=== PATIENT | female | born 1950 | race Caucasian/White ===

== ENCOUNTER 2020-03-06 13:48 | Outpatient (REF) | payer MEDICARE, SELFPAY ==
--- NOTE | 2020-03-06 13:55 | MM_ITS ---
EXAMINATION: MM SCREENING DIGITAL BREAST TOMOSYNTHESIS, BILATERAL CLINICAL INFORMATION: Screening. Asymptomatic. The lifetime risk of breast cancer based on the Tyrer-Cuzick Model is 5%. COMPARISON: Mammography: 03/01/2019, 01/23/2018, 12/27/2016 TECHNIQUE: Digital breast tomosynthesis is performed in both the craniocaudal and mediolateral oblique views along with computer-aided detection (CAD). Synthesized 2D images are generated from the tomosynthesis. FINDINGS: There are scattered areas of fibroglandular density (ACR BI-RADS breast composition Category b). There are no significant masses, abnormal calcifications, or other abnormalities. Parenchymal pattern is similar to prior studies. There is no developing density or interval mass or architectural abnormality. There are dermal lesions again seen overlying the posterior medial right breast and posterior medial left breast. IMPRESSION: No significant changes from prior studies. ASSESSMENT: BI-RADS 2: Benign RECOMMENDATION: Routine annual mammography screening. This patient's information was entered into a reminder system with a target due date for their next mammogram.
--- NOTE | 2020-03-06 13:57 | MM_ITS ---
EXAMINATION: BONE DENSITOMETRY CLINICAL INDICATION: Disorder of bone. COMPARISON: Previous BD dated 09/23/2016 and baseline BD dated 06/22/2011. TECHNIQUE: Using a Mobibeam DXA System (software version: 13.1) manufactured by [employer], dual-energy x-ray absorptiometry was performed of the lumbar spine and left hip. The images are of good technical quality. Summary results are attached. FINDINGS: AP SPINE L1-L4: Current: BMD 1.038 g/cm2, Z-score 0.4, T-score -1.2, osteopenia, 0.8% decrease from previous, 4.1% decrease from baseline (<5% change is not significant). Prior: BMD 1.046 g/cm2. Baseline: BMD 1.082 g/cm2. LEFT FEMUR, NECK: Current: BMD 0.857 g/cm2, Z-score 0.3, T-score -1.3, osteopenia. Prior: BMD 0.846 g/cm2. Baseline: BMD 0.841 g/cm2. LEFT FEMUR, TOTAL: Current: BMD 0.953 g/cm2, Z-score 0.9, T-score -0.4, normal, 3.0% increase from previous, 3.0% increase from baseline (<5% change is not significant). Prior: BMD 0.925 g/cm2. Baseline: BMD 0.925 g/cm2. IDENTIFIED RISK FACTORS: Menopause. HISTORY OF FRACTURE: None listed. MEDICATIONS: Calcium supplements or multivitamin, vitamin D. IMPRESSION: 1. DIAGNOSIS: Osteopenia based the lowest T-score value of -1.3 in the femoral neck applying World Health Organization criteria. 2. 10-YEAR FRACTURE RISK PREDICTION, FRAX: Major osteoporotic fracture (clinical spine, forearm, hip or shoulder) 9.3%. Hip fracture 1.2%. 3. Treatment Recommendations: NOF guidelines recommend consideration for treatment in postmenopausal women and men age 50 and older presenting with the following: -A hip or vertebral (clinical or morphometric) fracture. -T-score less than or equal to -2.5 at the femoral neck or spine after appropriate evaluation to exclude secondary causes. -Low bone mass at the hip or spine and a 10-year fracture probability by FRAX of greater than or equal to 3% for hip fracture or greater than or equal to 20% for major osteoporotic fracture based on the [place] adapted WHO algorithm. 4. Other Recommendations: All treatment decisions require clinical judgment and consideration of individual patient factors, including patient preferences, comorbidities, previous drug use, risk factors not captured in the FRAX model (e.g. frailty, falls, vitamin D deficiency, increased bone turnover, interval significant decline in bone density) and possible under or overestimation of fracture risk by FRAX. Additional medical evaluation for secondary cause of low bone mineral density may be appropriate. FUTURE SCAN RECOMMENDATION: People with diagnosed cases of osteoporosis or at high risk for fracture should have regular bone mineral density tests. For patients eligible for Medicare, routine testing is allowed once every 2 years. The testing frequency can be increased to one year for patients who have rapidly progressing disease, those who are receiving or discontinuing medical therapy to restore bone mass, or have additional risk factors.
== END 2020-03-06 13:49 | disposition home or self-care (01) ==
LOC: HO.MAMMO 13:48
PROVIDERS: Visit Provider Internal Medicine
DX: Z12.31 Encounter for screening mammogram for malignant neoplasm of breast (principal); Z13.820 Encounter for screening for osteoporosis; M89.9 Disorder of bone, unspecified; Z78.0 Asymptomatic menopausal state
CPT/HCPCS: 77063; 77067; 77080; 78014

== ENCOUNTER 2021-01-15 07:23 | Outpatient (REF) | payer MEDICARE, SELFPAY ==
--- NOTE | ~2021-01-15 | XR_ITS ---
EXAMINATION: XR CERVICAL SPINE CLINICAL INFORMATION: Cervicalgia COMPARISON: None TECHNIQUE: 3 views of the cervical spine were obtained. FINDINGS: There are no prevertebral soft tissue or bony abnormalities demonstrated. No compression fractures or subluxations are identified. Alignment is maintained at the atlanto-axial articulation. Mild loss of intervertebral disc space with endplate degenerative changes, particularly at C5-C6 and C7-T1. The prevertebral soft tissues are normal. The foramina are patent. 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
[2021-01-15 11:18] LABS: MANUAL DIFF FLAG NO
[2021-01-15 11:27] LABS: Basophils Absolute Auto 0.1 X10*3/uL (0.0-0.2); Basophils Percent Auto 0.7 % (0-2); Eosinophils Absolute Auto 0.5 X10*3/uL (0.0-0.4); Eosinophils Percent Auto 6.6 % (0-4); Hematocrit 44.2 % (37-47); Hemoglobin 14.6 g/dl (12.0-16.0); Imm Gran Abs Auto 0.01 X10*3/uL (0.00-0.03); Imm Gran Pct Auto 0.1 % (0.0-0.4); Lymphocytes Absolute Auto 3.4 X10*3/uL (1.2-4.9); Lymphocytes Percent Auto 47.1 % (20-40); Mean Corpuscular Hemoglobin 30.5 pg (27.0-33.0); Mean Corpuscular Volume 92.5 fL (80-98); Mean Platelet Volume 9.9 fL (9.4-12.3); Monocytes Absolute Auto 0.7 X10*3/uL (0.1-1.2); Monocytes Percent Auto 9.7 % (2-11); Neutrophils Absolute Auto 2.6 X10*3/uL (2.0-8.3); Neutrophils Percent Auto 35.8 % (45-73); Platelet Count 307 X10*3/uL (160-400); Red Blood Count 4.78 X10*6/uL (4.20-5.50); Red Cell Distribution Width 12.7 % (11.0-16.0); White Blood Count 7.1 X10*3/uL (4.8-10.8)
[2021-01-15 11:54] LABS: Alanine Aminotransferase 24 U/L (0-31); Albumin Level 4.4 g/dL (3.5-5.0); Alkaline Phosphatase 52 U/L (39-117); Anion Gap 16 (12-20); Aspartate Amino Transferase 20 U/L (5-31); Bilirubin Total 0.7 mg/dL (0.0-1.0); Blood Urea Nitrogen 12 mg/dL (9-16); Calcium 9.6 mg/dL (8.4-10.2); Carbon Dioxide 25 mmol/L (22-29); Chloride 105 mmol/L (96-108); Cholesterol 176 mg/dL; Estimated Glomerular Filt Rate > 60; Glucose Random 94 mg/dL (60-115); HDL Cholesterol 45 mg/dL; LDL Cholesterol Calculated 96 mg/dl; Potassium 4.6 mmol/L (3.3-5.1); Sodium 141 mmol/L (135-145); Total Protein 6.9 g/dL (6.5-8.0); Triglycerides 176 mg/dL; Uric Acid 5.6 mg/dL (2.4-5.7)
[2021-01-15 12:06] LABS: Free T4 (Free Thyroxine) 0.84 ng/dL (0.71-1.85); Vitamin D 25-OH Total 44.2 ng/mL (>30)
[2021-01-15 12:15] LABS: Folate > 20.0 ng/mL (> or = 4.0); Vitamin B12 361 pg/mL (200-900)
== END 2021-01-15 07:24 | disposition home or self-care (01) ==
LOC: HO.HMGCX 07:23
PROVIDERS: PCP Internal Medicine; Visit Provider Internal Medicine
DX: E78.00 Pure hypercholesterolemia, unspecified (principal); K21.9 Gastro-esophageal reflux disease without esophagitis; M54.2 Cervicalgia
CPT/HCPCS: 36415; 72040; 80053; 80061; 82306; 82607; 82746; 84439; 84443; 84550; 85025

== ENCOUNTER 2021-01-19 15:33 | Outpatient (REF) | payer MEDICARE, SELFPAY ==
--- NOTE | ~2021-01-19 | US_ITS ---
EXAMINATION: US THYROID CLINICAL INFORMATION: Nontoxic single thyroid nodule. COMPARISON: Ultrasound soft tissue head/neck thyroid dated 10/10/2017 and 10/05/2016. TECHNIQUE: Linear transducer grayscale and color Doppler examination with attention to the region of the thyroid. FINDINGS: SIZE: Measurements of the thyroid lobes and nodules are given in sagittal, anteroposterior and transverse dimensions respectively. Right Thyroid Lobe: 3.9 x 1.2 x 1.3 cm, volume 3.2 mL. Previously 3.9 x 0.9 x 1.2 cm, volume 2.0 mL. Parenchyma: The gland echotexture is homogeneous. Thyroid vascularity is normal. Left Thyroid Lobe: 4.2 x 1.0 x 1.4 cm, volume 3.1 mL. Previously 3.9 x 1.0 x 1.3 cm, volume 2.7 mL. Parenchyma: The gland echotexture is homogeneous. Thyroid vascularity is normal. Isthmus: 0.2 cm in maximum AP dimension. Previously 0.2 cm. No focal thyroid nodule is seen. NODES: Inferior to the right thyroid lobe, a 5 x 4 x 4 mm hyperechoic, circumscribed mass is seen, possibly a lymph node or parathyroid gland. On the ultrasound examination dated 10/10/2017, this measured 4 x 4 by 4 mm. Inferior to the left thyroid lobe, a 7 x 2 x 5 mm hypoechoic, circumscribed mass is seen, possibly a lymph node or parathyroid gland. On the ultrasound examination dated 10/10/2018, this measured 4 x 3 x 4 mm. US/US thyroid IMPRESSION: 1. No thyroid proper nodule is seen. 2. Hyperechoic, circumscribed nodules are again seen inferior to the bilateral thyroid lobes, relatively stable on the right and slightly increased on the left. Again, the possibility of parathyroid glands is raised. If clinically indicated, consider further evaluation with serum calcium and parathormone levels. 3. No goiter or alteration of thyroid echotexture or vascularity is seen. ACR TI-RADS RECOMMENDATION REFERENCE: Ultrasound-guided fine-needle aspiration, followup ultrasound, no further follow up. * TR1 (0 point) and TR 2 (2 points): No FNA or follow up * TR3 (3 points): FNA if more than or equal to 2.5 cm in maximum dimension, followup ultrasound in 1, 3 and 5 years if 1.5 to 2.4 cm in maximum dimension. * TR4 (4-6 points): FNA if more than or equal to 1.5 cm in maximum dimension, followup ultrasound in 1, 2, 3 and 5 years if 1 to 1.4 cm in maximum dimension. * TR5 (more than or equal to 7 points): FNA if more than or equal to 1 cm in maximum dimension, followup ultrasound every year for 5 years if 0.5 to 0.9 cm in maximum dimension. * TR3, TR4 or TR5 nodules that are below the size threshold for follow up receive no follow up.
== END 2021-01-19 15:34 | disposition home or self-care (01) ==
LOC: HO.HMGCX 15:33
PROVIDERS: PCP Internal Medicine; Visit Provider Internal Medicine
DX: E04.1 Nontoxic single thyroid nodule (principal)
CPT/HCPCS: 76536

== ENCOUNTER 2021-03-19 15:00 | Outpatient (RCR) | payer MEDICARE, SELFPAY ==
--- NOTE | 2021-02-18 17:35 | MHC.PT.EP ---
[facility] [place] Office [place] Office [place] Office [address] Swathi Rankin [address] [phone] F: [phone] F: [phone] F: [phone] F: [phone] Physical Therapy Plan of Care Date of Evaluation: Date of Surgery: n/a Diagnosis: Cervicalgia Assessment: Pt is a 70/yo F referred to PT for eval/treat of cervicalgia. s/s are consistent with neck dysfunction resulting in decreased tolerance to perform activities that require to turn her neck toward L and decreased tolerance to perform her morning activities. Functional limitation mentioned above are secondary to postural impairment (forward head and rounded shoulder), decreased neck muscular strength, pain with ROM at end range (L rotation), and pain. pt is deemed appropriate to receive skilled PT to address her physical impairment and improve her functional limitation Frequency and Duration: The patient will be seen 2x/wk for 5 wk Short Term Goals: initiate HEP I w/ evidence of compliance pt will report pain less than 1/10 at rest; initial 2/10. Fpc Goals: pt will report i have no pain at the moment ; initial the pain is moderate at the moment (NDI) pt will report no longer painful with L cervical rotation to end range. Pt will be I with home program. Improve DNF endurance from 10 seconds to > 24 seconds in order to demonstrate improved cervical stability strengthening. Treatment Plan: Modalities to reduce pain, spasms and effusion. Manual therapy to restore motion and function. Therapeutic exercise to improve strength and flexibility. Neuromuscular re-education for posture and balance. Therapeutic activities to return to functional activities of daily living. Electronically signed by: Pablo Elena PT Please sign and return to therapist. Thank you for your referral.
--- NOTE | 2021-03-19 15:26 | MHC.PT.DC ---
[facility] [place] [facility] [place] [facility] [place] [facility] [address] Swathi Rankin [address] [facility] [phone] F: [phone] F: [phone] F: [phone] F: [phone] Physical Therapy Discharge Report Diagnosis: Cervicalgia Date of Surgery: n/a Date of Evaluation: 02/18/21 Date of Discharge: 03/19/21 Treatments to Date: 6 Cancellations to Date: No Shows to Date: Discharge Status: Achieved Goals Improved Function Independent with HEP Discharge Summary: Sushma has been an active participant in her therapy in and out of the clinic; she has met all of her therapeutic goals, is I with her HEP, and in agreement with DC at this time. Electronically signed by: aPblo Elena PT Please sign and return to therapist. Thank you for your referral.
== END 2021-10-05 11:31 | disposition home or self-care (01) ==
LOC: HO.PTCHIC 15:00
PROVIDERS: PCP Internal Medicine; Visit Provider Internal Medicine
DX: M54.2 Cervicalgia (principal)
CPT/HCPCS: 97110; 97140; 97161

== ENCOUNTER 2021-03-26 14:51 | Outpatient (REF) | payer MEDICARE, SELFPAY ==
--- NOTE | ~2021-03-26 | MM_ITS ---
EXAMINATION: MM SCREENING DIGITAL BREAST TOMOSYNTHESIS, BILATERAL CLINICAL INFORMATION: Screening. Asymptomatic. The lifetime risk of breast cancer based on the Tyrer-Cuzick Model is 4.8%. COMPARISON: Mammography: March 06, 2020 and studies dating back to August 28, 2011 TECHNIQUE: Digital breast tomosynthesis is performed in both the craniocaudal and mediolateral oblique views along with computer-aided detection (CAD). Synthesized 2D images are generated from the tomosynthesis. FINDINGS: There are scattered areas of fibroglandular density (ACR BI-RADS breast composition Category b). There are no significant masses, abnormal calcifications, or other abnormalities. MM/MM tomosynthesis screening BI IMPRESSION: There are no significant changes from prior study. ASSESSMENT: BI-RADS 1: Negative RECOMMENDATION: Routine annual mammography screening. This patient's information was entered into a reminder system with a target due date for their next mammogram.
== END 2021-03-26 14:52 | disposition home or self-care (01) ==
LOC: HO.MAMMO 14:51
PROVIDERS: Visit Provider Internal Medicine
DX: Z12.31 Encounter for screening mammogram for malignant neoplasm of breast (principal)
CPT/HCPCS: 77063; 77067

== ENCOUNTER 2022-01-08 06:30 | Outpatient (REF) | payer MEDICARE, SELFPAY ==
[2022-01-08 11:13] LABS: MANUAL DIFF FLAG NO
[2022-01-08 11:19] LABS: Basophils Percent Auto 0.3 % (0-2); Eosinophils Absolute Auto 0.1 X10*3/uL (0.0-0.4); Eosinophils Percent Auto 0.5 % (0-4); Hematocrit 44.6 % (37.0-47.0); Hemoglobin 14.7 g/dl (12.0-16.0); Imm Gran Abs Auto 0.04 X10*3/uL (0.00-0.03); Imm Gran Pct Auto 0.4 % (0.0-0.4); Lymphocytes Absolute Auto 3.5 X10*3/uL (1.2-4.9); Lymphocytes Percent Auto 32.9 % (20-40); Mean Corpuscular Hemoglobin 30.8 pg (27.0-33.0); Mean Corpuscular Volume 93.3 fL (80.0-98.0); Mean Platelet Volume 9.9 fL (9.4-12.3); Monocytes Absolute Auto 0.7 X10*3/uL (0.1-1.2); Monocytes Percent Auto 6.6 % (2-11); Neutrophils Absolute Auto 6.2 x10*3/uL (2.0-8.3); Neutrophils Percent Auto 59.3 % (45-73); Platelet Count 269 X10*3/uL (160-400); Red Blood Count 4.78 X10*6/uL (4.20-5.50); Red Cell Distribution Width 13.5 % (11.0-16.0); White Blood Count 10.5 X10*3/uL (4.8-10.8)
[2022-01-08 11:47] LABS: Alanine Aminotransferase 43 U/L (0-31); Albumin Level 4.4 g/dL (3.5-5.0); Alkaline Phosphatase 49 U/L (39-117); Anion Gap 16 (12-20); Aspartate Amino Transferase 23 U/L (5-31); Bilirubin Total 0.8 mg/dL (0.0-1.0); Blood Urea Nitrogen 16 mg/dL (9-16); Calcium 9.1 mg/dL (8.4-10.2); Carbon Dioxide 25 mmol/L (22-29); Chloride 106 mmol/L (96-108); Cholesterol 192 mg/dL; Estimated Glomerular Filt Rate > 60; Glucose Random 105 mg/dL (60-115); HDL Cholesterol 64 mg/dL; LDL Cholesterol Calculated 110 mg/dl; Sodium 142 mmol/L (135-145); Total Protein 6.8 g/dL (6.5-8.0); Triglycerides 91 mg/dL
[2022-01-08 11:53] LABS: Free T4 (Free Thyroxine) 0.83 ng/dL (0.71-1.85); Thyroid Stimulating Hormone 2.33 uIU/mL (0.32-4.0)
[2022-01-08 12:10] LABS: Folate 19.9 ng/mL (> or = 4.0); Vitamin B12 359 pg/mL (200-900)
[2022-01-11 17:06] LABS: Calcium (PTHI) 9.4 mg/dL (8.6-10.4); PTHI 65 pg/mL (16-77)
== END 2022-01-08 06:31 | disposition home or self-care (01) ==
LOC: HO.HMGCLDS 06:30
PROVIDERS: PCP Internal Medicine; Visit Provider Internal Medicine
DX: E04.1 Nontoxic single thyroid nodule (principal); E78.00 Pure hypercholesterolemia, unspecified; M81.0 Age-related osteoporosis without current pathological fracture
CPT/HCPCS: 36415; 80053; 80061; 82306; 82330; 82607; 82746; 83970; 84439; 84443; 85025

== ENCOUNTER 2022-01-27 12:59 | Outpatient (REF) | payer MEDICARE, SELFPAY ==
--- NOTE | ~2022-01-27 | CT_ITS ---
EXAMINATION: CT HEAD WITHOUT CONTRAST CLINICAL INFORMATION: Headache. COMPARISON: 01/15/2008 TECHNIQUE: Contiguous axial imaging was performed from the skull base to vertex without intravenous contrast. This CT examination was performed using dose optimization techniques as appropriate, variously including the following: * Automated exposure control * Adjustment of mA and/or kV according to patient size (this includes techniques or standardized protocols for targeted exams where dose is matched to indication/reason for exam; i.e. extremities or head) Use of iterative reconstruction technique DLP: 621 mGy-cm. FINDINGS: There is no evidence of acute intracranial hemorrhage or territorial infarction. No abnormal mass effect or midline shift is seen. Sampson to white matter differentiation is well preserved. No extra-axial fluid collections are identified. No hydrocephalus. Proportional prominence of the ventricles and sulcal spaces is consistent with mild volume loss. Patchy periventricular and deep white matter hypoattenuation is consistent with mild small vessel ischemic changes. The osseous structures and soft tissues are normal. The mastoid air cells and visualized portions of the paranasal sinuses are well aerated. CT/CT head/brain wo IV con IMPRESSION: No acute intracranial pathology.
== END 2022-01-27 13:00 | disposition home or self-care (01) ==
LOC: HO.CT 12:59
PROVIDERS: PCP Internal Medicine; Visit Provider Internal Medicine
DX: R51.9 Headache, unspecified (principal)
CPT/HCPCS: 70450

== ENCOUNTER 2022-02-19 08:55 | Outpatient (REF) | payer MEDICARE, SELFPAY ==
--- NOTE | ~2022-02-19 | US_ITS ---
EXAMINATION: US ABDOMEN COMPLETE CLINICAL INFORMATION: Elevated LFTs. COMPARISON: MRI abdomen 10/10/2014. TECHNIQUE: Real-time imaging of the abdominal viscera. FINDINGS: PANCREAS: Not well visualized due to bowel gas. ABDOMINAL AORTA: Not not well visualized due to bowel gas. INFERIOR VENA CAVA: Visualized portions are normal. LIVER: The liver is normal in size. The liver contour is normal. Liver echotexture is increased. No focal hepatic lesion. There is mild intrahepatic biliary duct dilatation seen. GALLBLADDER: Surgically absent. COMMON BILE DUCT: Slightly dilated measuring measuring 1.3 cm in diameter proximally and tapering more distally near the head of the pancreas.. RIGHT KIDNEY: 6 mm echogenic lesion in the lower pole suggestive of an angiomyolipoma. No hydronephrosis or renal calculi. The kidney measures 10.0 cm in maximum dimension. LEFT KIDNEY: Normal. No hydronephrosis. No renal calculi or focal parenchymal lesions. The kidney measures 10.0 cm in maximum dimension. SPLEEN: Normal. The spleen measures 6.5 cm in maximum dimension. FREE FLUID: None. US/US abdomen complete IMPRESSION: Slightly echogenic liver. Mild intra and extrahepatic biliary duct dilatation. The common bile duct measures up to 1.3 cm. Appearance is similar to September 2014 MRI. 6 mm echogenic lesion in the lower pole of the right kidney. 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 No corresponding abnormality is appreciated on previous MRI 2014. Follow-up kidney imaging recommended, either MR or CT. Limited visualization of the pancreas and aorta.
== END 2022-02-19 08:56 | disposition home or self-care (01) ==
LOC: HO.HMGCX 08:55
PROVIDERS: PCP Internal Medicine; Visit Provider Internal Medicine
DX: R79.89 Other specified abnormal findings of blood chemistry (principal)
CPT/HCPCS: 76700

== ENCOUNTER 2022-04-01 14:51 | Outpatient (REF) | payer MEDICARE, SELFPAY ==
--- NOTE | ~2022-04-01 | MM_ITS ---
EXAMINATION: MM SCREENING DIGITAL BREAST TOMOSYNTHESIS, BILATERAL CLINICAL INFORMATION: Screening. Asymptomatic. COMPARISON: Mammography: 03/26/2021, 03/06/2020, 03/01/2019 TECHNIQUE: Digital breast tomosynthesis is performed in both the craniocaudal and mediolateral oblique views along with computer-aided detection (CAD). Synthesized 2D images are generated from the tomosynthesis. FINDINGS: There are scattered areas of fibroglandular density (ACR BI-RADS breast composition Category b). There are no significant masses, abnormal calcifications, or other abnormalities. Parenchymal pattern is similar to prior studies. There is no developing density or architectural abnormality. The axilla are unremarkable. There is low left axillary tail node on MLO view similar to 2019. Dermal lesion again seen overlying posterior medial right breast. No significant changes. MM/MM tomosynthesis screening BI IMPRESSION: No mammographic evidence of malignancy. ASSESSMENT: BI-RADS 2: Benign RECOMMENDATION: Routine annual mammography screening. This patient's information was entered into a reminder system with a target due date for their next mammogram.
== END 2022-04-01 14:52 | disposition home or self-care (01) ==
LOC: HO.MAMMO 14:51
PROVIDERS: PCP Internal Medicine; Visit Provider Internal Medicine
DX: Z12.31 Encounter for screening mammogram for malignant neoplasm of breast (principal)
CPT/HCPCS: 77063; 77067

== ENCOUNTER 2022-06-03 14:17 | Outpatient (REF) | payer SELFPAY | END 2022-06-03 14:18 | disposition home or self-care (01) | LOC: HO.LNP 14:17 | PROVIDERS: Visit Provider Nurse Practitioner Family | DX: Z13.89 Encounter for screening for other disorder (principal) ==

== ENCOUNTER 2022-06-03 14:28 | Outpatient (REF) | payer MEDICARE, SELFPAY ==
[2022-06-03 15:28] LABS: Influenza A PCR NEGATIVE (Negative); Influenza B PCR NEGATIVE (Negative); Resp Syncy Virus RNA Qual PCR NEGATIVE (Negative); SARS COV2 PCR INHOUSE NEGATIVE (Negative)
== END 2022-06-03 14:29 | disposition home or self-care (01) ==
LOC: HO.LNP 14:28
PROVIDERS: Visit Provider Nurse Practitioner Family
DX: Z20.822 Contact with and (suspected) exposure to COVID-19 (principal); R09.89 Other specified symptoms and signs involving the circulatory and respiratory systems
CPT/HCPCS: 0241U

== ENCOUNTER 2022-06-24 08:48 | Outpatient (REF) | payer MEDICARE, SELFPAY ==
--- NOTE | ~2022-06-24 | MR_ITS ---
EXAMINATION: MR ABDOMEN WITHOUT AND WITH CONTRAST CLINICAL INFORMATION: Disorders of the kidney and ureter COMPARISON: Abdominal ultrasound 02/19/2022, MR abdomen 10/10/2014 TECHNIQUE: MRI of the abdomen before and after the IV administration of 7.5 mL of Gadavist was obtained using routine sequences. FINDINGS: LUNG BASES: Trace bilateral pleural effusions. KIDNEYS AND URETERS: Tiny subcentimeter T2 hyperintense right lower pole renal lesion, too small to definitively characterize however likely tiny Bosniak 1 renal cyst. No suspicious solid or enhancing renal mass or other worrisome correlate to the sonographic finding. GALLBLADDER: Status post cholecystectomy. LIVER AND BILIARY TREE: The liver is normal in signal and morphology. No suspicious liver lesion. Common bile duct is dilated to 1.6 cm with trace central intrahepatic biliary duct dilatation status post cholecystectomy, similar to 2015. No intraluminal filling defect suggest choledocholithiasis, although no MRCP sequences were obtained. PANCREAS: Unremarkable SPLEEN: Unremarkable ADRENAL GLANDS: Unremarkable GASTROINTESTINAL TRACT: Small hiatal hernia. Colonic diverticulosis without evidence of diverticulitis. LYMPH NODES: No lymphadenopathy. VASCULAR: Unremarkable ABDOMINAL WALL: Unremarkable. OSSEOUS STRUCTURES: Incidentally noted sacral Tarlov cyst. MR/MR abdomen wo/w con IMPRESSION: Tiny subcentimeter T2 hyperintense right lower pole renal lesion, too small to definitively characterize however likely tiny Bosniak 1 renal cyst. No suspicious solid or enhancing renal mass or other worrisome correlate to the sonographic finding. Trace bilateral pleural effusions. Mild intra and extrahepatic biliary duct dilatation possibly related to the postcholecystectomy state, similar to 2015.
== END 2022-06-24 08:49 | disposition home or self-care (01) ==
LOC: HO.MRI 08:48
PROVIDERS: PCP Internal Medicine; Visit Provider Internal Medicine
DX: N28.89 Other specified disorders of kidney and ureter (principal)
CPT/HCPCS: 74183; A9585

== ENCOUNTER → 2022-07-09 09:52 | Outpatient (REF) | payer MEDICARE, SELFPAY ==
--- NOTE | 2022-07-09 13:11 | ECG_ITS ---
Test Reason : ARRHYTHMIA Blood Pressure : / mmHG Vent. Rate : 072 BPM Atrial Rate : 072 BPM P-R Int : 174 ms QRS Dur : 086 ms QT Int : 378 ms P-R-T Axes : 013 046 058 degrees QTc Int : 413 ms Normal sinus rhythm Normal ECG When compared with ECG of 15-JAN-2008 11:36, No significant change was found Referred By: Cande Finnegan Electronically Signed By:JONO WESLEY MD
== END ==
LOC: HO.CARD 09:52
PROVIDERS: PCP Internal Medicine; Visit Provider Nurse Practitioner Family
DX: R51.9 Headache, unspecified (principal); I49.9 Cardiac arrhythmia, unspecified; I10 Essential (primary) hypertension; M54.2 Cervicalgia; R03.0 Elevated blood-pressure reading, without diagnosis of hypertension; Z79.899 Other long term (current) drug therapy
CPT/HCPCS: 93005; 99202

== ENCOUNTER 2022-07-15 13:06 | Outpatient (REF) | payer MEDICARE, SELFPAY ==
--- NOTE | ~2022-07-15 | XR_ITS ---
EXAMINATION: XR CERVICAL SPINE CLINICAL INFORMATION: Neck pain. COMPARISON: 01/15/2021. TECHNIQUE: 6 views of the cervical spine, inclusive of flexion and extension views, were obtained. FINDINGS: There is approximately 2 mm posterior subluxation of C5 on C6, stable in flexion, neutral, and extension, not significantly changed compared with 01/15/2021. Mild disc space narrowing is seen at this level. Mild bilateral neuroforaminal narrowing appears present at this level as well. The study is otherwise essentially unremarkable. The vertebral alignment otherwise appears unremarkable. No intrinsic bony abnormality. The disc heights and neural foramina otherwise appear well maintained. The endplates and posterior elements appear unremarkable. No fracture appreciated. The surrounding prevertebral soft tissues appear unremarkable. XR/XR cervical spine w flex/ext IMPRESSION: Degenerative change at C5-C6.
== END 2022-07-15 13:07 | disposition home or self-care (01) ==
LOC: HO.HMGCX 13:06
PROVIDERS: PCP Internal Medicine; Visit Provider Nurse Practitioner Family
DX: M54.2 Cervicalgia (principal); R51.9 Headache, unspecified
CPT/HCPCS: 72052

== ENCOUNTER 2022-07-20 06:24 | Emergency (ER) | payer MEDICARE, SELFPAY ==
[2022-07-20 06:31] VITALS: BP 200/89; PULSE 80; RESP 18; TEMP 37; O2SAT 94; BMI 25.0
--- NOTE | 2022-07-20 06:35 | PC.NURSE ---
elevated bp, left ankle swelling receintly, headache
--- NOTE | 2022-07-20 06:38 | ED.CHESTPAIN ---
HPI - Chest Pain General Chief Complaint: Chest Pain Stated Complaint: Palpitations Time Seen by Provider: 07/20/22 06:38 Source: patient Mode of arrival: ambulatory Limitations: no limitations History of Present Illness HPI narrative: headaches for weeks, now with heart fluttering on and off. The patient is complaining mostly of headaches. Patient states the headaches have been going on for months. Patient denies and visual changes and no fever. Patient had a CT for her headaches. MD complaint: other (Palpitations lasting for minutes.) Onset (ago): month(s) Timing of current episode: episodic Prior episodes: Yes Risk Factors Coronary artery disease risk factors: none Related Data Home Medications Medication Instructions Recorded Confirmed ascorbate calcium (vitamin C) 500 600 mg PO DAILY 05/08/20 07/09/22 mg tablet aspirin 81 mg tablet,delayed 81 mg PO DAILY 05/08/20 07/09/22 release cod liver oil 1 cap PO TID 05/08/20 07/09/22 multivitamin with iron (Daily 1 tab PO DAILY 05/08/20 07/09/22 Vitamin with Iron tablet) cetirizine 10 mg tablet 10 mg PO DAILY PRN 01/15/22 07/09/22 ferrous sulfate 325 mg (65 mg 325 mg PO DAILY 07/09/22 07/09/22 iron) tablet (Melvi-Time) Previous Rx's Medication Instructions Recorded fluticasone propionate 50 1 spray intranasal DAILY #3 ea 11/02/21 mcg/actuation nasal spray,suspension simvastatin 20 mg tablet 20 mg PO BEDTIME 90 days #90 tabs 01/18/22 furosemide 20 mg tablet 20 mg PO Q OTHER DAY #3 tabs 03/20/22 gabapentin 100 mg capsule 100 - 300 mg PO BEDTIME 30 days 07/09/22 #90 caps atenolol 50 mg tablet 50 mg PO DAILY #30 tabs 07/20/22 Allergies Allergy/AdvReac Type Severity Reaction Status Date / Time atorvastatin [Lipitor] Allergy Unknown cramps Verified 07/09/22 10:02 Review of Systems Review of Systems: Yes all other systems are reviewed and are negative Cardiovascular: Cardiovascular: Reports other (palpitations) Neurologic: Denies Sensory deficit (Neuro) Comments: headache PMFSH Past Medical History Medical History Anemia GERD (gastroesophageal reflux disease) Gout Hypercholesterolemia Numbness in feet Osteoporosis Thyroid nodule Surgical History History of cholecystectomy Family History Family History (Updated 07/09/22 @ 10:08 by MADELAINE Medrano) Father Diabetes Heart attack Mother Heart attack Asthma Emphysema lung Non-Hodgkin lymphoma CHF (congestive heart failure) Brother Cancer Sister Diabetes Ulcerative colitis Social History Social History Housing: House Alcohol intake: never Patient Tobacco Use Status: Never used Tobacco Smoked in Last 30 Days: No e-Cigarette/Vaping Use: Never Used Second Hand Smoke Exposure: No Use of substances other than those prescribed or required for medical reasons: No Advance Directives: No Advance Directives Information Provided: Yes service: No Current occupational status: retired Current occupational exposures/hazards: No Cognitive needs: No Hearing needs: No Vision needs: No Physical Exam Vital Signs: Vital Signs: Last Vital Signs Temp 98.6 F 07/20/22 06:31 Pulse 66 07/20/22 09:21 Resp 18 07/20/22 09:21 BP 146/66 H 07/20/22 09:21 Pulse Ox 97 07/20/22 07:21 O2 Del Method 07/20/22 07:21 BMI result Body Mass Index 25.0 Const: General: healthy appearing Nutritional Appearance: average body habitus Orientation/consciousness: oriented to person and patient oriented x3 Limitations: no limitations HEENT: Head: Yes normal to inspection Ears: external ears normal General nose exam: Normal external nose present Mouth: Normal oral and palatal mucosa present and oropharynx normal Throat: Yes posterior oropharynx normal Eyes: General: appearance normal, both eyes and all related structures Neck: Other: supple Neck: Yes normal visual inspection Chest: Chest palpation & inspection: normal inspection of the chest Resp: Auscultation: clear to auscultation bilaterally Cardio: Jugular venous distension: no JVD Rate: regular rate Rhythm: regular rhythm Heart sounds: S1 normal heart sound present and S2 normal heart sound present GI: Inspection: Yes normal to inspection Palpation (GI): Soft to palpation, nontender and No hepatosplenomegaly present Auscultation: normal bowel sounds : General: Yes no CVA tenderness Back/Spine/Pelvis: Back: no CVA tenderness Skin: General skin exam: no rashes or lesions noted Neuro: General: oriented to person and patient oriented x3 Cranial nerves: Yes CN's II-XII intact bilaterally Motor exam (neuro): 5/5 motor strength present throughout Sensory Exam: No Sensory deficit (Neuro) Extrem: Other: 1+ edema bilaterally Psych: Appearance: grossly normal Course Reevaluation(s) Reevaluation #1: Blood pressure improved, headache improved Time: 11:07 Medications Administered Discontinued Medications Generic Name Dose Route Start Last Admin Trade Name Hilaria PRN Reason Stop Dose Admin Metoprolol Tartrate 50 mg 07/20/22 07:53 07/20/22 08:26 Metoprolol Tartrate 50 Mg Tablet PO 07/20/22 07:54 50 mg ONCE ONE Administration Protocol Medical Decision Making Differential Diagnosis Differential Diagnoses: The differential diagnosis associated with the presentation includes (hypertensive urgency, chf, acute coronary ischemia, renal failure were all considered) Admission/Observation Consideration of admission/observation: Escalation of care including admission/observation considered (In a 72 yo female with BP 200/100 admission was considered) Lab Data MDM Lab Attestation statement: I reviewed the patient's lab results. 07/20/22 07:19 07/20/22 07:54 Labs: Lab Results 07/20/22 07/20/22 07/20/22 Range/Units 07:19 07:19 07:54 WBC 7.7 (4.8-10.8) X10*3/uL RBC 4.84 (4.20-5.50) X10*6/uL Hgb 14.7 (12.0-16.0) g/dl Hct 43.2 (37.0-47.0) % MCV 89.3 (80.0-98.0) fL MCH 30.4 (27.0-33.0) pg MCHC 34.0 (31.0-35.0) g/dl RDW 12.8 (11.0-16.0) % Plt Count 281 (160-400) X10*3/uL MPV 9.3 L (9.4-12.3) fL Immature Gran % (Auto) 0.1 (0.0-0.4) % Neut % (Auto) 51.6 (45-73) % Lymph % (Auto) 34.7 (20-40) % Woods % (Auto) 10.2 (2-11) % Eos % (Auto) 2.8 (0-4) % Baso % (Auto) 0.6 (0-2) % Lymph # (Auto) 2.7 (1.2-4.9) X10*3/uL Woods # (Auto) 0.8 (0.1-1.2) X10*3/uL Eos # (Auto) 0.2 (0.0-0.4) X10*3/uL Baso # (Auto) 0.1 (0.0-0.2) X10*3/uL Abs Immat Gran (auto) 0.01 (0.00-0.03) X10*3/uL Absolute Neuts (auto) 4.0 (2.0-8.3) x10*3/uL Absolute Nucleated RBC 0.000 (0.0-0.012) X10*3/uL Nucleated RBC % (auto) 0.0 (0.0-0.2) /100WBC Sodium 144 (135-145) mmol/L Potassium 4.4 (3.3-5.1) mmol/L Chloride 110 H (96-108) mmol/L Carbon Dioxide 23 (22-29) mmol/L Anion Gap 15 (12-20) BUN 15 (9-16) mg/dL Creatinine 0.68 (0.5-1.4) mg/dL Estim Creat Clear Calc 72.7 Estimated GFR > 60 Random Glucose 106 (60-115) mg/dL Calcium 9.6 (8.4-10.2) mg/dL Total Bilirubin 0.7 (0.0-1.0) mg/dL AST 23 (5-31) U/L ALT 32 H (0-31) U/L Alkaline Phosphatase 51 (39-117) U/L Troponin I High Sens < 3.5 (<3.5-17.0) ng/L Total Protein 6.7 (6.5-8.0) g/dL Albumin 4.3 (3.5-5.0) g/dL Urine Color Urine Appearance Urine pH (5.0-9.0) Ur Specific [place] (1.005-1.025) Urine Protein (Neg-Trace) mg/dL Urine Glucose (UA) (Negative) mg/dL Urine Ketones (Negative) mg/dL Urine Blood (Negative) Urine Nitrite (Negative) Ur Leukocyte Esterase (Negative) Urine RBC (0-2) /HPF Urine WBC (0-5) /HPF Ur Squamous Epith Cells (0-2) /HPF Urine Bacteria (None Seen) Hyaline Casts (0-2) /LPF 07/20/22 Range/Units 07:54 WBC (4.8-10.8) X10*3/uL RBC (4.20-5.50) X10*6/uL Hgb (12.0-16.0) g/dl Hct (37.0-47.0) % MCV (80.0-98.0) fL MCH (27.0-33.0) pg MCHC (31.0-35.0) g/dl RDW (11.0-16.0) % Plt Count (160-400) X10*3/uL MPV (9.4-12.3) fL Immature Gran % (Auto) (0.0-0.4) % Neut % (Auto) (45-73) % Lymph % (Auto) (20-40) % Woods % (Auto) (2-11) % Eos % (Auto) (0-4) % Baso % (Auto) (0-2) % Lymph # (Auto) (1.2-4.9) X10*3/uL Woods # (Auto) (0.1-1.2) X10*3/uL Eos # (Auto) (0.0-0.4) X10*3/uL Baso # (Auto) (0.0-0.2) X10*3/uL Abs Immat Gran (auto) (0.00-0.03) X10*3/uL Absolute Neuts (auto) (2.0-8.3) x10*3/uL Absolute Nucleated RBC (0.0-0.012) X10*3/uL Nucleated RBC % (auto) (0.0-0.2) /100WBC Sodium (135-145) mmol/L Potassium (3.3-5.1) mmol/L Chloride (96-108) mmol/L Carbon Dioxide (22-29) mmol/L Anion Gap (12-20) BUN (9-16) mg/dL Creatinine (0.5-1.4) mg/dL Estim Creat Clear Calc Estimated GFR Random Glucose (60-115) mg/dL Calcium (8.4-10.2) mg/dL Total Bilirubin (0.0-1.0) mg/dL AST (5-31) U/L ALT (0-31) U/L Alkaline Phosphatase (39-117) U/L Troponin I High Sens (<3.5-17.0) ng/L Total Protein (6.5-8.0) g/dL Albumin (3.5-5.0) g/dL Urine Color Yellow Urine Appearance Clear Urine pH 7.5 (5.0-9.0) Ur Specific [place] 1.015 (1.005-1.025) Urine Protein Negative (Neg-Trace) mg/dL Urine Glucose (UA) Negative (Negative) mg/dL Urine Ketones Negative (Negative) mg/dL Urine Blood Negative (Negative) Urine Nitrite Negative (Negative) Ur Leukocyte Esterase Trace H (Negative) Urine RBC 0-2 (0-2) /HPF Urine WBC 0-5 (0-5) /HPF Ur Squamous Epith Cells 0-2 (0-2) /HPF Urine Bacteria None Seen (None Seen) Hyaline Casts 0-2 (0-2) /LPF Independent Interpretation I performed an independent interpretation of an: EKG (normal sinus 80, no st or twave changes) Tests considered The following testing was considered but not selected: Ct of head was considered but patient non focal and went away with control of BP Chronic Conditions Patient?s care impacted by: Hypertension Discharge Plan Discharge Clinical Impression: Hypertension Patient Disposition: Home, Self-Care Instructions: Hypertension (ED) Prescriptions: New atenolol 50 mg tablet 50 mg PO DAILY Qty: 30 0RF No Action fluticasone propionate 50 mcg/actuation spray,suspension 1 spray intranasal DAILY Qty: 3 3RF simvastatin 20 mg tablet 20 mg PO BEDTIME 90 Days Qty: 90 3RF aspirin 81 mg tablet,delayed release (DR/EC) 81 mg PO DAILY multivitamin with iron [Daily Vitamin with Iron] Tablet 1 tab PO DAILY ascorbate calcium (vitamin C) 500 mg tablet 600 mg PO DAILY cod liver oil Capsule 1 cap PO TID cetirizine 10 mg tablet 10 mg PO DAILY PRN furosemide 20 mg tablet 20 mg PO Q OTHER DAY Qty: 3 0RF Rx Instructions: 1 tablet every other day prn for lower leg swelling ferrous sulfate [Melvi-Time] 325 mg (65 mg iron) tablet 325 mg PO DAILY gabapentin 100 mg capsule 100 - 300 mg PO BEDTIME 30 Days Qty: 90 3RF Referrals: Barrington,Robby Lane MD [Primary Care Provider] - 5 days
[2022-07-20 07:21] VITALS: BP 154/82; PULSE 71; RESP 18; O2SAT 97
[2022-07-20 07:24] LABS: MANUAL DIFF FLAG NO
--- NOTE | 2022-07-20 07:25 | PC.NURSE ---
Addendum entered by Bridgette Guan 07/20/22 09:17: correction 154/82 Original Note: pt alert and oriented, skin pwd, respirations even and unlabored. pt reports having a headache for a couple of weeks, with nausea and feels like her heart is racing, no noise or light sensitivity no vision disturbances, all neuro intact at this time.. pt also reports that she has bad a few elevated bp in the 170's while at the doctors office but not on any hypertensive medications. ns on the monitor at 60's, bp improved since the arrival at 154/89.
[2022-07-20 07:26] LABS: Basophils Absolute Auto 0.1 X10*3/uL (0.0-0.2); Basophils Percent Auto 0.6 % (0-2); Eosinophils Absolute Auto 0.2 X10*3/uL (0.0-0.4); Eosinophils Percent Auto 2.8 % (0-4); Hematocrit 43.2 % (37.0-47.0); Hemoglobin 14.7 g/dl (12.0-16.0); Imm Gran Abs Auto 0.01 X10*3/uL (0.00-0.03); Imm Gran Pct Auto 0.1 % (0.0-0.4); Lymphocytes Absolute Auto 2.7 X10*3/uL (1.2-4.9); Lymphocytes Percent Auto 34.7 % (20-40); Mean Corpuscular Hemoglobin 30.4 pg (27.0-33.0); Mean Corpuscular Volume 89.3 fL (80.0-98.0); Mean Platelet Volume 9.3 fL (9.4-12.3); Monocytes Absolute Auto 0.8 X10*3/uL (0.1-1.2); Monocytes Percent Auto 10.2 % (2-11); Neutrophils Percent Auto 51.6 % (45-73); Platelet Count 281 X10*3/uL (160-400); Red Blood Count 4.84 X10*6/uL (4.20-5.50); Red Cell Distribution Width 12.8 % (11.0-16.0); White Blood Count 7.7 X10*3/uL (4.8-10.8)
[2022-07-20 07:46] LABS: Troponin-I High Sensitivity < 3.5 ng/L (<3.5-17.0)
[2022-07-20 08:07] LABS: Appearance Urine Clear; Color Urine Yellow; Glucose Urine UA Negative (Negative); Leukocyte Esterase Urine Trace (Negative); Nitrite Urine Negative (Negative); PH 7.5 (5.0-9.0); Specific Gravity - Urine 1.015 (1.005-1.025); UMIC TRIGGER UACC YES; Urine Blood Negative (Negative); Urine Ketones Negative (Negative); Urine Protein Negative (Neg-Trace)
[2022-07-20 08:11] LABS: Bacteria Urine None Seen (None Seen); Hyaline Casts Urine 0-2 /LPF (0-2); RBC Urine 0-2 /HPF (0-2); Squamous Epithelial Cell Urine 0-2 /HPF (0-2); WBC Urine 0-5 /HPF (0-5)
[2022-07-20 08:15] LABS: Alanine Aminotransferase 32 U/L (0-31); Albumin Level 4.3 g/dL (3.5-5.0); Alkaline Phosphatase 51 U/L (39-117); Anion Gap 15 (12-20); Aspartate Amino Transferase 23 U/L (5-31); Bilirubin Total 0.7 mg/dL (0.0-1.0); Blood Urea Nitrogen 15 mg/dL (9-16); Calcium 9.6 mg/dL (8.4-10.2); Carbon Dioxide 23 mmol/L (22-29); Chloride 110 mmol/L (96-108); Creatinine Clr Calc Pharmacy 72.7; Estimated Glomerular Filt Rate > 60; Glucose Random 106 mg/dL (60-115); Potassium 4.4 mmol/L (3.3-5.1); Sodium 144 mmol/L (135-145); Total Protein 6.7 g/dL (6.5-8.0)
[2022-07-20] MEDS: Metoprolol Tartrate 50 MG TABLET PO (08:26)
[2022-07-20 08:27] VITALS: BP 139/78; PULSE 67
[2022-07-20 09:21] VITALS: BP 146/66; PULSE 66; RESP 18
[2022-07-20 11:22] VITALS: BP 138/76; PULSE 57; RESP 18
--- NOTE | 2022-07-20 15:27 | ECG_ITS ---
Test Reason : CHEST PAIN Blood Pressure : / mmHG Vent. Rate : 082 BPM Atrial Rate : 082 BPM P-R Int : 184 ms QRS Dur : 086 ms QT Int : 378 ms P-R-T Axes : 053 040 055 degrees QTc Int : 441 ms Sinus rhythm with Premature atrial complexes Nonspecific ST abnormality Abnormal ECG When compared with ECG of 09-JUL-2022 13:23, Premature atrial complexes are now Present Referred By: Gian Salazar Electronically Signed By:KIEL MCDUFFIE
== END 2022-07-20 11:23 | disposition home or self-care (01) ==
PROVIDERS: Emergency Provider Emergency Medicine; PCP Internal Medicine
DX: I10 Essential (primary) hypertension (principal); R51.9 Headache, unspecified; E78.00 Pure hypercholesterolemia, unspecified; Z79.899 Other long term (current) drug therapy; Z79.02 Long term (current) use of antithrombotics/antiplatelets
CPT/HCPCS: 36415; 80053; 81001; 81003; 84484; 85025; 93005; 99283; 99285

== ENCOUNTER 2022-07-26 19:52 | Emergency (ER) | payer MEDICARE, SELFPAY ==
--- NOTE | ~2022-07-26 | CT_ITS ---
EXAMINATION: CT head/brain wo IV con CLINICAL INFORMATION: Reason for Exam headache COMPARISON: CT head without contrast 01/27/2022 TECHNIQUE: Contiguous axial imaging was performed from the skull base to vertex without intravenous contrast. Sagittal and coronal reformatted images were obtained. This CT examination was performed using dose optimization techniques as appropriate, variously including the following: * Automated exposure control * Adjustment of mA and/or kV according to patient size (this includes techniques or standardized protocols for targeted exams where dose is matched to indication/reason for exam; i.e. extremities or head) Use of iterative reconstruction technique DLP: 542 mGy-cm FINDINGS: No acute osseous or soft tissue abnormality. Small osteoma along the outer table of the right parietal calvarium. The mastoid air cells and visualized portions of the paranasal sinuses are well aerated. There is no evidence of acute intracranial hemorrhage or territorial infarction. No abnormal mass effect or midline shift is seen. Sampson to white matter differentiation is well preserved. No extra-axial fluid collections are identified. No hydrocephalus. No significant volume loss. Patchy periventricular and deep white matter hypoattenuation is consistent with mild small vessel ischemic changes. CT/CT head/brain wo IV con IMPRESSION: No acute intracranial abnormality including hemorrhage, mass effect, hydrocephalus, or acute territorial edematous infarction.
[2022-07-26 20:00] VITALS: BP 184/87; PULSE 70; O2SAT 97
[2022-07-26 21:11] VITALS: BP 174/72; PULSE 77; RESP 16; TEMP 36.8; O2SAT 95; BMI 25.8
--- NOTE | 2022-07-26 23:00 | ED.GENADULT ---
HPI - General Adult General Chief complaint: General Medical Stated complaint: headache Time Seen by Provider: 07/26/22 22:59 Source: patient Mode of arrival: ambulatory Limitations: no limitations History of Present Illness HPI narrative: Patient history of complex migraine been having occipital headache for last few weeks followed by neurologist who started her on rimegepant and plan to see her in next few days comes here as she noticed her blood pressure slightly elevated and still have the headache on arrival blood pressure was 160/[address] scan of the head done prior to my evaluation which was negative headache is mostly localized in occipital area 10/06 no fever no chills Related Data Home Medications Medication Instructions Recorded Confirmed ascorbate calcium (vitamin C) 500 600 mg PO DAILY 05/08/20 07/09/22 mg tablet aspirin 81 mg tablet,delayed 81 mg PO DAILY 05/08/20 07/09/22 release cod liver oil 1 cap PO TID 05/08/20 07/09/22 multivitamin with iron (Daily 1 tab PO DAILY 05/08/20 07/09/22 Vitamin with Iron tablet) cetirizine 10 mg tablet 10 mg PO DAILY PRN 01/15/22 07/09/22 ferrous sulfate 325 mg (65 mg 325 mg PO DAILY 07/09/22 07/09/22 iron) tablet (Melvi-Time) Previous Rx's Medication Instructions Recorded fluticasone propionate 50 1 spray intranasal DAILY #3 ea 11/02/21 mcg/actuation nasal spray,suspension simvastatin 20 mg tablet 20 mg PO BEDTIME 90 days #90 tabs 01/18/22 blood pressure monitor (Blood #1 ea 07/23/22 Pressure Kit) metoprolol succinate 25 mg 25 mg PO DAILY #30 tabs 07/23/22 tablet,extended release 24 hr rimegepant 75 mg disintegrating 75 mg PO .COMPLEX PRN migraine 07/26/22 tablet (Nurtec ODT) headache 32 days #16 tabs Allergies Allergy/AdvReac Type Severity Reaction Status Date / Time atorvastatin [Lipitor] Allergy Unknown cramps Verified 07/23/22 10:53 Review of Systems Review of Systems: Yes all other systems are reviewed and are negative PMFSH Past Medical History Medical History Anemia GERD (gastroesophageal reflux disease) Gout Hypercholesterolemia Numbness in feet Osteoporosis Thyroid nodule Surgical History History of cholecystectomy Family History Family History Father Diabetes Heart attack Mother Heart attack Asthma Emphysema lung Non-Hodgkin lymphoma CHF (congestive heart failure) Brother Cancer Sister Diabetes Ulcerative colitis Social History Social History Housing: House Alcohol intake: never Patient Tobacco Use Status: Never used Tobacco e-Cigarette/Vaping Use: Never Used Second Hand Smoke Exposure: No Advance Directives: No service: No Current occupational status: retired Current occupational exposures/hazards: No Cognitive needs: No Hearing needs: No Vision needs: No Physical Exam ED Vital Signs: Vital Signs - 24 hr 07/26/22 21:11 07/27/22 00:15 Temperature 98.2 F Pulse Rate 77 79 Respiratory Rate 16 16 Blood Pressure 174/72 H 158/75 H Pulse Oximetry 95 96 Oxygen Delivery Method Room Air Room Air BMI result Body Mass Index 25.8 Appearance: Alert. Oriented X3. No acute distress. Eyes: PERRLA, No Nystagmus ENT: Pharynx normal. Oral Mucosa moist Neck: Normal inspection. Neck supple. CVS: Normal heart rate and rhythm. Pulses normal. Respiratory: No respiratory distress. Equal air entry bilateral, no wheezing/rales/rhonchi Abdomen: Soft and nontender. Bowel sounds are present, no mass palpable, no CVA tenderness Skin: Skin warm and dry. Normal skin color. Normal skin turgor. Extremities: No lower extremity edema. No calf tenderness Neuro: Oriented X 3. No motor deficit. No sensory deficit.No cerebellar signs , cranial nerves II-XII intact Medications Administered Discontinued Medications Generic Name Dose Route Start Last Admin Trade Name Freq PRN Reason Stop Dose Admin Acetaminophen/Butalbital/Caffeine 1 tab 07/26/22 23:11 07/27/22 00:28 Butalb/Acetamin/Caff 50/325/40 Tablet PO 07/26/22 23:12 1 tab ONCE ONE Administration Sumatriptan Succinate 6 mg 07/26/22 23:13 07/27/22 00:10 Sumatriptan Succinate 6 Mg/0.5 Ml Vial SUBCUT 07/26/22 23:14 6 mg ONCE ONE Administration Medical Decision Making Medical Decision Making [facility] Narrative: Patient's CT is negative clinically has complex migraine give her Imitrex and Fioricet, patient responded to Imitrex felt much better discharge patient home Discharge Plan Discharge Clinical Impression: Migraine without aura Patient Disposition: Home, Self-Care Instructions: Migraine Headache (ED) Additional Instructions: Take medication as prescribed by your neurologist Prescriptions: No Action fluticasone propionate 50 mcg/actuation spray,suspension 1 spray intranasal DAILY Qty: 3 3RF simvastatin 20 mg tablet 20 mg PO BEDTIME 90 Days Qty: 90 3RF Nurtec ODT 75 mg tablet,disintegrating 75 mg PO .COMPLEX PRN (Reason: migraine headache) 32 Days Qty: 16 3RF Rx Instructions: 75 mg orally daily PRN; aspirin 81 mg tablet,delayed release (DR/EC) 81 mg PO DAILY multivitamin with iron [Daily Vitamin with Iron] Tablet 1 tab PO DAILY ascorbate calcium (vitamin C) 500 mg tablet 600 mg PO DAILY cod liver oil Capsule 1 cap PO TID cetirizine 10 mg tablet 10 mg PO DAILY PRN (DME) blood pressure monitor [Blood Pressure Kit] Kit See Rx Instructions .ROUTE .MEDSUPPLY Qty: 1 0RF Rx Instructions: As directed metoprolol succinate 25 mg tablet extended release 24 hr 25 mg PO DAILY Qty: 30 0RF ferrous sulfate [Melvi-Time] 325 mg (65 mg iron) tablet 325 mg PO DAILY Interventions: ED Discharge Assessment Last Done: 07/27/22 01:10 Discharge Date/Time: 07/27/22 00:10
[2022-07-27] MEDS: SUMAtriptan succinate 6 MG/0.5 ML VIAL SUBCUT (00:10)
[2022-07-27 00:15] VITALS: BP 158/75; PULSE 79; RESP 16; O2SAT 96
[2022-07-27] MEDS: Butalb/Acetamin/Caff 50/325/40 TABLET 1 TAB PO (00:28)
== END 2022-07-27 00:10 | disposition home or self-care (01) ==
PROVIDERS: Emergency Provider Internal Medicine; PCP Internal Medicine
DX: G43.909 Migraine, unspecified, not intractable, without status migrainosus (principal); I10 Essential (primary) hypertension; E78.00 Pure hypercholesterolemia, unspecified; Z79.02 Long term (current) use of antithrombotics/antiplatelets; Z79.899 Other long term (current) drug therapy
CPT/HCPCS: 70450; 96372; 99283; 99284; J3030

== ENCOUNTER → 2022-08-20 11:24 | Outpatient (REF) | payer MEDICARE, SELFPAY ==
--- NOTE | 2022-08-20 11:27 | HM_ITS ---
Conclusion: 1. Patient was monitored for total period of 1 day 2. Baseline was normal sinus rhythm with average heart of 60 beats per minute 3. No significant pauses noted 4. Frequent sinus bradycardia with 47% of time heart rate below 60 beats per minute 5. Total of 14,007 5 PACs accounting for 17.5% total beats account for frequent PACs with 1 5 beat run of SVT at 115 beats per minute 6. Patient reported 4 events that correlated with PACs MTDD
== END ==
LOC: HO.CARD 11:24
PROVIDERS: PCP Internal Medicine; Visit Provider Nurse Practitioner Family
DX: I10 Essential (primary) hypertension (principal); I49.8 Other specified cardiac arrhythmias
CPT/HCPCS: 93225

== ENCOUNTER → 2022-08-24 14:37 | Outpatient (BNVA) | payer MEDICARE, SELFPAY | PROVIDERS: PCP Internal Medicine; Visit Provider Nurse Practitioner Family | DX: G43.009 Migraine without aura, not intractable, without status migrainosus (principal); R00.2 Palpitations | CPT/HCPCS: 99212 ==

== ENCOUNTER 2022-08-28 05:32 | Emergency (ER) | payer MEDICARE, SELFPAY ==
--- NOTE | ~2022-08-28 | CT_ITS ---
EXAMINATION: CT HEAD WITHOUT CONTRAST CLINICAL INFORMATION: Headaches. Dizziness. Palpitations. COMPARISON: Head CT 08/23 2022 TECHNIQUE: Contiguous axial imaging was performed from the skull base to vertex without intravenous administration of contrast. This CT examination was performed using dose optimization techniques as appropriate, variously including the following: *Automated exposure control *Adjustment of mA and/or kV according to patient size (this includes techniques or standardized protocols for targeted exams where dose is matched to indication/reason for exam; i.e. extremities or head) *Use of iterative reconstruction technique DLP: 544 mGy-cm FINDINGS: There is no evidence of acute intracranial hemorrhage or territorial infarction. No abnormal mass effect or midline shift is appreciated. Sampson-white differentiation is well preserved. No extra-axial fluid collections. The ventricular system and cortical sulci are normal in size. There are subtle areas of low density in the periventricular and subcortical white matter, most consistent with sequelae of microvascular ischemic change. The osseous structures and soft tissues are normal. The visualized paranasal sinuses and mastoid air cells are well aerated. CT/CT head/brain wo IV con IMPRESSION: Mild chronic microvascular ischemic changes with no CT evidence of acute intracranial abnormality.
[2022-08-28 05:45] VITALS: BP 167/69; PULSE 61; RESP 13; TEMP 36.9; O2SAT 99; BMI 24.2
--- NOTE | 2022-08-28 05:48 | PC.NURSE ---
c/o palpitations, nausea and dizziness h/o of high bp and high cholesterol per provider stopped metoprolol due to causing HR to run too low
[2022-08-28 06:04] LABS: Basophils Absolute Auto 0.1 X10*3/uL (0.0-0.2); Basophils Percent Auto 0.6 % (0-2); Eosinophils Absolute Auto 0.2 X10*3/uL (0.0-0.4); Eosinophils Percent Auto 1.9 % (0-4); Hematocrit 43.9 % (37.0-47.0); Imm Gran Abs Auto 0.03 X10*3/uL (0.00-0.03); Imm Gran Pct Auto 0.4 % (0.0-0.4); Lymphocytes Absolute Auto 3.3 X10*3/uL (1.2-4.9); Lymphocytes Percent Auto 39.1 % (20-40); MANUAL DIFF FLAG NO; Mean Corpuscular HGB Conc 34.2 g/dl (31.0-35.0); Mean Corpuscular Hemoglobin 30.4 pg (27.0-33.0); Mean Platelet Volume 9.5 fL (9.4-12.3); Monocytes Absolute Auto 0.8 X10*3/uL (0.1-1.2); Monocytes Percent Auto 9.6 % (2-11); Neutrophils Absolute Auto 4.1 x10*3/uL (2.0-8.3); Neutrophils Percent Auto 48.4 % (45-73); Platelet Count 257 X10*3/uL (160-400); Red Blood Count 4.93 X10*6/uL (4.20-5.50); Red Cell Distribution Width 12.7 % (11.0-16.0); White Blood Count 8.4 X10*3/uL (4.8-10.8)
[2022-08-28 06:18] LABS: Anion Gap 16 (12-20); Blood Urea Nitrogen 9 mg/dL (9-16); Calcium 9.5 mg/dL (8.4-10.2); Carbon Dioxide 24 mmol/L (22-29); Chloride 107 mmol/L (96-108); Estimated Glomerular Filt Rate > 60; Glucose Random 119 mg/dL (60-115); Potassium 4.7 mmol/L (3.3-5.1); Sodium 142 mmol/L (135-145)
[2022-08-28 06:23] LABS: Troponin-I High Sensitivity < 3.5 ng/L (<3.5-17.0)
--- NOTE | 2022-08-28 07:05 | ED.ARRPALP ---
HPI - Arrhythmia/Palpitations General Chief Complaint: Arrhythmia/Palpitations Stated Complaint: Palpitations/Nausea Time Seen by Provider: 08/28/22 06:59 Source: patient Mode of arrival: ambulatory Limitations: no limitations History of Present Illness HPI narrative: c/o palpitations states that she was taken off metoprolol by PCP on and started on lisinopril,she is also c/o PETTIT and nausea. MD complaint: heart racing Onset (ago): day(s) (2) Duration: constant Severity: moderate Context: occurred during rest Associated symptoms: denies other symptoms Related Data Home Medications Medication Instructions Recorded Confirmed ascorbate calcium (vitamin C) 500 600 mg PO DAILY 05/08/20 08/26/22 mg tablet aspirin 81 mg tablet,delayed 81 mg PO DAILY 05/08/20 08/26/22 release cod liver oil 1 cap PO TID 05/08/20 08/26/22 multivitamin with iron (Daily 1 tab PO DAILY 05/08/20 08/26/22 Vitamin with Iron tablet) cetirizine 10 mg tablet 10 mg PO DAILY PRN 01/15/22 08/26/22 ferrous sulfate 325 mg (65 mg 325 mg PO DAILY 07/09/22 08/26/22 iron) tablet (Melvi-Time) lisinopril 5 mg tablet 10 mg PO DAILY 08/26/22 08/26/22 Previous Rx's Medication Instructions Recorded fluticasone propionate 50 1 spray intranasal DAILY #3 ea 11/02/21 mcg/actuation nasal spray,suspension simvastatin 20 mg tablet 20 mg PO BEDTIME 90 days #90 tabs 01/18/22 blood pressure monitor (Blood #1 ea 07/23/22 Pressure Kit) citalopram 10 mg tablet (Celexa) 10 mg PO DAILY #30 tabs 08/05/22 rimegepant 75 mg disintegrating 75 mg PO .COMPLEX PRN migraine 08/24/22 tablet (Nurtec ODT) headache 32 days #16 tabs ondansetron 4 mg disintegrating 4 mg PO Q8H 4 days #12 tabs 08/28/22 tablet Allergies Allergy/AdvReac Type Severity Reaction Status Date / Time atorvastatin [Lipitor] Allergy Unknown cramps Verified 08/26/22 15:30 Review of Systems ENT: Reports system reviewed and no additional complaints, except as documented Cardiovascular: Cardiovascular: Reports no additional cardiovascular complaints Respiratory: Respiratory: Reports no additional respiratory complaints Musculoskeletal: Musculoskeletal: Reports no additional musculoskeletal complaints Endocrine: Endocrine: Reports no additional endocrine complaints [facility] Past Medical History [facility] Narrative: HTN,Migraine headache Medical History Anemia Elevated blood pressure reading GERD (gastroesophageal reflux disease) Gout Hypercholesterolemia Numbness in feet Osteoporosis Thyroid nodule Surgical History History of cholecystectomy Family History Family History Father Diabetes Heart attack Mother Heart attack Asthma Emphysema lung Non-Hodgkin lymphoma CHF (congestive heart failure) Brother Cancer Sister Diabetes Ulcerative colitis Social History Social History Housing: House Alcohol intake: never Patient Tobacco Use Status: Never used Tobacco Smoked in Last 30 Days: No e-Cigarette/Vaping Use: Never Used Second Hand Smoke Exposure: No Use of substances other than those prescribed or required for medical reasons: No Advance Directives: Yes Advance Directives Information Provided: Yes Advance Directives on File: No service: No Current occupational status: retired Current occupational exposures/hazards: No Cognitive needs: No Hearing needs: No Vision needs: No Physical Exam Vital Signs: Vital Signs: Last Vital Signs Temp 98.4 F 08/28/22 05:45 Pulse 61 08/28/22 05:45 Resp 13 08/28/22 05:45 BP 167/69 H 08/28/22 05:45 Pulse Ox 99 08/28/22 05:45 O2 Del Method Room Air 08/28/22 05:45 BMI result Body Mass Index 24.2 Const: General: cooperative Nutritional Appearance: well nourished Orientation/consciousness: patient oriented x3 HEENT: Head: Yes normal to inspection General nose exam: Normal external nose present Face and sinus: Yes normal facial exam Mouth: Normal oral and palatal mucosa present Throat: Yes posterior oropharynx normal Neck: Neck: Yes full ROM Chest: Chest palpation & inspection: normal inspection of the chest Resp: Effort & Inspection: normal respiratory effort Auscultation: clear to auscultation bilaterally Cardio: Jugular venous distension: no JVD Rate: regular rate Rhythm: regular rhythm GI: Inspection: Yes normal to inspection Palpation (GI): Soft to palpation, not firm, nontender and no guarding Percussion: Yes normal to percussion Auscultation: abnormal bowel sounds Skin: General skin exam: no rashes or lesions noted and elasticity normal Lesions: no lesions Rashes: no rashes Neuro: General: patient oriented x3 Course Reevaluation(s) Reevaluation #1: I re-examined the patient a 09:10 she is feeling much better headache is gone nausea is gone, she was monitored for about 4 hours no arrhythmia seen in the monitor, she can follow-up with primary care physician. Time: 09:15 Medications Administered Discontinued Medications Generic Name Dose Route Start Last Admin Trade Name Freq PRN Reason Stop Dose Admin Metoclopramide HCl 10 mg 08/28/22 07:04 08/28/22 07:16 Metoclopramide Hcl 10 Mg/2 Ml Vial IVPUSH 08/28/22 07:05 10 mg ONCE ONE Administration Medical Decision Making Medical Decision Making [facility] Narrative: Patient presented with nausea headache and palpitation get EKG labs imaging and reassess Differential Diagnosis Differential Diagnoses: The differential diagnosis associated with the presentation includes Atrial fibrillation/flutter/SVT/Alexandrea Lab Data 08/28/22 05:59 08/28/22 05:59 Labs: Lab Results 08/28/22 08/28/22 08/28/22 Range/Units 05:59 05:59 05:59 WBC 8.4 (4.8-10.8) X10*3/uL RBC 4.93 (4.20-5.50) X10*6/uL Hgb 15.0 (12.0-16.0) g/dl Hct 43.9 (37.0-47.0) % MCV 89.0 (80.0-98.0) fL MCH 30.4 (27.0-33.0) pg MCHC 34.2 (31.0-35.0) g/dl RDW 12.7 (11.0-16.0) % Plt Count 257 (160-400) X10*3/uL MPV 9.5 (9.4-12.3) fL Immature Gran % (Auto) 0.4 (0.0-0.4) % Neut % (Auto) 48.4 (45-73) % Lymph % (Auto) 39.1 (20-40) % [place] % (Auto) 9.6 (2-11) % Eos % (Auto) 1.9 (0-4) % Baso % (Auto) 0.6 (0-2) % Lymph # (Auto) 3.3 (1.2-4.9) X10*3/uL [place] # (Auto) 0.8 (0.1-1.2) X10*3/uL Eos # (Auto) 0.2 (0.0-0.4) X10*3/uL Baso # (Auto) 0.1 (0.0-0.2) X10*3/uL Abs Immat Gran (auto) 0.03 (0.00-0.03) X10*3/uL Absolute Neuts (auto) 4.1 (2.0-8.3) x10*3/uL Absolute Nucleated RBC 0.000 (0.0-0.012) X10*3/uL Nucleated RBC % (auto) 0.0 (0.0-0.2) /100WBC Sodium 142 (135-145) mmol/L Potassium 4.7 (3.3-5.1) mmol/L Chloride 107 (96-108) mmol/L Carbon Dioxide 24 (22-29) mmol/L Anion Gap 16 (12-20) BUN 9 (9-16) mg/dL Creatinine 0.71 (0.5-1.4) mg/dL Estim Creat Clear Calc 67.0 Estimated GFR > 60 Random Glucose 119 H (60-115) mg/dL Calcium 9.5 (8.4-10.2) mg/dL Troponin I High Sens < 3.5 (<3.5-17.0) ng/L Independent Interpretation I performed an independent interpretation of an: EKG Interpretation: Normal sinus rhythm rate 67 she has PACs in the monitor no ischemia normal intervals Discharge Plan Discharge Clinical Impression: Heart palpitations, Headache, Hypertension Patient Disposition: Home, Self-Care Instructions: Heart Palpitations (ED), Acute Headache (ED), Chronic Hypertension (ED) Additional Instructions: Follow-up with your primary care physician on Tuesday, return to the emergency room if you worse any concern. Prescriptions: New ondansetron 4 mg tablet,disintegrating 4 mg PO Q8H 4 Days Qty: 12 0RF No Action fluticasone propionate 50 mcg/actuation spray,suspension 1 spray intranasal DAILY Qty: 3 3RF simvastatin 20 mg tablet 20 mg PO BEDTIME 90 Days Qty: 90 3RF aspirin 81 mg tablet,delayed release (DR/EC) 81 mg PO DAILY multivitamin with iron [Daily Vitamin with Iron] Tablet 1 tab PO DAILY ascorbate calcium (vitamin C) 500 mg tablet 600 mg PO DAILY cod liver oil Capsule 1 cap PO TID cetirizine 10 mg tablet 10 mg PO DAILY PRN (DME) blood pressure monitor [Blood Pressure Kit] Kit See Rx Instructions .ROUTE .MEDSUPPLY Qty: 1 0RF Rx Instructions: As directed lisinopril 5 mg tablet 10 mg PO DAILY citalopram [Celexa] 10 mg tablet 10 mg PO DAILY Qty: 30 2RF ferrous sulfate [Melvi-Time] 325 mg (65 mg iron) tablet 325 mg PO DAILY Nurtec ODT 75 mg tablet,disintegrating 75 mg PO .COMPLEX PRN (Reason: migraine headache) 32 Days Qty: 16 3RF Rx Instructions: 75 mg orally daily PRN; Referrals: Po,Robby Lane MD [Primary Care Provider] - 2 days
[2022-08-28] MEDS: Metoclopramide HCl 10 MG/2 ML VIAL IVPUSH (07:16)
--- NOTE | 2022-08-28 08:52 | ECG_ITS ---
Test Reason : PALPATATIONS Blood Pressure : / mmHG Vent. Rate : 067 BPM Atrial Rate : 067 BPM P-R Int : 160 ms QRS Dur : 084 ms QT Int : 386 ms P-R-T Axes : 000 033 060 degrees QTc Int : 407 ms Sinus rhythm with Premature atrial complexes in a pattern of bigeminy Otherwise normal ECG When compared with ECG of 20-JUL-2022 06:31, No significant change was found Referred By: Sridhar Mcdonnell Electronically Signed By:Chris Thayer
[2022-08-28] MEDS: ondansetron HCL 4 MG/2 ML VIAL IVPUSH (09:40)
== END 2022-08-28 10:00 | disposition home or self-care (01) ==
PROVIDERS: Emergency Provider Emergency Medicine; PCP Internal Medicine
DX: R00.2 Palpitations (principal); R51.9 Headache, unspecified; I10 Essential (primary) hypertension; R11.0 Nausea; E78.00 Pure hypercholesterolemia, unspecified; Z79.82 Long term (current) use of aspirin; Z79.899 Other long term (current) drug therapy; Z79.02 Long term (current) use of antithrombotics/antiplatelets
CPT/HCPCS: 36415; 70450; 80048; 84484; 85025; 93005; 96374; 96375; 99284; J2405; J2765

== ENCOUNTER → 2022-09-30 13:49 | Outpatient (REF) | payer MEDICARE, SELFPAY | LOC: HO.SL 13:49 | PROVIDERS: PCP Internal Medicine; Visit Provider Internal Medicine | DX: G47.10 Hypersomnia, unspecified (principal); R06.83 Snoring | CPT/HCPCS: 95806 ==

== ENCOUNTER 2022-10-14 14:00 | Outpatient (RCR) | payer MEDICARE, SELFPAY ==
--- NOTE | 2022-07-23 14:52 | MHC.PT.EP ---
[facility] [place] [facility] [place] [facility] [place] Office [address] Swathi Rankin [address] [phone] F: [phone] F: [phone] F: [phone] F: [phone] Physical Therapy Plan of Care Date of Evaluation: Date of Surgery: n/a Diagnosis: cervicalgia, headache Assessment: Patient is a 72 year old female presenting to PT with complaints of pain in her neck with headaches. Pt reports onset of pain began August 2021 due to insidious onset. She presents today with impairments in pain, posture, DNF strength. Pt's current occupation is retired, with baseline physical activities including ADLs, line dancing, exercising at the gym. 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 Clinical presentation today is most consistent with signs and sx associated with headaches and neck pain with possible myofascial component and pt will benefit from skilled PT 2 week x 4 weeks to address the following problems and impairments noted upon evaluation: pain, posture, DNF strength. These problems limit the patient with the following functional activities: ADLs, line dancing, exercising at the gym. The prescribed treatment plan of care is medically necessary. Co-morbidities of osteoporosis, HTN were identified and taken into considerations of plan of care. Pt was educated on HEP, role of PT, prognosis, POC. Frequency and Duration: The patient will be seen 2 x week x 4 weeks Short Term Goals: Pt will demonstrate headaches improving to become intermittent rather than constant in 2 weeks. Pt will demonstrate ability to perform chin tuck with good DNF recruitment in 2 weeks. Pt will demonstrate improved postural awareness by sitting with biomechanically correct posture without cues throughout session to improve overall postural function in 2 weeks. Shelter Goals: Pt will demonstrate improved NDI score by 10% in 4 weeks for improved functional mobility. Pt will demonstrate ability to complete ADLs with min to no pain or headaches in 4 weeks for return to PLOF. Pt will demonstrate ability to return to line dancing with minimal headaches/pain in 4 weeks for return to PLOF. Treatment Plan: Modalities to reduce pain, spasms and effusion. Manual therapy to restore motion and function. Therapeutic exercise to improve strength and flexibility. Neuromuscular re-education for posture and balance. Therapeutic activities to return to functional activities of daily living. Electronically signed by: Dora Riley, PT, DPT, ATC Please sign and return to therapist. Thank you for your referral.
--- NOTE | 2022-11-02 13:11 | MHC.PT.DC ---
[facility] [place] Office [place] Office [place] [facility] [address] [phone] F: [phone] F: [phone] F: [phone] F: [phone] Physical Therapy Discharge Report Diagnosis: cervicalgia, headache Date of Surgery: n/a Date of Evaluation: 07/23/22 Date of Discharge: 11/02/22 Treatments to Date: 9 Cancellations to Date: 10 No Shows to Date: 0 Discharge Status: Patient Elected to Stop Discharge Summary: Pt called and self d/c. States she is going to chiropractor. Electronically signed by: Dora Riley, PT, DPT, ATC Please sign and return to therapist. Thank you for your referral.
== END 2022-11-02 13:11 | disposition home or self-care (01) ==
LOC: HO.PTCHIC 14:00
PROVIDERS: PCP Internal Medicine; Visit Provider Nurse Practitioner Family
DX: M54.2 Cervicalgia (principal); R51.9 Headache, unspecified
CPT/HCPCS: 97110; 97140; 97161

== ENCOUNTER 2023-01-07 06:38 | Outpatient (REF) | payer MEDICARE, SELFPAY ==
[2023-01-07 11:32] LABS: MANUAL DIFF FLAG NO
[2023-01-07 11:47] LABS: Basophils Absolute Auto 0.1 X10*3/uL (0.0-0.2); Basophils Percent Auto 0.6 % (0-2); Eosinophils Absolute Auto 0.4 X10*3/uL (0.0-0.4); Eosinophils Percent Auto 4.7 % (0-4); Hematocrit 43.7 % (37.0-47.0); Hemoglobin 14.5 g/dl (12.0-16.0); Imm Gran Abs Auto 0.01 X10*3/uL (0.00-0.03); Imm Gran Pct Auto 0.1 % (0.0-0.4); Lymphocytes Absolute Auto 2.9 X10*3/uL (1.2-4.9); Lymphocytes Percent Auto 36.2 % (20-40); Mean Corpuscular HGB Conc 33.2 g/dl (31.0-35.0); Mean Corpuscular Hemoglobin 30.5 pg (27.0-33.0); Mean Corpuscular Volume 91.8 fL (80.0-98.0); Mean Platelet Volume 10.1 fL (9.4-12.3); Monocytes Absolute Auto 0.7 X10*3/uL (0.1-1.2); Monocytes Percent Auto 9.2 % (2-11); Neutrophils Absolute Auto 3.9 x10*3/uL (2.0-8.3); Neutrophils Percent Auto 49.2 % (45-73); Platelet Count 291 X10*3/uL (160-400); Red Blood Count 4.76 X10*6/uL (4.20-5.50); Red Cell Distribution Width 12.5 % (11.0-16.0); White Blood Count 7.9 X10*3/uL (4.8-10.8)
[2023-01-07 12:10] LABS: Estimated Average Glucose 111 mg/dL; Hemoglobin A1c % 5.5 %
[2023-01-07 12:22] LABS: Erythrocyte Sedimentation Rate 6 MM/HR (0-20)
[2023-01-07 12:53] LABS: Folate 15.1 ng/mL (> or = 4.0); Vitamin B12 479 pg/mL (200-900)
[2023-01-07 13:08] LABS: Alanine Aminotransferase 20 U/L (0-31); Albumin Level 4.1 g/dL (3.5-5.0); Alkaline Phosphatase 55 U/L (39-117); Anion Gap 14 (12-20); Aspartate Amino Transferase 17 U/L (5-31); Blood Urea Nitrogen 13 mg/dL (9-16); C Reactive Protein 0.17 mg/dL (< or = 0.50); Calcium 9.8 mg/dL (8.4-10.2); Carbon Dioxide 25 mmol/L (22-29); Chloride 107 mmol/L (96-108); Cholesterol 155 mg/dL; Estimated Glomerular Filt Rate > 60; Glucose Random 96 mg/dL (60-115); HDL Cholesterol 46 mg/dL; LDL Cholesterol Calculated 75 mg/dl; Magnesium 2.3 mg/dL (1.6-2.6); Potassium 4.5 mmol/L (3.3-5.1); Sodium 141 mmol/L (135-145); Total Protein 6.8 g/dL (6.5-8.0); Triglycerides 171 mg/dL
[2023-01-07 13:20] LABS: Free T4 (Free Thyroxine) 0.75 ng/dL (0.71-1.85); Thyroid Stimulating Hormone 1.93 uIU/mL (0.32-4.0)
[2023-01-07 13:32] LABS: Bilirubin Total 0.5 mg/dL (0.0-1.0)
[2023-01-11 03:43] LABS: Lyme Abs Screen <0.90 index
== END 2023-01-07 06:39 | disposition home or self-care (01) ==
LOC: HO.HMGCLDS 06:38
PROVIDERS: PCP Internal Medicine; Visit Provider Internal Medicine
DX: I10 Essential (primary) hypertension (principal); E78.00 Pure hypercholesterolemia, unspecified; R73.01 Impaired fasting glucose; M85.80 Other specified disorders of bone density and structure, unspecified site
CPT/HCPCS: 36415; 80053; 80061; 82306; 82607; 82746; 83036; 83735; 84439; 84443; 85025; 85652; 86140; 86617; 86618

== ENCOUNTER 2023-01-28 13:11 | Outpatient (AMB) | payer MEDICARE, SELFPAY ==
[2023-01-28 13:30] VITALS: BP 148/82; PULSE 75; O2SAT 98; BMI 23.4
--- NOTE | 2023-01-28 13:30 | A.OFFPC_ITS ---
Vital Signs 01/28/23 13:30 Height 5 ft 6 in Weight 145 lb BMI 23.4 BP 148/82 H Blood Pressure Location Lt brachial Position Sitting Pulse 75 Pulse Source Pulse Oximeter Pulse Oximetry (%) 98 Oxygen Delivery Method Room Air Intake Visit Reasons: PE Allergies atorvastatin [Lipitor] Allergy (Unknown, Verified 01/28/23 13:30) cramps lisinopril Adverse Reaction (Intermediate, Verified 01/28/23 13:30) Dizziness Medication List - Last Reconciled 01/28/23 by Robby Ferris MD ascorbate calcium (vitamin C) 600 mg PO DAILY aspirin 81 mg PO DAILY blood pressure monitor (Blood Pressure Kit) As directed cetirizine 10 mg PO DAILY PRN citalopram (Celexa) 10 mg PO DAILY cod liver oil 1 cap PO DAILY ferrous sulfate (Melvi-Time) 325 mg PO DAILY fluticasone propionate 50 mcg/actuation 1 spray intranasal DAILY multivitamin with iron (Daily Vitamin with Iron tablet) 1 tab PO DAILY rosuvastatin 5 mg PO DAILY verapamil ER 240 mg PO DAILY Tobacco use date assessed: 10/11/22 Fall risk assessment: No Falls in past year Last assessed Fall Risk: 01/28/23 Dental Screening Dental Screen Date: 01/28/23 Did you have a dental visit in the last 12 months?: Yes Did you have a dental problem in the last 6 months where you did not have access to dental care?: No Was dental information given to patient?: Patient has dentist HPI PE HPI Details 72-year-old female with hypertension GERD and generalized anxiety disorder last seen in October 2022 having right trapezius muscle strain and sent for physical therapy. Patient is here for physical exam. Colonoscopy due mammogram up-to-date bone density due. Patient is here for physical exam. nausea epigastric pain. BP good at home [facility] Medical History (Updated 01/28/23 @ 14:04 by Robby Ferris MD) Anemia Arrhythmia Cervicalgia Elevated blood pressure reading GERD (gastroesophageal reflux disease) Gout Headache Hypercholesterolemia Hypersomnia LFT elevation Numbness in feet Osteoporosis Other specified cardiac arrhythmias Palpitations Pleural effusion Thyroid nodule Surgical History History of cholecystectomy Family History Father Diabetes Heart attack Mother Heart attack Asthma Emphysema lung Non-Hodgkin lymphoma CHF (congestive heart failure) Brother Cancer Sister Diabetes Ulcerative colitis Social History Housing: House Alcohol intake: never Patient Tobacco Use Status: Never used Tobacco e-Cigarette/Vaping Use: Never Used Second Hand Smoke Exposure: No service: No Current occupational status: retired Current occupational exposures/hazards: No Cognitive needs: No Hearing needs: No Vision needs: No Questionnaire PHQ-9 Over the last 2 weeks, how often have you been bothered by any of the following problems? 1. Little interest or pleasure in doing things: not at all 2. Feeling down, depressed, or hopeless: not at all 3. Trouble falling or staying asleep, or sleeping too much: not at all 4. Feeling tired or having little energy: several days 5. Poor appetite or overeating: more than half the days 6. Feeling bad about yourself - or that you are a failure or have let yourself or your family down: several days 7. Trouble concentrating on things, such as reading the newspaper or watching television: not at all 8. Moving or speaking so slowly that other people could have noticed. Or the opposite - being so fidgety or restless that you have been moving around a lot more than usual: not at all 9. Thoughts that you would be better off or of hurting yourself in some way: not at all Total score: 4 Depression Screening Interpretation: Positive Source: Developed by Drs. Caleb Fan, Marcelino Vazquez and colleagues, with an educational radha from [employer]. Thrive Questionnaire Date Thrive assessed: 08/26/22 AUDIT C Alcohol Use Questionnaire (AUDIT-C) 1. How often do you have a drink containing alcohol?: Never 3. How often do you have six or more drinks on one occasion?: Never Total Score: 0 BENOIT-7 AMB Questionnaire BENOIT-7 Date BENOIT - 7 assessed: 08/26/22 Source: Developed by Drs. Caleb Fan, Marcelino Vazquez and colleagues, with an educational radha from [employer]. Review of Systems Const Denies poor appetite and Denies weakness Eyes Denies no additional complaints ENT Reports Normal hearing present, Denies dizziness, Denies nasal congestion, Denies tinnitus and Denies sore throat Card Denies chest pain, Denies syncope, Denies rapid heart rate and Denies dyspnea Resp Denies cough and Denies dyspnea GI Denies change in stool character, Reports constipation, Denies diarrhea, Denies nausea and Denies vomiting Denies urinary frequency, Denies difficulty voiding and Denies dysuria Neuro Reports Normal hearing present, Denies confusion, Denies dizziness, Denies syncope and Denies weakness Psych Denies confusion Physical exam (Primary Care) Vital Signs: Oxygen Delivery Method Room Air 01/28/23 13:30 Care Plan Goal for BP management: Tender on the occipital area going to the trapezius area. Tobacco/Smoking Status: Tobacco use Status Tobacco use date assessed 10/11/22 11/09/22 16:52 Patient Tobacco Use Status Never used Tobacco 11/09/22 16:52 e-Cigarette/Vaping Use Never Used 11/09/22 16:52 Depression Screening Interpretation: Positive Thrive Assessment: Date of Thrive Assessment Date Thrive assessed 08/26/22 11/09/22 16:52 Const General: No confusion Orientation/consciousness: No confusion HENMT Head: Yes normocephalic Ears: external ears normal and TM's normal bilaterally Face and sinus: Yes normal facial exam Mouth: moist mucous membranes Throat: Yes tonsils normal Eyes Conjunctivae: conjunctivae normal Pupils: Equal, round and reactive pupils present and Pupil accommodation reflex normal Direct Ophthalmoscopy: normal light reflex Neck Neck: No lymphadenopathy Thyroid: Thyroid normal Chest Chest palpation & inspection: normal inspection of the chest Resp Effort & Inspection: normal respiratory effort and no audible wheezes Auscultation: clear to auscultation bilaterally, no crackles, no wheezes and lung sounds not diminished Cardio Rate: regular rate Rhythm: regular rhythm Peripheral pulses: radial pulses present and dorsalis pedis present GI Palpation (GI): no masses Auscultation: normal bowel sounds and normoactive bowel sounds Rectal Exam - Female: deferred Skin General skin exam: no rashes or lesions noted Rashes: no rashes Neuro General: No confusion Cranial nerves: Yes Equal, round and reactive pupils present and Yes Normal hearing present Cognition (Neuro): normal cognition Gait exam (Neuro): Normal gait present Motor exam (neuro): 5/5 motor strength present throughout Deep tendon reflexes (DTR's): Right brachioradialis reflex intensity grade: 2+, Left brachioradialis reflex intensity grade: 2+, Right patellar reflex intensity grade: 2+ and Left patellar reflex intensity grade: 2+ Extrem General: No edema Assessment and Plan Assessment & Plan (1) Annual physical exam: Code(s): Z00.00 - Encounter for general adult medical examination without abnormal findings (2) Hypercholesterolemia: Code(s): E78.00 - Pure hypercholesterolemia, unspecified Plan: Avoid fried foods, chicken skin, eggs, butter margarine, pastries and meat. Be it pork or beef they have a lot of cholesterol LDL goal of less than 130 and triglyceride of less than 150. Patient is on rosuvastatin 5 mg once a day (3) GERD (gastroesophageal reflux disease): Code(s): K21.9 - Gastro-esophageal reflux disease without esophagitis Plan: Avoid the foods that causes that usually spicy foods, tomato products, juices, coffee, soda and foods that your sensitive to. After eating do not lie down, allow 3-4 hours before in lie down. And keep the head of bed above 30 degrees to avoid the acid from going up. (4) Impaired fasting blood sugar: Code(s): R73.01 - Impaired fasting glucose Plan: Decrease the amount of carbohydrate intake, pasta, bread, rice and potatoes are all sugar and that is aside from all the sweet stuff, remember that fruits are good but they are Sweet also. (5) Hypertension: Code(s): I10 - Essential (primary) hypertension Plan: Continue with blood pressure medication. Decrease salt intake and exercise patient is on verapamil 240 mg once a day (6) Generalized anxiety disorder: Code(s): F41.1 - Generalized anxiety disorder Plan: Continue with citalopram 10 mg once a day (7) Osteopenia: Code(s): M85.80 - Other specified disorders of bone density and structure, unspecified site (8) Colon cancer screening: Code(s): Z12.11 - Encounter for screening for malignant neoplasm of colon (9) Headache: Comment: ? cervicogenic, ? migraine Code(s): R51.9 - Headache, unspecified Plan: Patient is given anti-inflammatory just to help with pain and for her to try it with food. Orders: Orders XR DEXA axial skeleton Today M81.0 - Age-related osteoporosis without current pathological fracture, M85.80 - Other specified disorders of bone density and structure, unspecified site Referrals Gastroenterology Referral Z12.11 - Encounter for screening for malignant neoplasm of colon Medications: New omeprazole 20 mg PO DAILY 30 caps 0RF K21.9 - Gastro-esophageal reflux disease without esophagitis meloxicam 7.5 mg PO DAILY 14 tabs 0RF R51.9 - Headache, unspecified Coding Level of Care Code Est Pt Prev Care >65y(74960) Diagnoses Annual physical exam Z00.00 Hypercholesterolemia E78.00 GERD (gastroesophageal reflux disease) K21.9 Impaired fasting blood sugar R73.01 Hypertension I10 Generalized anxiety disorder F41.1 Osteopenia M85.80 Colon cancer screening Z12.11 Headache R51.9
== END 2023-01-28 14:09 | disposition home or self-care (01) ==
PROVIDERS: PCP Internal Medicine; Visit Provider Internal Medicine
DX: Z00.00 Encounter for general adult medical examination without abnormal findings (principal); K21.9 Gastro-esophageal reflux disease without esophagitis; I10 Essential (primary) hypertension; E78.00 Pure hypercholesterolemia, unspecified; R73.01 Impaired fasting glucose; F41.1 Generalized anxiety disorder; M85.80 Other specified disorders of bone density and structure, unspecified site; R51.9 Headache, unspecified
CPT/HCPCS: 99397

== ENCOUNTER 2023-02-25 14:14 | Outpatient (AMB) | payer MEDICARE, SELFPAY ==
--- NOTE | 2023-02-25 14:18 | A.OFFVIS_ITS ---
Intake Vital Signs 02/25/23 14:19 Height 5 ft 6 in Weight 147 lb 4 oz BMI 23.8 BP 148/90 H Blood Pressure Location Rt brachial Position Sitting Pulse 72 Intake Visit Reasons: follow up Confirmed Intake Note: Patient presents for follow up. patient states it's been hell since June with my headaches part of it i know what it is. Allergies atorvastatin [Lipitor] Allergy (Unknown, Verified 02/25/23 14:21) cramps lisinopril Adverse Reaction (Intermediate, Verified 02/25/23 14:21) Dizziness Medication List - Last Reconciled 02/25/23 by VIPUL Alcantara ascorbate calcium (vitamin C) 600 mg PO DAILY aspirin 81 mg PO DAILY blood pressure monitor (Blood Pressure Kit) As directed cetirizine 10 mg PO DAILY PRN citalopram (Celexa) 10 mg PO DAILY cod liver oil 1 cap PO DAILY ferrous sulfate (Melvi-Time) 325 mg PO DAILY fluticasone propionate 50 mcg/actuation 1 spray intranasal DAILY meloxicam 7.5 mg PO DAILY multivitamin with iron (Daily Vitamin with Iron tablet) 1 tab PO DAILY omeprazole 20 mg PO DAILY rosuvastatin 5 mg PO DAILY verapamil ER 240 mg PO DAILY HPI HPI Comments History of Present Illness Details 72-yr-old female presents for f/u visit. She had been having GERD s/s. Dr Ferris had given her omeprazole, but she did not tolerate this. Her chiropractor suggested she take digestive enzymes which seem to be helping. In regards to her headaches and neck pain, pt reports she is slowly doing better. She now belives the neck pain is triggering headaches and elevated BP at x's. She is still having daily pressure/tightness headache but they are less intense. Usually does not wake up with headache but comes on shortly afterwards. Neck tension still tends to trigger headaches. She has been noticing feeling a bit off-balance when she is standing with her eyes closed. She has some mild LE paresthesias and swelling. Her chiropractic and massage tx is helping. She continues on Verapamil, her BP is better controlled recently. SBP now usually 125-135 w/ DBP 60-70s, but SBP can be higher at times. With the increased dose of Verapamil she is having some ankle swelling- so she is elevating her legs at night. She did try Meloxicam x's 2 weeks, but this did not help. Now taking a CBD lotion to her shoulders and a natural muscle relaxer (valerian root, passiflora, mag carbonate). Nurtec and Ubrelvy were not helpful. REPLACED BY [facility] Medical History (Updated 02/27/23 @ 17:44 by VIPUL Alcantara) Cervicalgia Hypersomnia Palpitations Other specified cardiac arrhythmias Pleural effusion Arrhythmia Elevated blood pressure reading Headache LFT elevation Numbness in feet Gout Anemia Osteoporosis Thyroid nodule GERD (gastroesophageal reflux disease) Hypercholesterolemia Surgical History History of cholecystectomy Family History Father Diabetes Heart attack Mother Heart attack Asthma Emphysema lung Non-Hodgkin lymphoma CHF (congestive heart failure) Brother Cancer Sister Diabetes Ulcerative colitis Social History Housing: House Alcohol intake: never Patient Tobacco Use Status: Never used Tobacco e-Cigarette/Vaping Use: Never Used Second Hand Smoke Exposure: No service: No Current occupational status: retired Current occupational exposures/hazards: No Cognitive needs: No Hearing needs: No Vision needs: No Review of Systems Const All systems reviewed & are unremarkable except as noted in HPI and below Physical Exam Vital Signs: Last Vital Signs Pulse 72 02/25/23 14:19 BP 148/90 H 02/25/23 14:19 BMI result Body Mass Index 23.8 Const General: cooperative and no acute distress Orientation/consciousness: patient oriented x3 HEENT Head: Yes normocephalic Resp Effort & Inspection: normal respiratory effort and able to speak in complete sentences Neuro General: patient oriented x3, gait normal and CN's II-XI intact bilaterally Cognition (Neuro): normal cognition Motor exam (neuro): 5/5 motor strength present throughout Psych Appearance: grossly normal Mental Status: mental status grossly normal Speech and movement: Normal speech and movement present Affect: normal affect Attitude: cooperative Thought process: Normal thought process present Thought content: Normal thought content present Insight: Good insight present (Psych) Judgement: Good judgement present (Psych) Assessment & Plan Assessment & Plan (1) Migraine without aura: Code(s): G43.009 - Migraine without aura, not intractable, without status migrainosus (2) Headache: Comment: ? cervicogenic, ? migraine Code(s): R51.9 - Headache, unspecified Plan Monitor sense of off-balance w/ eyes closed- ? if worsened d/t LE swelling. For acute headache treatment: Trial Nerivio neuromodulation 45 min tx qd prn. Previous acute migraine medication trials: Sumatriptan 25mg- ineffective. Nurtec- ineffective. Acute migraine medication contraindications: Triptans at this time d/t elevated BP. Future considerations: triptans once BP is at goal. ? For headache prevention medication: Trial Nerivio neuromodulation 45 min tx qod Continue Verapamil Er 240mg qd- may decrease if BP becomes more consistently normotensive. Continue chiropractic and massge tx. Previous migraine prevention medication trials: None Migraine prevention medication contraindications: TCAs d/t pt currently having s ymptomatic frequent PACs. Future considerations: Gabapentin 100-300mg qhs- stopped, not tolerated. Nerivio- form signed. ? f/u in 4 months or sooner prn. Coding Level of Care Code Est Pt Level 4 (60887) Diagnoses Migraine without aura G43.009 Headache R51.9
[2023-02-25 14:19] VITALS: BP 148/90; PULSE 72; BMI 23.8
== END 2023-02-25 15:05 | disposition home or self-care (01) ==
PROVIDERS: Visit Provider Nurse Practitioner Family
DX: G43.009 Migraine without aura, not intractable, without status migrainosus (principal); R51.9 Headache, unspecified
CPT/HCPCS: 99214

== ENCOUNTER → 2023-02-25 14:14 | Outpatient (BNVA) | payer MEDICARE, SELFPAY | PROVIDERS: Visit Provider Nurse Practitioner Family | DX: G43.009 Migraine without aura, not intractable, without status migrainosus (principal); R51.9 Headache, unspecified | CPT/HCPCS: 99212 ==

== ENCOUNTER 2023-04-08 12:46 | Outpatient (REF) | payer MEDICARE, SELFPAY ==
--- NOTE | ~2023-04-08 | MM_ITS ---
EXAMINATION: BONE DENSITOMETRY CLINICAL INDICATION: Osteoporosis. COMPARISON: Previous BD dated 03/06/2020 and baseline BD dated 06/22/2011. TECHNIQUE: Using a [employer] DXA System (software version: 13.1) manufactured by [employer], dual-energy x-ray absorptiometry was performed of the lumbar spine and left hip. The images are of good technical quality. Summary results are attached. FINDINGS: LEFT FEMUR, NECK: Current: BMD 0.817 g/cm2, Z-score 0.3, T-score -1.6, osteopenia. Prior: BMD 0.857 g/cm2. Baseline: BMD 0.841 g/cm2. LEFT FEMUR, TOTAL: Current: BMD 0.927 g/cm2, Z-score 1.1, T-score -0.6, normal, 2.7% decrease from previous, 0.2% increase from baseline (<5% change is not significant). Prior: BMD 0.953 g/cm2. Baseline: BMD 0.925 g/cm2. AP SPINE L1-L3 (excluding L4): The data of L1-L4 has been changed to exclude the L4 vertebral body, because degenerative sclerosis at this level may cause overestimation of lumbar spine density. Current: BMD 0.941 g/cm2, Z-score -0.1, T-score -1.9, osteopenia, 7.9% decrease from previous, 10.3% decrease from baseline (<5% change is not significant). Prior: BMD 1.022 g/cm2. Baseline: BMD 1.049 g/cm2. IDENTIFIED RISK FACTORS: Menopause. HISTORY OF FRACTURE: None listed. MEDICATIONS: Calcium or multivitamin. Vitamin D. MM/XR DEXA axial skeleton IMPRESSION: 1. DIAGNOSIS: Osteopenia based on the lowest T-score value of -1.9 in the lumbar spine applying World Health Organization criteria. 2. 10-YEAR FRACTURE RISK PREDICTION, FRAX: Major osteoporotic fracture (clinical spine, forearm, hip or shoulder) 10.2%. Hip fracture 1.9%. 3. Treatment Recommendations: NOF guidelines recommend consideration for treatment in postmenopausal women and men age 50 and older presenting with the following: -A hip or vertebral (clinical or morphometric) fracture. -T-score less than or equal to -2.5 at the femoral neck or spine after appropriate evaluation to exclude secondary causes. -Low bone mass at the hip or spine and a 10-year fracture probability by FRAX of greater than or equal to 3% for hip fracture or greater than or equal to 20% for major osteoporotic fracture based on the [place] adapted WHO algorithm. 4. Other Recommendations: All treatment decisions require clinical judgment and consideration of individual patient factors, including patient preferences, comorbidities, previous drug use, risk factors not captured in the FRAX model (e.g. frailty, falls, vitamin D deficiency, increased bone turnover, interval significant decline in bone density) and possible under or overestimation of fracture risk by FRAX. Additional medical evaluation for secondary cause of low bone mineral density may be appropriate. FUTURE SCAN RECOMMENDATION: People with diagnosed cases of osteoporosis or at high risk for fracture should have regular bone mineral density tests. For patients eligible for Medicare, routine testing is allowed once every 2 years. The testing frequency can be increased to one year for patients who have rapidly progressing disease, those who are receiving or discontinuing medical therapy to restore bone mass, or have additional risk factors.
== END 2023-04-08 12:47 | disposition home or self-care (01) ==
LOC: HO.MAMMO 12:46
PROVIDERS: PCP Internal Medicine; Visit Provider Internal Medicine
DX: Z12.31 Encounter for screening mammogram for malignant neoplasm of breast (principal); Z13.820 Encounter for screening for osteoporosis; Z78.0 Asymptomatic menopausal state; M85.80 Other specified disorders of bone density and structure, unspecified site; M81.0 Age-related osteoporosis without current pathological fracture
CPT/HCPCS: 77063; 77067; 77080

== ENCOUNTER → 2023-04-08 13:15 | Outpatient (BNV) | payer MEDICARE, SELFPAY | PROVIDERS: PCP Internal Medicine; Visit Provider Radiology Diagnostic Radiology | DX: Z12.31 Encounter for screening mammogram for malignant neoplasm of breast (principal) | CPT/HCPCS: 77063; 77067 ==

== ENCOUNTER 2023-04-25 15:43 | Outpatient (AMB) | payer MEDICARE, SELFPAY ==
[2023-04-25 15:43] VITALS: BP 136/72; PULSE 73; O2SAT 98; BMI 21.8
--- NOTE | 2023-04-25 15:43 | MHC.PC.OV ---
Vital Signs 04/25/23 15:43 Height 5 ft 6 in Weight 135 lb 0.6 oz BMI 21.8 BP 136/72 Blood Pressure Location Rt brachial Position Sitting Pulse 73 Pulse Source Pulse Oximeter Pulse Oximetry (%) 98 Oxygen Delivery Method Room Air Intake Visit Reasons: follow up on blood pressure Cad Administrator Required: No Allergies atorvastatin [Lipitor] Allergy (Unknown, Verified 04/25/23 15:44) cramps lisinopril Adverse Reaction (Intermediate, Verified 04/25/23 15:44) Dizziness Tobacco use date assessed: 04/25/23 Fall risk assessment: No Falls in past year Last assessed Fall Risk: 04/25/23 Dental Screening Dental Screen Date: 04/25/23 Did you have a dental visit in the last 12 months?: Yes Did you have a dental problem in the last 6 months where you did not have access to dental care?: No Was dental information given to patient?: Patient has dentist HPI follow up on blood pressure HPI Details 73-year-old female with a history of hypercholesterolemia GERD impaired glucose tolerance hypertension generalized anxiety disorder and osteopenia last seen for physical in January 2023. Noted 12 lb weight loss. Patient's colonoscopy is due mammogram March 2023 Bone density is up-to-date has osteopenia with spine decrease in 7%. Patient follows up with Neurology for the headache patient believes neck pain is causing the headaches. alternative treatment-states krys diet- changed diet. Patient states feels better. PAtient has enrolled oz a detox progeram and witht he loss of weight - will need decrease in the BP med [facility] Medical History (Updated 04/25/23 @ 16:09 by Robby Ferris MD) Cervicalgia Hypersomnia Palpitations Other specified cardiac arrhythmias Pleural effusion Arrhythmia Elevated blood pressure reading Headache LFT elevation Numbness in feet Gout Anemia Osteoporosis Thyroid nodule GERD (gastroesophageal reflux disease) Hypercholesterolemia Surgical History History of cholecystectomy Family History Father Diabetes Heart attack Mother Heart attack Asthma Emphysema lung Non-Hodgkin lymphoma CHF (congestive heart failure) Brother Cancer Sister Diabetes Ulcerative colitis Housing: House Alcohol intake: never Patient Tobacco Use Status: Never used Tobacco e-Cigarette/Vaping Use: Never Used Second Hand Smoke Exposure: No service: No Current occupational status: retired Current occupational exposures/hazards: No Cognitive needs: No Hearing needs: No Vision needs: No Questionnaire Thrive Questionnaire Date Thrive assessed: 08/26/22 AUDIT C Alcohol Use Questionnaire (AUDIT-C) 1. How often do you have a drink containing alcohol?: Never 3. How often do you have six or more drinks on one occasion?: Never Total Score: 0 BENOIT-7 AMB Questionnaire BENOIT-7 Date BENOIT - 7 assessed: 08/26/22 Source: Developed by Drs. Caleb Fan, Felipa Au, Marcelino Harris and colleagues, with an educational radha from [employer]. Physical exam (Primary Care) Vital Signs: Last Vital Signs Pulse 73 04/25/23 15:43 BP 136/72 04/25/23 15:43 Pulse Ox 98 04/25/23 15:43 Oxygen Delivery Method Room Air 04/25/23 15:43 BMI result Body Mass Index 21.8 Tobacco/Smoking Status: Tobacco use Status Tobacco use date assessed 04/25/23 04/25/23 15:44 Patient Tobacco Use Status Never used Tobacco 04/25/23 15:44 e-Cigarette/Vaping Use Never Used 04/25/23 15:44 Thrive Assessment: Date of Thrive Assessment Date Thrive assessed 08/26/22 04/25/23 15:44 Const General: alert; No acute distress Eyes Conjunctivae: conjunctivae normal Resp Auscultation: clear to auscultation bilaterally Cardio Rate: regular rate Rhythm: regular rhythm GI Inspection: Yes normal to inspection Extrem General: Yes normal to inspection and No edema Assessment and Plan Assessment & Plan (1) Cervicalgia: Code(s): M54.2 - Cervicalgia Plan: This seems to be triggering the headache . patient follows up with Neurology (2) Osteopenia: Comment: March 2023 Code(s): M85.80 - Other specified disorders of bone density and structure, unspecified site Plan: March 2023 bone density (3) Hypertension: Code(s): I10 - Essential (primary) hypertension Plan: Continue with blood pressure medication. Decrease salt intake and exercise presently on verapamil 240 mg once a (4) GERD (gastroesophageal reflux disease): Code(s): K21.9 - Gastro-esophageal reflux disease without esophagitis Plan: Avoid the foods that causes that usually spicy foods, tomato products, juices, coffee, soda and foods that your sensitive to. After eating do not lie down, allow 3-4 hours before in lie down. And keep the head of bed above 30 degrees to avoid the acid from going up. (5) Hypercholesterolemia: Code(s): E78.00 - Pure hypercholesterolemia, unspecified Plan: Avoid fried foods, chicken skin, eggs, butter margarine, pastries and meat. Be it pork or beef they have a lot of cholesterol LDL goal of less than 130 and triglyceride of less than 150 December 2022 last blood work on rosuvastatin 5 mg once a day (6) Generalized anxiety disorder: Code(s): F41.1 - Generalized anxiety disorder Plan: Continue with present medication Medications: Changed From verapamil ER 240 mg PO DAILY 90 caps 3RF K21.9 - Gastro-esophageal reflux disease without esophagitis To verapamil ER 180 mg PO DAILY 90 days 90 caps 1RF K21.9 - Gastro-esophageal reflux disease without esophagitis Coding Level of Care Code Est Pt Level 4 (52211) Diagnoses Cervicalgia M54.2 Osteopenia M85.80 Hypertension I10 GERD (gastroesophageal reflux disease) K21.9 Hypercholesterolemia E78.00 Generalized anxiety disorder F41.1
== END 2023-04-25 16:30 | disposition home or self-care (01) ==
PROVIDERS: PCP Internal Medicine; Visit Provider Internal Medicine
DX: M54.2 Cervicalgia (principal); M85.80 Other specified disorders of bone density and structure, unspecified site; I10 Essential (primary) hypertension; K21.9 Gastro-esophageal reflux disease without esophagitis; E78.00 Pure hypercholesterolemia, unspecified; F41.1 Generalized anxiety disorder
CPT/HCPCS: 99214

== ENCOUNTER 2023-06-17 11:19 | Outpatient (AMB) | payer MEDICARE, SELFPAY ==
--- NOTE | 2023-06-17 11:31 | A.OFFPC_ITS ---
Vital Signs 06/17/23 11:38 Height 5 ft 6 in Weight 129 lb 6 oz BMI 20.9 BP 152/84 H Blood Pressure Location Lt brachial Position Sitting Pulse 80 Pulse Source Pulse Oximeter Pulse Oximetry (%) 96 Oxygen Delivery Method Room Air Intake Visit Reasons: blood pressure Intake Note: Patient is here to follow up on BP. [employer] Client Solutions Analyst Required: No Accompanied by: Self / Same As Patient Allergies atorvastatin [Lipitor] Allergy (Unknown, Verified 06/17/23 11:43) cramps lisinopril Adverse Reaction (Intermediate, Verified 06/17/23 11:43) Dizziness Medication List - Last Reconciled 06/17/23 by Robby Ferris MD ascorbate calcium (vitamin C) 600 mg PO DAILY aspirin 81 mg PO DAILY blood pressure monitor (Blood Pressure Kit) As directed cetirizine 10 mg PO DAILY PRN citalopram (Celexa) 10 mg PO DAILY cod liver oil 1 cap PO DAILY ferrous sulfate (Melvi-Time) 325 mg PO DAILY fluticasone propionate 50 mcg/actuation 1 spray intranasal DAILY multivitamin with iron (Daily Vitamin with Iron tablet) 1 tab PO DAILY rosuvastatin 5 mg PO DAILY verapamil ER 120 mg PO DAILY 90 days Tobacco use date assessed: 06/17/23 Fall risk assessment: No Falls in past year Last assessed Fall Risk: 06/17/23 Dental Screening Dental Screen Date: 06/17/23 Did you have a dental visit in the last 12 months?: Yes Did you have a dental problem in the last 6 months where you did not have access to dental care?: No Was dental information given to patient?: Patient has dentist HPI blood pressure HPI Details 73-year-old female with a history of hyp ertension GERD hypercholesterolemia and generalized anxiety disorder last seen in March 2023. Patient complained of neck pain also. Patient's colonoscopy is due, mammogram is up-to-date and the bone density done. December last blood work. Patient asks for testing for fungal infection. GI schedule jul 07, 2023. paient has BP checks at home 114/66. [facility] Medical History (Updated 04/25/23 @ 16:09 by Robby Ferris MD) Cervicalgia Hypersomnia Palpitations Other specified cardiac arrhythmias Pleural effusion Arrhythmia Elevated blood pressure reading Headache LFT elevation Numbness in feet Gout Anemia Osteoporosis Thyroid nodule GERD (gastroesophageal reflux disease) Hypercholesterolemia Surgical History History of cholecystectomy Family History Father Diabetes Heart attack Mother Heart attack Asthma Emphysema lung Non-Hodgkin lymphoma CHF (congestive heart failure) Brother Cancer Sister Diabetes Ulcerative colitis Social History Housing: House Alcohol intake: never Patient Tobacco Use Status: Never used Tobacco e-Cigarette/Vaping Use: Never Used Second Hand Smoke Exposure: No service: No Current occupational status: retired Current occupational exposures/hazards: No Cognitive needs: No Hearing needs: No Vision needs: No Questionnaire PHQ-9 Over the last 2 weeks, how often have you been bothered by any of the following problems? 1. Little interest or pleasure in doing things: not at all 2. Feeling down, depressed, or hopeless: not at all 3. Trouble falling or staying asleep, or sleeping too much: not at all 4. Feeling tired or having little energy: not at all 5. Poor appetite or overeating: not at all 6. Feeling bad about yourself - or that you are a failure or have let yourself or your family down: not at all 7. Trouble concentrating on things, such as reading the newspaper or watching television: not at all 8. Moving or speaking so slowly that other people could have noticed. Or the opposite - being so fidgety or restless that you have been moving around a lot more than usual: not at all 9. Thoughts that you would be better off or of hurting yourself in some way: not at all Total score: 0 Depression Screening Interpretation: Negative Depression Screening Done: Yes 72276 - PHQ-9 Billing: Yes Source: Developed by Drs. Caleb Fan, Felipa Au, Marcelino Harris and colleagues, with an educational radha from [facility]. Thrive Questionnaire Date Thrive assessed: 06/17/23 I am a: Patient What is your living situation today?: I have a steady place to live Within the past 12 months, did the food you bought not last and you didn't have the money to get more?: Never true Within the past 12 months, did you worry whether your food would run out before you got money to buy more?: Never true Do you have trouble paying for medicines?: No Do you have trouble getting transportation to medical appointments?: No Do you have trouble paying your heating and electricity bill?: No Do you have trouble taking care of your child, family member or friend?: No Do you have trouble with day-to-day activities such as bathing, preparing meals, shopping, managing finances, etc.?: No Are you currently unemployed and looking for a job?: No Are you interested in more education?: No Please select the resources that you would like help with: None Currently or been in a relationship where the following occur: no concerns reported THRIVE Score: 0 AUDIT C Alcohol Use Questionnaire (AUDIT-C) 1. How often do you have a drink containing alcohol?: Never 3. How often do you have six or more drinks on one occasion?: Never Total Score: 0 BENOIT-7 AMB Questionnaire BENOIT-7 Date BENOIT - 7 assessed: 06/17/23 Feeling nervous, anxious, or on edge: 0 = Not at all Not being able to stop or control worryin = Not at all Worrying too much about different things: 0 = Not at all Trouble relaxin = Not at all Being so restless that it is hard to sit still: 0 = Not at all Becoming easily annoyed or irritable: 0 = Not at all Feeling afraid as if something awful might happen: 0 = Not at all Total BENOIT-7 score (0-4 normal; 5-9 mild; 10-14 moderate; 15-21 severe): 0 Source: Developed by Drs. Caleb Fan, Felipa Au, Marcelino Harris and colleagues, with an educational radha from [facility]. BENOIT-7 Assessment Billing BENOIT-7 Assessment Tool: BENOIT-7 Assessment 35794 Physical exam (Primary Care) Vital Signs: Last Vital Signs Pulse 80 06/17/23 11:38 BP 152/84 H 06/17/23 11:38 Pulse Ox 96 06/17/23 11:38 Oxygen Delivery Method Room Air 06/17/23 11:38 BMI result Body Mass Index 20.9 Tobacco/Smoking Status: Tobacco use Status Tobacco use date assessed 06/17/23 06/17/23 11:43 Patient Tobacco Use Status Never used Tobacco 06/17/23 11:31 e-Cigarette/Vaping Use Never Used 06/17/23 11:31 PHQ-9: PHQ-9 Score PHQ-9: Total score 0 06/17/23 12:12 Depression Screening Interpretation: Negative Thrive Assessment: Date of Thrive Assessment Date Thrive assessed 06/17/23 06/17/23 11:43 Currently or been in a relationship where the following occur: no concerns reported Const General: alert; No acute distress Eyes Conjunctivae: conjunctivae normal Resp Auscultation: clear to auscultation bilaterally Cardio Rate: regular rate Rhythm: regular rhythm GI Inspection: Yes normal to inspection Extrem General: Yes normal to inspection and No edema Assessment and Plan Assessment & Plan (1) Hypertension: Code(s): I10 - Essential (primary) hypertension Plan: Continue with blood pressure medication. Decrease salt intake and exercise patient is presently taking verapamil 180 mg once a day (2) Hypercholesterolemia: Code(s): E78.00 - Pure hypercholesterolemia, unspecified Plan: Avoid fried foods, chicken skin, eggs, butter margarine, pastries and meat. Be it pork or beef they have a lot of cholesterol LDL goal of less than 130 and triglyceride of less than 150 December 2022 last blood work on rosuvastatin 5 mg once a day (3) GERD (gastroesophageal reflux disease): Code(s): K21.9 - Gastro-esophageal reflux disease without esophagitis Plan: Avoid the foods that causes that usually spicy foods, tomato products, juices, coffee, soda and foods that your sensitive to. After eating do not lie down, allow 3-4 hours before in lie down. And keep the head of bed above 30 degrees to avoid the acid from going up. (4) Impaired fasting blood sugar: Code(s): R73.01 - Impaired fasting glucose Plan: Decrease the amount of carbohydrate intake, pasta, bread, rice and potatoes are all sugar and that is aside from all the sweet stuff, remember that fruits are good but they are Sweet also. (5) Generalized anxiety disorder: Code(s): F41.1 - Generalized anxiety disorder Plan: Continue with therapy (6) Cervicalgia: Code(s): M54.2 - Cervicalgia Orders: Orders Complete Blood Count Auto Diff 6 Months R73.01 - Impaired fasting glucose Lipid Panel 6 Months E78.00 - Pure hypercholesterolemia, unspecified, R73.01 - Impaired fasting glucose Vitamin B12 and Folate 6 Months R73.01 - Impaired fasting glucose Vitamin D 25-OH Total 6 Months R73.01 - Impaired fasting glucose Hemoglobin A1c 6 Months R73.01 - Impaired fasting glucose Comprehensive Met. Panel 6 Months R73.01 - Impaired fasting glucose Thyroid Stimulating Hormone 6 Months R73.01 - Impaired fasting glucose Magnesium 6 Months R73.01 - Impaired fasting glucose Medications: Changed From verapamil ER 180 mg PO DAILY 90 days 90 caps 1RF I10 - Essential (primary) hypertension To verapamil ER 120 mg PO DAILY 90 days 90 caps 2RF I10 - Essential (primary) hypertension Coding Level of Care Code Est Pt Level 4 (32881) Diagnoses Hypertension I10 Hypercholesterolemia E78.00 GERD (gastroesophageal reflux disease) K21.9 Impaired fasting blood sugar R73.01 Generalized anxiety disorder F41.1 Cervicalgia M54.2 Additional Codes BENOIT-7 Assessment Billing - BENOIT-7 Assessment Tool: BENOIT-7 Assessment [id number] ([id number])
[2023-06-17 11:38] VITALS: BP 152/84; PULSE 80; O2SAT 96; BMI 20.9
== END 2023-06-17 12:31 | disposition home or self-care (01) ==
PROVIDERS: PCP Internal Medicine; Visit Provider Internal Medicine
DX: I10 Essential (primary) hypertension (principal); E78.00 Pure hypercholesterolemia, unspecified; K21.9 Gastro-esophageal reflux disease without esophagitis; R73.01 Impaired fasting glucose; F41.1 Generalized anxiety disorder; M54.2 Cervicalgia
CPT/HCPCS: 99214

== ENCOUNTER 2023-07-21 07:30 | Outpatient (REF) | payer MEDICARE, SELFPAY ==
[2023-07-21 09:01] LABS: Cortisol Random 9.9 ug/dL
[2023-07-21 18:23] LABS: Cortisol Random 6.3 ug/dL
[2023-07-24 18:53] LABS: Vitamin A 54 mcg/dL (38-98)
[2023-07-27 03:53] LABS: Adrenocorticotropic Hormone 23 pg/mL (6-50)
== END 2023-07-21 07:31 | disposition home or self-care (01) ==
LOC: HO.LAB 07:30
PROVIDERS: PCP Internal Medicine
DX: R53.83 Other fatigue (principal); K90.89 Other intestinal malabsorption
CPT/HCPCS: 36415; 82024; 82533; 84590

== ENCOUNTER 2023-08-19 08:39 | Outpatient (REF) | payer MEDICARE, SELFPAY | END 2023-08-19 08:40 | disposition home or self-care (01) | LOC: HO.HMGCLDS 08:39 | PROVIDERS: PCP Internal Medicine | DX: K90.89 Other intestinal malabsorption (principal) | CPT/HCPCS: 86628 ==

== ENCOUNTER 2023-08-22 14:16 | Outpatient (AMB) | payer MEDICARE, SELFPAY ==
[2023-08-22 14:19] VITALS: BP 142/80; PULSE 80; O2SAT 98; BMI 21.0
--- NOTE | 2023-08-22 14:19 | A.OFFPC_ITS ---
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 Patient's colonoscopy is due, mammograms up-to-date bone density is up-to-date. Patient has sought the help of [facility] and had food allergy testing results came up with elevated numbers for milk, shrimp, spinach, crab and grape. 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 treatment was told for 90 days. [facility] Medical History (Updated 07/08/23 @ 17:28 by Robby Ferris MD) Cervicalgia Hypersomnia Palpitations Other specified cardiac arrhythmias Pleural effusion Arrhythmia Elevated blood pressure reading Headache LFT elevation Numbness in feet Gout Anemia Osteoporosis Thyroid nodule GERD (gastroesophageal reflux disease) Hypercholesterolemia Surgical History History of cholecystectomy Family History Father Diabetes Heart attack Mother Heart attack Asthma Emphysema lung Non-Hodgkin lymphoma CHF (congestive heart failure) Brother Cancer Sister Diabetes Ulcerative colitis Social History Housing: House Alcohol intake: never Patient Tobacco Use Status: Never used Tobacco e-Cigarette/Vaping Use: Never Used Second Hand Smoke Exposure: No service: No Current occupational status: retired Current occupational exposures/hazards: No Cognitive needs: No Hearing needs: No Vision needs: No Questionnaire Thrive Questionnaire Date Thrive assessed: 06/17/23 AUDIT C Alcohol Use Questionnaire (AUDIT-C) 1. How often do you have a drink containing alcohol?: Never 3. How often do you have six or more drinks on one occasion?: Never Total Score: 0 BENOIT-7 AMB Questionnaire BENOIT-7 Date BENOIT - 7 assessed: 06/17/23 Source: Developed by Drs. Caleb Fan, Felipa Au, Marcelino Harris and colleagues, with an educational radha from [employer]. Physical exam (Primary Care) Vital Signs: Last Vital Signs Pulse 80 08/22/23 14:19 BP 142/80 H 08/22/23 14:19 Pulse Ox 98 08/22/23 14:19 Oxygen Delivery Method Room Air 08/22/23 14:19 BMI result Body Mass Index 21.0 Tobacco/Smoking Status: Tobacco use Status Tobacco use date assessed 08/22/23 08/22/23 14:20 Patient Tobacco Use Status Never used Tobacco 08/22/23 14:20 e-Cigarette/Vaping Use Never Used 08/22/23 14:20 Thrive Assessment: Date of Thrive Assessment Date Thrive assessed 06/17/23 08/22/23 14:20 Const General: alert; No acute distress Eyes Conjunctivae: conjunctivae normal Resp Auscultation: clear to auscultation bilaterally Cardio Rate: regular rate Rhythm: regular rhythm GI Inspection: Yes normal to inspection Extrem General: Yes normal to inspection and No edema Assessment and Plan Assessment & Plan (1) Hypercholesterolemia: Code(s): E78.00 - Pure hypercholesterolemia, unspecified Plan: Avoid fried foods, chicken skin, eggs, butter margarine, pastries and meat. Be it pork or beef they have a lot of cholesterol LDL goal of less than 130 and triglyceride of less than 150. Patient on rosuvastatin 5 mg once a day December 2022 last blood (2) GERD (gastroesophageal reflux disease): Code(s): K21.9 - Gastro-esophageal reflux disease without esophagitis Plan: Avoid the foods that causes that usually spicy foods, tomato products, juices, coffee, soda and foods that your sensitive to. After eating do not lie down, allow 3-4 hours before in lie down. And keep the head of bed above 30 degrees to avoid the acid from going up. (3) Impaired fasting blood sugar: Code(s): R73.01 - Impaired fasting glucose Plan: Decrease the amount of carbohydrate intake, pasta, bread, rice and potatoes are all sugar and that is aside from all the sweet stuff, remember that fruits are good but they are Sweet also. (4) Hypertension: Code(s): I10 - Essential (primary) hypertension Plan: Continue with blood pressure medication. Decrease salt intake and exercise presently on verapamil 120 mg once a day BP at home is good (5) Generalized anxiety disorder: Code(s): F41.1 - Generalized anxiety disorder Plan: Continue with Celexa (6) Colon cancer screening: Code(s): Z12.11 - Encounter for screening for malignant neoplasm of colon Plan: Reminded about colonoscopy. 08/2023 to be done Coding Level of Care Code Est Pt Level 4 (23204) Diagnoses Hypercholesterolemia E78.00 GERD (gastroesophageal reflux disease) K21.9 Impaired fasting blood sugar R73.01 Hypertension I10 Generalized anxiety disorder F41.1 Colon cancer screening Z12.11
== END 2023-08-22 15:05 | disposition home or self-care (01) ==
PROVIDERS: PCP Internal Medicine; Visit Provider Internal Medicine
DX: E78.00 Pure hypercholesterolemia, unspecified (principal); K21.9 Gastro-esophageal reflux disease without esophagitis; R73.01 Impaired fasting glucose; I10 Essential (primary) hypertension; F41.1 Generalized anxiety disorder; Z12.11 Encounter for screening for malignant neoplasm of colon
CPT/HCPCS: 99214

== ENCOUNTER 2023-09-22 12:30 | Day surgery (SDC) | payer MEDICARE, SELFPAY ==
[2023-09-19 16:55] VITALS: BMI 21.1
--- NOTE | 2023-09-21 12:23 | HO.ANESPROP2 ---
HPI - Anesthesia Eval Consult details Narrative: 73yo F for Upper Endoscopy and Colonoscopy PMFSH Active Problems Active Problems: All Active Problems Fungal infection (Acute) Cervicalgia (Acute) Headache (Acute) Osteopenia (Acute) Colon cancer screening (Acute) Trapezius muscle strain (Acute) Trochanteric bursitis of right hip (Acute) Generalized anxiety disorder (Acute) Migraine without aura (Acute) Hypertension (Acute) Lymphedema of lower extremity (Acute) Renal mass (Acute) Impaired fasting blood sugar (Acute) Annual physical exam (Acute) Allergic rhinitis (Acute) Thyroid nodule (Acute) GERD (gastroesophageal reflux disease) (Acute) Hypercholesterolemia (Acute) Past Medical History Medical History Cervicalgia Hypersomnia Palpitations Other specified cardiac arrhythmias Pleural effusion Arrhythmia Elevated blood pressure reading Headache LFT elevation Numbness in feet Gout Anemia Osteoporosis Thyroid nodule GERD (gastroesophageal reflux disease) Hypercholesterolemia Family History Family History Father Diabetes Heart attack Mother Heart attack Asthma Emphysema lung Non-Hodgkin lymphoma CHF (congestive heart failure) Brother Cancer Sister Diabetes Ulcerative colitis Surgical History Surgical History History of cholecystectomy Social History Social History Housing: House Alcohol intake: never Patient Tobacco Use Status: Never used Tobacco e-Cigarette/Vaping Use: Never Used Second Hand Smoke Exposure: No Are you DNR?: No Advance Directives: No Advance Directives Information Provided: Yes Nutrition Risks: No Nutritional Risk Patient : No service: No Current occupational status: retired Current occupational exposures/hazards: No Cognitive needs: No Hearing needs: No Vision needs: No Meds Allergies Allergy/AdvReac Type Severity Reaction Status Date / Time atorvastatin [Lipitor] Allergy Unknown cramps Verified 09/22/23 12:34 lisinopril AdvReac Intermediate Dizziness Verified 09/22/23 12:34 Home Medications ?Medication ?Instructions ?Recorded ?Confirmed ?Last Taken ?Type ascorbate calcium (vitamin C) 500 600 mg PO DAILY 05/08/20 09/22/23 Unknown History mg tablet nystatin 500,000 unit tablet unit 09/22/23 09/22/23 Unknown History Exam Height,Weight and Vital Signs: Height 5 ft 6 in Weight 59.421 kg Narrative Narrative: EKG 2022 Vent. Rate : 067 BPM Atrial Rate : 067 BPM P-R Int : 160 ms QRS Dur : 084 ms QT Int : 386 ms P-R-T Axes : 000 033 060 degrees QTc Int : 407 ms Sinus rhythm with Premature atrial complexes in a pattern of bigeminy Otherwise normal ECG When compared with ECG of 20-JUL-2022 06:31, No significant change was found Assessment and Plan Assessment Anesthesia Assessment: Chart Reviewed
[2023-09-22 12:54] VITALS: BMI 20.7
[2023-09-22] MEDS: Lactated Ringers 1,000 ML 100 ML IVCONT (12:56)
[2023-09-22 13:06] VITALS: BP 145/76; PULSE 72; RESP 18; TEMP 36.7; O2SAT 100
--- NOTE | 2023-09-22 13:08 | P.CONAN_ITS ---
[facility] Active Problems Active Problems: All Active Problems Fungal infection (Acute) Cervicalgia (Acute) Headache (Acute) Osteopenia (Acute) Colon cancer screening (Acute) Trapezius muscle strain (Acute) Trochanteric bursitis of right hip (Acute) Generalized anxiety disorder (Acute) Migraine without aura (Acute) Hypertension (Acute) Lymphedema of lower extremity (Acute) Renal mass (Acute) Impaired fasting blood sugar (Acute) Annual physical exam (Acute) Allergic rhinitis (Acute) Thyroid nodule (Acute) GERD (gastroesophageal reflux disease) (Acute) Hypercholesterolemia (Acute) Past Medical History Medical History Cervicalgia Hypersomnia Palpitations Other specified cardiac arrhythmias Pleural effusion Arrhythmia Elevated blood pressure reading Headache LFT elevation Numbness in feet Gout Anemia Osteoporosis Thyroid nodule GERD (gastroesophageal reflux disease) Hypercholesterolemia Functional capacity: independent ambulation Patient : No Family History Family History Father Diabetes Heart attack Mother Heart attack Asthma Emphysema lung Non-Hodgkin lymphoma CHF (congestive heart failure) Brother Cancer Sister Diabetes Ulcerative colitis Family history of problems with anesthesia: No Surgical History Surgical History History of cholecystectomy History of Problems with Anesthesia: No Social History Social History Housing: House Alcohol intake: never Patient Tobacco Use Status: Never used Tobacco e-Cigarette/Vaping Use: Never Used Second Hand Smoke Exposure: No Are you DNR?: No Advance Directives: No Advance Directives Information Provided: Yes Nutrition Risks: No Nutritional Risk service: No Current occupational status: retired Current occupational exposures/hazards: No Cognitive needs: No Hearing needs: No Vision needs: No Meds Allergies Allergy/AdvReac Type Severity Reaction Status Date / Time atorvastatin [Lipitor] Allergy Unknown cramps Verified 09/22/23 12:34 lisinopril AdvReac Intermediate Dizziness Verified 09/22/23 12:34 Active Medications: Current Medications Lactated Ringer's (Lr) 1,000 mls @ 100 mls/hr IVCONT .Q10H ARCHIE Last Admin: 09/22/23 12:56 Dose: 100 mls/hr Sodium Biphosphate/Sodium Phosphate (Sodium Phosphate,Mason-Dibasic 133 Ml Enema) 133 ml MI ONCE PRN PRN Reason: Poor Colonoscopy Prep Results Home Medications ?Medication ?Instructions ?Recorded ?Confirmed ?Last Taken ?Type ascorbate calcium (vitamin C) 500 600 mg PO DAILY 05/08/20 09/22/23 Unknown History mg tablet nystatin 500,000 unit tablet unit 09/22/23 09/22/23 Unknown History Exam Height,Weight and Vital Signs: Height 5 ft 6 in Weight 58.06 kg Last Vital Signs Temp 98.1 F 09/22/23 13:06 Pulse 72 09/22/23 13:06 Resp 18 09/22/23 13:06 BP 145/76 H 09/22/23 13:06 Pulse Ox 100 09/22/23 13:06 O2 Del Method Room Air 09/22/23 13:06 Airway Mallampati Class: II TM Dist: >3cm Neck ROM: Full Heart: RRR Lungs: CTA Assessment and Plan Assessment Anesthesia Assessment: Anesthesia Plan Discussed Final Anesthetic Review Family History of Problems with Anesthesia: No History of Problems with Anesthesia: No NPO: Yes ASA Class: II Final Preanesthetic Review: Meds/Allgs Chart Reviewed, Consent Obtained/Reviewed and Anes Risks/Benef Reviewed Patient Risk: Low Procedure Risk: Low Anesthetic Plan Anesthetic Plan: MAC: Disposition: Standard PACU
[2023-09-22 15:20] VITALS: BP 138/81; PULSE 83; RESP 14; TEMP 36.6; O2SAT 97
--- NOTE | 2023-09-22 15:30 | PM.OP ---
Brief Operative Note Date of Service: 09/22/23 Pre-op diagnosis: Abdominal discomfort, Screening Post-op diagnosis: other (Mild gastritis, Hiatal hernia, Colon polyp, Melanosis coli) Procedure: EGD with biopsies, Colonoscopy to the cecum with hot snare polypectomy x 2, and biopsies Surgeon: Caleb Castro MD Anesthesia: MAC Was an Hot Tar Roofer Helper used for this Procedure?: No Estimated blood loss (mL): 2.0 Pathology: other (A. Descending duodenum B. Gastric antrum C. EG Junction at 38cm D. Ascending colon E. Ascending colon polyps) Condition: stable Disposition: PACU
[2023-09-22 15:35] VITALS: BP 142/78; PULSE 76; RESP 12; O2SAT 98
[2023-09-22] MEDS: ondansetron HCL 4 MG/2 ML VIAL IVPUSH (15:42)
[2023-09-22 15:50] VITALS: BP 151/73; PULSE 61; RESP 10; O2SAT 100
[2023-09-22 16:05] VITALS: BP 148/69; PULSE 62; RESP 16; TEMP 36.6; O2SAT 98
--- NOTE | 2023-09-22 17:04 | OP_ITS ---
DATE OF SERVICE: 09/22/2023 SURGEON: Caleb Castro MD INDICATIONS: The patient presents for evaluation of abdominal discomfort and colorectal cancer screening. Full consent has been obtained from her for this, including risks of bleeding and perforation. PREOPERATIVE DIAGNOSIS: POSTOPERATIVE DIAGNOSIS: PROCEDURE PERFORMED: Esophagogastroduodenoscopy with biopsies, and colonoscopy to the cecum with hot snare polypectomy and biopsies. ESTIMATED BLOOD LOSS: COMPLICATIONS: ANESTHESIA: Monitored anesthesia care. ASSISTANTS: SPECIMENS: PREOPERATIVE DIAGNOSES: Abdominal discomfort and colorectal cancer screening. POSTOPERATIVE DIAGNOSES: Abdominal discomfort, colorectal cancer screening, rule out celiac disease, gastritis, small hiatal hernia, gastroesophageal reflux, colon polyp, melanosis coli, rule out microscopic colitis, diverticulosis, and internal hemorrhoids. DESCRIPTION OF PROCEDURE: The patient was placed in the left lateral decubitus position. The Olympus video gastroscope was passed in the posterior oropharynx and upper esophagus under direct vision. The scope was passed slowly to the distal esophagus. The gastroesophageal junction had some slight edema and erythema, but there was no evidence of any esophagitis nor any gross evidence of Monge esophagus. I did not visualize any Yaneth esophagitis. The scope entered the stomach. There was a small hiatal hernia. The scope was advanced to pylorus and the duodenum was cannulated to the descending portion. The duodenum including the bulb appeared normal without mass or ulceration. The scope was withdrawn back in the stomach. The gastric antrum had some mild areas of erythema and edema consistent with some gastritis, but no erosions or ulceration. There was good peristalsis. Biopsies were obtained from the antrum. The scope was retroflexed visualizing the proximal stomach carefully, which appeared normal, without any sign of mass or ulceration. The scope was straightened and withdrawn back into the esophagus. The gastroesophageal junction appeared at 38 cm. Biopsies were obtained. Again, there was no gross evidence of esophagitis, Monge esophagus, nor Yaneth esophagitis. Proximal 38 cm, the esophageal mucosa appeared normal. The scope was withdrawn from the patient. She was turned around for colonoscopy. The digital rectal exam revealed no abnormalities. The Olympus video pediatric colonoscope was then entered into the rectum and advanced to the cecum with the assistance of abdominal wall pressure. Abdominal wall pressure had to be applied throughout most of the case. Once in the cecum, I did identify cecal pouch with melanosis coli. The appendiceal orifice appeared normal as did the ileocecal valve. There was transillumination of light deep in the right lower quadrant. The scope was slowly withdrawn assessing all mucosal surfaces carefully. Preparation was somewhat limited in different parts of the colon due to some liquid stool, which was irrigated and suctioned away as best as possible. 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 Biopsies were obtained in the ascending colon. In the ascending colon, was 2 adjacent, approximately 8-10 mm polyps, which were both removed by hot snare polypectomy and recovered by suction. The polypectomy sites appeared clean, without any sign of residual polyp nor bleeding. Of note, the polyps did appear to be somewhat yellowish in color and were not definitively adenomatous as was somewhat hard to tell due to the surrounding melanosis coli. I did not visualize any other polyps, colitis, nor angiodysplasias, although again between the melanosis coli and the somewhat limited prep. This was difficult to see the mucosa 100%. There was a moderate amount of sigmoid diverticulosis. In the rectum, scope was retroflexed, visualizing internal hemorrhoids, but no other pathology. The rectal mucosa otherwise appeared normal. The scope was straightened and withdrawn from the patient. She tolerated procedure well and was returned to the recovery area in stable condition. IMPRESSION: 1. Small hiatal hernia, gastroesophageal reflux. 2. Mild gastritis. 3. Rule out celiac disease. 4. Melanosis coli. 5. Colon polyp. 6. Rule out microscopic colitis. 7. Diverticulosis. 8. Internal hemorrhoids. PLAN: The results of the biopsies will be checked. At this point, she reports that her bowel movements have been fairly regular. Given the melanosis coli, she most likely obviously had a history of some constipation and laxative use. I do not think she needs any particular medication at this time for reflux nor any other GI symptomatology. If the colon polyp is a tubular adenoma, I would recommend a followup colonoscopy in 3 to 5 years. If they are only hyperplastic, then I do not think she would need any further screening colonoscopies. She was advised not to use any aspirin and NSAIDs for 1 week. This has been discussed with her . MD LORI Crowder/PERNELL / [phone]
== END 2023-09-22 16:30 | disposition home or self-care (01) ==
PROVIDERS: PCP Internal Medicine; Visit Provider Internal Medicine
PROC: (CPT 45385; principal; 2023-09-22 14:00)
DX: Z12.11 Encounter for screening for malignant neoplasm of colon (principal); K63.5 Polyp of colon; K57.30 Diverticulosis of large intestine without perforation or abscess without bleeding; K63.89 Other specified diseases of intestine; K64.8 Other hemorrhoids; R10.84 Generalized abdominal pain; K29.50 Unspecified chronic gastritis without bleeding; K44.9 Diaphragmatic hernia without obstruction or gangrene; I10 Essential (primary) hypertension; E78.5 Hyperlipidemia, unspecified; Z79.899 Other long term (current) drug therapy; Z88.8 Allergy status to other drugs, medicaments and biological substances; Z90.49 Acquired absence of other specified parts of digestive tract
CPT/HCPCS: 45385; 45380; 43239; 88305; 88313; 88342; J2250; J2405; J2704

== ENCOUNTER 2024-01-23 07:04 | Outpatient (REF) | payer MEDICARE, SELFPAY ==
[2024-01-23 10:13] LABS: MANUAL DIFF FLAG NO
[2024-01-23 10:19] LABS: Basophils Absolute Auto 0.1 X10*3/uL (0.0-0.2); Basophils Percent Auto 0.8 % (0-2); Eosinophils Absolute Auto 0.3 X10*3/uL (0.0-0.4); Eosinophils Percent Auto 4.7 % (0-4); Hematocrit 42.2 % (37.0-47.0); Hemoglobin 14.3 g/dl (12.0-16.0); Imm Gran Abs Auto 0.02 X10*3/uL (0.00-0.03); Imm Gran Pct Auto 0.3 % (0.0-0.4); Lymphocytes Absolute Auto 2.7 X10*3/uL (1.2-4.9); Lymphocytes Percent Auto 42.3 % (20-40); Mean Corpuscular HGB Conc 33.9 g/dl (31.0-35.0); Mean Corpuscular Volume 91.3 fL (80.0-98.0); Mean Platelet Volume 9.7 fL (9.4-12.3); Monocytes Absolute Auto 0.5 X10*3/uL (0.1-1.2); Monocytes Percent Auto 7.8 % (2-11); Neutrophils Absolute Auto 2.8 x10*3/uL (2.0-8.3); Neutrophils Percent Auto 44.1 % (45-73); Platelet Count 279 X10*3/uL (160-400); Red Blood Count 4.62 X10*6/uL (4.20-5.50); Red Cell Distribution Width 13.2 % (11.0-16.0); White Blood Count 6.4 X10*3/uL (4.8-10.8)
[2024-01-23 11:02] LABS: Estimated Average Glucose 111 mg/dL; Hemoglobin A1c % 5.5 % (<6.0)
[2024-01-23 11:24] LABS: Anion Gap 14 (12-20); Thyroid Stimulating Hormone 1.26 uIU/mL (0.32-4.0); Vitamin D 25-OH Total 85.4 ng/mL (>30)
[2024-01-23 11:29] LABS: Alanine Aminotransferase 18 U/L (0-31); Albumin Level 4.1 g/dL (3.5-5.0); Alkaline Phosphatase 62 U/L (39-117); Aspartate Amino Transferase 15 U/L (5-31); Bilirubin Total 0.5 mg/dL (0.0-1.0); Blood Urea Nitrogen 10 mg/dL (9-16); Calcium 9.6 mg/dL (8.4-10.2); Carbon Dioxide 24 mmol/L (22-29); Chloride 108 mmol/L (96-108); Cholesterol 161 mg/dL (<200); Estimated Glomerular Filt Rate > 60; Glucose Random 104 mg/dL (60-115); HDL Cholesterol 43 mg/dL (>40); LDL Cholesterol Calculated 93 mg/dL (<100); Magnesium 2.5 mg/dL (1.6-2.6); Potassium 4.5 mmol/L (3.3-5.1); Sodium 141 mmol/L (135-145); Total Protein 6.7 g/dL (6.5-8.0); Triglycerides 125 mg/dL (<150)
[2024-01-23 11:48] LABS: Folate 13.2 ng/mL (> or = 4.0); Vitamin B12 > 2000 pg/mL (200-900)
== END 2024-01-23 07:05 | disposition home or self-care (01) ==
LOC: HO.HMGCLDS 07:04
PROVIDERS: PCP Internal Medicine; Visit Provider Internal Medicine
DX: R73.03 Prediabetes (principal); E78.00 Pure hypercholesterolemia, unspecified
CPT/HCPCS: 36415; 80053; 80061; 82306; 82607; 82746; 83036; 83735; 84443; 85025

== ENCOUNTER 2024-02-03 13:04 | Outpatient (AMB) | payer MEDICARE, SELFPAY ==
--- NOTE | 2024-02-03 13:10 | MHC.PC.OV ---
Vital Signs 02/03/24 13:11 Height 5 ft 6 in Weight 132 lb 2 oz BMI 21.3 BP 120/80 Blood Pressure Location Lt brachial Position Sitting Pulse 78 Pulse Source Pulse Oximeter Pulse Oximetry (%) 97 Oxygen Delivery Method Room Air Intake Visit Reasons: pe Intake Note: Patient is here today for a physical. Corporate Law Assistant Required: No Fund Raiser: Not Required per policy Accompanied by: Self / Same As Patient Allergies atorvastatin [Lipitor] Allergy (Unknown, Verified 02/03/24 13:11) cramps lisinopril Adverse Reaction (Intermediate, Verified 02/03/24 13:11) Dizziness Medication List - Last Reconciled 02/03/24 by Robby Ferris MD ascorbate calcium (vitamin C) 600 mg PO DAILY blood pressure monitor (Blood Pressure Kit) As directed nitazoxanide (Alinia) 1,000 mg PO ONCE rosuvastatin 5 mg PO DAILY verapamil ER 120 mg PO DAILY 90 days Tobacco use date assessed: 02/03/24 Fall risk assessment: No Falls in past year Last assessed Fall Risk: 02/03/24 Dental Screening Dental Screen Date: 06/17/23 HPI pe HPI Details 73-year-old female with hypercholesterolemia impaired glucose tolerance GERD hypertension and generalized anxiety disorder last seen in 08/17/2023. Patient is here for physical exam. Colonoscopy is up-to-date 09/17/2023 mammogram is up-to-date 04/18/2023 bone density is up-to-date 04/18/2023. Review of the notes was seen in September by [facility] concern about malabsorption was given nystatin diagnosis given intestinal malabsorption, fatigue and hypercholesterolemia prescribed fluconazole 200 mg tablet every day for 14 days. Blood work normal CRP normal sed rate. Patient had a EGD and colon test September 22 2023 small hiatal hernia with reflux mild gastritis melanosis coli. Diverticulosis internal hemorrhoids patient has EG junction showed intraepithelial eosinophils consistent with esophagitis and as for the colonoscopy has melanosis coli and hyperplastic polyp. PAtient was told parasitic infection and gut leak was rx nitazoxanide was told 6 pills per month taken twice a day for 3 x.. BP is good at home [facility] Medical History (Updated 02/03/24 @ 14:07 by Robby Ferris MD) Colon cancer screening Cervicalgia Hypersomnia Palpitations Other specified cardiac arrhythmias Pleural effusion Arrhythmia Elevated blood pressure reading Headache LFT elevation Numbness in feet Gout Anemia Osteoporosis Thyroid nodule GERD (gastroesophageal reflux disease) Hypercholesterolemia Surgical History (Updated 02/03/24 @ 13:18 by MADELAINE Kirkland) History of endoscopy Hx of colonoscopy History of cholecystectomy Family History Father Diabetes Heart attack Mother Heart attack Asthma Emphysema lung Non-Hodgkin lymphoma CHF (congestive heart failure) Brother Cancer Sister Diabetes Ulcerative colitis Social History Housing: House Alcohol intake: never Patient Tobacco Use Status: Never used Tobacco e-Cigarette/Vaping Use: Never Used Second Hand Smoke Exposure: No service: No Current occupational status: retired Current occupational exposures/hazards: No Cognitive needs: No Hearing needs: No Vision needs: No Questionnaire PHQ-9 Over the last 2 weeks, how often have you been bothered by any of the following problems? 1. Little interest or pleasure in doing things: not at all 2. Feeling down, depressed, or hopeless: not at all 3. Trouble falling or staying asleep, or sleeping too much: not at all 4. Feeling tired or having little energy: not at all 5. Poor appetite or overeating: not at all 6. Feeling bad about yourself - or that you are a failure or have let yourself or your family down: not at all 7. Trouble concentrating on things, such as reading the newspaper or watching television: not at all 8. Moving or speaking so slowly that other people could have noticed. Or the opposite - being so fidgety or restless that you have been moving around a lot more than usual: not at all 9. Thoughts that you would be better off or of hurting yourself in some way: not at all Total score: 0 Depression Screening Interpretation: Negative Depression Screening Done: Yes Source: Developed by Drs. Caleb Fan, Felipa Au, Marcelino Harris and colleagues, with an educational radha from [employer]. Thrive Questionnaire Date Thrive assessed: 02/03/24 I am a: Patient What is your living situation today?: I have a steady place to live Within the past 12 months, did the food you bought not last and you didn't have the money to get more?: Never true Within the past 12 months, did you worry whether your food would run out before you got money to buy more?: Never true Do you have trouble paying for medicines?: No Do you have trouble getting transportation to medical appointments?: No Do you have trouble paying your heating and electricity bill?: No Do you have trouble taking care of your child, family member or friend?: No Do you have trouble with day-to-day activities such as bathing, preparing meals, shopping, managing finances, etc.?: No Are you currently unemployed and looking for a job?: No Are you interested in more education?: No Please select the resources that you would like help with: None Currently or been in a relationship where the following occur: No concerns reported THRIVE Score: 0 AUDIT C Alcohol Use Questionnaire (AUDIT-C) 1. How often do you have a drink containing alcohol?: Never Total Score: 0 BENOIT-7 AMB Questionnaire BENOIT-7 Date BENOIT - 7 assessed: 02/03/24 Feeling nervous, anxious, or on edge: 0 = Not at all Not being able to stop or control worryin = Not at all Worrying too much about different things: 0 = Not at all Trouble relaxin = Not at all Being so restless that it is hard to sit still: 0 = Not at all Becoming easily annoyed or irritable: 0 = Not at all Feeling afraid as if something awful might happen: 0 = Not at all Total BENOIT-7 score (0-4 normal; 5-9 mild; 10-14 moderate; 15-21 severe): 0 Source: Developed by Drs. Caleb Fan, Felipa Au, Marcelino Harris and colleagues, with an educational radha from [employer]. Review of Systems Const Denies poor appetite and Denies weakness Eyes Denies no additional complaints ENT Reports Normal hearing present, Denies dizziness, Denies nasal congestion, Denies tinnitus and Denies sore throat Card Denies chest pain, Denies syncope, Denies rapid heart rate and Denies dyspnea Resp Denies cough and Denies dyspnea GI Denies change in stool character, Reports constipation, Denies diarrhea, Denies nausea and Denies vomiting Denies urinary frequency, Denies difficulty voiding and Denies dysuria Neuro Reports Normal hearing present, Denies confusion, Denies dizziness, Denies syncope and Denies weakness Psych Denies confusion Physical exam (Primary Care) Vital Signs: Last Vital Signs Pulse 78 02/03/24 13:11 BP 120/80 02/03/24 13:11 Pulse Ox 97 02/03/24 13:11 Oxygen Delivery Method Room Air 02/03/24 13:11 BMI result Body Mass Index 21.3 Tobacco/Smoking Status: Tobacco use Status Tobacco use date assessed 02/03/24 02/03/24 13:20 Patient Tobacco Use Status Never used Tobacco 02/03/24 13:20 e-Cigarette/Vaping Use Never Used 02/03/24 13:20 PHQ-9: PHQ-9 Score PHQ-9: Total score 0 02/03/24 13:20 Depression Screening Interpretation: Negative Thrive Assessment: Date of Thrive Assessment Date Thrive assessed 02/03/24 02/03/24 13:20 Currently or been in a relationship where the following occur: No concerns reported Const General: No confusion Orientation/consciousness: No confusion HENMT Head: Yes normocephalic Ears: external ears normal and TM's normal bilaterally Face and sinus: Yes normal facial exam Mouth: moist mucous membranes Throat: Yes tonsils normal Eyes Conjunctivae: conjunctivae normal Pupils: Equal, round and reactive pupils present and Pupil accommodation reflex normal Direct Ophthalmoscopy: normal light reflex Neck Neck: No lymphadenopathy Thyroid: Thyroid normal Chest Chest palpation & inspection: normal inspection of the chest Resp Effort & Inspection: normal respiratory effort and no audible wheezes Auscultation: clear to auscultation bilaterally, no crackles, no wheezes and lung sounds not diminished Cardio Rate: regular rate Rhythm: regular rhythm Peripheral pulses: radial pulses present and dorsalis pedis present GI Palpation (GI): no masses Auscultation: normal bowel sounds and normoactive bowel sounds Rectal Exam - Female: deferred Skin General skin exam: no rashes or lesions noted Rashes: no rashes Neuro General: No confusion Cranial nerves: Yes Equal, round and reactive pupils present and Yes Normal hearing present Cognition (Neuro): normal cognition Gait exam (Neuro): Normal gait present Motor exam (neuro): 5/5 motor strength present throughout Deep tendon reflexes (DTR's): Right brachioradialis reflex intensity grade: 2+, Left brachioradialis reflex intensity grade: 2+, Right patellar reflex intensity grade: 2+ and Left patellar reflex intensity grade: 2+ Extrem General: No edema Assessment and Plan Assessment & Plan (1) Annual physical exam: Code(s): Z00.00 - Encounter for general adult medical examination without abnormal findings Plan: Patient is advised to eat healthy, keep well hydrated, keep active and have adequate sleep. (2) Impaired fasting blood sugar: Code(s): R73.01 - Impaired fasting glucose Plan: Decrease the amount of carbohydrate intake, pasta, bread, rice and potatoes are all sugar and that is aside from all the sweet stuff, remember that fruits are good but they are Sweet also. (3) Hypertension: Code(s): I10 - Essential (primary) hypertension Plan: Continue with blood pressure medication. Decrease salt intake and exercise presently on verapamil 120 mg once a day. PAtientt wants to change the BP med as she is not getting relief from this (4) Hypercholesterolemia: Code(s): E78.00 - Pure hypercholesterolemia, unspecified Plan: Avoid fried foods, chicken skin, eggs, butter margarine, pastries and meat. Be it pork or beef they have a lot of cholesterol, this is controlled (5) GERD (gastroesophageal reflux disease): Code(s): K21.9 - Gastro-esophageal reflux disease without esophagitis Plan: Avoid the foods that causes that usually spicy foods, tomato products, juices, coffee, soda and foods that your sensitive to. After eating do not lie down, allow 3-4 hours before in lie down. And keep the head of bed above 30 degrees to avoid the acid from going up. (6) Generalized anxiety disorder: Code(s): F41.1 - Generalized anxiety disorder Plan: Continue present medication (7) Eosinophilic esophagitis: Code(s): K20.0 - Eosinophilic esophagitis (8) Family history of coronary artery disease: Code(s): Z82.49 - Family history of ischemic heart disease and other diseases of the circulatory system Orders: Orders Comprehensive Met. Panel 3 Months E78.00 - Pure hypercholesterolemia, unspecified Hemoglobin A1c 3 Months E78.00 - Pure hypercholesterolemia, unspecified Lipid Panel 3 Months E78.00 - Pure hypercholesterolemia, unspecified Referrals Cardiology Referral Z82.49 - Family history of ischemic heart disease and other diseases of the circulatory system Medications: New losartan 25 mg PO DAILY 30 tabs 3RF I10 - Essential (primary) hypertension Changed From rosuvastatin 5 mg PO DAILY 90 tabs 3RF E78.00 - Pure hypercholesterolemia, unspecified To rosuvastatin 2.5 mg (1/2 x 5 mg) PO DAILY 90 tabs 3RF E78.00 - Pure hypercholesterolemia, unspecified Discontinued verapamil ER Discontinued Reason: Patient Refused 120 mg PO DAILY 90 days 90 caps 2RF I10 - Essential (primary) hypertension Coding Level of Care Code Est Pt Prev Care >65y(43128) Diagnoses Annual physical exam Z00.00 Impaired fasting blood sugar R73.01 Hypertension I10 Hypercholesterolemia E78.00 GERD (gastroesophageal reflux disease) K21.9 Generalized anxiety disorder F41.1 Eosinophilic esophagitis K20.0 Family history of coronary artery disease Z82.49
[2024-02-03 13:11] VITALS: BP 120/80; PULSE 78; O2SAT 97; BMI 21.3
== END 2024-02-03 14:17 | disposition home or self-care (01) ==
PROVIDERS: PCP Internal Medicine; Visit Provider Internal Medicine
DX: Z00.00 Encounter for general adult medical examination without abnormal findings (principal); R73.01 Impaired fasting glucose; I10 Essential (primary) hypertension; E78.00 Pure hypercholesterolemia, unspecified; K21.9 Gastro-esophageal reflux disease without esophagitis; F41.1 Generalized anxiety disorder; K20.0 Eosinophilic esophagitis; Z82.49 Family history of ischemic heart disease and other diseases of the circulatory system
CPT/HCPCS: 99397

== ENCOUNTER 2024-04-20 12:41 | Outpatient (REF) | payer MEDICARE, SELFPAY ==
--- NOTE | ~2024-04-20 | MM_ITS ---
EXAMINATION: MM SCREENING DIGITAL BREAST TOMOSYNTHESIS, BILATERAL CLINICAL INFORMATION: Screening. Asymptomatic. COMPARISON: Mammography: Comparison is made with available priors TECHNIQUE: Digital breast mammography with tomosynthesis is performed in both the craniocaudal and mediolateral oblique views along with computer-aided detection (CAD). FINDINGS: There are scattered areas of fibroglandular density (ACR BI-RADS breast composition Category b). There are no significant masses, abnormal calcifications, or other abnormalities. MM/MM tomosynthesis screening BI IMPRESSION: No mammographic evidence of malignancy. ASSESSMENT: BI-RADS BI-RADS 1 - Negative RECOMMENDATION: Routine annual mammography screening. 1 year F/U This examination should not preclude the clinical evaluation of a suspicious palpable abnormality. This patient's information was entered into a reminder system with a target due date for their next mammogram. Electronically signed by: Dora Martinez DO 05/01/2024 12:47 PM TERRY
== END 2024-04-20 12:42 | disposition home or self-care (01) ==
LOC: HO.MAMMO 12:41
PROVIDERS: PCP Internal Medicine; Visit Provider Internal Medicine
DX: Z12.31 Encounter for screening mammogram for malignant neoplasm of breast (principal)
CPT/HCPCS: 77063; 77067

== ENCOUNTER → 2024-04-20 13:00 | Outpatient (BNV) | payer MEDICARE, SELFPAY | PROVIDERS: PCP Internal Medicine; Visit Provider Internal Medicine | DX: Z12.31 Encounter for screening mammogram for malignant neoplasm of breast (principal) | CPT/HCPCS: 77063; 77067 ==

== ENCOUNTER 2024-04-30 09:45 | Outpatient (AMB) | payer MEDICARE, SELFPAY ==
[2024-04-30 09:52] VITALS: BP 146/88; PULSE 76; BMI 22.1
--- NOTE | 2024-04-30 09:52 | MHC.OFFVIS ---
Vital Signs 04/30/24 09:52 Height 5 ft 6 in Weight 136 lb 10.986 oz BMI 22.1 BP 146/88 H Blood Pressure Location Lt brachial Position Sitting Pulse 76 Intake Visit Reasons: [employer]/ PO/family hx heart dz/ palpitations Intake Note: New patient dx hx heart dz c/o plapitation started 07/22 was in ER has palpitations and headache everyday Laser Print Operator Required: No Allergies atorvastatin [Lipitor] Allergy (Unknown, Verified 02/03/24 13:11) cramps lisinopril Adverse Reaction (Intermediate, Verified 02/03/24 13:11) Dizziness Medication List - Last Reconciled 04/30/24 by Joni Gaming MD ascorbate calcium (vitamin C) 600 mg PO DAILY blood pressure monitor (Blood Pressure Kit) As directed losartan 25 mg PO DAILY nitazoxanide (Alinia) 1,000 mg PO ONCE rosuvastatin 2.5 mg (1/2 x 5 mg) PO DAILY HPI Comments Details: Thank you for referring Sushma in cardiology consultation today for family history of coronary artery disease which she is worried about. She also has symptoms of palpitation. However she was most focus during the entire visit on symptoms of headache. She says these started about couple years ago and initially there was no clear diagnose and subsequently she had significantly elevated blood pressure and on EKG she had frequent PACs and would therefore prescribed metoprolol. Her subsequent Holter monitor did continue to show frequent PACs but frequent sinus bradycardia and therefore metoprolol was withdrawn. She was then treated with verapamil. She was seen Neurology extensively and has been told that she has migraine headaches although she continues to headache and she is very bothered by these. Since then she was started on losartan a blood pressure is not well controlled and continues to have headache. She is worried that she might have underlying heart disease. Denies any exertional chest pain or shortness of breath. Denies any orthopnea, PND, leg edema. Denies any prolonged irregular heartbeat or prolonged fast heart rates. Holter monitor from year and half ago that show frequent PACs at 17% burden with short runs of SVT. There was no evidence of atrial fibrillation. Strong history of premature coronary artery disease in her mother who had coronary disease in her 60s. Father had coronary disease in 60s requiring three-vessel coronary artery bypass grafting 74 requiring redo coronary artery bypass grafting and subsequently passed because of that. She has had hyperlipidemia, currently on very low-dose of Crestor, although the dose of Crestor has been reduced for unclear reason. No lightheadedness or syncope. [facility] Medical History Colon cancer screening Cervicalgia Hypersomnia Palpitations Other specified cardiac arrhythmias Pleural effusion Arrhythmia Elevated blood pressure reading Headache LFT elevation Numbness in feet Gout Anemia Osteoporosis Thyroid nodule GERD (gastroesophageal reflux disease) Hypercholesterolemia Surgical History History of endoscopy Hx of colonoscopy History of cholecystectomy Family History Father Diabetes Heart attack Mother Heart attack Asthma Emphysema lung Non-Hodgkin lymphoma CHF (congestive heart failure) Brother Cancer Sister Diabetes Ulcerative colitis Social History Housing: House Alcohol intake: never Patient Tobacco Use Status: Never used Tobacco e-Cigarette/Vaping Use: Never Used Second Hand Smoke Exposure: No service: No Current occupational status: retired Current occupational exposures/hazards: No Cognitive needs: No Hearing needs: No Vision needs: No Review of Systems Const Denies chills, Denies daytime sleepiness, Denies fatigue, Denies fever(s), Denies frequent falls, Denies poor appetite, Denies snoring, Denies stops breathing during sleep, Denies weakness, Denies weight gain and Denies weight loss Eyes Denies loss of vision ENT Denies dizziness and Denies hearing loss Card Denies chest pain, Denies claudication, Denies leg edema, Denies lightheadedness, Denies palpitations, Denies dyspnea, Denies dyspnea on exertion and Denies orthopnea Resp Denies cough, Denies excessive phlegm production, Denies dyspnea, Denies dyspnea on exertion, Denies snoring and Denies wheezing GI Denies abdominal pain, Denies hematochezia, Denies change in bowel habits, Denies nausea and Denies vomiting Denies urinary frequency and Denies dysuria Musc Denies arthralgias, Denies muscle weakness, Denies numbness and Denies other (frequent falls) Skin/Breast Denies nail changes and Denies rash Neuro Denies Abnormal speech present, Denies dizziness, Denies frequent falls, Denies loss of vision, Denies memory loss, Denies numbness and Denies weakness Psych Denies depression and Denies memory loss Endo Denies fatigue and Denies palpitations Geraldo/Lymph Reports easy bruising and Reports other (anemia) Aller/Immun Denies wheezing Physical Exam Vital Signs: Last Vital Signs Pulse 76 04/30/24 09:52 BP 146/88 H 04/30/24 09:52 BMI result Body Mass Index 22.1 Const General: cooperative, comfortable, no acute distress, alert, awake and Physically active Nutritional Appearance: thin Orientation/consciousness: patient oriented x3 Limitations: no limitations HEENT Head: Yes normocephalic and Yes atraumatic Neck Neck: Yes trachea midline, Yes supple and Yes no JVD Resp Effort & Inspection: normal respiratory effort Auscultation: clear to auscultation bilaterally Cardio Jugular venous distension: no JVD Palpation: normal PMI Rate: regular rate Rhythm: regular rhythm Heart sounds: S1 normal heart sound present, S2 normal heart sound present, no click, no gallops, no murmurs and no rubs GI Auscultation: normal bowel sounds Skin General skin exam: no rashes or lesions noted Neuro General: patient oriented x3 and no focal motor deficits Speech: No Abnormal speech present Extrem General: Yes no clubbing, cyanosis or edema Psych Appearance: grossly normal Office Procedures EKG Details: EKG shows normal sinus rhythm with normal EKG 60657-Iiguisaoosnnfaupg, Complete Assessment & Plan Assessment & Plan (1) PAC (premature atrial contraction): Code(s): I49.1 - Atrial premature depolarization Category: Medical Plan: Patient frequent PACs Holter monitor on today's EKGs does not show any significant PACs but she still is bothered by significant symptoms of palpitation. Also has significant symptoms of headache which has been diagnose as migraine by Neurology. She is going for 2nd opinion. I think she would benefit from nonselective beta-mak therapy. Will start her on low-dose Inderal 10 mg b.i.d. to control her symptoms of headaches as well as palpitation. Potential side effects were discussed. Discussed that this is an empiric treatment she does not tolerate the side effects will need to discuss an alternative. Benign nature of PACs were discussed although she is at high risk for developing atrial fibrillation and this was discussed. Avoidance of stimulants was discussed. Stress mitigation strategies should be pursued. I would also request an echocardiogram to assess for LV systolic and diastolic function biatrial chamber size. Follow-up Holter monitor Inderal therapy in 4 weeks time to assess benefit of therapy and also assess for significant bradycardia. (2) Family history of coronary artery disease: Code(s): Z82.49 - Family history of ischemic heart disease and other diseases of the circulatory system Category: Medical Plan: Significant coronary disease in the family especially mother's side she had premature coronary artery disease. She is on low-dose statin therapy. I am not sure why that would be reduction dose of statin unless she was having any side effects. She says she has been tolerating a statin therapy valve. She has upcoming lipid panel near future will also order liver panel at that point time. Would suggest a coronary calcium score to further guide therapy. This was discussed with her. She is understanding. Will follow up in the clinic in 2 months time, sooner p.r.n.. Thank you for allowing me to partake in his care Orders: Orders CT Coronary Calcium Score 1 Week Z82.49 - Family history of ischemic heart disease and other diseases of the circulatory system ECG 3 day holter monitor 4 Weeks I49.1 - Atrial premature depolarization CA echo transthoracic complete Today I49.1 - Atrial premature depolarization Medications: New propranolol 10 mg PO BID 60 tabs 2RF Coding Level of Care Code New Pt Level 4 (71391) Complex EM visit Add On G2211 Diagnoses PAC (premature atrial contraction) I49.1 Family history of coronary artery disease Z82.49 CPT Codes EKG - CPT: 50037-Csmhbdbalbchtracp, Complete ([id number])
== END 2024-04-30 10:29 | disposition home or self-care (01) ==
PROVIDERS: PCP Internal Medicine; Visit Provider Internal Medicine Cardiovascular Disease
DX: I49.1 Atrial premature depolarization (principal); Z82.49 Family history of ischemic heart disease and other diseases of the circulatory system
CPT/HCPCS: 93010; 99214; G2211

== ENCOUNTER → 2024-04-30 09:45 | Outpatient (BNVA) | payer MEDICARE, SELFPAY | PROVIDERS: PCP Internal Medicine; Visit Provider Internal Medicine Cardiovascular Disease | DX: I49.1 Atrial premature depolarization (principal); Z82.49 Family history of ischemic heart disease and other diseases of the circulatory system | CPT/HCPCS: 93005; 99212 ==

== ENCOUNTER 2024-05-09 07:19 | Outpatient (REF) | payer MEDICARE, SELFPAY ==
[2024-05-09 10:27] LABS: Estimated Average Glucose 114 mg/dL; Hemoglobin A1C 122.2604 umol/L; Hemoglobin A1c % 5.6 % (<6.0)
[2024-05-09 10:29] LABS: Alanine Aminotransferase 20 U/L (0-31); Alkaline Phosphatase 73 U/L (39-117); Anion Gap 11 (12-20); Aspartate Amino Transferase 18 U/L (5-31); Bilirubin Total 0.6 mg/dL (0.0-1.0); Blood Urea Nitrogen 14 mg/dL (9-16); Calcium 9.7 mg/dL (8.4-10.2); Carbon Dioxide 28 mmol/L (22-29); Chloride 107 mmol/L (96-108); Cholesterol 173 mg/dL (<200); Estimated Glomerular Filt Rate > 60; Glucose Random 93 mg/dL (60-115); HDL Cholesterol 46 mg/dL (>40); LDL Cholesterol Calculated 96 mg/dL (<100); Potassium 4.6 mmol/L (3.3-5.1); Sodium 141 mmol/L (135-145); Total Protein 6.7 g/dL (6.5-8.0); Triglycerides 158 mg/dL (<150)
--- OUTSIDE RECORDS SUMMARY | 2024-05-09 22:45 | XMS_ITS ---
Author Organization [facility] Address [address] [place] [address] Care Team Providers Care Buckle Strap Drum Operator Name Role Phone Po Robby OSORIO Primary Care Provider Caleb Spicer [phone] ALLERGIES Allergen (clinical drug ingredient) Drug/Non Drug Allergy documented on EMR Reaction Allergy Type Onset Date Status gabapentin Gabapentin Unknown Drug Allergy Activ e atorvastatin Lipitor Unknown Drug Allergy Acti ve REASON FOR VISIT Patient presents today for a COLON SCREENING MEDICATIONS Medication SIG (Take, Route, Frequency, Duration) Notes Start Date End Date Status Rosuvastatin Calcium 5 MG Oral for 90 Active Vitamin D3 Active Verapamil HCl ER 120 MG TAKE 1 CAPSULE B Y MOUTH DAILY FOR 90 DAYS Oral for 90 Active PROBLEMS Problem Type ICD Code Onset Dates Problem Status W/U Status Risk SNOMED Code Notes Problem Colon cancer screening (Z12.11) Active confirmed 324440442 Problem Generalized abdominal discomfort (R10.84) Active confirmed 22135117 VITAL SIGNS BMI 21.14 kg/m2 07/07/2023 Blood pressure systolic 00 mm Hg 07/07/19 24 Blood pressure diastolic 00 mm Hg 024 Height 66 in 07/07/2023 Temperature 97.3 degrees Fahrenheit 07/07/19 24 Weight 131 lbs 07/07/2023 Encounters Encounter Location Date Provider Diagnosis [facility] [address] [place] [address] 07/07/2023 Caleb Castro Colon cancer screeni ng Z12.11 and Generalized abdominal discomfort R10.84 ASSESSMENTS Encounter Date Diagnosis Assessment Notes Treatment Notes Treatment Clinical Notes 07/07/2023 Colon cancer screening (ICD-10 - Z12.11) 07/07/2023 Generalized abdominal discomfort (ICD-10 - R10.84) PLAN OF TREATMENT Future Test Test Name Order Date UPPER GI ENDOSCOPY 07/07/2023 COLONOSCOPY 07/07/2023 Next Appt Details Follow Up: prn, Reason: Progress Notes * Examination Category Sub-Category Detail Notes General Examination GENERAL APPEARANCE: pleasant , well [...]
--- OUTSIDE RECORDS SUMMARY | 2024-05-09 22:45 | XMS_ITS ---
Author Organization [facility] Address [address] [place] [address] Care Team Providers Care Multimedia Journalist Name Role Phone Po Robby OSORIO Primary Care Provider Caleb Spicer [phone] REASON FOR VISIT ABD DISTRESS, SCREENING COLON PROBLEMS Problem Type ICD Code Onset Dates Problem Status W/U Status Risk SNOMED Code Notes Problem Diverticulosis of large intestine without perforation or abscess without bleeding (K57.30) Active confirmed Diverticul ar disease of colon (778600960) Problem Gastritis, chronic (K29.50) Active confirmed Chronic gastritis (3073509) Encounters Encounter Location Date Provider Diagnosis [facility] [place] Outpatient [address] [place] [phone] 09/22/2023 Caleb Castro Encounter for scre ening colonoscopy Z12.11 ; Colon polyps K63.5 ; Other specified diseases of intestine K63.89 ; Diverticulosis of large intestine without perforation or abscess without bleeding K57.30 ; Other hemorrhoids K64.8 ; Hiatal hernia K44.9 ; Gastritis, chronic K29.50 and Abdominal pain R10.9 ASSESSMENTS Encounter Date Diagnosis Assessment Notes Treatment Notes Treatment Clinical Notes 09/22/2023 Encounter for screening colonoscopy (ICD-10 - Z12.11) 09/22/2023 Colon polyps (ICD-10 - K63.5) 09/22/2023 Other specified diseases of intestine (ICD-10 - K63.89) 09/22/2023 Diverticulosis of large intestine without perforation or abscess without bleeding (ICD-10 - K57.30) 09/22/2023 Other hemorrhoids (ICD-10 - K64.8) 09/22/2023 Hiatal hernia (ICD-1 0 - K44.9) 09/22/2023 Gastritis, chronic (ICD-10 - K29.50) 09/22/2023 Abdominal pain (ICD-10 - R10.9) PLAN OF TREATMENT No Information
--- OUTSIDE RECORDS SUMMARY | 2024-05-09 22:45 | XMS_ITS | Continuity of Care Document ---
Author Organization [facility] Address [address] [facility], [address] d Floor, [address] [place] [address]- Care Team Providers Care Welder/Fitter Name Role Phone Robby Ferris MD Primary Care Physician Encounter [facility] [place] Date(s): 03/26/24 - 04/25/24 [facility] [address] [facility] 3rd Floor, [address] [place] [phone] [place] Encounter Type: Triage Social History Social History Type Response Sex Female Sex Representation Female (finding) Patient Care team information Care Team Personnel Name: Robby Ferris MD Position: Reference Physician Member Role: PCP Address: [address] [place] [id number] [place] Telecom: Insurance Providers Guarantor name: JI Health Plan Information #: 1 Payer: MEDICARE [facility] [id number] REPLC Member Number: JI Policy Number: NA Group Number: NA
--- OUTSIDE RECORDS SUMMARY | 2024-05-09 22:45 | XMS_ITS | Continuity of Care Document ---
Author Organization [facility] Address [address] [facility], [address]r [address] Floor, [address] [place] [address]- Care Team Providers Care Manager Security And Safety Name Role Phone Robby Ferris MD Primary Care Physician Encounter [facility] Date(s): 04/05/24 - 05/05/24 [facility] [address] [facility] 3rd Floor, [address] [place] [phone] Encounter Type: Triage Social History Social History Type Response Sex Female Sex Representation Female (finding) Patient Care team information Care Team Personnel Name: Robby Ferris MD Position: Reference Physician Member Role: PCP Address: [address] [place] [address] [place] Telecom: Insurance Providers Guarantor name: SUDEEP ORLANDO Health Plan Information #: 1 Payer: VICENTE: ADVANCED PAYMENT EXAM Member Number: NA Policy Number: NA Group Number: NA
--- OUTSIDE RECORDS SUMMARY | 2024-05-09 22:45 | XMS_ITS ---
Author Organization [facility] Address [address] [place] [address] Care Team Providers Care Steward/Stewardess Name Role Phone Po Robby OSORIO Primary Care Provider Caleb Spicer [phone] REASON FOR VISIT results of biopsies Encounters Encounter Location Date Provider Diagnosis [facility] [address] [place] [phone] 10/11/2023 Caleb Castro PLAN OF TREATMENT No Information
--- OUTSIDE RECORDS SUMMARY | 2024-05-09 22:45 | XMS_ITS | Patient Health Record ---
Author Organization [facility] Address [address] [place] [address] Care Team Providers Care Bit Tripoler Name Role Phone Robby Ferris MD Primary Care Provider Caleb Spicer [phone] ALLERGIES Allergen (clinical drug ingredient) Drug/Non Drug Allergy documented on EMR Reaction Allergy Type Onset Date Status gabapentin Gabapentin Unknown Drug Allergy Activ e atorvastatin Lipitor Unknown Drug Allergy Acti ve RESULTS Component Value Reference Range Notes Pathology Reviewed date:10/12/2023 08:05:24 AM Interpretation: Performing Lab:[facility], [address] [place] [phone] Notes/Report: REASON FOR REFERRAL No Information MEDICATIONS Medication SIG (Take, Route, Frequency, Duration) Notes Start Date End Date Status Rosuvastatin Calcium 5 MG Oral for 90 Active Vitamin D3 Active Verapamil HCl ER 120 MG TAKE 1 CAPSULE B Y MOUTH DAILY FOR 90 DAYS Oral for 90 Active SOCIAL HISTORY Sex Assigned At : Social History Observation Description Sex Assigned At Unknown PROBLEMS Problem Type ICD Code Onset Dates Problem Status W/U Status Risk SNOMED Code Notes Problem Colon cancer screening (Z12.11) Active confirmed 915262481 Problem Diverticulosis of large intestine without perforation or abscess without bleeding (K57.30) Active confirmed Diverticul ar disease of colon (577602824) Problem Gastritis, chronic (K29.50) Active confirmed Chronic gastritis (3347141) Problem Generalized abdominal discomfort (R10.84) Active confirmed 24549340 VITAL SIGNS Temperature 97.3 degrees Fahrenheit 07/07/2023 Blood pressure diastolic 00 mm Hg 07/07/2023 Height 66 in 07/07/2023 Blood pressure systolic 00 mm Hg 07/07/2023 Weight 131 lbs 07/07/2023 BMI 21.14 kg/m2 07/07/2023 Encounters Encounter Location Date Provider Diagnosis [facility] [place] Outpatient [address] [place], [place] [phone] 09/22/2023 Caleb Castro Encounter for screen ing colonoscopy Z12.11 ; Colon polyps K63.5 ; Other specified diseases of intestine K63.89 ; Diverticulosis of large intestine without perforation or abscess without bleeding K57.30 ; Other hemorrhoids K64.8 ; Hiatal hernia K44.9 ; Gastritis, chronic K29.50 and Abdominal pain R10.9 [facility] [address] [place] [phone] 07/07/2023 Caleb Castro Colon cancer screeni ng Z12.11 and Generalized abdominal discomfort R10.84 [facility] [address] [place] [phone] 10/11/2023 Caleb Castro ASSESSMENTS Encounter Date Diagnosis Assessment Notes Treatment Notes Treatment Clinical Notes 09/22/2023 Encounter for screening colonoscopy (ICD-10 - Z12.11) 09/22/2023 Colon polyps (ICD-10 - K63.5) 07/07/2023 Colon cancer screening (ICD-10 - Z12.11) 07/07/2023 Generalized abdomina l discomfort (ICD-10 - R10.84) 09/22/2023 Other specified diseases of intestine (ICD-10 - K63.89) 09/22/2023 Diverticulosis of large intestine without perforation or abscess without bleeding (ICD-10 - K57.30) 09/22/2023 Other hemorrhoids (ICD-10 - K64.8) 09/22/2023 Hiatal hernia (ICD-1 0 - K44.9) 09/22/2023 Gastritis, chronic (ICD-10 - K29.50) 09/22/2023 Abdominal pain (ICD-10 - R10.9) PLAN OF TREATMENT Pending Test Test Name Order Date MRI ABD NO CONTRAST (MRCP) 09/27/2014 MRI ABD W&WO CONTRAST 09/27/2014 Future Test Test Name Order Date COLONOSCOPY 05/13/2011 UPPER GI ENDOSCOPY 07/07/2023 COLONOSCOPY 07/07/2023 Insurance Providers Payer Name Payer Address Payer Phone Subscriber Number Group Number Insured Name Patient Relationship to Insured Coverage Start Date Coverage End Date [facility] [address] [place] [address] [phone] [id number] SUDEEP MUÑOZ Self - patient is the insured MEDICAL (GENERAL) HISTORY Medical History History ICD Code Hyperlipidemia She takes Prozac for menopause Denies NH,DM,CVA,Lung disease,renal dise ase Screening Colonoscopy in 07/29 012-negative except for hypeplastic polyps, diverticulosis, and internal hemorrhoids hypertension Surgical History Surgery Date(Month/Year) cholecystectomy
== END 2024-05-09 07:20 | disposition home or self-care (01) ==
LOC: HO.HMGCLDS 07:19
PROVIDERS: PCP Internal Medicine; Visit Provider Internal Medicine
DX: E78.00 Pure hypercholesterolemia, unspecified (principal); Z13.1 Encounter for screening for diabetes mellitus
CPT/HCPCS: 36415; 80053; 80061; 83036

== ENCOUNTER 2024-05-21 13:24 | Outpatient (AMB) | payer MEDICARE, SELFPAY ==
[2024-05-21 13:25] VITALS: BP 114/68; PULSE 59; O2SAT 97; BMI 22.1
--- NOTE | 2024-05-21 13:25 | A.OFFPC_ITS ---
Vital Signs 05/21/24 13:25 Height 5 ft 6 in Weight 137 lb BMI 22.1 BP 114/68 Blood Pressure Location Lt brachial Position Sitting Pulse 59 Pulse Source Pulse Oximeter Pulse Oximetry (%) 97 Oxygen Delivery Method Room Air Intake Visit Reasons: HTN , IGT , Cholesterol Allergies atorvastatin [Lipitor] Allergy (Unknown, Verified 05/21/24 13:25) cramps lisinopril Adverse Reaction (Intermediate, Verified 05/21/24 13:25) Dizziness Medication List - Last Reconciled 05/21/24 by Robby Ferris MD ascorbate calcium (vitamin C) 600 mg PO DAILY blood pressure monitor (Blood Pressure Kit) As directed cod liver oil 1 cap PO DAILY losartan 25 mg PO DAILY nitazoxanide (Alinia) 1,000 mg PO ONCE propranolol 10 mg PO BID rosuvastatin 5 mg PO DAILY sucralfate (Carafate) 1 g PO BID sumatriptan 10 mg/actuation 20 mg intranasal Q2H PRN zinc acetate (Galzin) 50 mg PO DAILY Tobacco use date assessed: 02/03/24 Fall risk assessment: No Falls in past year Last assessed Fall Risk: 05/21/24 Dental Screening Dental Screen Date: 05/21/24 Did you have a dental visit in the last 12 months?: Yes Did you have a dental problem in the last 6 months where you did not have access to dental care?: No Was dental information given to patient?: Patient has dentist HPI HTN , IGT , Cholesterol HPI Details The patient is a 74-year-old female presenting with palpitations. She was recently placed on propranolol (Inderal) by her ordnance technician with an intention to manage both palpitations and migraines. Despite this therapy, she reports increased severity in headaches and nausea over the past week. Her medical history is significant for an elevated coronary artery calcium score of 306, as identified in recent cardiac assessments. The patient is closely monitoring her lipid levels, with a noted increase in total cholesterol from 161 to 173, and an LDL cholesterol level currently at 96. Her triglyceride level is slightly elevated at 158. The patient has been on a reduced dosage of statins which was adjusted due to prior lab values but is now considering increasing this dose again due to family history of cardiovascular diseases and the current elevated lipid measures. Additionally, the patient reports long-term issues with stomach discomfort, currently unresolved with omeprazole, and is seeking alternative treatment options. There have been persistent gastrointestinal concerns without diagnosis of an ulcer. Family and personal health history were reviewed to guide testing and therapy plans for hypercholesterolemia and coronary artery disease prevention. Social habits include staying hydrated and adherence to vaccination schedules. Recent vaccinations and their timelines were confirmed. [facility] Medical History Colon cancer screening Cervicalgia Hypersomnia Palpitations Other specified cardiac arrhythmias Pleural effusion Arrhythmia Elevated blood pressure reading Headache LFT elevation Numbness in feet Gout Anemia Osteoporosis Thyroid nodule GERD (gastroesophageal reflux disease) Hypercholesterolemia Surgical History History of endoscopy Hx of colonoscopy History of cholecystectomy Family History Father Diabetes Heart attack Mother Heart attack Asthma Emphysema lung Non-Hodgkin lymphoma CHF (congestive heart failure) Brother Cancer Sister Diabetes Ulcerative colitis Social History Housing: House Alcohol intake: never Patient Tobacco Use Status: Never used Tobacco Tobacco use type: Cigarette e-Cigarette/Vaping Use: Never Used Second Hand Smoke Exposure: No service: No Current occupational status: retired Current occupational exposures/hazards: No Cognitive needs: No Hearing needs: No Vision needs: No Questionnaire PHQ-9 Over the last 2 weeks, how often have you been bothered by any of the following problems? 1. Little interest or pleasure in doing things: not at all 2. Feeling down, depressed, or hopeless: not at all 3. Trouble falling or staying asleep, or sleeping too much: not at all 4. Feeling tired or having little energy: not at all 5. Poor appetite or overeating: not at all 6. Feeling bad about yourself - or that you are a failure or have let yourself or your family down: not at all 7. Trouble concentrating on things, such as reading the newspaper or watching television: not at all 8. Moving or speaking so slowly that other people could have noticed. Or the opposite - being so fidgety or restless that you have been moving around a lot more than usual: not at all 9. Thoughts that you would be better off or of hurting yourself in some way: not at all Total score: 0 Depression Screening Interpretation: Negative Depression Screening Done: Yes Source: Developed by Drs. Caleb Fan, Felipa Au, Marcelino Harris and colleagues, with an educational radha from [employer]. Thrive Questionnaire Date Thrive assessed: 05/21/24 I am a: Patient What is your living situation today?: I have a steady place to live Within the past 12 months, did the food you bought not last and you didn't have the money to get more?: Never true Within the past 12 months, did you worry whether your food would run out before you got money to buy more?: Never true Do you have trouble paying for medicines?: No Do you have trouble getting transportation to medical appointments?: No Do you have trouble paying your heating and electricity bill?: No Do you have trouble taking care of your child, family member or friend?: No Do you have trouble with day-to-day activities such as bathing, preparing meals, shopping, managing finances, etc.?: No Are you currently unemployed and looking for a job?: No Are you interested in more education?: No Please select the resources that you would like help with: None Currently or been in a relationship where the following occur: No concerns reported THRIVE Score: 0 AUDIT C Alcohol Use Questionnaire (AUDIT-C) 3. How often do you have six or more drinks on one occasion?: Never Total Score: 0 BENOIT-7 AMB Questionnaire BENOIT-7 Date BENOIT - 7 assessed: 02/03/24 Source: Developed by Drs. Caleb Fan, Felipa Au, Marcelino Harris and colleagues, with an educational radha from [employer]. Physical exam (Primary Care) Vital Signs: Last Vital Signs Pulse 59 05/21/24 13:25 BP 114/68 05/21/24 13:25 Pulse Ox 97 05/21/24 13:25 Oxygen Delivery Method Room Air 05/21/24 13:25 BMI result Body Mass Index 22.1 Tobacco/Smoking Status: Tobacco use Status Tobacco use date assessed 02/03/24 05/21/24 13:26 Patient Tobacco Use Status Never used Tobacco 05/21/24 13:26 Tobacco use type Cigarette 05/21/24 13:26 e-Cigarette/Vaping Use Never Used 05/21/24 13:26 PHQ-9: PHQ-9 Score PHQ-9: Total score 0 05/21/24 14:06 Depression Screening Interpretation: Negative Thrive Assessment: Date of Thrive Assessment Date Thrive assessed 05/21/24 05/21/24 13:26 Currently or been in a relationship where the following occur: No concerns reported Const General: alert; No acute distress Eyes Conjunctivae: conjunctivae normal Resp Auscultation: clear to auscultation bilaterally Cardio Rate: regular rate Rhythm: regular rhythm GI Inspection: Yes normal to inspection Extrem General: Yes normal to inspection and No edema Coding Level of Care Code Est Pt Level 4 (43039) Complex EM visit Add On G2211 Diagnoses Hypercholesterolemia E78.00 GERD (gastroesophageal reflux disease) K21.9 Impaired fasting blood sugar R73.01 Hypertension I10 Generalized anxiety disorder F41.1 Agatston coronary artery calcium score between 100 and 400 R93.1 Assessment & Plan Assessment & Plan (1) Hypercholesterolemia: Code(s): E78.00 - Pure hypercholesterolemia, unspecified Category: Medical (2) GERD (gastroesophageal reflux disease): Code(s): K21.9 - Gastro-esophageal reflux disease without esophagitis Category: Medical (3) Impaired fasting blood sugar: Code(s): R73.01 - Impaired fasting glucose Category: Medical (4) Hypertension: Code(s): I10 - Essential (primary) hypertension Category: Medical (5) Generalized anxiety disorder: Code(s): F41.1 - Generalized anxiety disorder Category: Medical (6) Agatston coronary artery calcium score between 100 and 400: Code(s): R93.1 - Abnormal findings on diagnostic imaging of heart and coronary circulation Category: Medical Plan - Propranolol will be continued for management of palpitations and migraine prevention, with an understanding of its potential side effects. - Consideration of increasing statin dosage to 5 mg daily to manage dyslipidemia, specifically targeting LDL cholesterol level. - Prescription of a stomach-coating medication Parapet) to ameliorate gastrointestinal discomfort. - Blood lipid panel to be reassessed in three months to monitor response to therapy adjustments. - Coordination of refill for statin medication via [facility] [employer]. - Continued monitoring of cardiac health parameters including follow-up echocardiogram. - Patient advised to maintain hydration and nutrient intake, and updated on vaccine schedules for seasonal flu and tetanus. Orders: Orders Lipid Panel 3 Months E78.00 - Pure hypercholesterolemia, unspecified Comprehensive Met. Panel 3 Months E78.00 - Pure hypercholesterolemia, unspecified Medications: New sucralfate (Carafate) 1 g PO BID 60 tabs 1RF K21.9 - Gastro-esophageal reflux disease without esophagitis Changed From rosuvastatin 2.5 mg (1/2 x 5 mg) PO DAILY 90 tabs 3RF E78.00 - Pure hypercholesterolemia, unspecified To rosuvastatin 5 mg PO DAILY 90 tabs 3RF E78.00 - Pure hypercholesterolemia, unspecified
--- OUTSIDE RECORDS SUMMARY | 2024-05-21 13:25 | XMS_ITS | Continuity of Care Document ---
Author Organization [facility] Address [address] [facility] [place] [address]- Care Team Providers Care Bologna Maker Name Role Phone Robby Ferris MD Primary Care Physician Encounter 05/11/24 - 05/18/24 [facility] [address] [facility], [address] [place] [address]- Attending Physician: Joni Shine MD Admitting Physician: Joni Shine MD Referring Physician: Joni Shine MD Encounter Type: OutPatient One Time Results Radiology Reports * Exam Date Time Procedure Performing Provider Status 05/11/24 4:[address] Heart W/O Dye Abraham Eval Nanette Parekh; Auth (Verified) Notes: (CT Heart W/O Dye Abraham Eval) Reason For Exam: FAM HX OF ISCHEMIC HEART DISEASE RESULT: CT Heart W/O Dye Abraham Eval CT Heart W/O Dye Abraham Eval INDICATION: Reason: FAM HX OF ISCHEMIC HEART DISEASE; Clinical Question(s): Other:. Female of age 74 years, race White COMPARISON: None TECHNIQUE: Coronary artery Calcium Scoring. After a localizing flatbed press operator image was obtained, an ECG-gated noncontrast exam was obtained of the heart in late diastole. The region of interest was limited to the heart in order to optimize image quality. Weight-based protocol using automatic tube modulation was used to optimize exposure parameters. A [employer] 64 scanner was used, with Agatston scoring performed using Ogin (Valued Relationships) web-based software. This procedure is not being performed on thispatient for preoperative evaluation for low-risk surgery within 30 days. CTDIvol Body: 5.27 mGy, DLP Body: 68 mGy*cm. FINDINGS: Coronary Calcium Scoring Summary: Left Main: Score 39. LAD: Score 171. Circumflex: Score 0. Right: Score 96. TOTAL: Score 306. Non-coronary Findings: No significant findings. IMPRESSION: The Agatston coronary calcium score is 306. The Multi-Ethnic Study of Atherosclerosis (BYRNE) trial on-line calculator can be used to determine the probability of having coronary calcification and the calcium score percentile for subjects basedon age, gender and race/ethnicity who are free of clinical cardiovascular disease and treated diabetes: http://www.byrne-nhlbi.org/Calcium/input.aspx Within this cohort, the probability of having coronary calcification is 70 %. The observed calcium score is at the 81st percentile. WSN: [id number] Ordering Physician: Joni Shine MD Dictated By: Jed Mckeon MD Dictated Date/Time: 05/16/24 12:58 p Reviewed By: Jed Mckeon MD Signed By: Jed Mckeon MD Signed Date/Time: 05/16/24 12:58 pm Transcribed By: AIXA Transcribed Date/Time: 05/16/24 12:55 pm Social History Social History Type Response Sex Female Sex Representation Female (finding) Patient Care team information Care Team Personnel Name: Robby Ferris MD Position: Reference Physician Member Role: PCP Address: [address] [place] [address] Telecom: Insurance Providers Guarantor name: SUDEEP ORLANDO Health Plan Information #: 1 Payer: VICENTE: ADVANCED PAYMENT EXAM Member Number: [id number] Policy Number: NA Group Number: NA Health Plan Information #: 2 Payer: VICENTE: ADVANCED PAYMENT EXAM Member Number: [id number] Policy Number: NA Group Number: NA
--- OUTSIDE RECORDS SUMMARY | 2024-05-21 13:26 | XMS_ITS ---
Author Organization [facility] Address [address] [place] [address] Care Team Providers Care Head Automatic Sawyer Name Role Phone Po Robby OSORIO Primary Care Provider Caleb Spicer [phone] REASON FOR VISIT results of biopsies Encounters Encounter Location Date Provider Diagnosis [facility] [address] [place] [phone] 10/11/2023 Caleb Castro PLAN OF TREATMENT No Information
--- OUTSIDE RECORDS SUMMARY | 2024-05-21 13:26 | XMS_ITS ---
Author Organization [facility] Address [address] [place] [address] Care Team Providers Care Friction Welding Machine Operator Name Role Phone Po Robby OSORIO Primary Care Provider Caleb Spicer [phone] ALLERGIES Allergen (clinical drug ingredient) Drug/Non Drug [...] Problem Colon cancer screening (Z12.11) Active confirmed 692143462 Problem Generalized abdominal discomfort (R10.84) Active confirmed 66560407 VITAL SIGNS BMI 21.14 kg/m2 07/07/2023 Blood pressure systolic 00 mm Hg 07/07/19 24 Blood pressure diastolic 00 mm Hg 024 Height 66 in 07/07/2023 Temperature 97.3 degrees Fahrenheit 07/07/19 24 Weight 131 lbs 07/07/2023 Encounters Encounter Location Date Provider Diagnosis [facility] [address] [place] [address] 07/07/2023 Caleb Castro Colon cancer screeni ng [...]
--- OUTSIDE RECORDS SUMMARY | 2024-05-21 13:26 | XMS_ITS ---
Author Organization [facility] Address [address] [place] [address] Care Team Providers Care Elevator Repairer Name Role Phone Po Robby OSORIO Primary Care Provider Caleb Spicer [phone] REASON FOR VISIT ABD DISTRESS, SCREENING COLON PROBLEMS Problem Type ICD Code Onset Dates Problem Status W/U Status Risk SNOMED Code Notes Problem Diverticulosis of large intestine without perforation or abscess without bleeding (K57.30) Active confirmed Diverticul ar disease of colon (735244776) Problem Gastritis, chronic (K29.50) Active confirmed Chronic gastritis (8278275) Encounters Encounter Location Date Provider Diagnosis [facility] Outpatient [address] [place] [phone] 09/22/2023 Caleb Castro Encounter for scre ening [...]
--- OUTSIDE RECORDS SUMMARY | 2024-05-21 13:26 | XMS_ITS | Patient Health Record ---
Author Organization [facility] Address [address] [place] [address] Care Team Providers Care Tile Ditcher Name Role Phone Robby Ferris MD Primary Care Provider Caleb Spicer [phone] ALLERGIES Allergen (clinical drug ingredient) Drug/Non Drug Allergy documented on EMR Reaction Allergy Type Onset Date Status gabapentin Gabapentin Unknown Drug Allergy Activ e atorvastatin Lipitor Unknown Drug Allergy Acti ve RESULTS Component Value Reference Range Notes Pathology Reviewed date:10/12/2023 08:05:24 AM Interpretation: Performing Lab:[facility], [address] [place] [phone] Notes/Report: REASON FOR REFERRAL No Information MEDICATIONS [...] Problem Colon cancer screening (Z12.11) Active confirmed 382399090 Problem Diverticulosis of large intestine without perforation or abscess without bleeding (K57.30) Active confirmed Diverticul ar disease of colon (414321982) Problem Gastritis, chronic (K29.50) Active confirmed Chronic gastritis (2585231) Problem Generalized abdominal discomfort (R10.84) Active confirmed 26134377 VITAL SIGNS Temperature 97.3 degrees Fahrenheit 07/07/2023 Blood pressure diastolic 00 mm Hg 07/07/2023 Height 66 in 07/07/2023 Blood pressure systolic 00 mm Hg 07/07/2023 Weight 131 lbs 07/07/2023 BMI 21.14 kg/m2 07/07/2023 Encounters Encounter Location Date Provider Diagnosis [facility] Outpatient [address] [place], [place] [phone] 09/22/2023 Caleb Castro Encounter for screen ing colonoscopy Z12.11 ; Colon polyps K63.5 ; Other specified diseases of intestine K63.89 ; Diverticulosis of large intestine without perforation or abscess without bleeding K57.30 ; Other hemorrhoids K64.8 ; Hiatal hernia K44.9 ; Gastritis, chronic K29.50 and Abdominal pain R10.9 [facility] [address] [place] [phone] 07/07/2023 Caleb Castro Colon cancer screeni ng Z12.11 and Generalized abdominal discomfort R10.84 [facility] [address] [place] [phone] 10/11/2023 Calbe Castro ASSESSMENTS Encounter Date Diagnosis Assessment Notes [...] Insured Coverage Start Date Coverage End Date [facility] [address] [place] [address] [id number] SUDEEP MUÑOZ Self - patient is the insured MEDICAL (GENERAL) HISTORY Medical History History ICD Code Hyperlipidemia She takes Prozac for menopause Denies [place],DM,CVA,Lung disease,renal dise ase Screening Colonoscopy in 07/29 012-negative except for hypeplastic polyps, diverticulosis, and internal hemorrhoids hypertension Surgical History Surgery Date(Month/Year) cholecystectomy
== END 2024-05-21 14:22 | disposition home or self-care (01) ==
PROVIDERS: PCP Internal Medicine; Visit Provider Internal Medicine
DX: E78.00 Pure hypercholesterolemia, unspecified (principal); K21.9 Gastro-esophageal reflux disease without esophagitis; R73.01 Impaired fasting glucose; I10 Essential (primary) hypertension; F41.1 Generalized anxiety disorder; R93.1 Abnormal findings on diagnostic imaging of heart and coronary circulation

== ENCOUNTER → 2024-05-21 13:24 | Outpatient (BNVA) | payer MEDICARE, SELFPAY | PROVIDERS: PCP Internal Medicine; Visit Provider Internal Medicine | DX: E78.00 Pure hypercholesterolemia, unspecified (principal); K21.9 Gastro-esophageal reflux disease without esophagitis; R73.01 Impaired fasting glucose; I10 Essential (primary) hypertension; F41.1 Generalized anxiety disorder; R93.1 Abnormal findings on diagnostic imaging of heart and coronary circulation | CPT/HCPCS: 96127; 99212 ==

== ENCOUNTER → 2024-05-25 10:54 | Outpatient (REF) | payer MEDICARE, SELFPAY ==
--- OUTSIDE RECORDS SUMMARY | 2024-05-25 10:57 | XMS_ITS ---
Author Organization [facility] Address [address] [place] [address] Care Team Providers Care Facilities Custodian Name Role Phone Po Robby OSORIO Primary Care Provider Caleb Spicer [phone] ALLERGIES Allergen (clinical drug ingredient) Drug/Non Drug [...] Problem Colon cancer screening (Z12.11) Active confirmed 242987275 Problem Generalized abdominal discomfort (R10.84) Active confirmed 87550045 VITAL SIGNS BMI 21.14 kg/m2 07/07/2023 Blood pressure systolic 00 mm Hg 07/07/19 24 Blood pressure diastolic 00 mm Hg 024 Height 66 in 07/07/2023 Temperature 97.3 degrees Fahrenheit 07/07/19 24 Weight 131 lbs 07/07/2023 Encounters Encounter Location Date Provider Diagnosis [facility] [address] [place] [address] 07/07/2023 Caleb Castro Colon cancer screeni ng [...]
--- OUTSIDE RECORDS SUMMARY | 2024-05-25 10:57 | XMS_ITS | Patient Health Record ---
Author Organization [facility] Address [address] [place] [address] Care Team Providers Care Contract Technician Name Role Phone Robby Ferris MD Primary Care Provider Caleb Spicer [phone] ALLERGIES Allergen (clinical drug ingredient) Drug/Non Drug Allergy documented on EMR Reaction Allergy Type Onset Date Status gabapentin Gabapentin Unknown Drug Allergy Activ e atorvastatin Lipitor Unknown Drug Allergy Acti ve RESULTS Component Value Reference Range Notes Pathology Reviewed date:10/12/2023 08:05:24 AM Interpretation: Performing Lab:[facility], [address] [place] [phone] Notes/Report: REASON FOR REFERRAL No Information MEDICATIONS [...] Problem Colon cancer screening (Z12.11) Active confirmed 298932057 Problem Diverticulosis of large intestine without perforation or abscess without bleeding (K57.30) Active confirmed Diverticul ar disease of colon (890007252) Problem Gastritis, chronic (K29.50) Active confirmed Chronic gastritis (1458681) Problem Generalized abdominal discomfort (R10.84) Active confirmed 98654335 VITAL SIGNS Temperature 97.3 degrees Fahrenheit 07/07/2023 Blood pressure diastolic 00 mm Hg 07/07/2023 Height 66 in 07/07/2023 Blood pressure systolic 00 mm Hg 07/07/2023 Weight 131 lbs 07/07/2023 BMI 21.14 kg/m2 07/07/2023 Encounters Encounter Location Date Provider Diagnosis [facility] Outpatient [address] [place], [place] [phone] 09/22/2023 Caleb Castro Encounter for screen ing colonoscopy Z12.11 ; Colon polyps K63.5 ; Other specified diseases of intestine K63.89 ; Diverticulosis of large intestine without perforation or abscess without bleeding K57.30 ; Other hemorrhoids K64.8 ; Hiatal hernia K44.9 ; Gastritis, chronic K29.50 and Abdominal pain R10.9 [facility] [address] [place] [phone] 07/07/2023 Caleb Castro Colon cancer screeni ng Z12.11 and Generalized abdominal discomfort R10.84 [facility] [address] [place] [phone] 10/11/2023 Caleb Castro ASSESSMENTS Encounter Date Diagnosis [...] Insured Coverage Start Date Coverage End Date [facility] [address] [place] [address] [id number] SUDEEP MUÑOZ Self - patient is the insured MEDICAL (GENERAL) HISTORY Medical History History ICD Code Hyperlipidemia She takes Prozac for menopause Denies [place],DM,CVA,Lung disease,renal dise ase Screening Colonoscopy in 07/29 012-negative except for hypeplastic polyps, diverticulosis, and internal hemorrhoids hypertension Surgical History Surgery Date(Month/Year) cholecystectomy
--- OUTSIDE RECORDS SUMMARY | 2024-05-25 10:57 | XMS_ITS ---
Author Organization [facility] Address [address] [place] [address] Care Team Providers Care Supervisor Laundry Name Role Phone Po Robby OSORIO Primary Care Provider Caleb Spicer [phone] REASON FOR VISIT ABD DISTRESS, SCREENING COLON PROBLEMS Problem Type ICD Code Onset Dates Problem Status W/U Status Risk SNOMED Code Notes Problem Diverticulosis of large intestine without perforation or abscess without bleeding (K57.30) Active confirmed Diverticul ar disease of colon (942723595) Problem Gastritis, chronic (K29.50) Active confirmed Chronic gastritis (7283652) Encounters Encounter Location Date Provider Diagnosis [facility] Outpatient [address] [place] [phone] 09/22/2023 Caleb Castro Encounter for scre ening [...]
--- OUTSIDE RECORDS SUMMARY | 2024-05-25 10:57 | XMS_ITS ---
Author Organization [facility] Address [address] [place] [address] Care Team Providers Care Business Intelligence Reporting Analyst Name Role Phone Po Robby OSORIO Primary Care Provider Caleb Spicer [phone] REASON FOR VISIT results of biopsies Encounters Encounter Location Date Provider Diagnosis [facility] [address] [place] [phone] 10/11/2023 Caleb Castro PLAN OF TREATMENT No Information
--- NOTE | 2024-05-25 10:59 | HM_ITS ---
Conclusion: 1. Patient was monitored for total period of 3 days 2. Baseline was normal sinus rhythm with average heart of 73 beats per minute 3. Frequent PACs noted with total burden of 6.3% without any sustained episodes of atrial fibrillation 4. No significant pauses noted 5. 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
--- NOTE | 2024-05-25 10:59 | CA_ITS ---
Transthoracic Echocardiogram Patient (Last, First, Middle): Sushma Moody A Gender: Female Date of : 1950 Age: 74 Procedure Date: 05/25/2024 Procedure Type: Transthoracic Echocardiogram Location: OP Height: 167.64 cm Weight: 62.14 kg BSA: 1.70 m2 Heart Rate: bpm BP: 114 / 68 mmHg Project Management Advisor: TO Referring MD: Joni Gaming MD Dumbwaiter Operator: Joni Gaming MD Symptoms: I49.1 - Atrial premature depolarization Study Quality: Fair ECG Rhythm: Sinus Conclusions: - 1. Normal LV ejection fraction of 60 65% with impaired relaxation filling pattern 2. Normal cardiac valvular Dopplers 3. No gross pericardial effusion Findings Left Ventricle Normal left ventricular size, thickness, and systolic function. The visually estimated ejection fraction is between 60-65%. Spectral Doppler is indicative of an impaired relaxation filling pattern. E/E prime ratio is between 8 and 15 consistent with indeterminate filling pressures. Right Ventricle Normal right ventricular cavity size and systolic function. Atria Both atria are normal in size. There is no evidence of interatrial shunt. Aortic Valve Normal aortic valve structure and function. There is no aortic valve stenosis. There is no aortic valve regurgitation. Mitral Valve There is mild anterior and posterior mitral leaflet thickening. There is trace mitral valve regurgitation. There is no mitral valve stenosis. Pulmonic Valve The pulmonic valve is likely normal. There is trace to mild pulmonic valve regurgitation. Tricuspid Valve Likely normal tricuspid valve structure and function. Tricuspid regurgitation envelope is inadequate for calculation of right ventricular systolic pressure. Normal right atrial pressure. Great Vessels The pulmonary artery was not well visualized. Small plaque is seen in the sino tubular ridge. Venous The inferior vena cava is normal in size and collapses greater than 50% with inspiration. Pericardium/Pleural There is no evidence of pericardial effusion. Prior Study Comparison No prior study available for comparison. Measurements 2D Linear Measurements IVSd: 1.09 0.6-0.9/0.6-1.0 cm LVIDd: 3.72 3.9-5.3/4.2-5.9 cm LVIDd Index: 2.19 2.4-3.2/2.2-3.1 cm/m2 LVIDs: 2.31 2.0-3.6 cm LVPWd: 0.71 0.7-1.1 cm LA Diam: 3.10 2.7-3.8/3.0-4.0 cm LAIDs Index: 1.82 1.5-2.3 cm/m2 LV Mass: 121.67 67-162/88-224 g LV Mass Index: 71.57 43-95/49-115 g/m2 LVOT Diam: 2.00 3.0+(-)1.3 cm 2D Systolic Function EF 2C: 64.90 >55% Mitral Valve MV Pk E: 0.63 MV PK A: 0.54 MV Decel Time: 202.00 E/A: 1.20 E'Lateral: 4.57 E'Medial: 4.13 E/E' Med: 15.40 E/E' Lat: 13.90 PHT: 59.00 MVA PHT: 3.73 Decel Otoe: 3.14 Aortic Valve AoV Pk Richie: 1.11 AoV Pk Grad: 5.00 LVOT LVOT Pk Richie: 0.83 LVOT Mn Richie: 0.52 LVOT VTI: 0.19 LVOT Pk Grad: 3.00 LVOT Mn Grad: 2.00 LVOT Diam: 2.00 LVOT Area: 3.14 Diastolic Function MV Pk E: 0.63 MV Pk A: 0.54 E/A: 1.20 E'Medial: 4.13 E/E' Med: 15.40 E' Laterial: 4.57 E/E' Lat: 13.90 Right Ventricle TAPSE (mm): 25.40 TVS' Richie: 12.60 Tricuspid Valve RA Press: 3.00 Great Vessels Aorta Sinus of Valsalva: 2.89 2.0-3.5 cm Ao Asc: 2.60 2.1-3.4 cm Updated in Other Vendor System with Status of Final Joni Gaming MD electronically signed on 05/25/2024 3:58:32 PM with status of Final
== END ==
LOC: HO.CARD 10:54
PROVIDERS: PCP Internal Medicine; Visit Provider Internal Medicine Cardiovascular Disease
DX: I49.1 Atrial premature depolarization (principal)
CPT/HCPCS: 93242; 93306

== ENCOUNTER → 2024-05-25 10:59 | Outpatient (BNV) | payer MEDICARE, SELFPAY | PROVIDERS: PCP Internal Medicine; Visit Provider Internal Medicine Cardiovascular Disease | DX: I37.1 Nonrheumatic pulmonary valve insufficiency (principal) | CPT/HCPCS: 93306 ==

== ENCOUNTER 2024-06-28 09:29 | Outpatient (AMB) | payer MEDICARE, SELFPAY ==
[2024-06-28 09:58] VITALS: BP 114/62; PULSE 73; BMI 22.3
--- NOTE | 2024-06-28 09:58 | MHC.OFFVIS ---
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 Required: No Allergies atorvastatin [Lipitor] Allergy (Unknown, Verified 06/28/24 10:01) cramps lisinopril Adverse Reaction (Intermediate, Verified 06/28/24 10:01) Dizziness Medication List - Last Reconciled 06/28/24 by RILEY Newsome ascorbate calcium (vitamin C) 600 mg PO DAILY blood pressure monitor (Blood Pressure Kit) As directed cod liver oil 1 cap PO DAILY losartan 25 mg PO DAILY nystatin units PO propranolol 10 mg PO BID rosuvastatin 5 mg PO DAILY sucralfate (Carafate) 1 g PO BID topiramate 25 mg PO DAILY zinc acetate (Galzin) 50 mg PO DAILY HPI HPI *1 mth f/up per NS: Details: Tracy is a 74-year-old female with past medical history PACs, family history of CAD, heart palpitations who presents for follow-up after recent echocardiogram, Holter monitor and coronary calcium score. Patient reports that she generally feels well. She will notice some heart palpitations which feels like strong pounding beats. No chest discomfort at rest or with activity. No shortness of breath, PND, orthopnea or edema. Compliant with her meds. She feels the Inderal has helped her palpitations lessen. She is following with a neurologist for her headaches. She is starting a new medication to help with them. [facility] Medical History (Updated 06/28/24 @ 11:00 by RILEY Newsome) Palpitations Colon cancer screening Cervicalgia Hypersomnia Other specified cardiac arrhythmias Pleural effusion Arrhythmia Elevated blood pressure reading Headache LFT elevation Numbness in feet Gout Anemia Osteoporosis Thyroid nodule GERD (gastroesophageal reflux disease) Hypercholesterolemia Surgical History History of endoscopy Hx of colonoscopy History of cholecystectomy Family History Father Diabetes Heart attack Mother Heart attack Asthma Emphysema lung Non-Hodgkin lymphoma CHF (congestive heart failure) Brother Cancer Sister Diabetes Ulcerative colitis Social History Housing: House Alcohol intake: never Patient Tobacco Use Status: Never used Tobacco Tobacco use type: Cigarette e-Cigarette/Vaping Use: Never Used Second Hand Smoke Exposure: No service: No Current occupational status: retired Current occupational exposures/hazards: No Cognitive needs: No Hearing needs: No Vision needs: No Review of Systems Const All systems reviewed & are unremarkable except as noted in HPI and below ENT Denies dizziness Card Details: heart palpitations Denies chest pain, Denies chest pain at rest, Denies chest pain with activity, Denies rapid heart rate, Denies pedal edema, Denies edema, Denies leg edema, Denies lightheadedness, Denies palpitations, Denies dyspnea, Denies dyspnea on exertion and Denies orthopnea Resp Denies cough, Denies dyspnea and Denies dyspnea on exertion GI Denies hematochezia and Denies change in stool character Musc Denies abnormal gait, Denies limited range of motion, Denies muscle cramps, Denies muscle weakness, Denies numbness, Denies radiating pain into limb, Denies stiffness and Denies tingling Neuro Denies abnormal gait, Denies dizziness, Denies numbness and Denies tingling Endo Denies palpitations Physical Exam Vital Signs: Last Vital Signs Pulse 73 06/28/24 09:58 BP 114/62 06/28/24 09:58 BMI result Body Mass Index 22.3 Const General: cooperative, healthy appearing, comfortable and no acute distress Orientation/consciousness: patient oriented x3 Neck Neck: Yes normal visual inspection and Yes no JVD Resp Effort & Inspection: normal respiratory effort Auscultation: clear to auscultation bilaterally, no crackles, no rales, no rhonchi and no wheezes Cardio Jugular venous distension: no JVD Rate: regular rate Rhythm: regular rhythm Heart sounds: S1 normal heart sound present, S2 normal heart sound present, no gallops, no murmurs and no rubs Neuro General: patient oriented x3 Extrem General: Yes normal to inspection, No no pedal edema and No calf tenderness Psych Appearance: grossly normal Mental Status: mental status grossly normal Speech and movement: Normal speech and movement present Assessment & Plan Assessment & Plan (1) PAC (premature atrial contraction): Code(s): I49.1 - Atrial premature depolarization Category: Medical Plan: History of frequent PACs with prior Holter monitor showing Pac burden 17% and short runs of SVT. She recently reported ongoing heart palpitations and was taken off verapamil and started on Inderal 10 mg b.i.d.. An echocardiogram done 05/25/2024 shows EF 60-65%, no valve abnormalities and no reported regional wall motion abnormalities. A Holter monitor was done on 05/25/2024 for 3 days showing sinus rhythm with average heart rate 73, PACs 6.3%. She is feeling less palpitations than what was previously reported. She is currently pleased with how she is doing. Will have her continue on current Inderal dose. Dose could be increased if her palpitations increase. (2) Palpitations: Code(s): R00.2 - Palpitations Category: Medical Plan: As above (3) Agatston coronary artery calcium score between 100 and 400: Code(s): R93.1 - Abnormal findings on diagnostic imaging of heart and coronary circulation Category: Medical Plan: Family history of coronary artery disease. She underwent a coronary artery calcium score for further evaluation. Calcium score done 05/11/2024 was 306, mostly in the LAD. This was reviewed with her using the chart in the room. She has no anginal symptoms. Will check an exercise nuclear stress test to evaluate for any ischemia. She says she will be able to exercise on a treadmill. Will have her start on aspirin 81 mg daily. She is on rosuvastatin 5 mg daily and says this was recently adjusted by her PCP. She has upcoming labs pending. Signs and symptoms of angina reviewed with her. Cardiology follow-up 3 months, sooner if needed. (4) Family history of coronary artery disease: Code(s): Z82.49 - Family history of ischemic heart disease and other diseases of the circulatory system Category: Medical Plan: As above (5) Hypertension: Code(s): I10 - Essential (primary) hypertension Category: Medical Plan: Well controlled. No med changes made. (6) Hypercholesterolemia: Code(s): E78.00 - Pure hypercholesterolemia, unspecified Category: Medical Plan: Aldie LDL goal less than 70 in patient with known coronary calcifications. She is on rosuvastatin 5 mg daily. Her dose was recently changed by her PCP. Labs have been done on what I believe was 2.5 mg of rosuvastatin showed LDL 96 on 05/09/2024. She says she is having a repeat level checked. She may need further increase in her rosuvastatin dose to get her at goal. Plan Time spent on chart review, documentation, interviewed assessment Orders: Orders CA stress test Today I49.1 - Atrial premature depolarization, R93.1 - Abnormal findings on diagnostic imaging of heart and coronary circulation NM cardiolite stress test Today I49.1 - Atrial premature depolarization, R93.1 - Abnormal findings on diagnostic imaging of heart and coronary circulation, Z82.49 - Family history of ischemic heart disease and other diseases of the circulatory system Medications: New aspirin (Adult Aspirin Regimen) 81 mg PO DAILY Coding Level of Care Code Est Pt Level 4 (23807) Complex EM visit Add On G2211 Diagnoses PAC (premature atrial contraction) I49.1 Palpitations R00.2 Agatston coronary artery calcium score between 100 and 400 R93.1 Family history of coronary artery disease Z82.49 Hypertension I10 Hypercholesterolemia E78.00 Time Spent (min) 30
== END 2024-06-28 10:36 | disposition home or self-care (01) ==
PROVIDERS: PCP Internal Medicine; Visit Provider Nurse Practitioner Family
DX: I49.1 Atrial premature depolarization (principal); R00.2 Palpitations; R93.1 Abnormal findings on diagnostic imaging of heart and coronary circulation; Z82.49 Family history of ischemic heart disease and other diseases of the circulatory system; I10 Essential (primary) hypertension; E78.00 Pure hypercholesterolemia, unspecified
CPT/HCPCS: 99214; G2211

== ENCOUNTER → 2024-06-28 09:29 | Outpatient (BNVA) | payer MEDICARE, SELFPAY | PROVIDERS: PCP Internal Medicine; Visit Provider Nurse Practitioner Family | DX: I49.1 Atrial premature depolarization (principal); R00.2 Palpitations; R93.1 Abnormal findings on diagnostic imaging of heart and coronary circulation; I10 Essential (primary) hypertension; E78.00 Pure hypercholesterolemia, unspecified; Z82.49 Family history of ischemic heart disease and other diseases of the circulatory system | CPT/HCPCS: 99212 ==

== ENCOUNTER 2024-07-20 15:50 | Outpatient (AMB) | payer MEDICARE, SELFPAY ==
--- OUTSIDE RECORDS SUMMARY | 2024-07-20 15:52 | XMS_ITS | Patient Health Record ---
Author Organization [facility] Address [address] [place] [address] Care Team Providers Care Military Science Teacher Name Role Phone Robby Ferris MD Primary Care Provider Caleb Spicer [phone] ALLERGIES Allergen (clinical drug ingredient) Drug/Non Drug Allergy documented on EMR Reaction Allergy Type Onset Date Status gabapentin Gabapentin Unknown Drug Allergy Activ e atorvastatin Lipitor Unknown Drug Allergy Acti ve RESULTS Component Value Reference Range Notes Pathology Reviewed date:10/12/2023 08:05:24 AM Interpretation: Performing Lab:[facility], [address] [place] [id number] Notes/Report: REASON FOR REFERRAL No Information MEDICATIONS [...] Problem Colon cancer screening (Z12.11) Active confirmed 444192809 Problem Diverticulosis of large intestine without perforation or abscess without bleeding (K57.30) Active confirmed Diverticul ar disease of colon (691981919) Problem Gastritis, chronic (K29.50) Active confirmed Chronic gastritis (5055232) Problem Generalized abdominal discomfort (R10.84) Active confirmed [id number] Encounters Encounter Location Date Provider Diagnosis [facility] [place] [address] [place] [id number] 09/22/2023 Caleb Castro Encounter for screen ing colonoscopy Z12.11 ; Colon polyps K63.5 ; Other specified diseases of intestine K63.89 ; Diverticulosis of large intestine without perforation or abscess without bleeding K57.30 ; Other hemorrhoids K64.8 ; Hiatal hernia K44.9 ; Gastritis, chronic K29.50 and Abdominal pain R10.9 [facility] [address] [place] [address] 10/11/2023 Caleb Castro ASSESSMENTS Encounter Date Diagnosis [...] Insured Coverage Start Date Coverage End Date [facility] [address] [place] [address] [id number] SUDEEP MUÑOZ Self - patient is the insured MEDICAL (GENERAL) HISTORY Medical History History ICD Code Hyperlipidemia She takes Prozac for menopause Denies [place],DM,CVA,Lung disease,renal dise ase Screening Colonoscopy in 07/29 012-negative except for hypeplastic polyps, diverticulosis, and internal hemorrhoids hypertension Surgical History Surgery Date(Month/Year) cholecystectomy
--- OUTSIDE RECORDS SUMMARY | 2024-07-20 15:52 | XMS_ITS ---
Author Organization [facility] Address [address] [place] [address] Care Team Providers Care Tacking Machine Operator Name Role Phone Po Robby OSORIO Primary Care Provider Caleb Spicer [phone] REASON FOR VISIT results of biopsies Encounters Encounter Location Date Provider Diagnosis [facility] [address] [place] [phone] 10/11/2023 Caleb Castro PLAN OF TREATMENT No Information
--- OUTSIDE RECORDS SUMMARY | 2024-07-20 15:53 | XMS_ITS ---
Author Organization [facility] Address [address] [place] [address] Care Team Providers Care Salesperson Hosiery Name Role Phone Po Robby OSORIO Primary Care Provider Caleb Spicer [phone] REASON FOR VISIT ABD DISTRESS, SCREENING COLON PROBLEMS Problem Type ICD Code Onset Dates Problem Status W/U Status Risk SNOMED Code Notes Problem Diverticulosis of large intestine without perforation or abscess without bleeding (K57.30) Active confirmed Diverticul ar disease of colon (357705772) Problem Gastritis, chronic (K29.50) Active confirmed Chronic gastritis (0722150) Encounters Encounter Location Date Provider Diagnosis [facility] [place] [address] [place], [place] [phone] 09/22/2023 Caleb Castro Encounter for scre ening [...]
--- NOTE | 2024-07-20 15:56 | A.OFFPC_ITS ---
Vital Signs 07/20/24 15:57 Height 5 ft 6 in Weight 137 lb 6 oz BMI 22.2 BP 120/78 Blood Pressure Location Lt brachial Position Sitting Pulse 69 Pulse Source Pulse Oximeter Temp 96.9 F Temp Source Temporal Artery Scan Pulse Oximetry (%) 95 Oxygen Delivery Method Room Air Intake Visit Reasons: GI Issues, GI Referral Intake Note: Patient is here to follow up on GI issues and GI referral. Subgrade Tester Required: No Bead Machine Operator: Not Required per policy Accompanied by: Self / Same As Patient Allergies atorvastatin [Lipitor] Allergy (Unknown, Verified 07/20/24 15:57) cramps lisinopril Adverse Reaction (Intermediate, Verified 07/20/24 15:57) Dizziness Medication List - Last Reconciled 07/20/24 by Patti Ross PA-C ascorbate calcium (vitamin C) 600 mg PO DAILY aspirin (Adult Aspirin Regimen) 81 mg PO DAILY blood pressure monitor (Blood Pressure Kit) As directed cod liver oil 1 cap PO DAILY losartan 25 mg PO DAILY nystatin units PO propranolol 10 mg PO BID rosuvastatin 5 mg PO DAILY sucralfate (Carafate) 1 g PO BID topiramate 25 mg PO DAILY zinc acetate (Galzin) 50 mg PO DAILY Tobacco use date assessed: 07/20/24 Fall risk assessment: No Falls in past year Last assessed Fall Risk: 07/20/24 Dental Screening Dental Screen Date: 07/20/24 Did you have a dental visit in the last 12 months?: Yes Did you have a dental problem in the last 6 months where you did not have access to dental care?: No Was dental information given to patient?: Patient has dentist HPI GI Issues, GI Referral HPI Details 74-year-old female with past medical his tory of hypercholesteremia, GERD, impaired glucose tolerance, hypertension, generalized anxiety disorder, migraine last seen 04/2024 coming in for acute problem. Presenting with gastrointestinal distress. Underwent colonoscopy and endoscopy by Dr. Sun without Yaneth testing; further testing by [facility] confirmed Yaneth and parasitic infection. The patient follows Yaneth treatment and addresses parasitic concerns but faces challenges obtaining medication coverage through Medicare. She was advised by her integrative medicine provider to have a GI evaluation. [facility] Medical History Palpitations Colon cancer screening Cervicalgia Hypersomnia Other specified cardiac arrhythmias Pleural effusion Arrhythmia Elevated blood pressure reading Headache LFT elevation Numbness in feet Gout Anemia Osteoporosis Thyroid nodule GERD (gastroesophageal reflux disease) Hypercholesterolemia Surgical History History of endoscopy Hx of colonoscopy History of cholecystectomy Family History Father Diabetes Heart attack Mother Heart attack Asthma Emphysema lung Non-Hodgkin lymphoma CHF (congestive heart failure) Brother Cancer Sister Diabetes Ulcerative colitis Social History Housing: House Alcohol intake: never Patient Tobacco Use Status: Never used Tobacco Tobacco use type: Cigarette e-Cigarette/Vaping Use: Never Used Second Hand Smoke Exposure: No service: No Current occupational status: retired Current occupational exposures/hazards: No Cognitive needs: No Hearing needs: No Vision needs: No Questionnaire PHQ-9 Over the last 2 weeks, how often have you been bothered by any of the following problems? 1. Little interest or pleasure in doing things: not at all 2. Feeling down, depressed, or hopeless: not at all 3. Trouble falling or staying asleep, or sleeping too much: not at all 4. Feeling tired or having little energy: not at all 5. Poor appetite or overeating: not at all 6. Feeling bad about yourself - or that you are a failure or have let yourself or your family down: not at all 7. Trouble concentrating on things, such as reading the newspaper or watching television: not at all 8. Moving or speaking so slowly that other people could have noticed. Or the opposite - being so fidgety or restless that you have been moving around a lot more than usual: not at all 9. Thoughts that you would be better off or of hurting yourself in some way : not at all Total score: 0 Depression Screening Interpretation: Negative Depression Screening Done: Yes Source: Developed by Drs. Caleb Fan, Felipa Au, Marcelino Harris and colleagues, with an educational radha from [employer]. Thrive Questionnaire Date Thrive assessed: 07/20/24 I am a: Patient What is your living situation today?: I have a steady place to live Within the past 12 months, did the food you bought not last and you didn't have the money to get more?: Never true Within the past 12 months, did you worry whether your food would run out before you got money to buy more?: Never true Do you have trouble paying for medicines?: No Do you have trouble getting transportation to medical appointments?: No Do you have trouble paying your heating and electricity bill?: No Do you have trouble taking care of your child, family member or friend?: No Do you have trouble with day-to-day activities such as bathing, preparing meals, shopping, managing finances, etc.?: No Are you currently unemployed and looking for a job?: No Are you interested in more education?: No Please select the resources that you would like help with: None Currently or been in a relationship where the following occur: No concerns reported THRIVE Score: 0 AUDIT C Alcohol Use Questionnaire (AUDIT-C) 1. How often do you have a drink containing alcohol?: Never Total Score: 0 BENOIT-7 AMB Questionnaire BENOIT-7 Date BENOIT - 7 assessed: 07/20/24 Feeling nervous, anxious, or on edge: 0 = Not at all Not being able to stop or control worryin = Not at all Worrying too much about different things: 0 = Not at all Trouble relaxin = Not at all Being so restless that it is hard to sit still: 0 = Not at all Becoming easily annoyed or irritable: 0 = Not at all Feeling afraid as if something awful might happen: 0 = Not at all Total BENOIT-7 score (0-4 normal; 5-9 mild; 10-14 moderate; 15-21 severe): 0 Source: Developed by Drs. Caleb Fan, Felipa Au, Marcelino Harris and colleagues, with an educational radha from [employer]. Review of Systems Const Denies body aches, Denies chills, Denies fever(s), Denies headache(s) and Denies poor appetite Eyes Reports no additional complaints ENT Denies dysphagia, Denies dizziness, Denies headache(s) and Denies odynophagia Card Denies chest pain, Denies syncope, Denies edema, Denies irregular heart rhythm, Denies lightheadedness and Denies dyspnea Resp Denies cough and Denies dyspnea GI Reports abdominal pain, Denies constipation, Denies dysphagia, Reports heartburn, Reports diarrhea, Reports loose stools, Denies nausea, Denies odynophagia and Denies vomiting Reports no additional complaints Musc Reports no additional complaints and Denies abnormal gait Skin/Breast Reports system reviewed and no additional complaints, except as documented Neuro Denies abnormal gait, Denies dizziness, Denies syncope and Denies headache(s) Psych Reports no additional complaints Physical exam (Primary Care) Vital Signs: Last Vital Signs Temp 96.9 F 07/20/24 15:57 Oxygen Delivery Method Room Air 07/20/24 15:57 BMI result Body Mass Index 22.2 Tobacco/Smoking Status: Tobacco use Status Tobacco use date assessed 02/03/24 05/21/24 13:26 Patient Tobacco Use Status Never used Tobacco 05/21/24 13:26 Tobacco use type Cigarette 05/21/24 13:26 e-Cigarette/Vaping Use Never Used 05/21/24 13:26 Depression Screening Interpretation: Negative Thrive Assessment: Date of Thrive Assessment Date Thrive assessed 07/20/24 07/20/24 15:51 Currently or been in a relationship where the following occur: No concerns reported Const General: cooperative, healthy appearing, comfortable and no acute distress Orientation/consciousness: patient oriented x3 HENMT Head: Yes normocephalic Ears: hearing grossly normal bilaterally General nose exam: Normal external nose present Eyes General: appearance normal, both eyes and all related structures Conjunctivae: conjunctivae normal Neck Neck: Yes full ROM and Yes no lymphadenopathy Resp Effort & Inspection: normal respiratory effort Auscultation: clear to auscultation bilaterally, no crackles, no rales, no rhonchi and no wheezes Cardio Rate: regular rate Rhythm: regular rhythm GI Palpation (GI): Soft to palpation, not firm, Tenderness to palpation present (GI) in the epigastrum, no guarding and not rigid Skin General skin exam: no rashes or lesions noted Neuro General: patient oriented x3 Gait exam (Neuro): Normal gait present Extrem General: Yes normal to inspection, Yes full ROM and No edema Psych Affect: normal affect Attitude: cooperative Insight: Good insight present (Psych) Judgement: Good judgement present (Psych) Coding Level of Care Code Est Pt Level 3 (08436) Diagnoses Hypertension I10 GERD (gastroesophageal reflux disease) K21.9 Hypercholesterolemia E78.00 Impaired fasting blood sugar R73.01 Chronic diarrhea K52.9 Abdominal bloating R14.0 Assessment & Plan Assessment & Plan (1) Hypertension: Code(s): I10 - Essential (primary) hypertension Category: Medical Plan: Continue on current blood pressure medication. Avoid salt intake and encourage healthy diet and regular exercise. (2) GERD (gastroesophageal reflux disease): Code(s): K21.9 - Gastro-esophageal reflux disease without esophagitis Category: Medical Plan: Avoid trigger foods such as citrus, tomato products, soda, caffeine, spicy foods and other foods that may be irritating to your stomach. Avoid laying flat 3-4 hours after eating and elevate the head of the bed 30 degrees to prevent acid from moving into the esophagus. (3) Hypercholesterolemia: Code(s): E78.00 - Pure hypercholesterolemia, unspecified Category: Medical Plan: Avoid foods that are high in cholesterol such as red meat, fried foods, eggs and baked goods. Triglyceride goal of less than 150 and LDL goal of less than 70. Continue on rosuvastatin (4) Impaired fasting blood sugar: Code(s): R73.01 - Impaired fasting glucose Category: Medical Plan: Decrease the amount of carbohydrates such as pasta, bread, rice, and potatoes and limit the amount of sweets. Although fruits are generally healthy they should be eaten in moderation as they are still high in sugar. (5) Chronic diarrhea: Code(s): K52.9 - Noninfective gastroenteritis and colitis, unspecified Category: Medical Plan: Referral placed to GI specialist for possible parasitic infection and further evaluation of abdominal bloating and stool changes for the past 2 years (6) Abdominal bloating: Code(s): R14.0 - Abdominal distension (gaseous) Category: Medical Plan: Urgent specialist referral due to insurance barriers, focus on management possible parasitic infection. Plan This note was constructed using voice recognition software. While every effort has been made to ensure accuracy and box spring upholsterer, still areas may have been included sometimes these areas may affect the content or meeting of the given symptoms. Total time spent caring for the patient today was 20 minutes. This includes time spent before the visit reviewing the chart, time spent during the visit, and time spent after the visit and documentation. Orders: Referrals Gastroenterology Referral K52.9 - Noninfective gastroenteritis and colitis, unspecified, R14.0 - Abdominal distension (gaseous)
[2024-07-20 15:57] VITALS: BP 120/78; PULSE 69; TEMP 36.1; O2SAT 95; BMI 22.2
== END 2024-07-20 16:31 | disposition home or self-care (01) ==
PROVIDERS: PCP Internal Medicine
DX: I10 Essential (primary) hypertension (principal); K21.9 Gastro-esophageal reflux disease without esophagitis; E78.00 Pure hypercholesterolemia, unspecified; R73.01 Impaired fasting glucose; K52.9 Noninfective gastroenteritis and colitis, unspecified; R14.0 Abdominal distension (gaseous)

== ENCOUNTER → 2024-07-20 15:50 | Outpatient (BNVA) | payer MEDICARE, SELFPAY | PROVIDERS: PCP Internal Medicine | DX: I10 Essential (primary) hypertension (principal); K21.9 Gastro-esophageal reflux disease without esophagitis; E78.00 Pure hypercholesterolemia, unspecified; R73.01 Impaired fasting glucose; K52.9 Noninfective gastroenteritis and colitis, unspecified; R14.0 Abdominal distension (gaseous) | CPT/HCPCS: 99212 ==

== ENCOUNTER 2024-08-15 07:17 | Outpatient (REF) | payer MEDICARE, SELFPAY ==
[2024-08-15 11:06] LABS: Alanine Aminotransferase 36 U/L (0-31); Albumin Level 4.1 g/dL (3.5-5.0); Alkaline Phosphatase 84 U/L (39-117); Anion Gap 11 (12-20); Aspartate Amino Transferase 21 U/L (5-31); Bilirubin Total 0.4 mg/dL (0.0-1.0); Blood Urea Nitrogen 11 mg/dL (9-16); Calcium 9.3 mg/dL (8.4-10.2); Carbon Dioxide 24 mmol/L (22-29); Chloride 112 mmol/L (96-108); Cholesterol 133 mg/dL (<200); Estimated Glomerular Filt Rate > 60; Glucose Random 96 mg/dL (60-115); HDL Cholesterol 42 mg/dL (>40); LDL Cholesterol Calculated 66 mg/dL (<100); Potassium 4.1 mmol/L (3.3-5.1); Sodium 143 mmol/L (135-145); Triglycerides 125 mg/dL (<150)
== END 2024-08-15 07:18 | disposition home or self-care (01) ==
LOC: HO.HMGCLDS 07:17
PROVIDERS: PCP Internal Medicine; Visit Provider Internal Medicine
DX: E78.00 Pure hypercholesterolemia, unspecified (principal)
CPT/HCPCS: 36415; 80053; 80061

== ENCOUNTER 2024-08-27 13:23 | Outpatient (AMB) | payer MEDICARE, SELFPAY ==
[2024-08-27 13:26] VITALS: BP 116/64; PULSE 80; TEMP 36.2; O2SAT 98; BMI 21.6
--- NOTE | 2024-08-27 13:26 | A.OFFPC_ITS ---
Vital Signs 08/27/24 13:26 Height 5 ft 6 in Weight 134 lb BMI 21.6 BP 116/64 Blood Pressure Location Lt brachial Position Sitting Pulse 80 Pulse Source Pulse Oximeter Temp 97.1 F Temp Source Temporal Artery Scan Pulse Oximetry (%) 98 Oxygen Delivery Method Room Air Intake Visit Reasons: Cholesterol,migraine Allergies gabapentin Allergy (Intermediate, Verified 08/27/24 13:28) Muscle Pain atorvastatin [Lipitor] Allergy (Unknown, Verified 08/27/24 13:28) cramps lisinopril Adverse Reaction (Intermediate, Verified 08/27/24 13:28) Dizziness Tobacco use date assessed: 08/27/24 Fall risk assessment: No Falls in past year Last assessed Fall Risk: 08/27/24 Dental Screening Dental Screen Date: 07/20/24 Did you have a dental visit in the last 12 months?: Yes Did you have a dental problem in the last 6 months where you did not have access to dental care?: No Was dental information given to patient?: Patient has dentist HPI Cholesterol,migraine HPI Details for the migraine - placed on topiramate and not feeling better. . concern on sinus. started 2 weeks PFSH Medical History Palpitations Colon cancer screening Cervicalgia Hypersomnia Other specified cardiac arrhythmias Pleural effusion Arrhythmia Elevated blood pressure reading Headache LFT elevation Numbness in feet Gout Anemia Osteoporosis Thyroid nodule GERD (gastroesophageal reflux disease) Hypercholesterolemia Surgical History History of endoscopy Hx of colonoscopy History of cholecystectomy Family History Father Diabetes Heart attack Mother Heart attack Asthma Emphysema lung Non-Hodgkin lymphoma CHF (congestive heart failure) Brother Cancer Sister Diabetes Ulcerative colitis Social History Housing: House Alcohol intake: never Patient Tobacco Use Status: Never used Tobacco Tobacco use type: Cigarette e-Cigarette/Vaping Use: Never Used Second Hand Smoke Exposure: No service: No Current occupational status: retired Current occupational exposures/hazards: No Cognitive needs: No Hearing needs: No Vision needs: No Questionnaire PHQ-9 Over the last 2 weeks, how often have you been bothered by any of the following problems? 1. Little interest or pleasure in doing things: not at all 2. Feeling down, depressed, or hopeless: not at all 3. Trouble falling or staying asleep, or sleeping too much: not at all 4. Feeling tired or having little energy: not at all 5. Poor appetite or overeating: not at all 6. Feeling bad about yourself - or that you are a failure or have let yourself or your family down: not at all 7. Trouble concentrating on things, such as reading the newspaper or watching television: not at all 8. Moving or speaking so slowly that other people could have noticed. Or the opposite - being so fidgety or restless that you have been moving around a lot more than usual: not at all 9. Thoughts that you would be better off or of hurting yourself in some way: not at all Total score: 0 Depression Screening Interpretation: Negative Depression Screening Done: Yes Source: Developed by Drs. Caleb Fan, Felipa Au, Marcelino Harris and colleagues, with an educational radha from [employer]. Thrive Questionnaire Date Thrive assessed: 07/20/24 I am a: Patient What is your living situation today?: I have a steady place to live Within the past 12 months, did the food you bought not last and you didn't have the money to get more?: Never true Within the past 12 months, did you worry whether your food would run out before you got money to buy more?: Never true Do you have trouble paying for medicines?: No Do you have trouble getting transportation to medical appointments?: No Do you have trouble paying your heating and electricity bill?: No Do you have trouble taking care of your child, family member or friend?: No Do you have trouble with day-to-day activities such as bathing, preparing meals, shopping, managing finances, etc.?: No Are you currently unemployed and looking for a job?: No Are you interested in more education?: No Please select the resources that you would like help with: None Currently or been in a relationship where the following occur: No concerns reported THRIVE Score: 0 AUDIT C Alcohol Use Questionnaire (AUDIT-C) 1. How often do you have a drink containing alcohol?: Never 3. How often do you have six or more drinks on one occasion?: Never Total Score: 0 BENOIT-7 AMB Questionnaire BENOIT-7 Date BENOIT - 7 assessed: 07/20/24 Feeling nervous, anxious, or on edge: 0 = Not at all Not being able to stop or control worryin = Not at all Worrying too much about different things: 0 = Not at all Trouble relaxin = Not at all Being so restless that it is hard to sit still: 0 = Not at all Becoming easily annoyed or irritable: 0 = Not at all Feeling afraid as if something awful might happen: 0 = Not at all Total BENOIT-7 score (0-4 normal; 5-9 mild; 10-14 moderate; 15-21 severe): 0 Source: Developed by Drs. Caleb Fan, Felipa Au, Marcelino Harris and colleagues, with an educational radha from [employer]. Physical exam (Primary Care) Vital Signs: Last Vital Signs Temp 97.1 F 08/27/24 13:26 Pulse 80 08/27/24 13:26 BP 116/64 08/27/24 13:26 Pulse Ox 98 08/27/24 13:26 Oxygen Delivery Method Room Air 08/27/24 13:26 BMI result Body Mass Index 21.6 Tobacco/Smoking Status: Tobacco use Status Tobacco use date assessed 08/27/24 08/27/24 13:33 Patient Tobacco Use Status Never used Tobacco 08/27/24 13:33 Tobacco use type Cigarette 08/27/24 13:33 e-Cigarette/Vaping Use Never Used 08/27/24 13:33 PHQ-9: PHQ-9 Score PHQ-9: Total score 0 08/27/24 13:40 Depression Screening Interpretation: Negative Thrive Assessment: Date of Thrive Assessment Date Thrive assessed 07/20/24 08/27/24 13:33 Currently or been in a relationship where the following occur: No concerns reported Const General: alert; No acute distress Eyes Conjunctivae: conjunctivae normal Resp Auscultation: clear to auscultation bilaterally Cardio Rate: regular rate Rhythm: regular rhythm GI Inspection: Yes normal to inspection Extrem General: Yes normal to inspection and No edema Coding Level of Care Code Est Pt Level 4 (99205) Complex EM visit Add On G2211 Diagnoses Agatston coronary artery calcium score between 100 and 400 R93.1 PAC (premature atrial contraction) I49.1 Impaired fasting blood sugar R73.01 Hypercholesterolemia E78.00 GERD (gastroesophageal reflux disease) K21.9 Hypertension I10 Nasal congestion R09.81 Assessment & Plan Assessment & Plan (1) Agatston coronary artery calcium score between 100 and 400: Code(s): R93.1 - Abnormal findings on diagnostic imaging of heart and coronary circulation Category: Medical Plan: Control the cholesterol, weight, blood pressure, patient was started on aspirin 81 mg once a day (2) PAC (premature atrial contraction): Code(s): I49.1 - Atrial premature depolarization Category: Medical Plan: patient on beta mak propranolol 10 mg twice a day (3) Impaired fasting blood sugar: Code(s): R73.01 - Impaired fasting glucose Category: Medical Plan: Decrease the amount of carbohydrate intake, pasta, bread, rice and potatoes are all sugar and that is aside from all the sweet stuff, remember that fruits are good but they are Sweet also. (4) Hypercholesterolemia: Code(s): E78.00 - Pure hypercholesterolemia, unspecified Category: Medical Plan: Avoid fried foods, chicken skin, eggs, butter margarine, pastries and meat. Be it pork or beef they have a lot of cholesterol Because of the high coronary artery calcium score patient is advised to take rosuvastatin 5 mg once a day LDL goal of less than 70 and triglyceride of less than One hundred fifty (5) GERD (gastroesophageal reflux disease): Code(s): K21.9 - Gastro-esophageal reflux disease without esophagitis Category: Medical Plan: Avoid the foods that causes that usually spicy foods, tomato products, juices, coffee, soda and foods that your sensitive to. After eating do not lie down, allow 3-4 hours before in lie down. And keep the head of bed above 30 degrees to avoid the acid from going up. (6) Hypertension: Code(s): I10 - Essential (primary) hypertension Category: Medical Plan: Continue with blood pressure medication. Decrease salt intake and exercise on propranolol 10 mg twice a day ivon (7) Nasal congestion: Code(s): R09.81 - Nasal congestion Category: Medical Plan: patient is being seen by [facility] and prescribed quercetin- (plant protein) advised to take claritin Plan History of Present Illness The patient is a 74-year-old female presenting with a follow-up visit for multiple chronic conditions and recent sinus symptoms. Her chronic conditions include hypercholesterolemia, GERD, hypertension, and generalized anxiety disorder. She takes propranolol for blood pressure control and has managed her cholesterol with rosuvastatin, achieving an LDL at goal. She mentions a history of supraventricular tachycardia and was switched to propranolol after stopping verapamil. The patient has been experiencing nasal dripping and blocked ears over the past two weeks without fever, and her allergies seem to worsen with seasonal changes. She reports using quercetin, a plant-based supplement, but finds it ineffective currently. She further describes a persistent, aib-mtda-[id number] stomach ache with prior evaluation pending a gastroenterology appointment. Her management of depression includes topiramate, which has exacerbated her symptoms. Health Maintenance - LDL cholesterol managed to goal with medication; current LDL at 66 mg/dL. - Colonoscopy last performed in August 2023. - Mammogram last done in March 2024. - Coronary artery calcium score: 306. Social History - Takes quercetin daily, a recommended supplement from [facility] for allergies. Review of Systems - Ears: Reports blocked feeling but no pain. - Nose: Reports nasal drip; denies postnasal drip. - Gastrointestinal: Reports persistent stomach ache with bloating and nausea; denies diarrhea. - Neurological: Reports recurrent headaches worsened on topiramate; otherwise negative. Physical Exam - Head and Neck- Non-tender sinuses and some signs of allergy in throat. Results - Labs: Blood work: electrolytes normal, renal function normal, blood sugar normal, liver function fine, LDL 66 mg/dL. - Imaging: Previous MRI of the brain showed volume loss with no acute or subacute infarction or mass effect. Plan The management plan includes continuing existing medical regimens for hypertension and hypercholesterolemia, with propranolol, losartan, and rosuvastatin. Aspirin is advised due to coronary risk. Allergy management with traditional medications like Claritin or Ann-Marie might aid her symptoms better than supplements. Explore the cause of the chronic gastrointestinal symptoms at the upcoming gastroenterology consultation. Address the ineffectiveness of topiramate for headaches and consider alternatives if discussed symptoms remain severe or unmanageable. Patient was informed and verbally consented to the use of an ambient scribe for clinic note documentation during this visit. Discussion Notes We discussed continuing the current management plan for her chronic conditions and adjusting allergy medication to include Claritin or Ann-Marie during allergy seasons. We emphasized the importance of controlling her hypercholesterolemia, maintaining LDL, and adhering to aspirin therapy due to her coronary artery calcium score. I acknowledged her concerns with topiramate and recommended monitoring her symptoms' response, planning for potential therapeutic adjust ments. We agreed on the necessity of upcoming gastroenterology evaluation for her chronic gastrointestinal complaints. I advised blood work before her January appointment. Patient Instructions - Continue taking all current medications as prescribed. - Try Claritin or Ann-Marie for managing allergy symptoms. - Monitor and report any new or worsening symptoms. - Attend follow-up with gastroenterology for stomach issues. - Have fasting blood work done prior to the next scheduled appointment. - Return to the office if symptoms significantly change or worsen. Orders: Orders Complete Blood Count Auto Diff 3 Months E78.00 - Pure hypercholesterolemia, unspecified Comprehensive Met. Panel 3 Months E78.00 - Pure hypercholesterolemia, unspecified Magnesium 3 Months E78.00 - Pure hypercholesterolemia, unspecified UA CC w/rflx Micro + Cult 3 Months E78.00 - Pure hypercholesterolemia, unspecified, R30.0 - Dysuria Hemoglobin A1c 3 Months E78.00 - Pure hypercholesterolemia, unspecified Lipid Panel 3 Months E78.00 - Pure hypercholesterolemia, unspecified Ferritin 3 Months E78.00 - Pure hypercholesterolemia, unspecified C Reactive Protein 3 Months E78.00 - Pure hypercholesterolemia, unspecified Free T4 (Free Thyroxine) 3 Months E78.00 - Pure hypercholesterolemia, unspe cified Thyroid Stimulating Hormone 3 Months E78.00 - Pure hypercholesterolemia, unspecified Vitamin B12 and Folate 3 Months E78.00 - Pure hypercholesterolemia, unspecified Vitamin D 25-OH Total 3 Months E78.00 - Pure hypercholesterolemia, unspecified Erythrocyte Sedimentation Rate 3 Months E78.00 - Pure hypercholesterolemia, unspecified
--- OUTSIDE RECORDS SUMMARY | 2024-08-27 15:04 | XMS_ITS ---
Author Organization [facility] Address [address] [place] [address] Care Team Providers Care Assembler Garment Form Name Role Phone Po Robby OSORIO Primary Care Provider Caleb Spicer [phone] Allergies Allergen (clinical drug ingredient) Drug/Non Drug [...] Problem Status W/U Status Risk Notes Problem [id number] Colon cancer screening (Z12.11) Active confirmed Problem [id number] Generalized abdominal discomfort (R10.84) Active confirmed Vital Signs Temperature 97.3 degrees Fahrenheit 07/07/19 24 Blood pressure systolic 00 mm Hg 07/07/19 24 Blood pressure diastolic 00 mm Hg 024 Height 66 in 07/07/2023 Weight 131 lbs 07/07/2023 BMI 21.14 kg/m2 07/07/2023 Encounters Encounter Location Date Provider Diagnosis [facility] [address] [place] [address] 07/07/2023 Caleb Castro Colon cancer screeni ng Z12.11 and Generalized abdominal discomfort R10.84 Assessments Encounter Date Diagnosis (ICD Code) Assessment Notes Treatment Notes Treatment Clinical Notes Section Notes 07/07/2023 Colon cancer screening (ICD-10 - Z12.11) Overall, tracy appears quite well from a clinical standpoint. [...] procedures will be done monitored anesthesia care. Tracy was comfortable with this plan. Thank you again for allowing me to parts taking Tracy's care. I shall continue to keep you advised of her progress. 07/07/2023 Generalized abdominal discomfort (ICD-10 - R10.84) Overall, tracy appears quite well from a clinical standpoint. [...] procedures will be done monitored anesthesia care. Tracy was comfortable with this plan. Thank you again for allowing me to parts taking Tracy's care. I shall continue to keep you advised of her progress. Plan Of Treatment Future Test Test Name Order Date UPPER GI ENDOSCOPY 07/07/2023 COLONOSCOPY 07/07/2023 Next Appt Details Follow Up: prn, Reason: Progress Notes * SUSHMA MOODY ADOB:[birth year] (73 yo F)Acc No.[id number]:07/07/2023 Progress Notes Patient:?SUSHMA MOODY Provider:?Caleb Castro MD :1950???Age:73 Y???Sex:Female D ate:07/07/2023 Address:[address] [place], [place] [id number] Pcp:Robby Ferris MD Subjective: * Chief Complaints: * ???Patient presents today fo r a COLON SCREENING * HPI: ???incontinence:? I saw Sushma in consultation today in regard to further evaluation of her abdominal discomfort and discussion of colorectal cancer screening. ?I last saw Sushma in 2014, at which [...] different types of medication and detoxification . ?She denies any significant heartburn, dysphagia, nausea, or vomiting. She has not noticed any jaundice, focal or localized abdominal pain, fevers, hematochezia, or melena. She does have a family history of some colon cancer but none in first- degree relatives. ?She did have a MRI of the abdomen just last month that describes chronic biliary dilatation similar to 2015 but without any sign of biliary stricture nor stones. She did have a cholecystectomy in the distant past. Laboratories in December revealed a completely normal CBC, normal chemistries and renal function, normal thyroid studies, and normal LFTs. * ROS:?General/Constitutional:?Change in appetite?denies.?Chills?denies.?Fatigue?denies.?Ophthalmologic:?Patient denies? Negative..?ENT:?Patient denies?Negative..?Respiratory:?Patient denies?No coughing/hemoptysis..?Cardiovascular:?Patient denies? No chest pain/orthopnea..?Gastrointestinal:?Comments?See HPI for details.?Genitourinary:?Patient denies? No dysuria/hematuria..?Musculoskeletal:?Patient denies? No specific arthralgias/myalgias..?Skin:?Patient denies?No rash/pruritus..?Neurologic:?Patient denies? No headaches/seizures..?Psychiatric:?Patient denies?Negative..? * Medical History:? * Surgical History:?cholecyste ctomy * Hospitalization/Major Diagno stic Procedure:?No Hospitalization History. * Family History:?Father: dece ased, diagnosed with Heart disease.?Mother: , diagnosed with Colon polyps, Heart disease.?Siblings: sister has ulcerative colitis.? niece colon cancer maternal uncle colon cancer. * Social History:?Tobacco Use:?Tobacco Use/Smoking?Are you a: nonsmoker.?Drugs/Alcohol:?Alcohol Screen?Points: 0, Interpretation: Negative.?Miscellaneous:?Marital status: . Occupation: retired. ???She does not smoke or use any significant amounts of alcohol. * Medications:?TakingVitamin D 3 Verapamil HCl ER 120 MG Capsule Extended [...] reviewed and reconciled with the patient * Allergies:?GabapentinLipitor yes[Allergies Verified] Objective: * Vitals:?Wt: 131 lbs, Ht: 66 in, BMI:21.14 Index, BP: 00/00 mm Hg, Temp: 97.3. * Examination: ???General Examination: ?GENERAL APPEARANCE:?pleasant, well nourished, well developed, in no acute distress.?EYES:?sclera non-icteric.?ORAL CAVITY:?mucosa moist.?NECK/THYROID:?no cervical lymphadenopathy, neck supple.?SKIN:?nonjaundiced, no spider angiomata..?HEART:?S1, S2 normal.?LUNGS:?clear to auscultation bilaterally.?ABDOMEN:?normal bowel sounds, no guarding or rigidity, no hepatosplenomegaly, no masses palpable, soft, nontender, nondistended..?EXTREMITIES:?no edema.?NEUROLOGIC:?alert and oriented.? Assessment: * Assessment: 1.?Generalized abdominal dis comfort - R10.84 (Primary)?2.?Colon cancer screening - Z12.11? Overall, tracy appears quite well from a clinical standpoint. [...] procedures will be done monitored anesthesia care. Tracy was comfortable with this plan. Thank you again for allowing me to parts taking Tracy's care. I shall continue to keep you advised of her progress. Plan: * Treatment: 2.?Colon cancer screening?Procedure: COLONOSCOPY (Ordered for 07/07/2023)* with MAC Scheduled at [facility] [place] 09-14-2023 at 1:30 p.m. * Procedure Codes:?3017F COLOR ECTAL CA SCREEN DOC [id number] TOBACCO [id number] BP SCR NOT PRFRM REC REASON NOS * Preventive Medicine:? ??Urinary Incontinence:?Urinary Incontinence?Assessment:?Absent,?Plan of care documented:?No, reason not specified.? * Follow Up:?prn * * Sign off status: Completed true * Provider:?Caleb Castro MD Date:? 024 Generated for Evan ambrose/Jagdish/Christina on:?08/27/2024 03:04 PM EDT History and Physical Notes * HPI [...]
--- OUTSIDE RECORDS SUMMARY | 2024-08-27 15:05 | XMS_ITS | Continuity of Care Document ---
Author Organization [facility] Address [address], [address], [address] [place] [address]- Care Team Providers Care Corporate Technical Recruiter Name Role Phone Po Robby OSORIO Primary Care Physician En[place] [facility] [place](s): 07/27/24 - 08/26/24 [facility] [address], [address] [place] [id number]- Encounter Type: Triage Medications losartan 25 mg oral tablet 0 Refills, Maintenance, 06/26/24 11:22:00 AM EST, Partial fill upon patient request if the prescription is for a schedule II opioid drug. Start Date: 06/26/24 Status: Ordered Repeat number: 1 nystatin 549560 u oral tablet 0 Refills, Maintenance, 06/26/24 11:22:00 AM EST, Partial fill upon patient request if the prescription is for a schedule II opioid drug. Start Date: 06/26/24 Status: Ordered Repeat number: 1 Omeprazole By Mouth, Daily, 0 Refills, Maintenance, 06/26/24 11:21:00 AM EST, Partial fill upon patient requestif the prescription is for a schedule II opioid drug. Start Date: 06/26/24 Status: Ordered Repeat number: 1 rosuvastatin 5 mg oral tablet 0 Refills, Maintenance, 06/26/24 11:20:00 AM EST, Partial fill upon patient request if the prescription is for a schedule II opioid drug. Start Date: 06/26/24 Status: Ordered Repeat number: 1 sucralfate 1 gm oral tablet Refills 0, Maintenance, 06/26/24 11:22:00 AM EST, Partial fill upon patient request if the prescription is for a schedule II opioid drug. Start Date: 06/26/24 Status: Ordered Repeat number: 1 SUMAtriptan 5 mg/inh nasal spray 0 Refills, Maintenance, 06/26/24 11:22:00 AM EST, Partial fill upon patient request if the prescription is for a schedule II opioid drug. Start Date: 06/26/24 Status: Ordered Repeat number: 1 topiramate 25 mg oral tablet 2 tablet = 50 mg, By Mouth, 2 times a day, # 120 tablet, 4 Refills, Maintenance, 08/15/24 4:11:00 PMEDT, Tablet, [id number], Partial fill upon patient request if the prescription is for a schedule II opioid drug., 63.2, kg, 06/26/24 10:59:00 EST, Dry Weight Start Date: 08/15/24 Status: Ordered Quantity: 120.0 Unit: tablet Repeat number: 5 Social History Social History Type Response Sex Female Sex Representation Female (finding) Patient Care team information Care Team Personnel Name: Robby Ferris MD Position: Reference Physician Member Role: PCP Address: [address] [place] [address] Telecom: Care Team Related Persons Name: IZAIAH ORLANDO Insurance Providers Guarantor name: SUDEEP ORLANDO Health Plan Information #: 1 Payer: [facility] Member Number: JI Policy Number: JI Group Number: [id number] Health Plan Information #: 2 Payer: NA Member Number: JI Policy Number: NA Group Number: [id number]
--- OUTSIDE RECORDS SUMMARY | 2024-08-27 15:05 | XMS_ITS | Patient Health Record ---
Author Organization [facility] Address [address] [place] [address] Care Team Providers Care Buff Wheel Fabricator Name Role Phone Robby Ferris MD Primary Care Provider Caleb Spicer Unavailable [phone] Allergies Allergen (clinical drug ingredient) Drug/Non Drug Allergy documented on EMR Reaction Allergy Type Onset Date Status gabapentin Gabapentin Unknown Drug Allergy Activ e atorvastatin Lipitor Unknown Drug Allergy Acti ve Results Component Value Reference Range Notes Pathology Reviewed date:10/12/2023 08:05:24 AM Interpretation: Performing Lab:[facility], [address] [place] [address] Notes/Report: Name: Livan Moody Age/Sex: 73/F : 1950 Unit#: [id number] Attend Dr: Caleb Castro Re09/22/23 Status : [facility] Location: [facility] Disch: SPEC : [id number] RECD : 09/23/23 STATUS: ELMO GREENWOOD NUM: [id number] STEFFI: 09/22/23-1445 [facility] DR: Caleb Castro ENTERED: 09/23/23-09 11 SP TYPE: Surgical OTHR DR: Robby Ferris MD ORDERED: HE Stain/15 , Gross Micro L4/5, IHC, Special st. 2/3, H. pylori, AB/PAS/3 Diagnosis A. Duodenum, descend ing, biopsy: Duodenal mucosa with preserved villi and no specific change; no evidence of celiac disease. B. Gastric antrum, b iopsy: Reactive gastropathy with focal minimal chronic inactive inflammation; negati ve for H pylori, intestinal metaplasia and dysplasia, and fragment of duodenal mucosa (lik ry contaminant). C. Esophagogastric j unction, at 38 cm, biopsy: Squamous mucosa with hyperplasia and focal intraepithelia l eosinophils (up to 4 per high field with field) consistent with esophagitis, and col umnar mucosa with mild chronic inflammation, hyperplastic changes, and rare goblet cell s that are not seen on the AB/ PAS stain; negative for dysplasia (see comment). D. Colon, ascending, biopsy: Colonic mucosa with many pigmented lamina propria macrophages consiste nt with melanosis coli; no evidence of microscopic colitis. E. Colon, ascending, polyp: Consistent with hyperplastic polyp (see comment). Comment: (D): The findings ra ise the possibility of a developing intestinal metaplasia and clinical follow-up is warranted. (E): A sessile arnulfo jaylene lesion without dysplasia can not be ruled out in any residual lesion and follow-up is warranted. Clinical History Pre-Op Dx: Abdominal pain, screening Post-Op Dx: Hiatal h ernia, gastritis, colon polyp, diverticulosis, hemorrhoids, melanosis coli Microscopic Description Microscopic sections reviewed. Immunostain for H. pylori on B is negative. AB/PAS on A is negative for evidenc e of chronic injury. AB/PAS on B and C are negative for intestinal metaplasia, with foc al fragment of duodenal mucosa in B. Controls stain appropriately. Material Received A. Descending duoden um r/o celiac disease B. Gastric antrum C. EG junction 38 D. Ascending colon b x melanosis coli, r/o microscopic colitis CONTINUED ON NEXT PAGE Name: Livan Moody Age/Sex: 73/F : 1950 Unit#: [id number] Attend Dr: Caleb Castro Re09/22/23 Status : [facility] Location: [facility] Disch: SPEC : [id number] RECD : 09/23/23 STATUS: ELMO GREENWOOD NUM: [id number] STEFFI: 09/22/23-144 [facility] DR: Caleb Castro ENTERED: 09/23/23- 11 SP TYPE: Surgical OTHR DR: Robby Ferris MD ORDERED: HE Stain/15 , Gross Micro L4/5, IHC, Special st. 2/3, H. pylori, AB/PAS/3 Material Received (Continued) E. Ascending colon polyp Gross Description Received in 5 parts. Part A: Received in formalin labeled ?descending duodenum, rule out celiac disease? are 5 boone irregular tissue fragments each measuring 0.3 cm, submitted in toto in a cassette labeled A. Part B: Received in formalin labeled ?gastric antrum? are 3 wiley-boone irregular and rectangular tissue f ragments each measuring 0.3 cm, submitted in toto in a cassette labeled B. Part C: Received in formalin labeled ?EG junction at 38? are 3 wiley-boone irregular and rectangular tissue f ragments ranging from 0.2-0.3 cm, submitted in toto in a cassette labeled C. Part D: Received in formalin labeled ?ascending colon, rule out melanosis coli, rule out microscopic colitis? are 4 boone-brown irregular tissue fragments each measuring 0.2 cm, submitted in toto in a cassette labeled D. Part E: Received in formalin labeled ?ascending colon polyp? is a 0.9 cm wiley-boone rectangular-papular tissue fragment, submitted in toto in a cassette labeled E. CEDS Special studies orde red and performed: Immunostain for H. pylori on B1; AB/PAS stains on A1, B1 and C1. Copies To: Robby Ferris MD [address] [place] [address] [address] [place] [address] Caleb Castro [address] [place] [address] [address] [place] [address] CONTINUED ON NEXT PAGE Name: Livan Moody Age/Sex: 73/F : 1950 Unit#: [id number] Attend Dr: Caleb Castro Re09/22/23 [place] [facility] [facility] Disch: SPEC : [id number] RECD : 09/23/23 STATUS: ELMO GREENWOOD NUM: [id number] STEFFI: 09/22/23-1805 [facility] DR: Caleb Castro ENTERED: 09/23/23-09 11 SP TYPE: Surgical OTHR DR: Robby Ferris MD ORDERED: HE / , Gross Micro L4/5, IHC, Special st. 2/3, H. pylori, AB/PAS/3 Signed (si gnature on file) Chelsea Dallas 09/26/23 1550 END OF REPORT Reason For Referral No Information Medications Medication SIG (Take, Route, Frequency, Duration) Notes Start Date End Date Status Rosuvastatin Calcium 5 MG Oral for 90 Active Vitamin D3 Active Verapamil HCl ER 120 MG TAKE 1 CAPSULE B Y MOUTH DAILY FOR 90 DAYS Oral for 90 Active Problems Problem Type SNOMED Code ICD Code Onset Dates Problem Status W/U Status Risk Notes Problem 636849321 Colon cancer screening (Z12.11) Active confirmed Problem Diverticular disease of colon (238252797) Diverticulosis of large intestine without perforation or abscess without bleeding (K57.30) Active confirmed Problem Chronic gastritis (9822889) Gastritis, chronic (K29.50) Active confirmed Problem 77706432 Generalized abdominal discomfort (R10.84) Active confirmed Encounters Encounter Location Date Provider Diagnosis [facility] [place] [address] [place] [phone] 09/22/2023 Caleb Castro Encounter for screen ing colonoscopy Z12.11 ; Colon polyps K63.5 ; Other specified diseases of intestine K63.89 ; Diverticulosis of large intestine without perforation or abscess without bleeding K57.30 ; Other hemorrhoids K64.8 ; Hiatal hernia K44.9 ; Gastritis, chronic K29.50 and Abdominal pain R10.9 [facility] [address] [place] [address] 10/11/2023 Caleb Castro Assessments Encounter Date Diagnosis (ICD Code) Assessment [...] pain (ICD-10 - R10.9) Plan Of Treatment Pending Test Test Name Order Date MRI ABD NO CONTRAST (MRCP) 09/27/2014 MRI ABD W&WO CONTRAST 09/27/2014 Future Test Test Name Order Date COLONOSCOPY 05/13/2011 UPPER GI ENDOSCOPY 07/07/2023 COLONOSCOPY 07/07/2023 Insurance Providers Payer Name Payer Address Payer Phone Subscriber Number Group Number Insured Name Patient Relationship to Insured Coverage Start Date Coverage End Date [facility] [address] [place] [address] [phone] [id number] SUDEEP MUÑOZ Self - patient is the insured Medical (General) History Medical History History ICD Code Hyperlipidemia She takes Prozac for menopause Denies [place],DM,CVA,Lung disease,renal dise ase Screening Colonoscopy in 07/29 012-negative except for hypeplastic polyps, diverticulosis, and internal hemorrhoids hypertension Surgical History Surgery Date(Month/Year) cholecystectomy
--- OUTSIDE RECORDS SUMMARY | 2024-08-27 15:05 | XMS_ITS ---
Author Organization [facility] Address [address] [place] [address] Care Team Providers Care Bilingual [employer] Teacher Name Role Phone Po Robby OSORIO Primary Care Provider Caleb Spicer [phone] REASON FOR VISIT ABD DISTRESS, SCREENING COLON Problems Problem Type SNOMED Code ICD Code Onset Dates Problem Status W/U Status Risk Notes Problem Diverticular disease of colon (751885864) Diverticulosis of large intestine without perforation or abscess without bleeding (K57.30) Active confirmed Problem Chronic gastritis (5794045) Gastritis, chronic (K29.50) Active confirmed Encounters Encounter Location Date Provider Diagnosis [facility] [place] [address] [place], [place] [phone] 09/22/2023 Caleb Castro Encounter for scre ening [...] * SUDEEP MOODY ADOB:[birth year] (74 yo F)Acc No.[id number]:09/22/2023 EGD and COL/MAC Patient:?SUDEEP MOODY Provider:?Caleb Castro MD :1950???Age:73 Y???Sex:Female D ate:09/22/2023 [facility] Pcp:Robby Ferris MD Subjective: * Chief Complaints: * ???1. ABD DISTRESS, SCREENIN G COLON. * Medical History:? Objective: * Vitals:? Assessment: * Assessment: 1.?Encounter for screening c olonoscopy - Z12.11 (Primary)???2.?Colon polyps - K63.5???3.?Other specified diseases of intestine - K63.89???4.?Diverticulosis of large intestine without perforation or abscess without bleeding - K57.30 ??5.?Other hemorrhoids - K64.8???6.?Hiatal hernia - K44.9???7.?Gastritis, chronic - K29.50???8.?Abdominal pain - R10.9??? Plan: * Treatment: * Procedure Codes:?55528 LESIO N REMOVAL COLONOSCOPY, Modifiers: [place] , [address]75 UPPER GI ENDOSCOPY, BIOPSY * * The named appointment provid er may or may not be the originator of this progress note, and it is not deemed complete until electronically signed by the appointment provider. Sign off status: Pending * Provider:?Caleb Castro MD Date:? 024 Generated for Rosalioi ng/Fachayitog/eTransmitting on:?08/27/2024 03:05 PM EDT
--- OUTSIDE RECORDS SUMMARY | 2024-08-27 15:05 | XMS_ITS ---
Author Organization [facility] Address [address] [place] [address] Care Team Providers Care Assembler Dry Cell And Battery Name Role Phone Po Robby OSORIO Primary Care Provider Caleb Spicer [phone] REASON FOR VISIT results of biopsies Encounters Encounter Location Date Provider Diagnosis [facility] [address] [place] [address] 10/11/2023 Caleb Castro Plan Of Treatment No Information Progress Notes * SUDEEP MOODY ADOB:[birth year] (73 yo F)Acc No.[id number]:10/11/2023 Patient:?SUDEEP MOODY :1950???Age:73 Y???Sex:Female [address] [place], [address] * true * Date:? Generated for Printi ng/Faxing/eTransmitting on:?08/27/2024 03:04 PM EDT
== END 2024-08-27 13:55 | disposition home or self-care (01) ==
LOC: HO.HMCH 13:24
PROVIDERS: PCP Internal Medicine; Visit Provider Internal Medicine
DX: R93.1 Abnormal findings on diagnostic imaging of heart and coronary circulation (principal); I49.1 Atrial premature depolarization; R73.01 Impaired fasting glucose; E78.00 Pure hypercholesterolemia, unspecified; K21.9 Gastro-esophageal reflux disease without esophagitis; I10 Essential (primary) hypertension; R09.81 Nasal congestion

== ENCOUNTER → 2024-08-27 13:23 | Outpatient (BNVA) | payer MEDICARE, SELFPAY | PROVIDERS: PCP Internal Medicine; Visit Provider Internal Medicine | DX: R93.1 Abnormal findings on diagnostic imaging of heart and coronary circulation (principal); I49.1 Atrial premature depolarization; R73.01 Impaired fasting glucose; E78.00 Pure hypercholesterolemia, unspecified; K21.9 Gastro-esophageal reflux disease without esophagitis; I10 Essential (primary) hypertension; R09.81 Nasal congestion | CPT/HCPCS: 99212 ==

== ENCOUNTER → 2024-10-04 07:48 | Outpatient (REF) | payer MEDICARE, SELFPAY ==
--- NOTE | ~2024-10-04 | NM_ITS ---
Lexiscan Myocardial perfusion study Indication: Coronary artery disease Technique: The patient was brought in for a Lexiscan perfusion study on 10/04/2024 and was injected 0.4 mg of Lexiscan intravenously. Within a minute of this injection 25 mCi of sestamibi was given intravenously. Images were obtained using the SPECT gamma camera interlaced with the gating device. Images were obtained in supine position. Resting perfusion study was performed on 10/05/2024. Patient was administered 25 mCi of sestamibi intravenously at rest. Images were then obtained in supine position. Total DLP 56 mGy-cm. Images were processed with the software and compared side to side in short axis, horizontal long axis and vertical long axis views. Findings: Raw aquisition reviewed. The stress perfusion study showed no significant perfusion abnormality. Both uncorrected as well as CT attenuation corrected images were reviewed. Inaccurate gating due to frequent PVCs/bigeminy. Resting study shows no significant perfusion abnormality. Gating at rest reveals ejection fraction at > 70%; apical motion could be because of gating artifact from frequent PVCs. The findings are consistent with no clear reversible or fixed perfusion abnormality. NM/NM cardiolite stress test Impression: 1. Myocardial perfusion imaging study shows normal myocardial perfusion. 2. Gated LVEF is > 70% during rest. Gating not performed during stress due to frequent PVCs. EKG component of the test reported separately. Electronically signed by: Ravi Mclean MD 10/07/2024 02:13 PM EDT
--- NOTE | 2024-10-04 07:50 | CA_ITS ---
Acquisition Time: 2024-10-04 08:01:34 Total Exercise Time: 00:05:30 Test Indications: PAC'S,Palpitations Medications: LOSARTAN PROPRANOLOL ROSUVASTATIN ASA TOPIRIMATE SUCRALFATE Protocol: BETH Max HR: 113 BPM 77% of Pred: 146 BPM Max BP: 134/72 mmHG Max Work Load: 1.4 METS Exercise stress test with exercise 10 secs of Beth Protocol, requesting to stop due to speed. Test swirtched to ClearContextiscan. Pharmacological stress test with Lexiscan while pt marched in the chair, with reports of nausea and SOB, with isolated PACs and PVCs, with normotensive response to injection. T wave inversions noted with injection. Nondiagnostic EKG for ischemia. Nuclear images pending. Test reviewed with Dr. Mclean. Referred By: Bessie Bills Electronically Signed By: Carlos Oakes
--- OUTSIDE RECORDS SUMMARY | 2024-10-04 07:51 | XMS_ITS | Patient Health Record ---
Author Organization [facility] Address [address] [place] [address] Care Team Providers Care Oil Treater Name Role Phone Po Robby OSORIO Primary Care Provider Caleb Spicer [phone] Allergies Allergen (clinical drug ingredient) Drug/Non Drug Allergy documented on EMR Reaction Allergy Type Onset Date Status gabapentin Gabapentin Unknown Drug Allergy Activ e atorvastatin Lipitor Unknown Drug Allergy Acti ve Reason For Referral No Information Medications Medication [...] Problem Status W/U Status Risk Notes Problem 734254645 Colon cancer screening (Z12.11) Active confirmed Problem Diverticular disease of colon (084062855) Diverticulosis of large intestine without perforation or abscess without bleeding (K57.30) Active confirmed Problem Chronic gastritis (6574594) Gastritis, chronic (K29.50) Active confirmed Problem 76559743 Generalized abdominal discomfort (R10.84) Active confirmed Encounters Encounter Location Date Provider Diagnosis [facility] [address] [place] [address] 10/11/2023 Caleb Castro Plan Of Treatment Pending Test Test Name Order Date MRI ABD NO CONTRAST (MRCP) 09/27/2014 MRI ABD W&WO CONTRAST 09/27/2014 Future Test Test Name Order Date COLONOSCOPY 05/13/2011 UPPER GI ENDOSCOPY 07/07/2023 COLONOSCOPY 07/07/2023 Insurance Providers Payer Name Payer Address Payer Phone Subscriber Number Group Number Insured Name Patient Relationship to Insured Coverage Start Date Coverage End Date [facility] [address] [place] [address] [phone] [id number] SUDEEP MUÑOZ Self - patient is the insured Medical (General) History Medical History History ICD Code Hyperlipidemia She takes Prozac for menopause Denies [place],DM,CVA,Lung disease,renal dise ase Screening Colonoscopy in 07/29 012-negative except for hypeplastic polyps, diverticulosis, and internal hemorrhoids hypertension Surgical History Surgery Date(Month/Year) cholecystectomy
--- OUTSIDE RECORDS SUMMARY | 2024-10-04 07:51 | XMS_ITS ---
Author Organization [facility] Address [address] [place] [address] Care Team Providers Care Humane Agent Name Role Phone Po Robby OSORIO Primary Care Provider Caleb Spicer [phone] Allergies Allergen (clinical drug ingredient) Drug/Non Drug [...] Problem Status W/U Status Risk Notes Problem 356368097 Colon cancer screening (Z12.11) Active confirmed Problem 59124635 Generalized abdominal discomfort (R10.84) Active confirmed Vital Signs Temperature 97.3 degrees Fahrenheit 07/07/19 24 Blood pressure systolic 00 mm Hg 07/07/19 24 Blood pressure diastolic 00 mm Hg 024 Height 66 in 07/07/2023 Weight 131 lbs 07/07/2023 BMI 21.14 kg/m2 07/07/2023 Encounters Encounter Location Date [facility] [address] [place] [address] 07/07/2023 Caleb Castro Colon cancer screeni ng [...] * SUSHMA MOODY ADOB:[birth year] (73 yo F)Acc No.[id number]:07/07/2023 Progress Notes Patient:?SUSHMA MOODY Provider:?Caleb Castro MD :1950???Age:73 Y???Sex:Female D ate:07/07/2023 Address:[address] [place], [place] [id number] Pcp:Robby Ferris MD Subjective: * Chief Complaints: [...] expertise in regard to her questions about Krsy or the alternative medicine clinic's thoughts regarding [...] (Ordered for 07/07/2023)* with MAC Scheduled at [facility] [place] 09-14-2023 at 1:30 p.m. * Procedure Codes:?3017F COLOR ECTAL CA SCREEN DOC [id number] TOBACCO [id number]-ZXJPH2384 BP SCR NOT PRFRM REC REASON NOS * Preventive Medicine:? ??Urinary Incontinence:?Urinary Incontinence?Assessment:?Absent,?Plan of care documented:?No, reason not specified.? * Follow Up:?prn * * Sign off status: Completed true * Provider:?Caleb Castro MD Date:? 024 Generated for Evan ambrose/Jagdish/Christina on:?10/04/2024 07:50 AM EDT History and Physical Notes * [...]
--- OUTSIDE RECORDS SUMMARY | 2024-10-04 07:51 | XMS_ITS ---
Author Organization [facility] Address [address] [place] [address] Care Team Providers Care Drum Sealer Name Role Phone Po Robby OSORIO Primary Care Provider Caleb Spicer [phone] REASON FOR VISIT ABD DISTRESS, SCREENING COLON Problems Problem Type SNOMED Code ICD Code Onset Dates Problem Status W/U Status Risk Notes Problem Diverticulosis o f large intestine without perforation or abscess without bleeding (K57.30) Active confirmed Problem Chronic gastritis (6743595) Gastritis, chronic (K29.50) Active confirmed Encounters Encounter Location Date Provider Diagnosis [facility] [place] [address] [place] [phone] 09/22/2023 Caleb Castro Encounter for scre ening [...] * SUDEEP MOODY ADOB:[birth year] (74 yo F)Acc No.[id number]:09/22/2023 EGD and COL/MAC Patient:?SUDEEP MOODY Provider:?Caleb Castro MD :1950???Age:73 Y???Sex:Female D ate:09/22/2023 [facility] [address] [facility] Pcp:Robby Ferris MD Subjective: * Chief Complaints: [...] - R10.9??? Plan: * Treatment: * Procedure Codes:?43171 LESIO N REMOVAL COLONOSCOPY, Modifiers: [place] , [address] UPPER GI ENDOSCOPY, BIOPSY * * The named appointment provid er may or may not be the originator of this progress note, and it is not deemed complete until electronically signed by the appointment provider. Sign off status: Pending * Provider:?Caleb Castro MD Date:? 024 Generated for Rosalioi ng/Jorgeg/eTransmitting on:?10/04/2024 07:51 AM EDT
--- OUTSIDE RECORDS SUMMARY | 2024-10-04 07:51 | XMS_ITS ---
Author Organization [facility] Address [address] [place] [address] Care Team Providers Care Piano Sounding Board Matcher Name Role Phone Po Robby OSORIO Primary Care Provider Caleb Spicer [phone] REASON FOR VISIT results of biopsies Encounters Encounter Location Date Provider Diagnosis [facility] [address] [place] [address] 10/11/2023 Caleb Castro Plan Of Treatment No Information Progress Notes * SUDEEP MOODY ADOB:[birth year] (73 yo F)Acc No.[id number]:10/11/2023 Patient:?SUDEEP MOODY :1950???Age:73 Y???Sex:Female Address:[address] [place], [address] * true * Date:? Generated for Printi ng/Faxing/eTransmitting on:?10/04/2024 07:51 AM EDT
== END ==
LOC: HO.CARD 07:48
PROVIDERS: PCP Internal Medicine; Visit Provider Nurse Practitioner Family
DX: R93.1 Abnormal findings on diagnostic imaging of heart and coronary circulation (principal); I49.1 Atrial premature depolarization; Z82.49 Family history of ischemic heart disease and other diseases of the circulatory system
CPT/HCPCS: 78452; 93017; A9500; J0280; J2785

== ENCOUNTER → 2024-10-04 07:50 | Outpatient (BNV) | payer MEDICARE, SELFPAY | PROVIDERS: PCP Internal Medicine | DX: I25.10 Atherosclerotic heart disease of native coronary artery without angina pectoris (principal); I49.3 Ventricular premature depolarization | CPT/HCPCS: 78452; 93016; 93018 ==

== ENCOUNTER 2024-10-12 12:55 | Outpatient (AMB) | payer MEDICARE, SELFPAY ==
--- OUTSIDE RECORDS SUMMARY | 2024-10-12 12:58 | XMS_ITS | Patient Health Record ---
Author Organization [facility] Address [address] [place] [address] Care Team Providers Care Account Management Assistant Name Role Phone Po Robby OSORIO Primary Care Provider Caleb Spicer [phone] Allergies Allergen (clinical drug ingredient) Drug/Non Drug [...] Problem Status W/U Status Risk Notes Problem 337168438 Colon cancer screening (Z12.11) Active confirmed Problem Diverticular disease of colon (974355557) Diverticulosis of large intestine without perforation or abscess without bleeding (K57.30) Active confirmed Problem Chronic gastritis (6429387) Gastritis, chronic (K29.50) Active confirmed Problem 25726988 Generalized abdominal discomfort (R10.84) Active confirmed Plan Of Treatment Pending Test Test Name Order Date MRI ABD NO CONTRAST (MRCP) 09/27/2014 MRI ABD W&WO CONTRAST 09/27/2014 Future Test Test Name Order Date COLONOSCOPY 05/13/2011 UPPER GI ENDOSCOPY 07/07/2023 COLONOSCOPY 07/07/2023 Insurance Providers Payer Name Payer Address Payer Phone Subscriber Number Group Number Insured Name Patient Relationship to Insured Coverage Start Date Coverage End Date [facility] [address] [place] [address] [phone] [id number] CARLOS EDUARDO Rodolfo SUDEEP Self - patient is the insured Medical (General) History Medical History History ICD Code Hyperlipidemia She takes Prozac for menopause Denies CT,DM,CVA,Lung disease,renal dise ase Screening Colonoscopy in 07/29 012-negative except for hypeplastic polyps, diverticulosis, and internal hemorrhoids hypertension Surgical History Surgery Date(Month/Year) cholecystectomy
--- OUTSIDE RECORDS SUMMARY | 2024-10-12 12:58 | XMS_ITS ---
Author Organization [facility] Address [address] [place] [address] Care Team Providers Care Saw Sharpener Name Role Phone Po Robby OSORIO Primary Care Provider Caleb Spicer [phone] Allergies Allergen (clinical drug ingredient) Drug/Non Drug [...] Problem Status W/U Status Risk Notes Problem 956034781 Colon cancer screening (Z12.11) Active confirmed Problem 35893798 Generalized abdominal discomfort (R10.84) Active confirmed Vital Signs Temperature 97.3 degrees Fahrenheit 07/07/19 24 Blood pressure systolic 00 mm Hg 07/07/19 24 Blood pressure diastolic 00 mm Hg 024 Height 66 in 07/07/2023 Weight 131 lbs 07/07/2023 BMI 21.14 kg/m2 07/07/2023 Encounters Encounter Location Date [facility] [address] [place] [address] 07/07/2023 Caleb Castro Colon cancer screeni ng [...] * SUSHMA MOODY ADOB:[birth year] (73 yo F)Acc No.[id number]:07/07/2023 Progress Notes Patient:?SUSHMA MOODY Provider:?Caleb Castro MD :1950???Age:73 Y???Sex:Female D ate:07/07/2023 Address:[address] [place], [place] [phone] Pcp:Robby Ferris MD Subjective: * Chief Complaints: [...] (Ordered for 07/07/2023)* with MAC [place] [facility] [place] at 1:30 p.m. * Procedure Codes:?3017F COLOR ECTAL CA SCREEN DOC [id number] TOBACCO NON-[id number] BP SCR NOT PRFRM REC REASON NOS * Preventive Medicine:? ??Urinary Incontinence:?Urinary Incontinence?Assessment:?Absent,?Plan of care documented:?No, reason not specified.? * Follow Up:?prn * * Sign off status: Completed true * Provider:?Caleb Castro MD Date:? 024 Generated for Evan ambrose/Jagdish/Christina on:?10/12/2024 12:57 PM EDT History and Physical Notes * HPI (History of Present Illness) Category Sub-Category Detail Notes Category Not es incontinence I saw Susham in consultation today in regard to further [...]
--- OUTSIDE RECORDS SUMMARY | 2024-10-12 12:58 | XMS_ITS ---
Author Organization [facility] Address [address] [place] [address] Care Team Providers Care Gem Expert Name Role Phone Po Robby OSORIO Primary Care Provider Caleb Spicer [phone] REASON FOR VISIT results of biopsies Encounters Encounter Location Date Provider Diagnosis [facility] [address] [place] [address] 10/11/2023 Caleb Castro Plan Of Treatment No Information Progress Notes * SUDEEP MOODY ADOB:[birth year] (73 yo F)Acc No.[id number]:10/11/2023 Patient:?SUDEEP MOODY :1950???Age:73 Y???Sex:Female Address[address] [place], [address] * true * Date:? Generated for Printi ng/Faxing/eTransmitting on:?10/12/2024 12:58 PM EDT
--- OUTSIDE RECORDS SUMMARY | 2024-10-12 12:58 | XMS_ITS ---
Author Organization [facility] Address [address] [place] [address] Care Team Providers Care Cracker Sprayer Name Role Phone Po Robby OSORIO Primary Care Provider Caleb Spicer [phone] REASON FOR VISIT ABD DISTRESS, SCREENING COLON Problems Problem Type SNOMED Code ICD Code Onset Dates Problem Status W/U Status Risk Notes Problem Diverticulosis o f large intestine without perforation or abscess without bleeding (K57.30) Active confirmed Problem Chronic gastritis (9531170) Gastritis, chronic (K29.50) Active confirmed Encounters Encounter Location Date Provider Diagnosis [facility] Outpatient [address] [place] [phone] 09/22/2023 Caleb Castro Encounter for scre ening [...] * SUDEEP MOODY ADOB:[birth year] (74 yo F)Acc No.[id number]:09/22/2023 EGD and COL/MAC Patient:?SUDEEP MOODY Provider:?Caleb Castro MD :1950???Age:73 Y???Sex:Female D ate:09/22/2023 Address:[facility] [address] [facility] Pcp:Robby Ferris MD Subjective: * Chief Complaints: [...] - R10.9??? Plan: * Treatment: * Procedure Codes:?89513 LESIO N REMOVAL COLONOSCOPY, Modifiers: PT , [address] UPPER GI ENDOSCOPY, BIOPSY * * The named appointment provid er may or may not be the originator of this progress note, and it is not deemed complete until electronically signed by the appointment provider. Sign off status: Pending * Provider:?Caleb Castro MD Date:? 024 Generated for Rosalioi ng/Fachayitog/eTransmitting on:?10/12/2024 12:58 PM EDT
[2024-10-12 13:03] VITALS: BP 118/60; PULSE 60; BMI 21.7
--- NOTE | 2024-10-12 13:03 | A.OFFVIS_ITS ---
Vital Signs 10/12/24 13:03 Height 5 ft 6 in Weight 134 lb 7.712 oz BMI 21.7 BP 118/60 Blood Pressure Location Lt brachial Position Sitting Pulse 60 Pulse Source Pulse Oximeter Intake Visit Reasons: 3 month f/u after stress test Allergies gabapentin Allergy (Intermediate, Verified 08/27/24 13:28) Muscle Pain atorvastatin [Lipitor] Allergy (Unknown, Verified 08/27/24 13:28) cramps lisinopril Adverse Reaction (Intermediate, Verified 08/27/24 13:28) Dizziness Medication List - Last Reconciled 10/12/24 by Bessie Bills, SET UP MECHANIC STAMPING MACHINES-C ascorbate calcium (vitamin C) 600 mg PO DAILY aspirin (Adult Aspirin Regimen) 81 mg PO DAILY blood pressure monitor (Blood Pressure Kit) As directed cod liver oil 1 cap PO DAILY coQ10 (ubiquinol) (Qunol Himanshu CoQ10) 300 mg PO DAILY losartan 25 mg PO DAILY nystatin units PO propranolol 10 mg PO BID rosuvastatin 5 mg PO DAILY topiramate 25 mg PO DAILY zinc acetate (Galzin) 50 mg PO DAILY HPI HPI 3 month f/u after stress test: Details: Tracy is a 74-year-old female with past medical history PACs, family history of CAD, heart palpitations, elevated coronary calcium score who presents for follow-up after recent nuclear stress test. Patient reports that she generally feels well. She will notice some heart palpitations which feels like strong pounding beats. Overall her palpitations have lessened since the start of the Inderal. No chest discomfort at rest or with activity. No shortness of breath, PND, orthopnea or edema. Compliant with her meds. She has chronic headaches and is following with a neurologist for her headaches. [facility] Medical History Palpitations Colon cancer screening Cervicalgia Hypersomnia Other specified cardiac arrhythmias Pleural effusion Arrhythmia Elevated blood pressure reading Headache LFT elevation Numbness in feet Gout Anemia Osteoporosis Thyroid nodule GERD (gastroesophageal reflux disease) Hypercholesterolemia Surgical History History of endoscopy Hx of colonoscopy History of cholecystectomy Family History Father Diabetes Heart attack Mother Heart attack Asthma Emphysema lung Non-Hodgkin lymphoma CHF (congestive heart failure) Brother Cancer Sister Diabetes Ulcerative colitis Social History Housing: House Alcohol intake: never Patient Tobacco Use Status: Never used Tobacco Tobacco use type: Cigarette e-Cigarette/Vaping Use: Never Used Second Hand Smoke Exposure: No service: No Current occupational status: retired Current occupational exposures/hazards: No Cognitive needs: No Hearing needs: No Vision needs: No Review of Systems Const All systems reviewed & are unremarkable except as noted in HPI and below Denies weakness ENT Denies dizziness Card Details: palpitations Denies chest pain, Denies chest pain with activity, Denies syncope, Denies rapid heart rate, Denies pedal edema, Denies edema, Denies leg edema, Denies lightheadedness, Denies palpitations, Denies dyspnea, Denies dyspnea on exertion and Denies orthopnea Resp Denies cough, Denies dyspnea and Denies dyspnea on exertion GI Denies hematochezia and Denies change in stool character Musc Denies abnormal gait, Denies muscle cramps, Denies muscle weakness, Denies numbness, Denies radiating pain into limb and Denies tingling Neuro Denies abnormal gait, Denies dizziness, Denies syncope, Denies numbness, Denies tingling and Denies weakness Endo Denies palpitations Physical Exam Vital Signs: Last Vital Signs Pulse 60 10/12/24 13:03 BP 118/60 10/12/24 13:03 BMI result Body Mass Index 21.7 Const General: cooperative, healthy appearing, comfortable and no acute distress Orientation/consciousness: patient oriented x3 Neck Neck: Yes normal visual inspection and Yes no JVD Resp Effort & Inspection: normal respiratory effort Auscultation: clear to auscultation bilaterally, no crackles, no rales, no rhonchi and no wheezes Cardio Jugular venous distension: no JVD Rate: regular rate Rhythm: regular rhythm Heart sounds: S1 normal heart sound present, S2 normal heart sound present, no gallops, no murmurs and no rubs Neuro General: patient oriented x3 Extrem General: Yes normal to inspection, No no pedal edema and No calf tenderness Psych Appearance: grossly normal Mental Status: mental status grossly normal Speech and movement: Normal speech and movement present Assessment & Plan Assessment & Plan (1) PAC (premature atrial contraction): Code(s): I49.1 - Atrial premature depolarization Category: Medical Plan: History of frequent PACs with prior Holter monitor showing Pac burden as high as 17% and short runs of SVT. She recently reported ongoing heart palpitations and was taken off verapamil and started on Inderal 10 mg b.i.d.. An echocardiogram done 05/25/2024 shows EF 60-65%, no valve abnormalities and no reported regional wall motion abnormalities. A Holter monitor was done on 05/25/2024 for 3 days showing sinus rhythm with average heart rate 73, PACs 6.3%. During her recent stress test she had isolated PACs and PVCs. She is still reporting some palpitations. Will have him try increasing Inderal dose up to 20 mg b.i.d.. She will do this incrementally as she is intolerant to quick medicine changes. Will plan to call her in 2 weeks to reassess condition. (2) Palpitations: Code(s): R00.2 - Palpitations Category: Medical Plan: As above (3) Agatston coronary artery calcium score between 100 and 400: Code(s): R93.1 - Abnormal findings on diagnostic imaging of heart and coronary circulation Category: Medical Plan: Family history of coronary artery disease. She had coronary calcium score done 05/11/2024 was 306, mostly in the LAD, asymptomatic. Pharmacological nuclear stress test done on 10/05/2027 showed normal myocardial perfusion imaging. Test results reviewed with her in detail. Continue treatment for nonobstructive CAD. Continue aspirin 81 mg daily. Continue rosuvastatin with ideal LDL goal less than 70. Labs done 08/15/2024 showed LDL 66. Signs and symptoms of angina reviewed with her. Cardiology follow-up 3 months, sooner if needed. (4) Family history of coronary artery disease: Code(s): Z82.49 - Family history of ischemic heart disease and other diseases of the circulatory system Category: Medical Plan: As above (5) Hypertension: Code(s): I10 - Essential (primary) hypertension Category: Medical Plan: BP goal < 130/80. Well controlled. No med changes made. (6) Hypercholesterolemia: Code(s): E78.00 - Pure hypercholesterolemia, unspecified Category: Medical Plan: Superior LDL goal less than 70 in patient with known coronary calcifications, nonobstructive CAD. Continue rosuvastatin 5 mg daily. Plan Time spent on chart review, documentation, interviewed assessment Coding Level of Care Code Est Pt Level 3 (92661) Complex EM visit Add On G2211 Diagnoses PAC (premature atrial contraction) I49.1 Palpitations R00.2 Agatston coronary artery calcium score between 100 and 400 R93.1 Family history of coronary artery disease Z82.49 Hypertension I10 Hypercholesterolemia E78.00 Time Spent (min) 24
== END 2024-10-12 13:28 | disposition home or self-care (01) ==
LOC: HO.HCS 12:56
PROVIDERS: PCP Internal Medicine; Visit Provider Nurse Practitioner Family
DX: I49.1 Atrial premature depolarization (principal); R00.2 Palpitations; R93.1 Abnormal findings on diagnostic imaging of heart and coronary circulation; Z82.49 Family history of ischemic heart disease and other diseases of the circulatory system; I10 Essential (primary) hypertension; E78.00 Pure hypercholesterolemia, unspecified
CPT/HCPCS: 99213; G2211

== ENCOUNTER → 2024-10-12 12:55 | Outpatient (BNVA) | payer MEDICARE, SELFPAY | PROVIDERS: PCP Internal Medicine; Visit Provider Nurse Practitioner Family | DX: I49.1 Atrial premature depolarization (principal); I10 Essential (primary) hypertension; R00.2 Palpitations; R93.1 Abnormal findings on diagnostic imaging of heart and coronary circulation; E78.00 Pure hypercholesterolemia, unspecified; Z82.49 Family history of ischemic heart disease and other diseases of the circulatory system | CPT/HCPCS: 99212 ==

== ENCOUNTER 2024-10-17 14:00 | Outpatient (REF) | payer MEDICARE, SELFPAY ==
[2024-10-22 10:19] LABS: C1 Esterase Inhibitor >100 % (>=68)
== END 2024-10-17 14:01 | disposition home or self-care (01) ==
LOC: HO.LAB 14:00
PROVIDERS: PCP Internal Medicine; Visit Provider Internal Medicine
DX: R10.9 Unspecified abdominal pain (principal); R14.0 Abdominal distension (gaseous)
CPT/HCPCS: 36415; 83519; 83520; 86160; 86161; 99202

== ENCOUNTER 2024-10-17 14:00 | Outpatient (AMB) | payer MEDICARE, SELFPAY ==
[2024-10-17 14:04] VITALS: BP 144/63; PULSE 64; O2SAT 99; BMI 21.8
--- NOTE | 2024-10-17 14:04 | MHC.OFFVIS ---
Vital Signs 10/17/24 14:04 Height 5 ft 6 in Weight 135 lb 5.821 oz BMI 21.8 BP 144/63 H Blood Pressure Location Lt brachial Position Sitting Pulse 64 Pulse Source Pulse Oximeter Pulse Oximetry (%) 99 Oxygen Delivery Method Room Air Intake Visit Reasons: gastroenteritis and colitis Intake Note: Pt presents to the office today as a new patient for gastroenteritis and colitis. Pt states she has been experiencing abdominal pain and nausea x2 years. Pt denies any vomiting or diarrhea. Allergies gabapentin Allergy (Intermediate, Verified 10/17/24 14:07) Muscle Pain atorvastatin [Lipitor] Allergy (Unknown, Verified 10/17/24 14:07) cramps lisinopril Adverse Reaction (Intermediate, Verified 10/17/24 14:07) Dizziness HPI Comments Details: 74 y.o F with PMH who is here for chronic abd pain. Reports almost 2 years ago developed abd pain with cramping. Was seen by integrative health specialist who diagnosed her with yeast infection in the gut and was given a combination of supplements for 90 days. Then was seen at [facility] and was told to take anti-protozoal meds for a few months. However, sx are still persistent. Describes the pain is present every day. Starts shortly after waking up. Not related to food, movement, or bowel movement. Of note - chronic diarrhea noted on problem list but pt does not report this. Similarly EoE listed on problem list but unable to find path results congruent to this. EGD/colo 2023: 1. Small hiatal hernia, gastroesophageal reflux. 2. Mild gastritis. 3. Rule out celiac disease. 4. Melanosis coli. 5. Colon polyp. 6. Rule out microscopic colitis. 7. Diverticulosis. 8. Internal hemorrhoids. Path: A. Duodenum, descending, biopsy: Duodenal mucosa with preserved villi and no specific change; no evidence of celiac disease. B. Gastric antrum, biopsy: Reactive gastropathy with focal minimal chronic inactive inflammation; negative for H pylori, intestinal metaplasia and dysplasia, and fragment of duodenal mucosa (likely contaminant). C. Esophagogastric junction, at 38 cm, biopsy: Squamous mucosa with hyperplasia and focal intraepithelial eosinophils (up to 4 per high field with field) consistent with esophagitis, and columnar mucosa with mild chronic inflammation, hyperplastic changes, and rare goblet cells that are not seen on the AB/ PAS stain; negative for dysplasia (see comment). D. Colon, ascending, biopsy: Colonic mucosa with many pigmented lamina propria macrophages consistent with melanosis coli; no evidence of microscopic colitis. E. Colon, ascending, polyp: Consistent with hyperplastic polyp (see comment). Comment: (D): The findings raise the possibility of a developing intestinal metaplasia and clinical follow-up is warranted. (E): A sessile serrated lesion without dysplasia can not be ruled out in any residual lesion and follow-up is warranted. [facility] Medical History Palpitations Colon cancer screening Cervicalgia Hypersomnia Other specified cardiac arrhythmias Pleural effusion Arrhythmia Elevated blood pressure reading Headache LFT elevation Numbness in feet Gout Anemia Osteoporosis Thyroid nodule GERD (gastroesophageal reflux disease) Hypercholesterolemia Surgical History History of endoscopy Hx of colonoscopy History of cholecystectomy Family History Father Diabetes Heart attack Mother Heart attack Asthma Emphysema lung Non-Hodgkin lymphoma CHF (congestive heart failure) Brother Cancer Sister Diabetes Ulcerative colitis Social History Housing: House Alcohol intake: never Patient Tobacco Use Status: Never used Tobacco Tobacco use type: Cigarette e-Cigarette/Vaping Use: Never Used Second Hand Smoke Exposure: No service: No Current occupational status: retired Current occupational exposures/hazards: No Cognitive needs: No Hearing needs: No Vision needs: No Review of Systems Const All systems reviewed & are unremarkable except as noted in HPI and below Physical Exam Vital Signs: Last Vital Signs Pulse 64 10/17/24 14:04 BP 144/63 H 10/17/24 14:04 Pulse Ox 99 10/17/24 14:04 Oxygen Delivery Method Room Air 10/17/24 14:04 BMI result Body Mass Index 21.8 No apparent distress Nonicteric Abdomen soft, nondistended Alert and oriented x3, normal gait Assessment & Plan Assessment & Plan (1) Abdominal bloating: Code(s): R14.0 - Abdominal distension (gaseous) Category: Medical (2) Abdominal pain: Code(s): R10.9 - Unspecified abdominal pain Category: Medical Plan Ddx for chronic daily diffuse abd pain without relation to food or BM include delayed gastric emptying, SIBO, abd migraine, gut angioedema, MCAS, FD. Other common causes such as PUD, celiac, IBD, EGIDs, chronic panc r.o based on blood work, MRI and bidirectional scope. Plan: - Trial of nortryptiline - start with 10 and increase to 20 after 2 weeks - Labs to r/o angioedema and MCAS - GES Follow up 2 months Orders: Orders Complement C4 10/17/24 R14.0 - Abdominal distension (gaseous) C1 Inhibitor Protein 10/17/24 R14.0 - Abdominal distension (gaseous) NM gastric emptying study Today R10.9 - Unspecified abdominal pain, R14.0 - Abdominal distension (gaseous) C1 Esterase Inhibitor 10/17/24 R14.0 - Abdominal distension (gaseous) Medications: New nortriptyline start with 1 capsule x 2 weeks and then increase to 2 capsules 20 mg (2 x 10 mg) PO BEDTIME 90 days 180 caps 0RF Coding Level of Care Code New Pt Level 4 (26733) Complex EM visit Add On G2211 Diagnoses Abdominal bloating R14.0 Abdominal pain R10.9
--- OUTSIDE RECORDS SUMMARY | 2024-10-17 14:30 | XMS_ITS | Patient Health Record ---
Author Organization [facility] Address [address] [place] [address] Care Team Providers Care Fur Repairer Name Role Phone Po Robby OSORIO Primary Care Provider Caleb Spicer [phone] Allergies Allergen (clinical drug ingredient) Drug/Non Drug [...] Problem Status W/U Status Risk Notes Problem 526624624 Colon cancer screening (Z12.11) Active confirmed Problem Diverticular disease of colon (325698446) Diverticulosis of large intestine without perforation or abscess without bleeding (K57.30) Active confirmed Problem Gastritis, chron ic (K29.50) Active confirmed Problem 35326966 Generalized abdominal discomfort (R10.84) Active confirmed Plan [...] Insured Coverage Start Date Coverage End Date [employer] [facility] [address] [place] [address] [phone] [id number] CARLOS EDUARDO Reynolds SUDEEP Self - patient is the insured Medical (General) History Medical History History ICD Code Hyperlipidemia She takes Prozac for menopause Denies PA,DM,CVA,Lung disease,renal dise ase Screening Colonoscopy in 07/29 012-negative except for hypeplastic polyps, diverticulosis, and internal hemorrhoids hypertension Surgical History Surgery Date(Month/Year) cholecystectomy
--- OUTSIDE RECORDS SUMMARY | 2024-10-17 14:30 | XMS_ITS ---
Author Organization [facility] Address [address] [place] [address] Care Team Providers Care Global Security Architect Name Role Phone Po Robby OSORIO Primary Care Provider Caleb Spicer [phone] REASON FOR VISIT results of biopsies Encounters Encounter Location Date Provider Diagnosis [facility] [address] [place] [address] 10/11/2023 Caleb Castro Plan Of Treatment No Information Progress Notes * SUDEEP MOODY ADOB:[birth year] (73 yo F)Acc No.[id number]:10/11/2023 Patient:?SUDEEP MOODY :1950???Age:73 Y???Sex:Female Address[address] [place], [address] * true * Date:? Generated for Printi ng/Faxing/eTransmitting on:?10/17/2024 02:30 PM EDT
--- OUTSIDE RECORDS SUMMARY | 2024-10-17 14:30 | XMS_ITS ---
Author Organization [facility] Address [address] [place] [address] Care Team Providers Care Cash Office Worker Name Role Phone Po Robby OSORIO Primary Care Provider Caleb Spicer [phone] REASON FOR VISIT ABD DISTRESS, SCREENING COLON Problems Problem Type SNOMED Code ICD Code Onset Dates Problem Status W/U Status Risk Notes Problem Diverticular disease of colon (828804430) Diverticulosis of large intestine without perforation or abscess without bleeding (K57.30) Active confirmed Problem Chronic gastritis (1659964) Gastritis, chronic (K29.50) Active confirmed Encounters Encounter Location Date Provider Diagnosis [facility] [place] [address] [place] [id number] 09/22/2023 Caleb Castro Encounter for scre ening [...] * SUDEEP MOODY ADOB:[birth year] (74 yo F)Acc No.[id number]:09/22/2023 EGD and COL/MAC Patient:?SUDEEP MOODY Provider:?Caleb Castro MD :1950???Age:73 Y???Sex:Female D ate:09/22/2023 [facility] Pcp:Robby Ferris MD Subjective: * Chief Complaints: [...] - R10.9??? Plan: * Treatment: * Procedure Codes:?04940 LESIO N REMOVAL COLONOSCOPY, Modifiers: [place] , [address] UPPER GI ENDOSCOPY, BIOPSY * * The named appointment provid er may or may not be the originator of this progress note, and it is not deemed complete until electronically signed by the appointment provider. Sign off status: Pending * Provider:?Caleb Castro MD Date:? 024 Generated for Rosalioi ng/Fachayitog/eTransmitting on:?10/17/2024 02:30 PM EDT
--- OUTSIDE RECORDS SUMMARY | 2024-10-17 14:30 | XMS_ITS ---
Author Organization [facility] Address [address] [place] [address] Care Team Providers Care Manager Ct Name Role Phone Po Robby OSORIO Primary Care Provider Caleb Spicer [phone] Allergies Allergen (clinical drug ingredient) Drug/Non Drug [...] Problem Status W/U Status Risk Notes Problem 841329998 Colon cancer screening (Z12.11) Active confirmed Problem 52046578 Generalized abdominal discomfort (R10.84) Active confirmed Vital Signs Temperature 97.3 degrees Fahrenheit 07/07/19 24 Blood pressure systolic 00 mm Hg 07/07/19 24 Blood pressure diastolic 00 mm Hg 024 Height 66 in 07/07/2023 Weight 131 lbs 07/07/2023 BMI 21.14 kg/m2 07/07/2023 Encounters Encounter Location Date Provider [facility] [address] [place] [address] 07/07/2023 aCleb Castro Colon cancer screeni ng Z12.11 and [...] * SUSHMA MOODY ADOB:[birth year] (73 yo F)Acc No.[id number]:07/07/2023 Progress Notes Patient:?SUSHMA MOODY Provider:?Caleb Castro MD :1950???Age:73 Y???Sex:Female D ate:07/07/2023 Address:[address] [place], [place] [id number] Pcp:Robby Ferris MD Subjective: * Chief Complaints: [...] (Ordered for 07/07/2023)* with MAC Scheduled [place] [facility] [place]-14-2023 at 1:30 p.m. * Procedure Codes:?3017F COLOR ECTAL CA SCREEN DOC SPU9929F TOBACCO NON-ATBIH3024 BP SCR NOT PRFRM REC REASON NOS * Preventive Medicine:? ??Urinary Incontinence:?Urinary Incontinence?Assessment:?Absent,?Plan of care documented:?No, reason not specified.? * Follow Up:?prn * * Sign off status: Completed true * Provider:?Caleb Castro MD Date:? 024 Generated for Evan ambrose/Jagdish/Christina on:?10/17/2024 02:29 PM EDT History and Physical Notes * [...]
== END 2024-10-17 14:48 | disposition home or self-care (01) ==
LOC: HO.HGI 14:03
PROVIDERS: PCP Internal Medicine; Visit Provider Internal Medicine
DX: R14.0 Abdominal distension (gaseous) (principal); R10.9 Unspecified abdominal pain
CPT/HCPCS: 99204; G2211

== ENCOUNTER → 2024-11-15 07:40 | Outpatient (REF) | payer MEDICARE, SELFPAY ==
--- OUTSIDE RECORDS SUMMARY | 2023-07-07 05:20 | XMS_ITS ---
Author Organization [facility] Address [address] [place] [address] Care Team Providers Care Parking Enforcement Technician Name Role Phone Po Robby OSORIO Primary Care Provider Caleb Spicer [phone] Allergies Allergen (clinical drug ingredient) Drug/Non Drug Allergy documented on EMR Reaction Allergy Type Onset Date Status gabapentin Gabapentin Unknown Drug Allergy Activ e atorvastatin Lipitor Unknown Drug Allergy Acti ve REASON FOR VISIT Patient presents today for a COLON SCREENING Medications Medication SIG (Take, Route, Frequency, Duration) Notes Start Date End Date Status Rosuvastatin Calcium 5 MG Oral for 90 Active Vitamin D3 Active Verapamil HCl ER 120 MG TAKE 1 CAPSULE B Y MOUTH DAILY FOR 90 DAYS Oral for 90 Active Problems Problem Type SNOMED Code ICD Code Onset Dates Problem Status W/U Status Risk Notes Problem [id number] Colon cancer screening (Z12.11) Active confirmed Problem [id number] Generalized abdominal discomfort (R10.84) Active confirmed Vital Signs Temperature 97.3 degrees Fahrenheit 07/07/19 24 Blood pressure systolic 00 mm Hg 07/07/19 24 Blood pressure diastolic 00 mm Hg 024 Height 66 in 07/07/2023 Weight 131 lbs 07/07/2023 BMI 21.14 kg/m2 07/07/2023 Encounters Encounter Location Date Provider [facility] [address] [place] [address] 07/07/2023 Caleb Castro Colon cancer screeni ng Z12.11 and Generalized abdominal discomfort R10.84 Assessments Encounter Date Diagnosis (ICD Code) Assessment Notes Treatment Notes Treatment Clinical Notes Section Notes 07/07/2023 Colon cancer screening (ICD-10 - Z12.11) Overall, derrick appears quite well from a clinical standpoint. Her recent imaging studies and laboratories are all very reassuring as well. I advised her that I do not have any expertise in regard to her questions about Krys or the alternative medicine clinic's thoughts regarding the Krys treatment program. I advised her that my opinion she seems to be healthy and I would recommend that she eat a normal diet and avoid any further recommendations from the alternative medicine doctors for the time being. I did recommend a colonoscopy primarily for screening purposes given her last exam being over 10 years ago. We did review the rationale for that regard to colon cancer prevention. At that time I can rule out any component of inflammatory bowel disease or microscopic colitis that might be contributing to her symptoms. Also recommended an upper endoscopy in the same day given all of her GI complaints abdominal discomfort. I can take biopsies at that time for celiac disease and H. pylori. Obviously if there is any evidence of krys infection we can obtain biopsies at that time as well. Full consent was obtained from her for both procedures, including risks of bleeding and perforation. The procedures will be done monitored anesthesia care. Derrick was comfortable with this plan. Thank you again for allowing me to parts taking Derrick's care. I shall continue to keep you advised of her progress. 07/07/2023 Generalized abdominal discomfort (ICD-10 - R10.84) Overall, derrick appears quite well from a clinical standpoint. Her recent imaging studies and laboratories are all very reassuring as well. I advised her that I do not have any expertise in regard to her questions about Krys or the alternative medicine clinic's thoughts regarding the Krys treatment program. I advised her that my opinion she seems to be healthy and I would recommend that she eat a normal diet and avoid any further recommendations from the alternative medicine doctors for the time being. I did recommend a colonoscopy primarily for screening purposes given her last exam being over 10 years ago. We did review the rationale for that regard to colon cancer prevention. At that time I can rule out any component of inflammatory bowel disease or microscopic colitis that might be contributing to her symptoms. Also recommended an upper endoscopy in the same day given all of her GI complaints abdominal discomfort. I can take biopsies at that time for celiac disease and H. pylori. Obviously if there is any evidence of krys infection we can obtain biopsies at that time as well. Full consent was obtained from her for both procedures, including risks of bleeding and perforation. The procedures will be done monitored anesthesia care. Derrick was comfortable with this plan. Thank you again for allowing me to parts taking Derrick's care. I shall continue to keep you advised of her progress. Plan Of Treatment Future Test Test Name Order Date UPPER GI ENDOSCOPY 07/07/2023 COLONOSCOPY 07/07/2023 Next Appt Details Follow Up: prn, Reason: Progress Notes * SUSHMA MOODY ADOB:[birth year] (73 yo F)Acc No.[id number]:07/07/2023 Progress Notes Patient: SUSHMA SILVESTRE Provider: Colby Castro MD :1950 A ge:73 Y S ex:Female Date:07/07/2023 Address:[facility] [address], [id number] Pcp:Robby Ferris MD Subjective: * Chief Complaints: * P atient presents today for a COLON SCREENING * HPI: i ncontinence: I saw Sushma in consultation today in regard to further evaluation of her abdominal discomfort and discussion of colorectal cancer screening. I last saw Sushma in 2014, at which time she had been having some abdominal discomfort. She had a negative colonoscopy with me in 2011 for screening purposes. As you know, she has been having a long-standing issue with multiple systemic symptoms including headaches, palpitations, abdominal discomfort, diminished appetite and some loose bowel movements. She describes being followed by an Alternative Medicine Clinic and having recently completed their Krys Program consisting of different types of medication and detoxification . S he denies any significant heartburn, dysphagia, nausea, or vomiting. She has not noticed any jaundice, focal or localized abdominal pain, fevers, hematochezia, or melena. She does have a family history of some colon cancer but none in first- degree relatives. S he did have a MRI of the abdomen just last month that describes chronic biliary dilatation similar to 2015 but without any sign of biliary stricture nor stones. She did have a cholecystectomy in the distant past. Laboratories in December revealed a completely normal CBC, normal chemistries and renal function, normal thyroid studies, and normal LFTs. * ROS: G eneral/Constitutional: Change in appetite d enies. C hills d enies. F atigue d enies. O phthalmologic: Patient denies Negative.. E NT: Patient denies N egative.. R espiratory: Patient denies N o coughing/hemoptysis.. C ardiovascular: Patient denies No chest pain/orthopnea.. G astrointestinal: Comments S [facility] for details. G enitourinary: Patient denies No dysuria/hematuria.. M usculoskeletal: Patient denies No specific arthralgias/myalgias.. ? S kin: Patient denies N o rash/pruritus.. N eurologic: Patient denies No headaches/seizures.. P sychiatric: Patient denies N egative.. * Medical History: * Surgical History: c holecystectomy * Hospitalization/Major Diagno stic Procedure: N o Hospitalization History. * Family History: F ather: , diagnosed with Heart disease. M other: , diagnosed with Colon polyps, Heart disease. S iblings: sister has ulcerative colitis. niece colon cancer maternal uncle colon cancer. * Social History: T obacco Use: T obacco Use/Smoking A re you a: nonsmoker. D rugs/Alcohol: A lcohol Screen P oints: 0, Interpretation: Negative. M iscellaneous: M arital status: . Occupation: retired. S he does not smoke or use any significant amounts of alcohol. * Medications: T akingVitamin D3 Verapamil HCl ER 120 MG Capsule Extended Release 24 Hour TAKE 1 CAPSULE BY MOUTH DAILY FOR 90 DAYS Oral Rosuvastatin Calcium 5 MG Tablet Oral Taking Vitamin D3 Taking Verapamil HCl ER 120 MG Capsule Extended Release 24 Hour TAKE 1 CAPSULE BY MOUTH DAILY FOR 90 DAYS Oral Taking Rosuvastatin Calcium 5 MG Tablet Oral DiscontinuedAspir-81 81mg Zocor 10mg Iron 325mg Glucosamine HCl 750mg PROzac 10mg Folic Acid 1mg Multivitamins Capsule Orally Vitamin D3 400 UNIT Tablet Orally Cod Liver Oil Capsule Orally Estroven Zinc Calcium + D3 600-200 MG-UNIT Tablet Orally Medication List reviewed and reconciled with the patientDiscontinued Aspir-81 81mg Discontinued Zocor 10mg Discontinued Iron 325mg Discontinued Glucosamine HCl 750mg Discontinued PROzac 10mg Discontinued Folic Acid 1mg Discontinued Multivitamins Capsule Orally Discontinued Vitamin D3 400 UNIT Tablet Orally Discontinued Cod Liver Oil Capsule Orally Discontinued Estroven Discontinued Zinc Discontinued Calcium + D3 600-200 MG-UNIT Tablet Orally Medication List reviewed and reconciled with the patient * Allergies: G abapentinLipitoryes[Allergies Verified] Objective: * Vitals: W t: 131 lbs, Ht: 66 in, BMI:21.14 Index, BP: 00/00 mm Hg, Temp: 97.3. * Examination: G eneral Examination: GENERAL APPEARANCE: p leasant, well nourished, well developed, in no acute distress. EYES: s clera non-icteric. ORAL CAVITY: m ucosa moist. NECK/THYROID: n o cervical lymphadenopathy, neck supple.? SKIN: n onjaundiced, no spider angiomata.. HEART: S 1, S2 normal. LUNGS: c lear to auscultation bilaterally. ABDOMEN: n ormal bowel sounds, no guarding or rigidity, no hepatosplenomegaly, no masses palpable, soft, nontender, nondistended.. EXTREMITIES: n o edema. NEUROLOGIC: a lert and oriented. Assessment: * Assessment: 1. G eneralized abdominal discomfort - R10.84 (Primary) 2 . C olon cancer screening - Z12.11 Overall, derrick appears quite well from a clinical standpoint. Her recent imaging studies and laboratories are all very reassuring as well. I advised her that I do not have any expertise in regard to her questions about Krys or the alternative medicine clinic's thoughts regarding the Krys treatment program. I advised her that my opinion she seems to be healthy and I would recommend that she eat a normal diet and avoid any further recommendations from the alternative medicine doctors for the time being. I did recommend a colonoscopy primarily for screening purposes given her last exam being over 10 years ago. We did review the rationale for that regard to colon cancer prevention. At that time I can rule out any component of inflammatory bowel disease or microscopic colitis that might be contributing to her symptoms. Also recommended an upper endoscopy in the same day given all of her GI complaints abdominal discomfort. I can take biopsies at that time for celiac disease and H. pylori. Obviously if there is any evidence of krys infection we can obtain biopsies at that time as well. Full consent was obtained from her for both procedures, including risks of bleeding and perforation. The procedures will be done monitored anesthesia care. Derrick was comfortable with this plan. Thank you again for allowing me to parts taking Derrick's care. I shall continue to keep you advised of her progress. Plan: * Treatment: 2.?Colon cancer screening?Procedure: COLONOSCOPY (Ordered for 07/07/2023)* with MAC [place] [facility] [place]23 at 1:30 p.m. * Procedure Codes: 3 017F COLORECTAL CA SCREEN DOC [id number] TOBACCO NON-[id number] BP SCR NOT PRFRM REC REASON NOS * Preventive Medicine: Urinary Incontinence: U rinary Incontinence A ssessment: A bsent, P romario of care documented: N o, reason not specified. * Follow Up: p rn * * Sign off status: Completed true * Provider: Colby Castro MD Date: 07/07/2023 Generated for Evan ambrose/Jagdish/Suzannaitting on: 0 11/15/2024 07:42 AM EDT History and Physical Notes * HPI (History of Present Illness) Category Sub-Category Detail Notes Category Not es incontinence I saw Sushma in consultation today in regard to further evaluation of her abdominal discomfort and discussion of colorectal cancer screening. I last saw Sushma in 2014, at which time she had been having some abdominal discomfort. She had a negative colonoscopy with me in 2011 for screening purposes. As you know, she has been having a long-standing issue with multiple systemic symptoms including headaches, palpitations, abdominal discomfort, diminished appetite and some loose bowel movements. She describes being followed by an Alternative [facility] Clinic and having recently completed their Krys Program consisting of different types of medication and detoxification . She denies any significant heartburn, dysphagia, nausea, or vomiting. She has not noticed any jaundice, focal or localized abdominal pain, fevers, hematochezia, or melena. She does have a family history of some colon cancer but none in first-degree relatives. She did have a MRI of the abdomen just last month that describes chronic biliary dilatation similar to 2015 but without any sign of biliary stricture nor stones. She did have a cholecystectomy in the distant past. Laboratories in December revealed a completely normal CBC, normal chemistries and renal function, normal thyroid studies, and normal LFTs. Examination Category Sub-Category Detail Notes Category Not es General Examination GENERAL APPEARANCE: pleasant , well nourished, well developed, in no acute distress EYES: sclera non-icteric NECK/THYROID: no cervical lymphade nopathy, neck supple HEART: S1, S2 normal LUNGS: clear to auscultatio n bilaterally ABDOMEN: normal bowel sounds, no guarding or rigidity, no hepatosplenomegaly, no masses palpable, soft, nontender, nondistended. NEUROLOGIC: alert and oriented SKIN: nonjaundiced, no spi tiffanie angiomata. EXTREMITIES: no edema ORAL CAVITY: mucosa moist
--- NOTE | ~2024-11-15 | NM_ITS ---
EXAMINATION: MD RADIONUCLIDE SOLID FOOD GASTRIC EMPTYING 4-HOUR STUDY CLINICAL INFORMATION: Unspecified abdominal pain gallbladder removed 1975. COMPARISON: None TECHNIQUE: A standard meal consisting of 4 oz of Egg Beaters brand tagged with 0.95 microcuries Tc-99m Sulfur Colloid, 8 oz water and 2 slices of toast with jelly was administered orally to the patient. Images were obtained using a dual head gamma camera in the anterior and posterior projections over of the stomach immediately post ingestion and at hourly intervals up to 4 hours post ingestion. The anterior and posterior counts at each time interval were averaged using the geometric mean and expressed as percentage of the immediate post ingestion counts. FINDINGS: There is good visualization of activity in the stomach immediately post ingestion. As the study progresses, there is good clearance of activity from the stomach and visualization of progressively increasing small bowel activity. By the end of the study, there is almost no retention noted in the stomach. Retention in the stomach at each time interval was: 1 hour 81% (normal 37%-90%) 2 hours 41% (normal 30%-60%) 3 hours 17% 4 hours 7% (normal 0%-10%) MD/MD gastric emptying study IMPRESSION: Normal 4-hour solid food gastric emptying study. For solid meal, rapid gastric emptying is less than 30% at 60 minutes. Delayed gastric emptying criteria is more than 60% remaining at 120 minutes or more than 10% at 240 minutes. The 4-hour value is the best discriminator of a normal or abnormal result). Gastric emptying study grading per JNMT Consensus Recommendations in 2008 (https://tech.snmjournals.org/content/36/1/44) Grade 1 (mild retention): 11-20% at 4h Grade 2 (moderate retention): 21-35% at 4h Grade 3 (severe retention): 36-50% at 4h Grade 4 (very severe retention): >50% retention at 4h Electronically signed by: Arian Alvarez MD 11/15/2024 02:54 PM EDT
== END ==
LOC: HO.NUCMED 07:40
PROVIDERS: PCP Internal Medicine; Visit Provider Internal Medicine
DX: R14.0 Abdominal distension (gaseous) (principal); R10.9 Unspecified abdominal pain
CPT/HCPCS: 78264; A9541

== ENCOUNTER → 2024-11-15 07:41 | Outpatient (BNV) | payer MEDICARE, SELFPAY | PROVIDERS: PCP Internal Medicine; Visit Provider Radiology Diagnostic Radiology | DX: R10.9 Unspecified abdominal pain (principal) | CPT/HCPCS: 78264 ==

== ENCOUNTER 2024-11-29 06:48 | Outpatient (REF) | payer MEDICARE, SELFPAY ==
--- OUTSIDE RECORDS SUMMARY | 2024-11-29 06:51 | XMS_ITS | Patient Health Record ---
Author Organization [facility] Address [address] [place] [address] Care Team Providers Care Small Engine Mechanic Name Role Phone Po Robby OSORIO Primary Care Provider Caleb Spicer [phone] Allergies Allergen (clinical drug ingredient) Drug/Non Drug [...] Problem Status W/U Status Risk Notes Problem 087211466 Colon cancer screening (Z12.11) Active confirmed Problem Diverticular disease of colon (785199763) Diverticulosis of large intestine without perforation or abscess without bleeding (K57.30) Active confirmed Problem Chronic gastritis (5548359) Gastritis, chronic (K29.50) Active confirmed Problem 96426622 Generalized abdominal discomfort (R10.84) Active confirmed Plan [...] Insured Coverage Start Date Coverage End Date [facility] [address] [place] [address] [id number] CARLOS EDUARDO Rodolfo SUDEEP Self - patient is the insured Medical (General) History Medical History History ICD Code Hyperlipidemia She takes Prozac for menopause Denies SD,DM,CVA,Lung disease,renal dise ase Screening Colonoscopy in 07/29 012-negative except for hypeplastic polyps, diverticulosis, and internal hemorrhoids hypertension Surgical History Surgery Date(Month/Year) cholecystectomy
--- OUTSIDE RECORDS SUMMARY | 2024-11-29 06:51 | XMS_ITS | Patient Health Record ---
Author Organization [facility] Address [address] [facility] [place] [address] Care Team Providers Care Oil Heaterman Name Role Phone Robby Ferris Primary Care Provider Taye Coronel Unavailable [phone] Reason For Referral No Information Medications Medication SIG (Take, Route, Fr equency, Duration) Notes Start Date End Date Status PROzac Active Zocor Active Multivitamins Active Colcrys 0.6 MG as directed Orally; Duration: 10 days 11/26/2011 Active Indomethacin 50 MG 1 capsule with food Orally Twice a day; Duration: 30 day(s) 11/26/2011 Activ e Glucosamine Active Iron Active Baby Aspirin 81 mg A ctive Cod Liver Oil Active Problems Problem Type SNOMED Code ICD Code Onset Dates Problem Status W/U Status Risk Notes Problem Disorder of joint of ankle and/or foot (056293234) Arthritis - Degenerative (719.97) Active confirmed Problem Hallux valgus (276127995) Hallux Valgus (735.0) Active confirmed Problem Congenital pes planus (20420047) Flat Foot, Congenital (754.61) Active confirmed Problem Gout (48883230) Gout (274.9) Active confirmed Problem Ingrowing nail (851341264) Ingrowing Nail (703.0) Active confirmed Problem Pain in limb (23020324) Pain in Limb (729.5) Active confirmed Plan Of Treatment Pending Test Test Name Order Date *Uric Acid, Serum 11/26/2011 *Sedimentation Rate-Westergren 2 X ray : Foot, right 3V 11/26/2011 [id number] Plate 02/15/2011 [id number] Plate 08/07/2012 [id number] Plate Each Additional 03/2013 [id number] Plate Each Additional Insurance Providers Payer Name Payer Address Payer Phone Subscriber Number Group Number Insured Name Patient Relationship to Insured Coverage Start Date Coverage End Date [facility] All Others [address] [place] [address] [id number] Meng Granado Spouse - patient is the spouse of the insured Medical (General) History Medical History History ICD Code Cholesterol Surgical History Surgery Date(Month/Year) cholecystectomy 1976
[2024-11-29 10:33] LABS: Hemoglobin A1C 146.9955 umol/L; Total Hemoglobin (HGBA1C) 3600.7813 umol/L
== END 2024-11-29 06:49 | disposition home or self-care (01) ==
LOC: HO.HMGCLDS 06:48
PROVIDERS: PCP Internal Medicine; Visit Provider Internal Medicine
DX: E78.00 Pure hypercholesterolemia, unspecified (principal)
CPT/HCPCS: 36415; 83036

== ENCOUNTER 2024-12-24 12:11 | Outpatient (AMB) | payer MEDICARE, SELFPAY ==
--- NOTE | 2024-12-24 12:25 | A.OFFVIS_ITS ---
Vital Signs 12/24/24 12:26 Height 5 ft 6 in Weight 138 lb 14.259 oz BMI 22.4 BP 120/69 Blood Pressure Location Lt brachial Position Sitting Pulse 69 Intake Visit Reasons: 2mo Intake Note: Sushma presents in the office as a 2 month follow up. CC: She states that she had been taking nortiptplyine and it is helping. She states she does not feel as bad in the AM as she was feeling. 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 Reports almost 2 years ago developed abd pain with cramping. Was seen by integrative health specialist who diagnosed her with yeast infection in the gut and was given a combination of supplements for 90 days. Then was seen at [facility] and was told to take anti-protozoal meds for a few months. However, sx are still persistent. Describes the pain is present every day. Starts shortly after waking up. Not related to food, movement, or bowel movement. Of note - chronic diarrhea noted on problem list but pt does not report this. Similarly EoE listed on problem list but unable to find path results congruent to this. EGD/colo 2023: 1. Small hiatal hernia, gastroesophageal reflux. 2. Mild gastritis. 3. Rule out celiac disease. 4. Melanosis coli. 5. Colon polyp. 6. Rule out microscopic colitis. 7. Diverticulosis. 8. Internal hemorrhoids. Path: A. Duodenum, descending, biopsy: Duodenal mucosa with preserved villi and no specific change; no evidence of celiac disease. B. Gastric antrum, biopsy: Reactive gastropathy with focal minimal chronic inactive inflammation; negative for H pylori, intestinal metaplasia and dysplasia, and fragment of duodenal mucosa (likely contaminant). C. Esophagogastric junction, at 38 cm, biopsy: Squamous mucosa with hyperplasia and focal intraepithelial eosinophils (up to 4 per high field with field) consistent with esophagitis, and columnar mucosa with mild chronic inflammation, hyperplastic changes, and rare goblet cells that are not seen on the AB/ PAS stain; negative for dysplasia (see comment). D. Colon, ascending, biopsy: Colonic mucosa with many pigmented lamina propria macrophages consistent with melanosis coli; no evidence of microscopic colitis. E. Colon, ascending, polyp: Consistent with hyperplastic polyp (see comment). Comment: (D): The findings raise the possibility of a developing intestinal metaplasia and clinical follow-up is warranted. (E): A sessile serrated lesion without dysplasia can not be ruled out in any residual lesion and follow-up is warranted. 12/24/24: Here for follow-up. Reports good response to nortriptyline 20 mg, started noticing decrease in abdominal cramping and bloating within 2 weeks of this dose. In addition, has also been helpful for her migraines. Labs negative for mast cell, angioedema. Gastric emptying study normal. Otherwise, no other concerns at this time. [facility] Medical History Palpitations Colon cancer screening Cervicalgia Hypersomnia Other specified cardiac arrhythmias Pleural effusion Arrhythmia Elevated blood pressure reading Headache LFT elevation Numbness in feet Gout Anemia Osteoporosis Thyroid nodule GERD (gastroesophageal reflux disease) Hypercholesterolemia Surgical History History of endoscopy Hx of colonoscopy History of cholecystectomy Family History Father Diabetes Heart attack Mother Heart attack Asthma Emphysema lung Non-Hodgkin lymphoma CHF (congestive heart failure) Brother Cancer Sister Diabetes Ulcerative colitis Social History Housing: House Alcohol intake: never Patient Tobacco Use Status: Never used Tobacco Tobacco use type: Cigarette e-Cigarette/Vaping Use: Never Used Second Hand Smoke Exposure: No service: No Current occupational status: retired Current occupational exposures/hazards: No Cognitive needs: No Hearing needs: No Vision needs: No Review of Systems Const All systems reviewed & are unremarkable except as noted in HPI and below Physical Exam Exam Exam: No apparent distress Nonicteric Abdomen soft, nondistended Alert and oriented x3, normal gait Vital Signs: Last Vital Signs Pulse 69 12/24/24 12:26 BP 120/69 12/24/24 12:26 BMI result Body Mass Index 22.4 Assessment & Plan Assessment & Plan (1) Abdominal bloating: Code(s): R14.0 - Abdominal distension (gaseous) Category: Medical (2) Abdominal pain: Code(s): R10.9 - Unspecified abdominal pain Category: Medical Plan Has had good response to the therapeutic trial of nortriptyline, 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 Delayed gastric emptying, abd migraine, gut angioedema, MCAS, exlcuded based on w/up so far. Other common causes such as PUD, celiac, IBD, EGIDs, chronic panc r.o based on blood work, MRI and bidirectional scope. Plan: - Increase nortryptiline to 25 mg at night time. - Follow up 3 months to review response Medications: New nortriptyline 25 mg PO BEDTIME 90 caps 0RF 90 days Discontinued nortriptyline start with 1 capsule x 2 weeks and then increase to 2 capsules Discontinued Reason: Doctor's Order 20 mg (2 x 10 mg) PO BEDTIME 90 days 180 caps 0RF Coding Level of Care Code Est Pt Level 4 (96777) Diagnoses Abdominal bloating R14.0 Abdominal pain R10.9
[2024-12-24 12:26] VITALS: BP 120/69; PULSE 69; BMI 22.4
--- OUTSIDE RECORDS SUMMARY | 2024-12-24 13:10 | XMS_ITS | Patient Health Record ---
Author Organization [facility] Address [address] [facility] [place] [address] Care Team Providers Care Tobacco Sieve Operator Name Role Phone Robby Ferris Primary Care Provider Taye Coronel Unavailable [phone] Reason For Referral No Information Medications Medication [...] Disorder of joint of ankle and/or foot (531777211) Arthritis - Degenerative (719.97) Active confirmed Problem Hallux valgus (330107080) Hallux Valgus (735.0) Active confirmed Problem Congenital pes planus (88681363) Flat Foot, Congenital (754.61) Active confirmed Problem Gout (59180867) Gout (274.9) Active confirmed Problem Ingrowing nail (931734702) Ingrowing Nail (703.0) Active confirmed Problem Pain in limb (59074153) Pain in Limb (729.5) Active confirmed Plan Of Treatment Pending Test Test Name Order Date *Uric Acid, Serum 11/26/2011 *Sedimentation Rate-Westergren 2 X ray : Foot, right 3V 11/26/2011 [id number] Plate 02/15/2011 [id number] Plate 08/07/2012 93877-Mvjjampz Plate Each Additional 03/2013 53574-Wtjeavwx Plate Each Additional Insurance Providers Payer Name Payer Address Payer Phone Subscriber Number Group Number Insured Name Patient Relationship to Insured Coverage Start Date Coverage End Date [facility] All Others [address] [place] [address] [id number] Meng Granado Spouse - patient is the spouse of the insured Medical (General) History Medical History History ICD Code Cholesterol Surgical History Surgery Date(Month/Year) cholecystectomy 1976
--- OUTSIDE RECORDS SUMMARY | 2024-12-24 13:10 | XMS_ITS | Patient Health Record ---
Author Organization [facility] Address [address] [place] [address] Care Team Providers Care Hangersmith Name Role Phone Po Robby OSORIO Primary Care Provider Caleb Spicer [phone] Allergies Allergen (clinical drug ingredient) Drug/Non Drug [...] Problem Status W/U Status Risk Notes Problem 833136875 Colon cancer screening (Z12.11) Active confirmed Problem Diverticular disease of colon (178520904) Diverticulosis of large intestine without perforation or abscess without bleeding (K57.30) Active confirmed Problem Gastritis, chron ic (K29.50) Active confirmed Problem 50582631 Generalized abdominal discomfort (R10.84) Active confirmed Plan [...] Date Coverage End Date BLUE CROSS BLUE [facility] [address] [place] [address] [id number] CARLOS EDUARDO Reynolds SUDEEP Self - patient is the insured Medical (General) History Medical History History ICD Code Hyperlipidemia She takes Prozac for menopause Denies DC,DM,CVA,Lung disease,renal dise ase Screening Colonoscopy in 07/29 012-negative except for hypeplastic polyps, diverticulosis, and internal hemorrhoids hypertension Surgical History Surgery Date(Month/Year) cholecystectomy
== END 2024-12-24 12:55 | disposition home or self-care (01) ==
LOC: HO.HGI 12:13
PROVIDERS: PCP Internal Medicine; Visit Provider Internal Medicine
DX: R14.0 Abdominal distension (gaseous) (principal); R10.9 Unspecified abdominal pain
CPT/HCPCS: 99214

== ENCOUNTER → 2024-12-24 12:11 | Outpatient (BNVA) | payer MEDICARE, SELFPAY | PROVIDERS: PCP Internal Medicine; Visit Provider Internal Medicine | DX: R14.0 Abdominal distension (gaseous) (principal); R10.9 Unspecified abdominal pain; G89.29 Other chronic pain | CPT/HCPCS: 99212 ==

== ENCOUNTER 2025-01-18 12:57 | Outpatient (AMB) | payer MEDICARE, SELFPAY ==
[2025-01-18 13:01] VITALS: BP 120/72; PULSE 83; BMI 23.1
--- NOTE | 2025-01-18 13:01 | A.OFFVIS_ITS ---
Vital Signs 01/18/25 13:01 Height 5 ft 6 in Weight 143 lb 4.807 oz BMI 23.1 BP 120/72 Blood Pressure Location Lt brachial Position Sitting Pulse 83 Pulse Source Pulse Oximeter Intake Visit Reasons: 3m follow up Assembly Instructions Writer Required: No Allergies gabapentin Allergy (Intermediate, Verified 01/18/25 13:04) Muscle Pain atorvastatin (Lipitor) Allergy (Unknown, Verified 01/18/25 13:04) cramps lisinopril Adverse Reaction (Intermediate, Verified 01/18/25 13:04) Dizziness Medication List - Last Reconciled 01/18/25 by Bessie Bills, SAW-C ascorbate calcium (vitamin C) 600 mg PO DAILY aspirin (Adult Aspirin Regimen) 81 mg PO DAILY blood pressure monitor (Blood Pressure Kit) As directed cod liver oil 1 cap PO DAILY losartan 25 mg PO DAILY nortriptyline 25 mg PO BEDTIME 90 days nystatin units PO propranolol 20 mg PO BID rosuvastatin 5 mg PO DAILY zinc acetate (Galzin) 50 mg PO DAILY HPI HPI 3m follow up: Details: Tracy is a 74-year-old female with past medical history of family history of CAD, PACs, heart palpitations, elevated coronary calcium score with normal nuclear stress test who presents for follow-up. Today she reports she has been feeling much better on the higher dose propranolol. This has essentially stopped her heart palpitations. She is currently pleased with how she is doing. No chest discomfort at rest or with activity. No shortness of breath, PND, orthopnea. She tries to avoid salt in her diet but does use it on corn of the cob. She admits to having that once weekly this summer. For this reason she has had some mild ankle edema. Compliant with her meds. [facility] Medical History Palpitations Colon cancer screening Cervicalgia Hypersomnia Other specified cardiac arrhythmias Pleural effusion Arrhythmia Elevated blood pressure reading Headache LFT elevation Numbness in feet Gout Anemia Osteoporosis Thyroid nodule GERD (gastroesophageal reflux disease) Hypercholesterolemia Surgical History History of endoscopy Hx of colonoscopy History of cholecystectomy Family History Father Diabetes Heart attack Mother Heart attack Asthma Emphysema lung Non-Hodgkin lymphoma CHF (congestive heart failure) Brother Cancer Sister Diabetes Ulcerative colitis Social History Housing: House Alcohol intake: never Patient Tobacco Use Status: Never used Tobacco Tobacco use type: Cigarette e-Cigarette/Vaping Use: Never Used Second Hand Smoke Exposure: No service: No Current occupational status: retired Current occupational exposures/hazards: No Cognitive needs: No Hearing needs: No Vision needs: No Review of Systems Const All systems reviewed & are unremarkable except as noted in HPI and below ENT Denies dizziness Card Denies chest pain, Denies chest pain at rest, Denies chest pain with activity, Denies rapid heart rate, Denies pedal edema, Denies edema, Denies leg edema, Denies lightheadedness, Denies palpitations, Denies dyspnea, Denies dyspnea on exertion and Denies orthopnea Resp Denies cough, Denies dyspnea and Denies dyspnea on exertion GI Denies hematochezia and Denies change in stool character Musc Denies abnormal gait, Denies limited range of motion, Denies muscle cramps, Denies muscle weakness, Denies numbness, Denies radiating pain into limb, Denies stiffness and Denies tingling Neuro Denies abnormal gait, Denies dizziness, Denies numbness and Denies tingling Endo Denies palpitations Physical Exam Vital Signs: BMI result Body Mass Index 23.1 Const General: cooperative, healthy appearing, comfortable and no acute distress Orientation/consciousness: patient oriented x3 Neck Neck: Yes normal visual inspection and Yes no JVD Resp Effort & Inspection: normal respiratory effort Auscultation: clear to auscultation bilaterally, no crackles, no rales, no rhonchi and no wheezes Cardio Jugular venous distension: no JVD Rate: regular rate Rhythm: regular rhythm Heart sounds: S1 normal heart sound present, S2 normal heart sound present, no gallops, no murmurs and no rubs Neuro General: patient oriented x3 Extrem General: Yes normal to inspection, No no pedal edema and No calf tenderness Psych Appearance: grossly normal Mental Status: mental status grossly normal Speech and movement: Normal speech and movement present Assessment & Plan Assessment & Plan (1) PAC (premature atrial contraction): Code(s): I49.1 - Atrial premature depolarization Category: Medical Plan: History of frequent PACs with prior Holter monitor showing Pac burden as high as 17% and short runs of SVT. An echocardiogram done 05/25/2024 shows EF 60-65%, no valve abnormalities and no reported regional wall motion abnormalities. A Holter monitor was done on 05/25/2024 for 3 days showing sinus rhythm with average heart rate 73, PACs 6.3%. During her recent stress test she had isolated PACs and PVCs. She had ongoing palpitations on verapamil. She was changed over to propranolol then on last visit her dose was increased to 20 mg b.i.d.. She now reports resolution of palpitations. Continue propranolol, reviewed avoidance of caffeinated beverages, maintain good hydration and activity as tolerated. (2) Palpitations: Code(s): R00.2 - Palpitations Category: Medical Plan: As above (3) Agatston coronary artery calcium score between 100 and 400: Code(s): R93.1 - Abnormal findings on diagnostic imaging of heart and coronary circulation Category: Medical Plan: Family history of coronary artery disease. She had coronary calcium score done 05/11/2024 was 306, mostly in the LAD, asymptomatic. Pharmacological nuclear stress test done on 10/05/2027 showed normal myocardial perfusion imaging. Test results reviewed with her in detail. Continue treatment for nonobstructive CAD. Continue aspirin 81 mg daily. Continue rosuvastatin with ideal LDL goal less than 70. Labs done 08/15/2024 showed LDL 66. Signs and symptoms of angina reviewed with her. Cardiology follow-up 1 year, sooner if needed. (4) Family history of coronary artery disease: Code(s): Z82.49 - Family history of ischemic heart disease and other diseases of the circulatory system Category: Medical Plan: As above (5) Hypertension: Code(s): I10 - Essential (primary) hypertension Category: Medical Plan: BP goal < 130/80. Well controlled. No med changes made. (6) Hypercholesterolemia: Code(s): E78.00 - Pure hypercholesterolemia, unspecified Category: Medical Plan: Wink LDL goal less than 70 in patient with known coronary calcifications, nonobstructive CAD. Continue rosuvastatin 5 mg daily. Plan I discussed with the patient the effectiveness of propranolol in managing her heart palpitations and the importance of monitoring for any new symptoms such as chest pain or dyspnea. We reviewed her functional dyspepsia management with nortriptyline and its positive impact on her symptoms. I advised her on weight management strategies, including exercise and dietary salt monitoring, particularly from corn on the cob. Follow-up is planned for one year, with instructions to return sooner if symptoms worsen or new symptoms develop. Patient Instructions: - Continue taking propranolol as prescribed. - Monitor for new symptoms like chest pain or shortness of breath and report them. - Exercise regularly and watch salt intake, especially from corn on the cob. - Follow up in one year or sooner if symptoms change. Patient was informed and verbally consented to the use of an ambient scribe for clinic note documentation during this visit. Visit time spent on chart review, interview, assessment, orders, documentation. Coding Level of Care Code Est Pt Level 3 (08407) Complex EM visit Add On G2211 Diagnoses PAC (premature atrial contraction) I49.1 Palpitations R00.2 Agatston coronary artery calcium score between 100 and 400 R93.1 Family history of coronary artery disease Z82.49 Hypertension I10 Hypercholesterolemia E78.00 Time Spent (min) 24
--- OUTSIDE RECORDS SUMMARY | 2025-01-18 13:01 | XMS_ITS | Patient Health Record ---
Author Organization [facility] Address [address] [place] [address] Care Team Providers Care Manual Arts Therapist Name Role Phone Po Robby OSORIO Primary Care Provider Caleb Spicer [phone] Allergies Allergen (clinical drug ingredient) Drug/Non Drug [...] Problem Status W/U Status Risk Notes Problem 008665627 Colon cancer screening (Z12.11) Active confirmed Problem Diverticular disease of colon (969519419) Diverticulosis of large intestine without perforation or abscess without bleeding (K57.30) Active confirmed Problem Gastritis, chron ic (K29.50) Active confirmed Problem 30144828 Generalized abdominal discomfort (R10.84) Active confirmed Plan [...] Date Coverage End Date BLUE CROSS BLUE [facility] [address] [place] [address] [id number] CARLOS EDUARDO Reynolds SUDEEP Self - patient is the insured Medical (General) History Medical History History ICD Code Hyperlipidemia She takes Prozac for menopause Denies [place],DM,CVA,Lung disease,renal dise ase Screening Colonoscopy in 07/29 012-negative except for hypeplastic polyps, diverticulosis, and internal hemorrhoids hypertension Surgical History Surgery Date(Month/Year) cholecystectomy
--- OUTSIDE RECORDS SUMMARY | 2025-01-18 13:01 | XMS_ITS | Patient Health Record ---
Author Organization [facility] Address [address] [facility] [place] [address] Care Team Providers Care Feather Edger Name Role Phone Robby Ferris Primary Care Provider Taye Coronel Unavailable [phone] Reason For Referral No Information Medications Medication [...] Disorder of joint of ankle and/or foot (263156193) Arthritis - Degenerative (719.97) Active confirmed Problem Hallux valgus (414551236) Hallux Valgus (735.0) Active confirmed Problem Congenital pes planus (08598842) Flat Foot, Congenital (754.61) Active confirmed Problem Gout (31016365) Gout (274.9) Active confirmed Problem Ingrowing nail (744872918) Ingrowing Nail (703.0) Active confirmed Problem Pain in limb (40254501) Pain in Limb (729.5) Active confirmed Plan Of Treatment Pending Test Test Name Order Date *Uric Acid, Serum 11/26/2011 *Sedimentation Rate-Westergren 2 X ray : Foot, right 3V 11/26/2011 [id number] Plate 02/15/2011 [id number] Plate 08/07/2012 [id number] Plate Each Additional 03/2013 57288-Ykeenrgg Plate Each Additional Insurance Providers Payer Name Payer Address Payer Phone Subscriber Number Group Number Insured Name Patient Relationship to Insured Coverage Start Date Coverage End Date [facility] All Others [address] [place] [address] [id number] Meng Granado Spouse - patient is the spouse of the insured Medical (General) History Medical History History ICD Code Cholesterol Surgical History Surgery Date(Month/Year) cholecystectomy 1976
== END 2025-01-18 13:19 | disposition home or self-care (01) ==
LOC: HO.HCS 12:57
PROVIDERS: PCP Internal Medicine; Visit Provider Nurse Practitioner Family
DX: I49.1 Atrial premature depolarization (principal); R00.2 Palpitations; R93.1 Abnormal findings on diagnostic imaging of heart and coronary circulation; Z82.49 Family history of ischemic heart disease and other diseases of the circulatory system; I10 Essential (primary) hypertension; E78.00 Pure hypercholesterolemia, unspecified
CPT/HCPCS: 99213; G2211

== ENCOUNTER → 2025-01-18 12:57 | Outpatient (BNVA) | payer MEDICARE, SELFPAY | PROVIDERS: PCP Internal Medicine; Visit Provider Nurse Practitioner Family | DX: I49.1 Atrial premature depolarization (principal); R00.2 Palpitations; R93.1 Abnormal findings on diagnostic imaging of heart and coronary circulation; I10 Essential (primary) hypertension; E78.00 Pure hypercholesterolemia, unspecified; Z82.49 Family history of ischemic heart disease and other diseases of the circulatory system | CPT/HCPCS: 99212 ==

== ENCOUNTER 2025-02-01 07:55 | Outpatient (REF) | payer MEDICARE, SELFPAY ==
--- OUTSIDE RECORDS SUMMARY | 2023-09-22 10:00 | XMS_ITS ---
Author Organization [facility] Address [address] [place] [address] Care Team Providers Care Senior Benefits Specialist Name Role Phone Po Robby OSORIO Primary Care Provider Caleb Spicer [phone] REASON FOR VISIT ABD DISTRESS, SCREENING COLON Problems Problem Type SNOMED Code ICD Code Onset Dates Problem Status W/U Status Risk Notes Problem Diverticular disease of colon (327214949) Diverticulosis of large intestine without perforation or abscess without bleeding (K57.30) Active confirmed Problem Chronic gastritis (5048598) Gastritis, chronic (K29.50) Active confirmed Encounters Encounter Location Date Provider Diagnosis [facility] [place] [facility] [address], [place] [id number] 09/22/2023 Caleb Castro Encounter for scre ening colonoscopy Z12.11 ; Colon polyps K63.5 ; Other specified diseases of intestine K63.89 ; Diverticulosis of large intestine without perforation or abscess without bleeding K57.30 ; Other hemorrhoids K64.8 ; Hiatal hernia K44.9 ; Gastritis, chronic K29.50 and Abdominal pain R10.9 Assessments Encounter Date Diagnosis (ICD Code) Assessment Notes Treatment Notes Treatment Clinical Notes Section Notes 09/22/2023 Encounter for screening colonoscopy (ICD-10 - Z12.11) 09/22/2023 Colon polyps (ICD-10 - K63.5) 09/22/2023 Other specified diseases of intestine (ICD-10 - K63.89) 09/22/2023 Diverticulosis of large intestine without perforation or abscess without bleeding (ICD-10 - K57.30) 09/22/2023 Other hemorrhoids (ICD-10 - K64.8) 09/22/2023 Hiatal hernia (ICD-10 - K44.9) 09/22/2023 Gastritis, chronic (ICD-10 - K29.50) 09/22/2023 Abdominal pain (ICD-10 - R10.9) Plan Of Treatment No Information Progress Notes * SUDEEP MOODY ADOB:[birth year] (74 yo F)Acc No.[id number]:09/22/2023 EGD and COL/MAC Patient: SUDEEP SILVESTRE Provider: Colby Castro MD :1950 A ge:73 Y S ex:Female Date:09/22/2023 Address:[id number] Pcp:Robby Ferris MD Subjective: * Chief Complaints: * 1 . ABD DISTRESS, SCREENING COLON. * Medical History: Objective: * Vitals: Assessment: * Assessment: 1. E ncounter for screening colonoscopy - Z12.11 (Primary) 2 . C olon polyps - K63.5 3 . O ther specified diseases of intestine - K63.89 4 . D iverticulosis of large intestine without perforation or abscess without bleeding - K57.30 5. O ther hemorrhoids - K64.8 6 . H iatal hernia - K44.9 7 . G astritis, chronic - K29.50 8 . A bdominal pain - R10.9? Plan: * Treatment: * Procedure Codes: 4 5385 LESION REMOVAL COLONOSCOPY, Modifiers: [place] , [address] UPPER GI ENDOSCOPY, BIOPSY * * The named appointment provid er may or may not be the originator of this progress note, and it is not deemed complete until electronically signed by the appointment provider. Sign off status: Pending * Provider: Colby Castro MD Date: 0 09/22/2023 Generated for Evan ambrose/Jagdish/Kelsiesmitting on: 0 02/01/2025 07:58 AM EDT
--- OUTSIDE RECORDS SUMMARY | 2025-02-01 07:58 | XMS_ITS | Patient Health Record ---
Author Organization [facility] Address [address] [place] [address] Care Team Providers Care Anglesmith Name Role Phone Po Robby OSORIO Primary Care Provider Caleb Spicer [phone] Allergies Allergen (clinical drug ingredient) Drug/Non Drug [...] Problem Status W/U Status Risk Notes Problem 093036108 Colon cancer screening (Z12.11) Active confirmed Problem Diverticular disease of colon (029898543) Diverticulosis of large intestine without perforation or abscess without bleeding (K57.30) Active confirmed Problem Chronic gastritis (9868614) Gastritis, chronic (K29.50) Active confirmed Problem 73724087 Generalized abdominal discomfort (R10.84) Active confirmed Plan [...] Insured Coverage Start Date Coverage End Date [facility] [address] [place] [address] [id number] CARLOS EDUARDO Rodolfo SUDEEP Self - patient is the insured Medical (General) History Medical History History ICD Code Hyperlipidemia She takes Prozac for menopause Denies [place],DM,CVA,Lung disease,renal dise ase Screening Colonoscopy in 07/29 012-negative except for hypeplastic polyps, diverticulosis, and internal hemorrhoids hypertension Surgical History Surgery Date(Month/Year) cholecystectomy
--- OUTSIDE RECORDS SUMMARY | 2025-02-01 07:58 | XMS_ITS | Patient Health Record ---
Author Organization [facility] Address [address] [place] [address] Care Team Providers Care Administrative Officer Name Role Phone Robby Ferris Primary Care Provider Taye Coronel Unavailable [phone] Reason For Referral No Information Medications Medication [...] Disorder of joint of ankle and/or foot (210323768) Arthritis - Degenerative (719.97) Active confirmed Problem Hallux valgus (961291064) Hallux Valgus (735.0) Active confirmed Problem Congenital pes planus (53185723) Flat Foot, Congenital (754.61) Active confirmed Problem Gout (96423212) Gout (274.9) Active confirmed Problem Ingrowing nail (339261271) Ingrowing Nail (703.0) Active confirmed Problem Pain in limb (87795409) Pain in Limb (729.5) Active confirmed Plan Of Treatment Pending Test Test Name Order Date *Uric Acid, Serum 11/26/2011 *Sedimentation Rate-Westergren 2 X ray : Foot, right 3V 11/26/2011 [id number] Plate 02/15/2011 [id number] Plate 08/07/2012 [id number] Plate Each Additional 03/2013 [id number] Plate Each Additional Insurance Providers Payer Name Payer Address Payer Phone Subscriber Number Group Number Insured Name Patient Relationship to Insured Coverage Start Date Coverage End Date [facility] All Others [address] [place] [address] [id number] Granado Spouse - patient is the spouse of the insured Medical (General) History Medical History History ICD Code Cholesterol Surgical History Surgery Date(Month/Year) cholecystectomy 1976
[2025-02-01 10:38] LABS: MANUAL DIFF FLAG NO
[2025-02-01 10:47] LABS: Appearance Urine Clear; Glucose Urine UA Negative (Negative); PH 5.5 (5.0-9.0); Specific Gravity - Urine 1.020 (1.005-1.025); UMIC TRIGGER UACC YES
[2025-02-01 10:50] LABS: Hematocrit 40.8 % (37.0-47.0); Hemoglobin 13.9 g/dl (12.0-16.0); Imm Gran Abs Auto 0.02 X10*3/uL (0.00-0.03); Imm Gran Pct Auto 0.3 % (0.0-0.4); Lymphocytes Absolute Auto 2.5 X10*3/uL (1.2-4.9); Mean Corpuscular HGB Conc 34.1 g/dl (31.0-35.0); Mean Corpuscular Hemoglobin 30.5 pg (27.0-33.0); Mean Corpuscular Volume 89.5 fL (80.0-98.0); NRBC Abs Auto 0.000 X10*3/uL (0.0-0.012); NRBC Pct Auto 0.0 /100WBC (0.0-0.2); Platelet Count 270 X10*3/uL (160-400); Red Blood Count 4.56 X10*6/uL (4.20-5.50); White Blood Count 7.0 X10*3/uL (4.8-10.8)
[2025-02-01 11:03] LABS: UACC Culture Trigger YES
[2025-02-01 11:33] LABS: Alanine Aminotransferase 24 U/L (0-31); Albumin Level 4.3 g/dL (3.5-5.0); Alkaline Phosphatase 61 U/L (39-117); Anion Gap 13 (12-20); Aspartate Amino Transferase 31 U/L (5-31); Blood Urea Nitrogen 11 mg/dL (9-16); Calcium 9.8 mg/dL (8.4-10.2); Carbon Dioxide 25 mmol/L (22-29); Chloride 107 mmol/L (96-108); Cholesterol 164 mg/dL (<200); Estimated Glomerular Filt Rate > 60; HDL Cholesterol 44 mg/dL (>40); Magnesium 2.1 mg/dL (1.6-2.6); Potassium 4.5 mmol/L (3.3-5.1); Sodium 140 mmol/L (135-145); Total Protein 6.7 g/dL (6.5-8.0); Triglycerides 235 mg/dL (<150)
[2025-02-01 11:40] LABS: Ferritin 366 ng/mL (10-250); Free T4 (Free Thyroxine) 0.84 ng/dL (0.71-1.85); Thyroid Stimulating Hormone 1.91 uIU/mL (0.32-4.0)
[2025-02-01 11:48] LABS: Folate 11.2 ng/mL (> or = 4.0); Vitamin B12 452 pg/mL (200-900)
== END 2025-02-01 07:56 | disposition home or self-care (01) ==
LOC: HO.HMGCLDS 07:55
PROVIDERS: PCP Internal Medicine; Visit Provider Internal Medicine
DX: E78.00 Pure hypercholesterolemia, unspecified (principal)
CPT/HCPCS: 36415; 80053; 80061; 81001; 81003; 82306; 82607; 82728; 82746; 83735; 84439; 84443; 85025; 85652; 86140; 87086; 87088; 87186

== ENCOUNTER 2025-02-11 12:18 | Outpatient (AMB) | payer MEDICARE, SELFPAY ==
[2025-02-11 12:30] VITALS: BP 132/78; PULSE 75; O2SAT 98; BMI 23.2
--- NOTE | 2025-02-11 12:30 | MHC.PC.OV ---
Vital Signs 02/11/25 12:30 Height 5 ft 6 in Weight 144 lb BMI 23.2 BP 132/78 Blood Pressure Location Lt brachial Position Sitting Pulse 75 Pulse Source Pulse Oximeter Pulse Oximetry (%) 98 Oxygen Delivery Method Room Air Intake Visit Reasons: Annual Exam Allergies gabapentin Allergy (Intermediate, Verified 02/11/25 12:31) Muscle Pain atorvastatin (Lipitor) Allergy (Unknown, Verified 02/11/25 12:31) cramps lisinopril Adverse Reaction (Intermediate, Verified 02/11/25 12:31) Dizziness topiramate (From Topamax) Adverse Reaction (Intermediate, Unverified 02/11/25 13:06) depressed Medication List - Last Reconciled 02/11/25 by Robby Ferris MD ascorbate calcium (vitamin C) 600 mg PO DAILY aspirin (Adult Aspirin Regimen) 81 mg PO DAILY blood pressure monitor (Blood Pressure Kit) As directed cod liver oil 1 cap PO DAILY ferrous sulfate 134 mg PO DAILY ketoconazole 2% 1 appl topical DAILY loperamide (Imodium A-D) 2 mg PO Q6H PRN losartan 25 mg PO DAILY nortriptyline 25 mg PO BEDTIME 90 days nystatin units PO propranolol 20 mg PO BID [RESTFUL SLEEP valerian elke and magnesium BEE, melatonin] rosuvastatin 5 mg PO DAILY valacyclovir 1,000 mg PO DAILY PRN zinc acetate (Galzin) 50 mg PO DAILY Tobacco use date assessed: 08/27/24 Fall risk assessment: No Falls in past year Last assessed Fall Risk: 02/11/25 Dental Screening Dental Screen Date: 07/20/24 [facility] Medical History Palpitations Colon cancer screening Cervicalgia Hypersomnia Other specified cardiac arrhythmias Pleural effusion Arrhythmia Elevated blood pressure reading Headache LFT elevation Numbness in feet Gout Anemia Osteoporosis Thyroid nodule GERD (gastroesophageal reflux disease) Hypercholesterolemia Surgical History History of endoscopy Hx of colonoscopy History of cholecystectomy Family History Father Diabetes Heart attack Mother Heart attack Asthma Emphysema lung Non-Hodgkin lymphoma CHF (congestive heart failure) Brother Cancer Sister Diabetes Ulcerative colitis Social History Housing: House Alcohol intake: never Patient Tobacco Use Status: Never used Tobacco Tobacco use type: Cigarette e-Cigarette/Vaping Use: Never Used Second Hand Smoke Exposure: No service: No Current occupational status: retired Current occupational exposures/hazards: No Cognitive needs: No Hearing needs: No Vision needs: No Questionnaire PHQ-9 Over the last 2 weeks, how often have you been bothered by any of the following problems? 1. Little interest or pleasure in doing things: not at all 2. Feeling down, depressed, or hopeless: not at all 3. Trouble falling or staying asleep, or sleeping too much: several days 4. Feeling tired or having little energy: nearly every day 5. Poor appetite or overeating: not at all 6. Feeling bad about yourself - or that you are a failure or have let yourself or your family down: not at all 7. Trouble concentrating on things, such as reading the newspaper or watching television: not at all 8. Moving or speaking so slowly that other people could have noticed. Or the opposite - being so fidgety or restless that you have been moving around a lot more than usual: not at all 9. Thoughts that you would be better off or of hurting yourself in some way: not at all Total score: 4 Depression Screening Interpretation: Positive Depression Screening Done: Yes Source: Developed by Drs. Caleb Fan, Felipa Au, Marcelino Harris and colleagues, with an educational radha from [employer]. Thrive Questionnaire Date Thrive assessed: 02/04/25 I am a: Patient What is your living situation today?: I have a steady place to live Within the past 12 months, did the food you bought not last and you didn't have the money to get more?: Never true Within the past 12 months, did you worry whether your food would run out before you got money to buy more?: Never true Do you have trouble paying for medicines?: No Do you have trouble getting transportation to medical appointments?: No Do you have trouble paying your heating and electricity bill?: No Do you have trouble taking care of your child, family member or friend?: No Do you have trouble with day-to-day activities such as bathing, preparing meals, shopping, managing finances, etc.?: No Are you currently unemployed and looking for a job?: No Are you interested in more education?: No Please select the resources that you would like help with: None Currently or been in a relationship where the following occur: No concerns reported THRIVE Score: 0 AUDIT C Alcohol Use Questionnaire (AUDIT-C) 1. How often do you have a drink containing alcohol?: Never 3. How often do you have six or more drinks on one occasion?: Never Total Score: 0 BENOIT-7 AMB Questionnaire BENOIT-7 Date BENOIT - 7 assessed: 07/20/24 Feeling nervous, anxious, or on edge: 0 = Not at all Not being able to stop or control worryin = Not at all Worrying too much about different things: 0 = Not at all Trouble relaxin = Not at all Being so restless that it is hard to sit still: 0 = Not at all Becoming easily annoyed or irritable: 0 = Not at all Feeling afraid as if something awful might happen: 0 = Not at all Total BENOIT-7 score (0-4 normal; 5-9 mild; 10-14 moderate; 15-21 severe): 0 Source: Developed by Drs. Caleb Fan, Felipa Au, Marcelino Harris and colleagues, with an educational radha from [employer]. Review of Systems Const Denies poor appetite and Denies weakness Eyes Denies no additional complaints ENT Reports Normal hearing present, Denies dizziness, Denies nasal congestion, Denies tinnitus and Denies sore throat Card Denies chest pain, Denies syncope, Denies rapid heart rate and Denies dyspnea Resp Denies cough and Denies dyspnea GI Denies change in stool character, Reports constipation, Denies diarrhea, Denies nausea and Denies vomiting Denies urinary frequency, Denies difficulty voiding and Denies dysuria Neuro Reports Normal hearing present, Denies confusion, Denies dizziness, Denies syncope and Denies weakness Psych Denies confusion Physical exam (Primary Care) Vital Signs: Last Vital Signs Pulse 75 02/11/25 12:30 BP 132/78 02/11/25 12:30 Pulse Ox 98 02/11/25 12:30 Oxygen Delivery Method Room Air 02/11/25 12:30 BMI result Body Mass Index 23.2 Tobacco/Smoking Status: Tobacco use Status Tobacco use date assessed 08/27/24 02/11/25 12:37 Patient Tobacco Use Status Never used Tobacco 02/11/25 12:37 Tobacco use type Cigarette 02/11/25 12:37 e-Cigarette/Vaping Use Never Used 02/11/25 12:37 PHQ-9: PHQ-9 Score PHQ-9: Total score 4 02/11/25 13:54 Depression Screening Interpretation: Positive Thrive Assessment: Date of Thrive Assessment Date Thrive assessed 02/04/25 02/11/25 12:37 Currently or been in a relationship where the following occur: No concerns reported Const General: No confusion Orientation/consciousness: No confusion HENMT Head: Yes normocephalic Ears: external ears normal and TM's normal bilaterally Face and sinus: Yes normal facial exam Mouth: moist mucous membranes Throat: Yes tonsils normal Eyes Conjunctivae: conjunctivae normal Pupils: Equal, round and reactive pupils present and Pupil accommodation reflex normal Direct Ophthalmoscopy: normal light reflex Neck Neck: No lymphadenopathy Thyroid: Thyroid normal Chest Chest palpation & inspection: normal inspection of the chest Resp Effort & Inspection: normal respiratory effort and no audible wheezes Auscultation: clear to auscultation bilaterally, no crackles, no wheezes and lung sounds not diminished Cardio Rate: regular rate Rhythm: regular rhythm Peripheral pulses: radial pulses present and dorsalis pedis present GI Palpation (GI): no masses Auscultation: normal bowel sounds and normoactive bowel sounds Rectal Exam - Female: deferred Skin General skin exam: no rashes or lesions noted Rashes: no rashes Neuro General: No confusion Cranial nerves: Yes Equal, round and reactive pupils present and Yes Normal hearing present Cognition (Neuro): normal cognition Gait exam (Neuro): Normal gait present Motor exam (neuro): 5/5 motor strength present throughout Deep tendon reflexes (DTR's): Right brachioradialis reflex intensity grade: 2+, Left brachioradialis reflex intensity grade: 2+, Right patellar reflex intensity grade: 2+ and Left patellar reflex intensity grade: 2+ Extrem General: No edema Immunizations Tenivac (PF) 5 Lf unit-2 Lf unit/0.5 mL intramuscular syringe Performing Provider: Robby Ferris MD [facility] Administered by: MADELAINE Awad on 02/11/25 14:03 Dose Route Admin Location Dispensed Lot Number Expiration Date NDC Turntable Operator 0.5 mL IM Left Deltoid 0.5 mL [id number] 08/28/26 17896-878-93 [employer] Total Dispensed Waste 0.5 mL 0 % VIS Given Date VIS Provided VIS Publication Date 02/11/25 Single Vaccine 21 Eligibility Eligibility Date Funding Source Not [facility] Eligible 02/11/25 Private Coding Level of Care Code Est Pt Prev Care >65y(98392) Diagnoses Annual physical exam Z00.00 Hypertension I10 Agatston coronary artery calcium score between 100 and 400 R93.1 Hypercholesterolemia E78.00 Palpitations R00.2 Impaired fasting blood sugar R73.01 GERD (gastroesophageal reflux disease) K21.9 Headache R51.9 Candidal intertrigo B37.2 Assessment & Plan Assessment & Plan (1) Annual physical exam: Code(s): Z00.00 - Encounter for general adult medical examination without abnormal findings Category: Medical Plan: Patient is advised to eat healthy, keep well hydrated, keep active and have adequate sleep. (2) Hypertension: Code(s): I10 - Essential (primary) hypertension Category: Medical Plan: Continue with blood pressure medication. Decrease salt intake and exercise patient on losartan 25 mg once a day and placed on propranolol 20 mg twice a day (3) Agatston coronary artery calcium score between 100 and 400: Code(s): R93.1 - Abnormal findings on diagnostic imaging of heart and coronary circulation Category: Medical Plan: Control the cholesterol, weight, blood pressure, patient on aspirin 81 mg once a day (4) Hypercholesterolemia: Code(s): E78.00 - Pure hypercholesterolemia, unspecified Category: Medical Plan: Avoid fried foods, chicken skin, eggs, butter margarine, pastries and meat. Be it pork or beef they have a lot of cholesterol patient is on rosuvastatin 5 mg once a day LDL goal of less than 70 and triglyceride of less than 150 (5) Palpitations: Code(s): R00.2 - Palpitations Category: Medical Plan: Better with propranolol 20 mg twice a day (6) Impaired fasting blood sugar: Code(s): R73.01 - Impaired fasting glucose Category: Medical Plan: Decrease the amount of carbohydrate intake, pasta, bread, rice and potatoes are all sugar and that is aside from all the sweet stuff, remember that fruits are good but they are Sweet also. (7) GERD (gastroesophageal reflux disease): Code(s): K21.9 - Gastro-esophageal reflux disease without esophagitis Category: Medical Plan: Avoid the foods that causes that usually spicy foods, tomato products, juices, coffee, soda and foods that your sensitive to. After eating do not lie down, allow 3-4 hours before in lie down. And keep the head of bed above 30 degrees to avoid the acid from going up. (8) Headache: Comment: ? cervicogenic, ? migraine Code(s): R51.9 - Headache, unspecified Category: Medical Plan: Patient is being seen by Neurology and has been placed on Topamax 25 mg once a day (9) Candidal intertrigo: Code(s): B37.2 - Candidiasis of skin and nail Category: Medical Plan History of Present Illness The patient is a 74-year-old female presenting for a physical exam and management of chronic conditions. She has a history of hypercholesterolemia, with a current LDL level of 73 mg/dL and triglycerides at 235 mg/dL, managed with rosuvastatin 5 mg daily. Her coronary calcium score is 306, and she is on aspirin 81 mg daily for coronary artery disease prevention. The patient has increased glucose tolerance with a fasting blood sugar of 106 mg/dL and a hemoglobin A1c of 5.9%, indicating prediabetes. She is advised to monitor her diet and exercise to prevent progression to diabetes. Hypertension is managed with losartan 25 mg daily and propranolol 20 mg twice daily. Blood pressure control is reported as good, with no recent episodes of dizziness or syncope. The patient reports generalized anxiety disorder, managed with nortriptyline 25 mg at bedtime, which also aids in sleep. She experiences tension-type headaches, previously treated with Topamax, which was discontinued due to side effects. Osteopenia was noted on a bone density scan in March 2023, with follow-up planned for March 2025. Functional dyspepsia is managed with dietary modifications and nortriptyline, with improvement in symptoms reported. The patient has chronic microvascular ischemic changes noted on a brain MRI, with no significant cognitive decline reported. Herpes simplex is managed with valacyclovir as needed. Health Maintenance - Vaccinations: Tetanus shot due and administered during the visit. - Screening: Colonoscopy last done in August 2023, mammogram in March 2024, bone density in March 2023. - Lifestyle: Advised to monitor diet and exercise to manage glucose levels and cholesterol. Social History - Exercise: Patient reports increased physical activity to manage weight. - Diet: Patient is mindful of sugar and carbohydrate intake to manage glucose levels. - Substance Use: Denies alcohol and tobacco use. Review of Systems - Cardiovascular: Denies chest pain, orthopnea, or syncope. - Respiratory: Denies dyspnea or cough. - Neurological: Reports tension-type headaches; denies dizziness or balance issues. - Gastrointestinal: Reports functional dyspepsia; denies nausea or vomiting. - Genitourinary: Denies dysuria or hematuria. - Musculoskeletal: Denies joint pain or swelling. - Dermatological: Reports rash; denies other skin changes. Physical Exam General: Cooperative, healthy appearing, comfortable, no acute distress and well developed Orientation: Patient oriented x3 Limitations: No limitations Head: Normal to inspection Ears: Hearing grossly normal bilaterally Nose: Normal external nose present Face and sinus: Normal facial exam Eyes: Appearance normal, both eyes and all related structures Neck: Normal visual inspection and Yes full ROM Respiratory: Normal respiratory effort and able to speak in complete sentences. Clear to auscultation bilaterally Cardiovascular: Regular rate and rhythm. Normal S1 and S2 GI: Normal to inspection. Soft to palpation and nontender Skin: Rash present, worsening despite treatment Neuro: Patient oriented x3 Extremities: Normal to inspection Results - Labs: Normal blood count, no anemia; elevated fasting blood sugar at 106 mg/dL; hemoglobin A1c at 5.9%; LDL at 73 mg/dL; triglycerides at 235 mg/dL. - Imaging: Brain MRI showed age-appropriate volume loss and chronic microvascular ischemic changes. - Cardiac: Echocardiogram with EF of 60-65%; coronary calcium score of 306. Plan Patient was informed and verbally consented to the use of an ambient scribe for clinic note documentation during this visit. 1. Hypercholesterolemia The patient is currently on rosuvastatin 5 mg daily with an LDL goal of less than 70 mg/dL and triglycerides less than 150 mg/dL. A follow-up cholesterol test is planned in three months to assess the need for medication adjustment. 2. Increased Glucose Tolerance The patient is advised to monitor her diet and exercise to prevent progression to diabetes, with a follow-up blood sugar test in three months. 3. Hypertension Hypertension is managed with losartan 25 mg daily and propranolol 20 mg twice daily, with good blood pressure control reported. 4. Generalized Anxiety Disorder The patient is managed with nortriptyline 25 mg at bedtime, which also aids in sleep. 5. Osteopenia A follow-up bone density scan is planned for March 2025 to monitor osteopenia progression. 6. Functional Dyspepsia The patient is managed with dietary modifications and nortriptyline, with improvement in symptoms reported. 7. Tension-Type Headache The patient was previously on Topamax, which was discontinued due to side effects; nortriptyline is currently used for management. 8. Chronic Microvascular Ischemic Changes The patient is monitored for cognitive decline, with no significant changes reported. 9. Coronary Artery Disease The patient is on aspirin 81 mg daily for coronary artery disease prevention, with a coronary calcium score of 306. 10. Herpes Simplex The patient manages herpes simplex with valacyclovir as needed. Discussion Notes During the visit, we discussed the management of hypercholesterolemia with rosuvastatin and the importance of maintaining LDL levels below 70 mg/dL. We also reviewed the patient's increased glucose tolerance and emphasized the need for dietary and exercise modifications to prevent diabetes progression. The patient was informed about the follow-up blood work scheduled in three months to reassess cholesterol and glucose levels. We addressed the management of hypertension with losartan and propranolol, noting the current good control of blood pressure. The patient was advised on the use of nortriptyline for anxiety and sleep, and the discontinuation of Topamax due to side effects. We discussed the need for a follow-up bone density scan in March 2025 to monitor osteopenia. The patient was advised to continue managing functional dyspepsia with dietary modifications and nortriptyline. We reviewed the patient's coronary artery disease management with aspirin and the significance of the coronary calcium score. Patient Instructions - Continue taking rosuvastatin and aim for LDL levels below 70 mg/dL. - Monitor diet and exercise to manage glucose levels and prevent diabetes. - Take losartan and propranolol as prescribed for blood pressure control. - Use nortriptyline at bedtime for anxiety and sleep. - Schedule a follow-up bone density scan in March 2025. - Manage functional dyspepsia with dietary changes and nortriptyline. - Continue aspirin for coronary artery disease prevention. Orders: Orders Lipid Panel 3 Months E78.00 - Pure hypercholesterolemia, unspecified, R93.1 - Abnormal findings on diagnostic imaging of heart and coronary circulation Hemoglobin A1c 3 Months R93.1 - Abnormal findings on diagnostic imaging of heart and coronary circulation XR DEXA axial skeleton Today M81.0 - Age-related osteoporosis without current pathological fracture, M85.80 - Other specified disorders of bone density and structure, unspecified site Comprehensive Met. Panel 3 Months R93.1 - Abnormal findings on diagnostic imaging of heart and coronary circulation Td Immunization Today Z23 - Encounter for immunization
== END 2025-02-11 13:54 | disposition home or self-care (01) ==
LOC: HO.HMCH 12:20
PROVIDERS: PCP Internal Medicine; Visit Provider Internal Medicine
DX: Z00.00 Encounter for general adult medical examination without abnormal findings (principal); I10 Essential (primary) hypertension; R93.1 Abnormal findings on diagnostic imaging of heart and coronary circulation; E78.00 Pure hypercholesterolemia, unspecified; R00.2 Palpitations; R73.01 Impaired fasting glucose; K21.9 Gastro-esophageal reflux disease without esophagitis; R51.9 Headache, unspecified; B37.2 Candidiasis of skin and nail; Z23 Encounter for immunization

== ENCOUNTER → 2025-02-11 12:18 | Outpatient (BNVA) | payer MEDICARE, SELFPAY | PROVIDERS: PCP Internal Medicine; Visit Provider Internal Medicine | DX: Z00.00 Encounter for general adult medical examination without abnormal findings (principal); I10 Essential (primary) hypertension; R93.1 Abnormal findings on diagnostic imaging of heart and coronary circulation; E78.00 Pure hypercholesterolemia, unspecified; R00.2 Palpitations; R73.01 Impaired fasting glucose; K21.9 Gastro-esophageal reflux disease without esophagitis; G44.209 Tension-type headache, unspecified, not intractable; B37.2 Candidiasis of skin and nail; F41.1 Generalized anxiety disorder; K30 Functional dyspepsia; M85.80 Other specified disorders of bone density and structure, unspecified site; B00.9 Herpesviral infection, unspecified; Z23 Encounter for immunization; Z79.899 Other long term (current) drug therapy | CPT/HCPCS: 90471; 90714; 99397 ==

== ENCOUNTER 2025-05-03 12:41 | Outpatient (REF) | payer MEDICARE, SELFPAY ==
--- NOTE | ~2025-05-03 | MM_ITS ---
EXAMINATION: MM SCREENING DIGITAL BREAST TOMOSYNTHESIS, BILATERAL CLINICAL INFORMATION: Screening. Asymptomatic. COMPARISON: Mammography: Comparison is made with available priors TECHNIQUE: Digital breast mammography with tomosynthesis is performed in both the craniocaudal and mediolateral oblique views along with computer-aided detection (CAD). FINDINGS: There are scattered areas of fibroglandular density. There are no significant masses, abnormal calcifications, or other abnormalities. MM/MM tomosynthesis screening BI IMPRESSION: No mammographic evidence of malignancy. ASSESSMENT: BI-RADS Category 1: Negative RECOMMENDATION: Routine annual mammography screening. 1 year F/U This examination should not preclude the clinical evaluation of a suspicious palpable abnormality. This patient's information was entered into a reminder system with a target due date for their next mammogram. Electronically signed by: Dora Martinez DO 05/07/2025 09:31 AM [facility]
--- NOTE | ~2025-05-03 | MM_ITS ---
EXAMINATION: DXA BONE DENSITY AXIAL HISTORY: M81.0 - Age-related osteoporosis without current pathological fracture TECHNIQUE: [employer]erv Dual energy absorptiometry (DEXA) of the lumbar spine, total left hip, and femoral neck was performed. COMPARISON: Comparison is made with the prior examination dated 04/08/2023. FINDINGS: The bone mineral density of the lumbar spine is 0.954 g/cm2, corresponding to a T-score of -1.8, and a Z-score of 0.1. This is indicative of osteopenia. This represents a BMD change of 1.4% compared to the prior exam. This is not statistically significant. The bone mineral density of the left total hip is 0.867 g/cm2, corresponding to a T-score of -1.1, and a Z-score of 0.7. This is indicative of osteopenia. This represents a BMD change of -6.5% compared to the prior exam. This is statistically significant. The bone mineral density of the left femoral neck is 0.879 g/cm2, corresponding to a T-score of -1.1, and a Z-score of 0.7. This is indicative of osteopenia. This represents a BMD change of 7.5% compared to the prior exam. FRACTURE RISK: The FRAX index suggests a ten year probability of major osteoporotic fracture of 15.0%, and of hip fracture 6.8%. MM/XR DEXA axial skeleton IMPRESSION: Based on bone mineral density, and according to World Health Organization (WHO) criteria, the diagnosis is consistent with osteopenia. Statistically, 68% of repeat scans fall within 1 SD (+/- 0.010 g/cm2 for AP spine L1-L4) and 1 SD (+/- 0.012 g/cm2 for femur total) FRAX is a trademark of the [employer] [place] for Metabolic Bone Disease, a World Health Organization (WHO) Collaborating Center. Electronically signed by: Caleb Salazar MD 05/03/2025 01:31 PM [facility]
== END 2025-05-03 12:42 | disposition home or self-care (01) ==
LOC: HO.MAMMO 12:41
PROVIDERS: PCP Internal Medicine; Visit Provider Internal Medicine
DX: Z12.31 Encounter for screening mammogram for malignant neoplasm of breast (principal); M81.0 Age-related osteoporosis without current pathological fracture; M85.852 Other specified disorders of bone density and structure, left thigh
CPT/HCPCS: 77063; 77067; 77080

== ENCOUNTER → 2025-05-03 13:30 | Outpatient (BNV) | payer MEDICARE, SELFPAY | PROVIDERS: PCP Internal Medicine; Visit Provider Radiology Diagnostic Radiology | DX: E28.39 Other primary ovarian failure (principal) | CPT/HCPCS: 77080 ==

== ENCOUNTER 2025-05-10 07:44 | Outpatient (REF) | payer MEDICARE, SELFPAY ==
--- OUTSIDE RECORDS SUMMARY | 2025-05-10 08:07 | XMS_ITS | Patient Health Record ---
Author Organization [facility] Address [address] [facility] [place] [address] Care Team Providers Care Network Engineering Advisor Name Role Phone Robby Ferris Primary Care Provider Taye Luong Unavailable [phone] Reason For Referral No Information Medications Medication [...] Disorder of joint of ankle and/or foot (612860893) Arthritis - Degenerative (719.97) Active confirmed Problem Hallux valgus (631183922) Hallux Valgus (735.0) Active confirmed Problem Congenital pes planus (80257812) Flat Foot, Congenital (754.61) Active confirmed Problem Gout (92839956) Gout (274.9) Active confirmed Problem Ingrowing nail (959378507) Ingrowing Nail (703.0) Active confirmed Problem Pain in limb (29827267) Pain in Limb (729.5) Active confirmed Plan Of Treatment Pending Test Test Name Order Date *Uric Acid, Serum 11/26/2011 *Sedimentation Rate-Westergren 2 X ray : Foot, right 3V 11/26/2011 99668-[id number] Plate 02/15/2011 18465-Ezqfokxb Plate 08/07/2012 02561-Pbilbyrl Plate Each Additional 03/2013 80085-Dlppamwl Plate Each Additional Insurance Providers Payer Name Payer Address Payer Phone Subscriber Number Group Number Insured Name Patient Relationship to Insured Coverage Start Date Coverage End Date [facility] All Others [address] [place] [address] [id number] Meng Granado Spouse - patient is the spouse of the insured Medical (General) History Medical History History ICD Code Cholesterol Surgical History Surgery Date(Month/Year) cholecystectomy 1976
--- OUTSIDE RECORDS SUMMARY | 2025-05-10 08:07 | XMS_ITS | Patient Health Record ---
Author Organization [facility] Address [address] [place] [address] Care Team Providers Care Parliamentary Librarian Name Role Phone Robby Ferris MD Primary Care Provider Caleb Spicer [phone] Allergies Allergen (clinical drug ingredient) Drug/Non Drug Allergy documented on EMR Reaction Allergy Type Onset Date Status atorvastatin Lipitor Unknown Drug Allergy Acti ve gabapentin Gabapentin Unknown Drug Allergy Activ e Reason For Referral No Information Medications Medication SIG (Take, Route, Frequency, Duration) Notes Start Date End Date Status Rosuvastatin Calcium 5 MG Tablet Oral; Duration: 90 Active Vitamin D3 Active Verapamil HCl ER 120 MG Capsule Extended Release 24 Hour TAKE 1 CAPSULE BY MOUTH DAILY FOR 90 DAYS Oral; Duration: 90 Active Social History Social History Additional Details Category Social Info Options Details Miscellaneous: Marital status: Occupation: retired Section Notes: She does not smoke or use an y significant amounts of alcohol She does not smoke or use an y significant amounts of alcohol She does not smoke or use an y significant amounts of alcohol Problems Problem Type SNOMED Code ICD Code Onset Dates Problem Status W/U Status Risk Notes Problem Colon cancer screening (762652193) Colon cancer screening (Z12.11) Active confirmed Problem Diverticular disease of colon (583429794) Diverticulosis of large intestine without perforation or abscess without bleeding (K57.30) Active confirmed Problem Chronic gastritis (1788847) Gastritis, chronic (K29.50) Active confirmed Problem Generalized abdominal pain (925026711) Generalized abdominal discomfort (R10.84) Active confirmed Plan [...] Start Date Coverage End Date [facility] [address] [place] [address] [id number] SUDEEP MUÑOZ Self - patient is the insured Medical (General) History Medical History History ICD Code Hyperlipidemia She takes Prozac for menopause Denies [place],DM,CVA,Lung disease,renal dise ase Screening Colonoscopy in 07/29 012-negative except for hypeplastic polyps, diverticulosis, and internal hemorrhoids hypertension Surgical History Surgery Date(Month/Year) cholecystectomy
[2025-05-10 10:49] LABS: Alanine Aminotransferase 23 U/L (0-31); Albumin Level 4.3 g/dL (3.5-5.0); Alkaline Phosphatase 88 U/L (39-117); Anion Gap 10 (12-20); Aspartate Amino Transferase 20 U/L (5-31); Blood Urea Nitrogen 13 mg/dL (9-16); Calcium 9.4 mg/dL (8.4-10.2); Carbon Dioxide 29 mmol/L (22-29); Chloride 107 mmol/L (96-108); Cholesterol 130 mg/dL (<200); Estimated Glomerular Filt Rate > 60; HDL Cholesterol 45 mg/dL (>40); Potassium 4.8 mmol/L (3.3-5.1); Sodium 141 mmol/L (135-145); Total Protein 6.7 g/dL (6.5-8.0); Triglycerides 104 mg/dL (<150)
== END 2025-05-10 07:45 | disposition home or self-care (01) ==
LOC: HO.HMGCLDS 07:44
PROVIDERS: PCP Internal Medicine; Visit Provider Internal Medicine
DX: Z13.1 Encounter for screening for diabetes mellitus (principal); R93.1 Abnormal findings on diagnostic imaging of heart and coronary circulation; E78.00 Pure hypercholesterolemia, unspecified
CPT/HCPCS: 36415; 80053; 80061; 83036

== ENCOUNTER 2025-05-20 15:30 | Outpatient (AMB) | payer MEDICARE, SELFPAY ==
[2025-05-20 15:53] VITALS: BP 138/66; PULSE 91; RESP 18; O2SAT 96; BMI 23.9
--- NOTE | 2025-05-20 15:53 | MHC.PC.OV ---
Vital Signs 05/20/25 15:53 Height 5 ft 6 in Weight 148 lb BMI 23.9 BP 138/66 Blood Pressure Location Lt brachial Position Sitting Respiration 18 Pulse 91 Pulse Source Pulse Oximeter Temp Source Temporal Artery Scan Pulse Oximetry (%) 96 Oxygen Delivery Method Room Air Intake Visit Reasons: hypercholesterol Recordings Librarian Required: No Accompanied by: Self / Same As Patient Allergies gabapentin Allergy (Intermediate, Verified 05/20/25 15:54) Muscle Pain atorvastatin (Lipitor) Allergy (Unknown, Verified 05/20/25 15:54) cramps lisinopril Adverse Reaction (Intermediate, Verified 05/20/25 15:54) Dizziness topiramate (From Topamax) Adverse Reaction (Intermediate, Verified 05/20/25 15:54) depressed Medication List - Last Reconciled 05/20/25 by Robby Ferris MD ascorbate calcium (vitamin C) 600 mg PO DAILY aspirin (Adult Aspirin Regimen) 81 mg PO DAILY blood pressure monitor (Blood Pressure Kit) As directed cod liver oil 1 cap PO DAILY famotidine 20 mg PO DAILY ferrous sulfate 134 mg PO DAILY ketoconazole 2% 1 appl topical DAILY loperamide (Imodium A-D) 2 mg PO Q6H PRN losartan 25 mg PO DAILY nortriptyline 25 mg PO BEDTIME 90 days nystatin units PO propranolol 20 mg PO BID [RESTFUL SLEEP valerian elke and magnesium BEE, melatonin] rosuvastatin 5 mg PO DAILY valacyclovir 1,000 mg PO DAILY PRN zinc acetate (Galzin) 50 mg PO DAILY Tobacco use date assessed: 05/20/25 Fall risk assessment: No Falls in past year Last assessed Fall Risk: 05/20/25 Dental Screening Dental Screen Date: 05/20/25 Did you have a dental visit in the last 12 months?: Yes Did you have a dental problem in the last 6 months where you did not have access to dental care?: No Was dental information given to patient?: Patient has dentist HPI hypercholesterol HPI Details BP good at home, cholesterol is better but BS rising.1 week sore throat, achy tired, congestion, sore throat HPI Comments History of Present Illness Details History of Present Illness The patient is a 75-year-old female presenting for a follow-up of her chronic conditions, review of recent test results, and evaluation of an acute upper respiratory infection. The patient reports having a cold since last Tuesday, which evolved into laryngitis with congestion and a cough that is now productive. She experiences pain upon swallowing. The patient has a history of prediabetes with a recent hemoglobin A1c of 6.0%, which has been trending upward from 5.6% in 2022. Her fasting glucose levels have fluctuated between 93 and 106 mg/dL, with a recent random glucose of 105 mg/dL. Her father had diabetes. She has a history of hypercholesterolemia and a calcium score of 306. Her LDL cholesterol has improved to 65 mg/dL from a previous 73 mg/dL. She is managed with rosuvastatin 5 mg and aspirin 81 mg daily. Regarding her bone health, she has a known history of osteopenia, and a bone density scan in April 2025 showed a stable lumbar spine but a 6.5% decrease in the left hip. Previous discussions included calcium and vitamin D supplementation. Other chronic conditions include hypertension, managed with losartan 25 mg daily and propranolol 20 mg twice daily, as well as GERD and uterine fibroids. Her last colonoscopy was in August 2023 and her last mammogram was in April 2025. Health Maintenance - Colon cancer screening: Last colonoscopy was in August 2023. - Breast cancer screening: Last mammogram was in April 2025. - Osteoporosis screening: Last bone density scan in April 2025 revealed stable lumbar spine and a 6.5% decrease in the left hip, consistent with osteopenia. - Cardiovascular disease risk reduction: Patient has a coronary calcium score of 306. - LDL goal is less than 70 mg/dL, with a recent result of 65 mg/dL. - She takes aspirin 81 mg daily for prevention. - Diabetes screening: Hemoglobin A1c is 6.0%, trending upward. - Discussed the importance of diet, including carbohydrate intake, and exercise to manage blood sugar levels. - Immunizations: The role of the flu shot in decreasing illness severity was discussed. Social History - Diet: The patient's diet was discussed in the context of managing her prediabetes, specifically regarding her intake of carbohydrates such as pasta, bread, rice, and potatoes. - She is managing her cholesterol well through her diet. - Exercise: The patient reports that she exercises a lot. - Hydration: Reports drinking between six and eight glasses of water daily. - Sick Contacts: No one else is sick at home. Results - Labs (April): - Random Glucose: 105 mg/dL. - Hemoglobin A1c: 6.0%. - LDL Cholesterol: 65 mg/dL. - Kidney function, electrolytes, and liver numbers were normal. - Imaging and Procedures: - Bone Density Scan (April 2025): Revealed stable lumbar spine and a 6.5% decrease in the left hip, confirming osteopenia. - Coronary Calcium Score: 306. - Colonoscopy: Last performed in August 2023. - Mammogram: Last performed in April 2025. [facility] Medical History Palpitations Colon cancer screening Cervicalgia Hypersomnia Other specified cardiac arrhythmias Pleural effusion Arrhythmia Elevated blood pressure reading Headache LFT elevation Numbness in feet Gout Anemia Osteoporosis Thyroid nodule GERD (gastroesophageal reflux disease) Hypercholesterolemia Surgical History History of endoscopy Hx of colonoscopy History of cholecystectomy Family History Father Diabetes Heart attack Mother Heart attack Asthma Emphysema lung Non-Hodgkin lymphoma CHF (congestive heart failure) Brother Cancer Sister Diabetes Ulcerative colitis Social History Housing: House Alcohol intake: never Patient Tobacco Use Status: Never used Tobacco Tobacco use type: Cigarette e-Cigarette/Vaping Use: Never Used Second Hand Smoke Exposure: No service: No Current occupational status: retired Current occupational exposures/hazards: No Cognitive needs: No Hearing needs: No Vision needs: No Questionnaire Thrive Questionnaire Date Thrive assessed: 05/20/25 I am a: Patient What is your living situation today?: I have a steady place to live Within the past 12 months, did the food you bought not last and you didn't have the money to get more?: Never true Within the past 12 months, did you worry whether your food would run out before you got money to buy more?: Never true Do you have trouble paying for medicines?: No Do you have trouble getting transportation to medical appointments?: No Do you have trouble paying your heating and electricity bill?: No Do you have trouble taking care of your child, family member or friend?: No Do you have trouble with day-to-day activities such as bathing, preparing meals, shopping, managing finances, etc.?: No Are you currently unemployed and looking for a job?: No Are you interested in more education?: No Please select the resources that you would like help with: None Currently or been in a relationship where the following occur: No concerns reported THRIVE Score: 0 BENOIT-7 AMB Questionnaire BENOIT-7 Date BENOIT - 7 assessed: 07/20/24 Source: Developed by Drs. Caleb Fan, Felipa Au, Marcelino Harris and colleagues, with an educational radha from [employer]. Review of Systems Narrative Review of Systems - General: Reports feeling very good apart from her current cold. - She denies fever but reports feeling feverish. - ENT: Reports odynophagia and nasal congestion. - She denies sore throat. - Respiratory: Reports a cough, which started as dry and is now productive. - Voice: Reports laryngitis. Physical exam (Primary Care) Vital Signs: Last Vital Signs Pulse 91 05/20/25 15:53 Resp 18 05/20/25 15:53 BP 138/66 05/20/25 15:53 Pulse Ox 96 05/20/25 15:53 Oxygen Delivery Method Room Air 05/20/25 15:53 BMI result Body Mass Index 23.9 Tobacco/Smoking Status: Tobacco use Status Tobacco use date assessed 05/20/25 05/20/25 15:56 Patient Tobacco Use Status Never used Tobacco 05/20/25 15:56 Tobacco use type Cigarette 05/20/25 15:56 e-Cigarette/Vaping Use Never Used 05/20/25 15:56 Thrive Assessment: Date of Thrive Assessment Date Thrive assessed 05/20/25 05/20/25 15:56 Currently or been in a relationship where the following occur: No concerns reported Narrative Physical Exam - Neck: No tenderness on palpation. - Oropharynx: Visualized. - Lungs: Clear to auscultation bilaterally, with no adventitious sounds noted. Const General: alert; No acute distress Eyes Conjunctivae: conjunctivae normal Resp Auscultation: clear to auscultation bilaterally Cardio Rate: regular rate Rhythm: regular rhythm GI Inspection: Yes normal to inspection Extrem General: Yes normal to inspection and No edema Coding Level of Care Code Est Pt Level 4 (44814) Add On Problem Visit Only Diagnoses Hypertension I10 Agatston coronary artery calcium score between 100 and 400 R93.1 Hypercholesterolemia E78.00 Impaired fasting blood sugar R73.01 Osteopenia M85.80 GERD (gastroesophageal reflux disease) K21.9 Laryngitis J04.0 Assessment & Plan Assessment & Plan (1) Hypertension: Code(s): I10 - Essential (primary) hypertension Category: Medical Plan: Continue with blood pressure medication. Decrease salt intake and exercise on losartan 25 mg once a day propranolol 20 mg twice a day (2) Agatston coronary artery calcium score between 100 and 400: Comment: 306 Code(s): R93.1 - Abnormal findings on diagnostic imaging of heart and coronary circulation Category: Medical Plan: Control the cholesterol, weight, blood pressure on aspirin 81 mg once a day (3) Hypercholesterolemia: Code(s): E78.00 - Pure hypercholesterolemia, unspecified Category: Medical Plan: Avoid fried foods, chicken skin, eggs, butter margarine, pastries and meat. Be it pork or beef they have a lot of cholesterol LDL goal of less than 70 and triglyceride of less than 150 on rosuvastatin 5 mg once a day (4) Impaired fasting blood sugar: Code(s): R73.01 - Impaired fasting glucose Category: Medical Plan: Decrease the amount of carbohydrate intake, pasta, bread, rice and potatoes are all sugar and that is aside from all the sweet stuff, remember that fruits are good but they are Sweet also. (5) Osteopenia: Comment: March 2023 Code(s): M85.80 - Other specified disorders of bone density and structure, unspecified site Category: Medical Plan: Discussed about calcium and vitamin-D and other options for strength in the bone (6) GERD (gastroesophageal reflux disease): Code(s): K21.9 - Gastro-esophageal reflux disease without esophagitis Category: Medical Plan: Avoid the foods that causes that usually spicy foods, tomato products, juices, coffee, soda and foods that your sensitive to. After eating do not lie down, allow 3-4 hours before in lie down. And keep the head of bed above 30 degrees to avoid the acid from going up. (7) Laryngitis: Code(s): J04.0 - Acute laryngitis Category: Medical Plan Plan Patient was informed and verbally consented to the use of an ambient scribe for clinic note documentation during this visit. 1. Acute Viral Laryngitis The patient's current symptoms of cough, congestion, and laryngitis are consistent with a viral upper respiratory infection that has been present for about one week. The plan is for symptomatic management, including increased fluid intake and consideration of gdnb-vqt-pbtxvrb medications such as Delsym for cough, Mucinex for phlegm, and Tylenol if she feels feverish. Tessalon Perles were prescribed to help suppress the cough. The patient was advised that the illness is contagious and she should wear a mask around others. 2. Prediabetes The patient has prediabetes, with a concerning upward trend in her hemoglobin A1c, now at 6.0%. Emphasis was placed on lifestyle management, particularly balancing carbohydrate intake with physical activity. No pharmacologic treatment is indicated at this time. A follow-up with fasting blood work, including a hemoglobin A1c, is scheduled for six months to monitor her status. 3. Osteopenia The patient has known osteopenia, which was confirmed on her recent bone density scan. Although her lumbar spine is stable, there has been a decrease in her left hip density. The plan is to continue encouraging calcium and vitamin D intake. 4. Hypercholesterolemia The patient's hypercholesterolemia is well-controlled, with her LDL cholesterol at 65 mg/dL, which is below the goal of 70 mg/dL. Given her coronary calcium score of 306, she will continue taking rosuvastatin 5 mg daily and aspirin 81 mg daily for cardiovascular risk reduction. 5. Hypertension Her hypertension is stable and well-controlled on her current medication regimen. She will continue taking losartan 25 mg once a day and propranolol 20 mg twice a day. 6. Gastroesophageal Reflux Disease (Gerd) The patient has a history of GERD; her management plan for this condition was not altered during this visit. Discussion Notes I explained to the patient that her current cold symptoms, including cough and laryngitis, are viral in nature and do not require antibiotics. I prescribed Tessalon Perles to help with her cough so she can rest. We reviewed her recent bone density scan, and I clarified that while her lumbar spine is stable, her left hip density has decreased, though the femoral neck, a common fracture site, remains stable. I also reviewed her lab results, praising her for the improvement in her cholesterol with an LDL of 65 mg/dL. I expressed concern about the upward trend of her hemoglobin A1c to 6.0%, which indicates worsening prediabetes, and we discussed the need to balance carbohydrate intake with exercise. We agreed to recheck her blood work in six months, and I instructed her that it needs to be a fasting sample. Patient Instructions - For your cough, I have prescribed Tessalon Perles. Take as directed to help you rest. - Drink plenty of fluids, aiming for 6-8 glasses of water per day, to stay hydrated. - You can use ilfy-poh-yhoxeiz products like Delsym (for cough), Mucinex (to thin phlegm), and Tylenol (if you feel feverish) for symptom relief. - Home remedies such as gargling with warm salt water or drinking warm water with dinorah may provide some comfort. - Your illness is viral and contagious. Please wear a mask when you are around other people to prevent spreading it. - Continue taking your current medications for blood pressure, cholesterol, and heart health as prescribed. - Be mindful of your diet, especially foods high in carbohydrates like bread, pasta, and rice, to help manage your blood sugar. - You will need to have fasting blood work done in six months to recheck your blood sugar and A1c levels. Orders: Orders Complete Blood Count Auto Diff 6 Weeks R73.01 - Impaired fasting glucose Comprehensive Met. Panel 6 Weeks R73.01 - Impaired fasting glucose Free T4 (Free Thyroxine) 6 Weeks R73.01 - Impaired fasting glucose Thyroid Stimulating Hormone 6 Weeks R73.01 - Impaired fasting glucose Lipid Panel 6 Weeks E78.00 - Pure hypercholesterolemia, unspecified, R73.01 - Impaired fasting glucose Hemoglobin A1c 6 Weeks R73.01 - Impaired fasting glucose Vitamin B12 and Folate 6 Weeks R73.01 - Impaired fasting glucose UA CC w/rflx Micro + Cult 6 Weeks R30.0 - Dysuria, R73.01 - Impaired fasting glucose Medications: New benzonatate 200 mg PO BID-TID PRN 30 caps 0RF cough J04.0 - Acute laryngitis
--- OUTSIDE RECORDS SUMMARY | 2025-05-20 18:31 | XMS_ITS | Patient Health Record ---
Author Organization [facility] Address [address] [place] [address] Care Team Providers Care Switch Operators Supervisor Name Role Phone Robby Ferris MD Primary Care Provider Caleb Spicer [phone] Allergies Allergen (clinical drug ingredient) Drug/Non Drug [...] Status Risk Notes Problem Colon cancer screening (772442312) Colon cancer screening (Z12.11) Active confirmed Problem Diverticular disease of colon (321848559) Diverticulosis of large intestine without perforation or abscess without bleeding (K57.30) Active confirmed Problem Chronic gastritis (8535154) Gastritis, chronic (K29.50) Active confirmed Problem Generalized abdominal pain (231980151) Generalized abdominal discomfort (R10.84) Active confirmed Plan [...] Insured Coverage Start Date Coverage End Date [facility] [address] [place] [address] [id number] SUDEEP MUÑOZ Self - patient is the insured Medical (General) History Medical History History ICD Code Hyperlipidemia She takes Prozac for menopause Denies [place],DM,CVA,Lung disease,renal dise ase Screening Colonoscopy in 07/29 012-negative except for hypeplastic polyps, diverticulosis, and internal hemorrhoids hypertension Surgical History Surgery Date(Month/Year) cholecystectomy
--- OUTSIDE RECORDS SUMMARY | 2025-05-20 18:31 | XMS_ITS | Patient Health Record ---
Author Organization [facility] Address [address] [facility] [place] [address] Care Team Providers Care Special Event Assistant Name Role Phone Robby Ferris Primary Care Provider Taye Luong Unavailable [phone] Reason For Referral No Information Medications Medication [...] Disorder of joint of ankle and/or foot (817114193) Arthritis - Degenerative (719.97) Active confirmed Problem Hallux valgus (484344764) Hallux Valgus (735.0) Active confirmed Problem Congenital pes planus (08442006) Flat Foot, Congenital (754.61) Active confirmed Problem Gout (79813951) Gout (274.9) Active confirmed Problem Ingrowing nail (386317220) Ingrowing Nail (703.0) Active confirmed Problem Pain in limb (62629786) Pain in Limb (729.5) Active confirmed Plan Of Treatment Pending Test Test Name Order Date *Uric Acid, Serum 11/26/2011 *Sedimentation Rate-Westergren 2 X ray : Foot, right 3V 11/26/2011 [id number] Plate 02/15/2011 50309-Bvmvcwvi Plate 08/07/2012 54222-Lfvmvjvq Plate Each Additional 03/2013 52570-Uewnchcq Plate Each Additional Insurance Providers Payer Name Payer Address Payer Phone Subscriber Number Group Number Insured Name Patient Relationship to Insured Coverage Start Date Coverage End Date [facility] All Others [address] [place] [address] [id number] Meng Granado Spouse - patient is the spouse of the insured Medical (General) History Medical History History ICD Code Cholesterol Surgical History Surgery Date(Month/Year) cholecystectomy 1976
== END 2025-05-20 16:19 | disposition home or self-care (01) ==
LOC: HO.HMCH 15:31
PROVIDERS: PCP Internal Medicine; Visit Provider Internal Medicine
DX: I10 Essential (primary) hypertension (principal); R93.1 Abnormal findings on diagnostic imaging of heart and coronary circulation; E78.00 Pure hypercholesterolemia, unspecified; R73.01 Impaired fasting glucose; M85.80 Other specified disorders of bone density and structure, unspecified site; K21.9 Gastro-esophageal reflux disease without esophagitis; J04.0 Acute laryngitis

== ENCOUNTER → 2025-05-20 15:30 | Outpatient (BNVA) | payer MEDICARE, SELFPAY | PROVIDERS: PCP Internal Medicine; Visit Provider Internal Medicine | DX: I10 Essential (primary) hypertension (principal); R93.1 Abnormal findings on diagnostic imaging of heart and coronary circulation; E78.00 Pure hypercholesterolemia, unspecified; R73.01 Impaired fasting glucose; M85.80 Other specified disorders of bone density and structure, unspecified site; K21.9 Gastro-esophageal reflux disease without esophagitis; J04.0 Acute laryngitis | CPT/HCPCS: 99212 ==

== ENCOUNTER 2025-05-22 13:29 | Outpatient (AMB) | payer MEDICARE, SELFPAY ==
--- OUTSIDE RECORDS SUMMARY | 2025-05-22 13:32 | XMS_ITS | Patient Health Record ---
Author Organization [facility] Address [address] [facility] [place] [address] Care Team Providers Care Food Safety Auditor Name Role Phone Robby Ferris Primary Care Provider Taye Luong Unavailable [phone] Reason For Referral No Information Medications Medication [...] Disorder of joint of ankle and/or foot (661559766) Arthritis - Degenerative (719.97) Active confirmed Problem Hallux valgus (334897180) Hallux Valgus (735.0) Active confirmed Problem Congenital pes planus (73598204) Flat Foot, Congenital (754.61) Active confirmed Problem Gout (58429774) Gout (274.9) Active confirmed Problem Ingrowing nail (512481332) Ingrowing Nail (703.0) Active confirmed Problem Pain in limb (04318487) Pain in Limb (729.5) Active confirmed Plan Of Treatment Pending Test Test Name Order Date *Uric Acid, Serum 11/26/2011 *Sedimentation Rate-Westergren 2 X ray : Foot, right 3V 11/26/2011 23674-Vbqefwtz Plate 02/15/2011 26909-Gwwgmfxm Plate 08/07/2012 16299-Aygnpjrt Plate Each Additional 03/2013 64333-Atzavtns Plate Each Additional Insurance Providers Payer Name Payer Address Payer Phone Subscriber Number Group Number Insured Name Patient Relationship to Insured Coverage Start Date Coverage End Date [facility] All Others [address] [place] [address] [id number] Meng Granado Spouse - patient is the spouse of the insured Medical (General) History Medical History History ICD Code Cholesterol Surgical History Surgery Date(Month/Year) cholecystectomy 1976
--- OUTSIDE RECORDS SUMMARY | 2025-05-22 13:32 | XMS_ITS | Patient Health Record ---
Author Organization [facility] Address [address] [place] [id number] Care Team Providers Care Grinding Machine Operator Automatic Name Role Phone Robby Ferris MD Primary Care Provider Caleb Spicer [phone] Allergies Allergen (clinical drug ingredient) Drug/Non Drug [...] Status Risk Notes Problem Colon cancer screening (993352458) Colon cancer screening (Z12.11) Active confirmed Problem Diverticular disease of colon (018310997) Diverticulosis of large intestine without perforation or abscess without bleeding (K57.30) Active confirmed Problem Chronic gastritis (6222308) Gastritis, chronic (K29.50) Active confirmed Problem Generalized abdominal pain (979237728) Generalized abdominal discomfort (R10.84) Active confirmed Plan [...] Insured Coverage Start Date Coverage End Date [facility] [id number] [place] [address] [id number] SUDEEP MUÑOZ Self - patient is the insured Medical (General) History Medical History History ICD Code Hyperlipidemia She takes Prozac for menopause Denies MT,DM,CVA,Lung disease,renal dise ase Screening Colonoscopy in 07/29 012-negative except for hypeplastic polyps, diverticulosis, and internal hemorrhoids hypertension Surgical History Surgery Date(Month/Year) cholecystectomy
--- NOTE | 2025-05-22 13:50 | A.OFFVIS_ITS ---
Vital Signs 05/22/25 13:54 Height 5 ft 6 in Weight 148 lb BMI 23.9 BP 128/64 Blood Pressure Location Lt brachial Position Sitting Pulse 80 Pulse Source Pulse Oximeter Pulse Oximetry (%) 96 Oxygen Delivery Method Room Air Intake Visit Reasons: f/u abdominal bloating Intake Note: Est pt for mgmt of chronic abd bloating and GERD. CC; C/O GERD + gas/bloating despite current therapies. No additional sx at this time. She does wish to discuss when her next EGD and colonoscopy are as well as if there is a way to have the Upper GI series done sooner. 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 Reports almost 2 years ago developed abd pain with cramping. Was seen by integrative health specialist who diagnosed her with yeast infection in the gut and was given a combination of supplements for 90 days. Then was seen at [facility] and was told to take anti-protozoal meds for a few months. However, sx are still persistent. Describes the pain is present every day. Starts shortly after waking up. Not related to food, movement, or bowel movement. Of note - chronic diarrhea noted on problem list but pt does not report this. Similarly EoE listed on problem list but unable to find path results congruent to this. EGD/colo 2023: 1. Small hiatal hernia, gastroesophageal reflux. 2. Mild gastritis. 3. Rule out celiac disease. 4. Melanosis coli. 5. Colon polyp. 6. Rule out microscopic colitis. 7. Diverticulosis. 8. Internal hemorrhoids. Path: A. Duodenum, descending, biopsy: Duodenal mucosa with preserved villi and no specific change; no evidence of celiac disease. B. Gastric antrum, biopsy: Reactive gastropathy with focal minimal chronic inactive inflammation; negative for H pylori, intestinal metaplasia and dysplasia, and fragment of duodenal mucosa (likely contaminant). C. Esophagogastric junction, at 38 cm, biopsy: Squamous mucosa with hyperplasia and focal intraepithelial eosinophils (up to 4 per high field with field) consistent with esophagitis, and columnar mucosa with mild chronic inflammation, hyperplastic changes, and rare goblet cells that are not seen on the AB/ PAS stain; negative for dysplasia (see comment). D. Colon, ascending, biopsy: Colonic mucosa with many pigmented lamina propria macrophages consistent with melanosis coli; no evidence of microscopic colitis. E. Colon, ascending, polyp: Consistent with hyperplastic polyp (see comment). Comment: (D): The findings raise the possibility of a developing intestinal metaplasia and clinical follow-up is warranted. (E): A sessile serrated lesion without dysplasia can not be ruled out in any residual lesion and follow-up is warranted. 12/24/24: Here for follow-up. Reports good response to nortriptyline 20 mg, started noticing decrease in abdominal cramping and bloating within 2 weeks of this dose. In addition, has also been helpful for her migraines. Labs negative for mast cell, angioedema. Gastric emptying study normal. Otherwise, no other concerns at this time. 05/22/25: here for follow up. Had been communicating through the protal about heartburn and bloating. Started famotidine 05/17 which has been helpful so far. Already booked for [facility] for august. Will hold off repeat EGD for now and monitor response with H2 mak. Also favor increasing TCA dose. Pt currently on nortriptyline 25. Of note - colo 2023 with ascending colon polyps measuring 8-10 mmwhich were likely SSL. Needs repeat colo august 2026. PFSH Medical History Palpitations Colon cancer screening Cervicalgia Hypersomnia Other specified cardiac arrhythmias Pleural effusion Arrhythmia Elevated blood pressure reading Headache LFT elevation Numbness in feet Gout Anemia Osteoporosis Thyroid nodule GERD (gastroesophageal reflux disease) Hypercholesterolemia Surgical History History of endoscopy Hx of colonoscopy History of cholecystectomy Family History Father Diabetes Heart attack Mother Heart attack Asthma Emphysema lung Non-Hodgkin lymphoma CHF (congestive heart failure) Brother Cancer Sister Diabetes Ulcerative colitis Social History Housing: House Alcohol intake: never Patient Tobacco Use Status: Never used Tobacco Tobacco use type: Cigarette e-Cigarette/Vaping Use: Never Used Second Hand Smoke Exposure: No service: No Current occupational status: retired Current occupational exposures/hazards: No Cognitive needs: No Hearing needs: No Vision needs: No Review of Systems Const All systems reviewed & are unremarkable except as noted in HPI and below Physical Exam Exam Exam: No apparent distress Nonicteric Abdomen soft, mildly distended Alert and oriented x3, normal gait Vital Signs: Last Vital Signs Pulse 80 05/22/25 13:54 BP 128/64 05/22/25 13:54 Pulse Ox 96 05/22/25 13:54 Oxygen Delivery Method Room Air 05/22/25 13:54 BMI result Body Mass Index 23.9 Assessment & Plan Assessment & Plan (1) Abdominal pain: Code(s): R10.9 - Unspecified abdominal pain Category: Medical (2) Abdominal bloating: Code(s): R14.0 - Abdominal distension (gaseous) Category: Medical (3) GERD (gastroesophageal reflux disease): Code(s): K21.9 - Gastro-esophageal reflux disease without esophagitis Category: Medical (4) Functional dyspepsia: Code(s): K30 - Functional dyspepsia Plan Has had good response to the therapeutic trial of nortriptyline, 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 Delayed gastric emptying, abd migraine, gut angioedema, MCAS, exlcuded based on w/up so far. Other common causes such as PUD, celiac, IBD, EGIDs, chronic panc r.o based on blood work, MRI and bidirectional scope. Recent sx of heartburn and bloating likely 2/2 known reflux disease. Good response to H2 mak so far. Avoiding PPI due to known osteopenia. Also discussed increasing nortriptyline dose. Given reported sensitivity to medications, would favor increasing from 25 to 35 instead of 25 to 50 mg. Plan: - Increase nortryptiline to 35 mg at night time. Pt already on 25 mg, added 10 mg prescription. - Cont famotidine 20 daily - [facility] for august but can cancel appt if has complete resolution of sx with above. - Follow up 3 months to review Medications: New nortriptyline Add to 25 mg dosing for a total of 35 mg at night. 10 mg PO BEDTIME 90 caps 0RF 90 days Patient Instructions: - Please cont famotidine - If you symptoms resolve in a month, can cancel the upper GI series - We are also increasing the dose of nortryptiline. Take both 25 mg and 10 mg capsules at night time for a total dose of nortryptiline 35 mg. Coding Level of Care Code Est Pt Level 4 (72957) Diagnoses Abdominal pain R10.9 Abdominal bloating R14.0 GERD (gastroesophageal reflux disease) K21.9 Functional dyspepsia K30
[2025-05-22 13:54] VITALS: BP 128/64; PULSE 80; O2SAT 96; BMI 23.9
== END 2025-05-22 14:09 | disposition home or self-care (01) ==
LOC: HO.HGI 13:29
PROVIDERS: PCP Internal Medicine; Visit Provider Internal Medicine
DX: R10.9 Unspecified abdominal pain (principal); R14.0 Abdominal distension (gaseous); K21.9 Gastro-esophageal reflux disease without esophagitis; K30 Functional dyspepsia
CPT/HCPCS: 99214

== ENCOUNTER → 2025-05-22 13:29 | Outpatient (BNVA) | payer MEDICARE, SELFPAY | PROVIDERS: PCP Internal Medicine; Visit Provider Internal Medicine | DX: K21.9 Gastro-esophageal reflux disease without esophagitis (principal); K30 Functional dyspepsia; R14.0 Abdominal distension (gaseous); G89.29 Other chronic pain; R10.9 Unspecified abdominal pain; Z79.899 Other long term (current) drug therapy | CPT/HCPCS: 99212 ==